=== PATIENT | female | born 1955 | race African-American/Black ===

== ENCOUNTER 2016-12-21 13:17 | Emergency (ER) | payer OTHER ==
[2016-12-21 13:47] VITALS: BMI 36.0
--- NOTE | 2016-12-21 13:50 | PDOC ---
History of Present Illness - General Chief Complaint: Cold Symptoms Stated Complaint: DIFFICULTY BREATHING Time Seen by Provider: 12/21/16 14:30 History Source: Patient Exam Limitations: No Limitations - History of Present Illness Initial Comments: 12/21/16 15:17 61 year old female with PMH of appendiceal mucinous tumor, HTN, HIV (CD4 677, VL undetectable 11/05/16), IVDU (on methadone), and COPD presenting with 3 day history of upper respiratory symptoms with productive cough, myalgias, headache , and general lethargy. She endorses a 3 day history of these viral upper respiratory symptoms without sick contacts or recent health care setting contacts. 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 No notes of the diagnosis exist but there are mentions of it in the notes. She denies diarrhea, nausea, vomiting, chest pain, or palpitations. 12/21/16 17:07 12/21/16 18:16 Past History - Past Medical History Allergies/Adverse Reactions: Allergies Allergy/AdvReac Type Severity Reaction Status Date / Time banana AdvReac Verified 12/21/16 13:59 Home Medications: Ambulatory Orders Albuterol Sulfate Inhaler - [Ventolin Hfa Inhaler -] 2 inh PO Q4H 12/21/16 Cholecalciferol (Vitamin D3) [Vitamin D3 -] 1,000 unit PO DAILY 12/21/16 Citalopram Hydrobromide [Celexa -] 40 mg PO DAILY 12/21/16 Clotrimazole [Lotrimin AF] 24 gm TP DAILY 12/21/16 Diphenhydramine HCl [Benadryl -] 25 mg PO ONCE 12/21/16 Docusate Sodium [Colace -] 100 mg PO BID 12/21/16 Dolutegravir Sodium [Tivicay] 50 mg PO DAILY 12/21/16 Emtricitabine/Tenofovir (Tdf) [Truvada 200 mg-300 mg Tablet] 1 each PO DAILY 09/04 Folic Acid 1 mg PO DAILY 12/21/16 Levofloxacin [Levaquin -] 500 mg PO DAILY #14 tablet 12/21/16 Meloxicam 7.5 mg PO DAILY 12/21/16 Naproxen Sodium [Aleve] 220 mg PO BID 12/21/16 Prednisone [Prednisone 50 MG TABLETS] 50 mg PO DAILY #4 tablet 12/21/16 Pregabalin [Lyrica -] 50 mg PO BID 12/21/16 Vitamin B Complex [B Complete] 1 tab PO DAILY 12/21/16 Anemia: Yes Asthma: Yes Cancer: Yes (appendiceal ) Cardiac Disorders: Yes (hx endocarditis) CVA: No COPD: Yes (pulmonary htn) CHF: No Dementia: No Diabetes: No GI Disorders: No Disorders: No HTN: Yes Hypercholesterolemia: No HIV: Yes Liver Disease: Yes (possible cirrhosis (hx elevated ammonia)) Psychiatric Problems: Yes (DEPRESSION, SI.) Suicide Attempt (Hx): No Seizures: No Thyroid Disease: No - Surgical History Abdominal Surgery: Yes (MULTIPLE ABORTIONS.) Appendectomy: No Cardiac Surgery: No Cholecystectomy: No Lung Surgery: No Neurologic Surgery: No Orthopedic Surgery: No - Immunization History Immunization Up to Date: Yes - Psycho/Social/Smoking Cessation Hx Anxiety: No Suicidal Ideation: No Smoking Status: Yes Smoking History: Current some day smoker Years of Tobacco Use: 40 Have you smoked in the past 12 months: No Number of Cigarettes Smoked Daily: 2,002 If you are a former smoker, when did you quit?: 4 YRS Cigars Per Day: 1 'Breaking Loose' booklet given: 05/24/13 Hx Alcohol Use: Yes Drug/Substance Use Hx: Yes Substance Use Type: Alcohol, Cocaine, Heroin Hx Substance Use Treatment: Yes (MMTP) Review of Systems - Review of Systems Constitutional: Yes: See HPI HEENTM: Yes: See HPI Respiratory: Yes: See HPI Cardiac (ROS): Yes: See HPI ABD/GI: Yes: See HPI : Yes: See HPI Musculoskeletal: Yes: See HPI Integumentary: Yes: See HPI Neurological: Yes: See HPI Endocrine: Yes: See HPI Hematologic/Lymphatic: Yes: See HPI *Physical Exam - Physical Exam General Appearance: Yes: Obese, Other (In no acute distress but somnolent yet arrousable.) HEENT: positive: EOMI, Normal ENT Inspection, Other (Pupils equal and round but contricted and minimally reactive to light. Drooling ocassionally.). negative: Photophobia Neck: positive: Normal Thyroid, Supple. negative: Rigid Respiratory/Chest: positive: Lungs Clear, Normal Breath Sounds, Decreased Breath Sounds, Other (Poor breathing effort). negative: Chest Tender, Respiratory Distress, Accessory Muscle Use Cardiovascular: positive: Regular Rhythm, Regular Rate. negative: Edema, JVD, Murmur Gastrointestinal/Abdominal: positive: Normal Bowel Sounds, Flat, Soft. negative : Tender, Organomegaly Extremity: positive: Normal Capillary Refill, Normal Inspection. negative: Pedal Edema, Swelling Neurologic: positive: Alert, Normal Mood/Affect, Other (Somnolent but arrousable. Generally lethargic which all changed after naloxone administration. ) ED Treatment Course - LABORATORY CBC & Chemistry Diagram: 12/21/16 15:10 12/21/16 15:10 Medical Decision Making - Critical Care Time Total Critical Care Time (minutes): 30 Critical Care Statement: The care of this patient involved high complexity decision making to prevent further life threatening deterioration of the patient 's condition and/or to evalute & treat vital organ system(s) failure or risk of failure. - Medical Decision Making 12/21/16 18:21 Patient was admitted for fever and general ill appearance while somnolent. Labs were drawn and they were relatively WNL. CXR did not show concern for infection. Patient was still somnolent and drooling so there was concern for airway compromise. It was known that patient recently received her Methadone and it was reduced in the past for similar somnolent episodes. The decision was made to give her narcan 0.1 mg with very robust response and agitation. The patient admitted a strong desire to go home and her clinical picture was attributed COPD exacerbation given she was afebrile without a white blood cell count. She was given one dose of prednisone 40 here with an outpatient prescription written to complete x4 more days as well as levofloxacin x 14 days. 12/21/16 18:33 *DC/Admit/Observation/Transfer Diagnosis at time of Disposition: COPD Acute exacerbation of chronic obstructive airways disease - Discharge Dispostion Disposition: HOME Condition at time of disposition: Improved Admit: No - Prescriptions Prescriptions: Levofloxacin [Levaquin -] 500 mg PO DAILY #14 tablet Prednisone [Prednisone 50 MG TABLETS] 50 mg PO DAILY #4 tablet
[2016-12-21 14:02] VITALS: TEMP 100.6
[2016-12-21] MEDS ORDERED: ALBUTEROL SO4 2.5/IPRATROPIUM 0.5 INH SOL 3 ML VIAL.NEB. NEB ONE (14:55)
[2016-12-21] MEDS: ALBUTEROL SO4 2.5/IPRATROPIUM 0.5 INH SOL 3 ML VIAL.NEB. NEB SCH ×4 (14:59→15:53)
[2016-12-21 15:26] LABS: BASOPHIL 0.4 % (0-2.0); EOSINOPHIL 0.6 % (0-4.5); MCH 34.9 pg (25.7-33.7); MCHC 32.9 g/dl (32.0-36.0); MEAN CELL VOLUME 105.8 fl (80-96); NEUTROPHILS 74.4 % (42.8-82.8); PLATELET COUNT 120 K/MM3 (134-434); RDW 13.5 % (11.6-15.6)
[2016-12-21] MEDS ORDERED: NALOXONE HCL 0.4 MG/ML VIAL IVPUSH ONE (15:38)
[2016-12-21 15:44] LABS: ALBUMIN 3.3 g/dl (3.4-5.0); ANION GAP 5 (8-16); CALCIUM 8.7 mg/dL (8.5-10.1); CO2 38 mmol/L (21-32); CREATININE 0.6 mg/dL (0.55-1.02); GLUCOSE,RANDOM 94 mg/dL (74-106); SGPT/ALT 13 U/L (12-78)
[2016-12-21 15:46] LABS: ALK PHOS 100 U/L (45-117); BILIRUBIN,TOTAL 1.6 mg/dL (0.2-1.0); TOT PROT 6.4 g/dl (6.4-8.2)
[2016-12-21 15:48] LABS: SGOT/AST 20 U/L (15-37)
[2016-12-21] MEDS ORDERED: NALOXONE HCL 0.4 MG/ML VIAL ONE (16:06)
[2016-12-21] MEDS ORDERED: predniSONE 20 MG TABLET (UD) PO ONE (16:51)
[2016-12-21] MEDS ORDERED: AZITHROMYCIN 250 MG TABLET (FP) PO ONE (16:51)
[2016-12-21] MEDS ORDERED: predniSONE 20 MG TABLET (UD) ONE (17:22)
[2016-12-21] MEDS ORDERED: AZITHROMYCIN 250 MG TABLET (FP) ONE (17:23)
[2016-12-21 17:26] VITALS: BP 109/71; PULSE 83
[2016-12-21 18:07] LABS: PLATELET ESTIMATE SLT DECREASED (NORMAL); POIKILOCYTOSIS 1+; POLYCHROMASIA 1+; TEAR DROP CELLS 1+
--- NOTE | 2016-12-30 14:29 | EKG ---
Test Reason : Blood Pressure : / mmHG Vent. Rate : 093 BPM Atrial Rate : 093 BPM P-R Int : 168 ms QRS Dur : 098 ms QT Int : 396 ms P-R-T Axes : 067 061 061 degrees QTc Int : 492 ms NORMAL SINUS RHYTHM PROLONGED QT ABNORMAL ECG WHEN COMPARED WITH ECG OF 12-AUG-2016 09:29, NO SIGNIFICANT CHANGE WAS FOUND Confirmed by JOSELITO MORALES MD ([id number]) on 12/30/2016 2:29:13 PM Referred By: Confirmed By:JOSELITO MORALES MD
== END 2016-12-21 17:49 | disposition home or self-care (01) ==
LOC: JER 13:17
PROC: 3E0F7GC Introduction of Other Therapeutic Substance into Respiratory Tract, Via Natural or Artificial Opening (ICD-10-PCS; principal; 2016-12-21)
PROC: 3E033GC Introduction of Other Therapeutic Substance into Peripheral Vein, Percutaneous Approach (ICD-10-PCS; 2016-12-21)
DX: J44.1 Chronic obstructive pulmonary disease with (acute) exacerbation (principal); I10 Essential (primary) hypertension; F11.20 Opioid dependence, uncomplicated; Z21 Asymptomatic human immunodeficiency virus [HIV] infection status; F32.9 Major depressive disorder, single episode, unspecified; D64.9 Anemia, unspecified; F17.210 Nicotine dependence, cigarettes, uncomplicated
CPT/HCPCS: 36415; 71010-TC; 80053; 83605; 85025; 87040; 93005; 93010; 94640; 96374; 99284-25; G0463-25

== ENCOUNTER 2017-01-23 08:29 | Emergency (ER) | payer OTHER ==
[2017-01-23 08:52] VITALS: TEMP 98.7; BMI 30.1
[2017-01-23] MEDS ORDERED: IBUPROFEN 400 MG TABLET (FP) PO ONE ×2 (09:19→09:26)
[2017-01-23] MEDS ORDERED: CYCLOBENZAPRINE HCL 10 MG TABLET (FP) PO ONE (09:20)
[2017-01-23] MEDS ORDERED: CYCLOBENZAPRINE HCL 10 MG TABLET (FP) ONE (09:26)
--- NOTE | 2017-01-23 09:29 | PDOC ---
History of Present Illness - General Chief Complaint: Injury Stated Complaint: FALL Time Seen by Provider: 01/23/17 09:15 History Source: Patient - History of Present Illness Occurred: reports: yesterday Severity: reports: moderate Pain Location: reports: lower extremity Past History - Past Medical History Allergies/Adverse Reactions: Allergies Allergy/AdvReac Type Severity Reaction Status Date / Time banana AdvReac Verified 01/23/17 08:45 Home Medications: Ambulatory Orders Cholecalciferol (Vitamin D3) [Vitamin D3 -] 1,000 unit PO DAILY 12/21/16 Clotrimazole [Lotrimin AF] 24 gm TP DAILY 12/21/16 Diphenhydramine HCl [Benadryl -] 25 mg PO ONCE 12/21/16 Levofloxacin [Levaquin -] 500 mg PO DAILY #14 tablet 12/21/16 Meloxicam 7.5 mg PO DAILY 12/21/16 Naproxen Sodium [Aleve] 220 mg PO BID 12/21/16 Prednisone [Prednisone 50 MG TABLETS] 50 mg PO DAILY #4 tablet 12/21/16 Vitamin B Complex [B Complete] 1 tab PO DAILY 12/21/16 Docusate Sodium [Colace -] 100 mg PO BID #60 cap 12/24/16 Dolutegravir Sodium [Tivicay] 50 mg PO DAILY #30 tab 12/24/16 Emtricitabine/Tenofovir (Tdf) [Truvada 200 mg-300 mg Tablet] 1 each PO DAILY # 30 tab 12/24/16 Pregabalin [Lyrica -] 50 mg PO BID #60 cap MDD 2 01/01/17 Albuterol Sulfate Inhaler - [Ventolin Hfa Inhaler -] 2 inh PO Q4H PRN #1 inhaler 01/07/17 Folic Acid 1 mg PO DAILY #30 tab 01/07/17 Nicotine Patch [Nicoderm Patch -] 1 patch TD DAILY #30 patch 01/07/17 Citalopram Hydrobromide [Celexa -] 40 mg PO DAILY #30 tablet 01/13/17 Lorazepam 0.5 mg PO HS PRN #30 tablet MDD 1 01/13/17 Pregabalin [Lyrica -] 75 mg PO BID #60 capsule MDD 2 01/20/17 Acetaminophen [Tylenol] 650 mg PO Q6H #30 tablet 01/23/17 Anemia: Yes Asthma: Yes Cancer: Yes (appendiceal ) Cardiac Disorders: Yes (hx endocarditis) CVA: No COPD: Yes (pulmonary htn) CHF: No Dementia: No Diabetes: No GI Disorders: No Disorders: No HTN: Yes Hypercholesterolemia: No HIV: Yes Liver Disease: Yes (possible cirrhosis (hx elevated ammonia)) Psychiatric Problems: Yes (DEPRESSION, SI.) Suicide Attempt (Hx): No Seizures: No Thyroid Disease: No Other medical history: PAD - Surgical History Abdominal Surgery: Yes (MULTIPLE ABORTIONS.) Appendectomy: No Cardiac Surgery: No Cholecystectomy: No Lung Surgery: No Neurologic Surgery: No Orthopedic Surgery: No - Immunization History Immunization Up to Date: Yes - Psycho/Social/Smoking Cessation Hx Anxiety: No Suicidal Ideation: No Smoking Status: Yes Smoking History: Current every day smoker Years of Tobacco Use: 40 Have you smoked in the past 12 months: No Number of Cigarettes Smoked Daily: 3 If you are a former smoker, when did you quit?: 4 YRS Cigars Per Day: 1 Information on smoking cessation initiated: No 'Breaking Loose' booklet given: 05/24/13 Hx Alcohol Use: No Drug/Substance Use Hx: No Substance Use Type: Alcohol, Cocaine, Heroin Hx Substance Use Treatment: Yes ([facility]MTP) Review of Systems - Review of Systems Constitutional: No: Chills, Fever Respiratory: No: Cough, Shortness of Breath Cardiac (ROS): No: Chest Pain Musculoskeletal: No: Joint Pain, Joint Swelling *Physical Exam - Vital Signs Last Vital Signs Temp Pulse Resp BP Pulse Ox 98.7 F 78 17 130/91 90 L 01/23/17 08:46 01/23/17 08:46 01/23/17 08:46 01/23/17 08:46 01/23/17 08:46 - Physical Exam General Appearance: Yes: Appropriately Dressed. No: Apparent Distress HEENT: positive: Normal Voice Neck: positive: Supple Respiratory/Chest: positive: Lungs Clear, Normal Breath Sounds. negative: Respiratory Distress, Wheezing Cardiovascular: positive: Regular Rate, S1, S2 Extremity: positive: Normal Inspection, Normal Range of Motion. negative: Tender, Swelling, Erythema Integumentary: positive: Dry, Warm Neurologic: positive: Fully Oriented, Alert, Normal Mood/Affect ED Treatment Course - RADIOLOGY Radiology Studies Ordered: Category Date Time Status FEMUR-RIGHT [RAD] Stat Radiology 01/23/17 09:19 Ordered HIP & PELVIS-RIGHT [RAD] Stat Radiology 01/23/17 09:19 Ordered Medical Decision Making - Medical Decision Making 01/23/17 09:21 61 yo F, h/o appendiceal mucinous tumor, HTN, IVDU (on methadone), COPD (not on oxygen, currently smokes), HIV (on meds, CD4 600s, UD VL), p/w R leg pain s/p fall. Pt states while getting off commode last night, she lost her balance and "twisted" R leg. States she was sleepy at the time and thinks this contributed to injury. States she did not fall and was able to get off commode on her own and has been able to bear weight since but continues to have pain to R thigh. Denies hip or back pain. Has been using topical Nsaid to R thigh w/ no relief so here for pain control. See exam R thigh strain 2/2 twisting injury No fall Able to bear weight No swelling/deformity on exam -pain control -XR Hypoxia Sating 90% on RA, usually sats low per pt Chest/lungs clear H/o COPD, not on home oxygen, continues to smoke -appears comfortable on NC -if discharged, will have pt discuss ? oxygen therapy at home w/ PMD 01/23/17 09:36 01/23/17 10:37 XR neg for fx. Pt reports feeling better w/ meds. Stable for discharge at this time. 01/23/17 11:16 01/23/17 11:21 *DC/Admit/Observation/Transfer Diagnosis at time of Disposition: Leg strain - Discharge Dispostion Disposition: HOME Condition at time of disposition: Improved - Prescriptions Prescriptions: Acetaminophen [Tylenol] 650 mg PO Q6H #30 tablet - Patient Instructions Printed Discharge Instructions: Muscle Strain Additional Instructions: Take tylenol as directed Please discuss home oxygen with your PMD as your oxygen in ED was low 90s Strongly consider stopping smoking
[2017-01-23 11:57] VITALS: BP 128/65; PULSE 72
== END 2017-01-23 11:54 | disposition home or self-care (01) ==
LOC: JER 08:29
DX: S76.911A Strain of unspecified muscles, fascia and tendons at thigh level, right thigh, initial encounter (principal); X50.0XXA Overexertion from strenuous movement or load, initial encounter; Y93.89 Activity, other specified; Y92.002 Bathroom of unspecified non-institutional (private) residence as the place of occurrence of the external cause; D64.9 Anemia, unspecified; J45.909 Unspecified asthma, uncomplicated; Z85.89 Personal history of malignant neoplasm of other organs and systems; Z86.79 Personal history of other diseases of the circulatory system; J44.9 Chronic obstructive pulmonary disease, unspecified; I10 Essential (primary) hypertension; I27.2 Other secondary pulmonary hypertension; Z21 Asymptomatic human immunodeficiency virus [HIV] infection status; F17.210 Nicotine dependence, cigarettes, uncomplicated
CPT/HCPCS: 73523-TC; 73552-TC-RT; 99283-25

== ENCOUNTER 2017-04-08 12:41 | Inpatient (IN) | payer OTHER ==
--- NOTE | 2017-04-08 13:25 | PDOC ---
History of Present Illness - General Chief Complaint: Shortness of Breath Stated Complaint: DIFFICULTY BREATHING Time Seen by Provider: 04/08/17 13:06 History Source: Patient Exam Limitations: No Limitations - History of Present Illness Initial Comments: 04/08/17 13:25 The patient is a 61 year old female, with a significant past medical history of HTN, HIV (on meds, CD4 in 900's, RNA undetectable), appendiceal tumor (stable), and COPD who presents to the emergency department with shortness of breath x 3 days. Patient states she was around her friend who had bronchitis prior to these symptoms. Patient endorses chest tightness, cough with yellow/green sputum , right sided lower chest pain, which is worse upon inspiration, and wheezing. Patient also states she has had myalgias. Patient denies fever, chills, n/v/d/c , abd pain, dysuria, frequency, urgency and hematuria. Allergies: NKDA Past surgical history: Denies Social history: Denies. Occasional smoking PMD - Dr. Morris Past History - Past Medical History Allergies/Adverse Reactions: Allergies Allergy/AdvReac Type Severity Reaction Status Date / Time banana AdvReac Verified 04/08/17 12:55 Home Medications: Ambulatory Orders Clotrimazole [Lotrimin AF] 24 gm TP DAILY 12/21/16 Diphenhydramine HCl [Benadryl -] 25 mg PO ONCE 12/21/16 Levofloxacin [Levaquin -] 500 mg PO DAILY #14 tablet 12/21/16 Meloxicam 7.5 mg PO DAILY 12/21/16 Naproxen Sodium [Aleve] 220 mg PO BID 12/21/16 Prednisone [Prednisone 50 MG TABLETS] 50 mg PO DAILY #4 tablet 12/21/16 Vitamin B Complex [B Complete] 1 tab PO DAILY 12/21/16 Pregabalin [Lyrica -] 50 mg PO BID #60 cap MDD 2 01/01/17 Folic Acid 1 mg PO DAILY #30 tab 01/07/17 Nicotine Patch [Nicoderm Patch -] 1 patch TD DAILY #30 patch 01/07/17 Acetaminophen [Tylenol] 650 mg PO Q6H #30 tablet 01/23/17 Ranitidine [Zantac -] 150 mg PO DAILY PRN #30 tablet 02/08/17 Pregabalin [Lyrica -] 50 mg PO BID #60 capsule MDD 2 03/05/17 Pregabalin [Lyrica -] 75 mg PO BID #60 capsule MDD 2 04/02/17 Citalopram Hydrobromide [Celexa -] 40 mg PO DAILY #30 tablet 04/07/17 Albuterol Sulfate Inhaler - [Ventolin HFA Inhaler -] 2 inh PO Q4H PRN #1 inhaler 04/08/17 Cholecalciferol (Vitamin D3) [Vitamin D3 -] 1,000 unit PO DAILY #30 cap Docusate Sodium [Colace -] 100 mg PO BID #60 cap 04/08/17 Dolutegravir Sodium [Tivicay] 50 mg PO DAILY #30 tab 04/08/17 Emtricitabine/Tenofovir (Tdf) [Truvada 200 mg-300 mg Tablet] 1 each PO DAILY # 30 tab 04/08/17 Polyethylene Glycol 3350 [Miralax 255 gm Btl -] 17 gm PO DAILY #1 bottle Anemia: Yes Asthma: Yes Cancer: Yes (appendiceal ) Cardiac Disorders: Yes (hx endocarditis) CVA: No COPD: Yes (pulmonary htn) CHF: No Dementia: No Diabetes: No GI Disorders: No Disorders: No HTN: Yes Hypercholesterolemia: No Liver Disease: Yes (possible cirrhosis (hx elevated ammonia)) Psychiatric Problems: Yes (DEPRESSION, SI.) Seizures: No Thyroid Disease: No - Surgical History Abdominal Surgery: Yes (MULTIPLE ABORTIONS.) Appendectomy: No Cardiac Surgery: No Cholecystectomy: No Lung Surgery: No Neurologic Surgery: No Orthopedic Surgery: No - Immunization History Immunization Up to Date: Yes - Suicide/Smoking/Psychosocial Hx Smoking Status: Yes Smoking History: Current some day smoker Years of Tobacco Use: 40 Have you smoked in the past 12 months: No Number of Cigarettes Smoked Daily: 1 If you are a former smoker, when did you quit?: 4 YRS Cigars Per Day: 1 Information on smoking cessation initiated: No 'Breaking Loose' booklet given: 05/24/13 Hx Alcohol Use: No Drug/Substance Use Hx: No Substance Use Type: Alcohol, Cocaine, Heroin Hx Substance Use Treatment: Yes (MMTP) Review of Systems - Review of Systems Able to Perform ROS?: Yes Comments:: 04/08/17 13:25 GENERAL/CONSTITUTIONAL: No fever or chills. No weakness. HEAD, EYES, EARS, NOSE AND THROAT: No change in vision. No ear pain or discharge. No sore throat. CARDIOVASCULAR: + chest pain, + shortness of breath RESPIRATORY: +cough, +wheezing, no hemoptysis. GASTROINTESTINAL: No nausea, vomiting, diarrhea or constipation. GENITOURINARY: No dysuria, frequency, or change in urination. MUSCULOSKELETAL: No joint or muscle swelling or pain. No neck or back pain. SKIN: No rash NEUROLOGIC: No headache, vertigo, loss of consciousness, or change in strength/ sensation. ENDOCRINE: No increased thirst. No abnormal weight change HEMATOLOGIC/LYMPHATIC: No anemia, easy bleeding, or history of blood clots. ALLERGIC/IMMUNOLOGIC: No hives or skin allergy. Is the patient limited Ivorian proficient: Yes *Physical Exam - Vital Signs Last Vital Signs Temp Pulse Resp BP Pulse Ox 97.8 F 80 20 149/89 96 04/08/17 12:56 04/08/17 12:56 04/08/17 12:56 04/08/17 12:56 04/08/17 13:14 - Physical Exam Comments: 04/08/17 13:25 GENERAL: Awake, alert, and fully oriented, in no acute distress HEAD: No signs of trauma, normocephalic, atraumatic EYES: PERRLA, EOMI, sclera anicteric, conjunctiva clear ENT: Auricles normal inspection, hearing grossly normal, nares patent, oropharynx clear without exudates. Moist mucosa NECK: Normal ROM, supple, no lymphadenopathy, JVD, or masses LUNGS: No distress, speaks full sentences, Bilateral inspiratory & expiratory wheezing, decreased breath sounds @ left lung base. No crackles HEART: Regular rate and rhythm, normal S1 and S2, no murmurs, rubs or gallops, peripheral pulses normal and equal bilaterally. ABDOMEN: Soft, nontender, normoactive bowel sounds. No guarding, no rebound. No masses EXTREMITIES: Normal inspection. No clubbing or cyanosis. No tenderness to palpation of hip or lower extremities NEUROLOGICAL: Cranial nerves II through XII grossly intact. Normal speech, no focal sensorimotor deficits. Decreased strength in bilateral lower extremities SKIN: Warm, Dry, normal turgor, no rashes or lesions notes, venous stasis changes in b/l LE 04/08/17 14:33 ED Treatment Course - LABORATORY CBC & Chemistry Diagram: 04/08/17 13:22 04/08/17 13:22 - RADIOLOGY Radiology Studies Ordered: Category Date Time Status CHEST X-RAY PORTABLE* [RAD] Stat Radiology 04/08/17 13:08 Ordered Medical Decision Making - Medical Decision Making 04/08/17 15:50 The patient is a 61 year old female, with a significant past medical history of HTN, HIV, and COPD who presents to the emergency department with Shortness of breath x 3 days. Patient satting in the lower 80s on room air Plan: CBC, CMP, EKG, BNP, ABG, CXR, Duonebs, Mg, Solumederol 04/08/17 15:52 ABG- CO2 retention -- 61.3 CBC- unremarkable CMP- unremarkable. Patient placed on bi-pap. Lungs more clear on re-examination. Patient accepted to med/surg. *DC/Admit/Observation/Transfer Diagnosis at time of Disposition: COPD (chronic obstructive pulmonary disease) Qualifiers: COPD type: COPD with acute exacerbation Qualified Code(s): J44.1 - Chronic obstructive pulmonary disease with (acute) exacerbation - Discharge Dispostion Admit: Yes - Referrals Referrals: Nikki Morris MD [Primary Care Provider] -
[2017-04-08] MEDS ORDERED: ALBUTEROL SO4 2.5/IPRATROPIUM 0.5 INH SOL 3 ML VIAL.NEB. NEB ONE ×4 (13:43→20:51)
[2017-04-08 14:28] LABS: BASOPHIL 0.6 % (0-2.0); EOSINOPHIL 3.5 % (0-4.5); MCH 32.6 pg (25.7-33.7); MCHC 32.7 g/dl (32.0-36.0); MEAN CELL VOLUME 99.8 fl (80-96); MEAN PLT VOLUME 10.1 fl (7.5-11.1); NEUTROPHILS 63.3 % (42.8-82.8); PLATELET COUNT 132 K/MM3 (134-434); RDW 12.5 % (11.6-15.6); WHITE BLOOD COUNT 5.9 K/mm3 (4.0-10.0)
[2017-04-08 14:49] LABS: ALBUMIN 3.4 g/dl (3.4-5.0); ALK PHOS 141 U/L (45-117); ANION GAP 1 (8-16); CALCIUM 8.7 mg/dL (8.5-10.1); CO2 37 mmol/L (21-32); CREATININE 0.6 mg/dL (0.55-1.02); GLUCOSE,RANDOM 111 mg/dL (74-106); SGOT/AST 11 U/L (15-37); SGPT/ALT 11 U/L (12-78); TOT PROT 6.7 g/dl (6.4-8.2)
[2017-04-08] MEDS ORDERED: methylPREDNISolone NA SUCC 125 MG/2 ML VIAL IVPUSH ONE (14:50)
[2017-04-08] MEDS ORDERED: MAGNESIUM SULF 50% (8.12 MEQ/2 ML-1 GM VIAL) IVPB ONE (14:50)
--- NOTE | 2017-04-08 14:55 | EKG ---
Test Reason : Blood Pressure : / mmHG Vent. Rate : 075 BPM Atrial Rate : 075 BPM P-R Int : 168 ms QRS Dur : 094 ms QT Int : 416 ms P-R-T Axes : 064 058 060 degrees QTc Int : 464 ms NORMAL SINUS RHYTHM NORMAL ECG WHEN COMPARED WITH ECG OF 21-DEC-2016 13:54, NO SIGNIFICANT CHANGE WAS FOUND Confirmed by COLLEEN SAHU MD ([id number]) on 04/08/2017 2:54:56 PM Referred By: Confirmed By:COLLEEN SAHU MD
[2017-04-08] MEDS ORDERED: MAGNESIUM SULF 50% (8.12 MEQ/2 ML-1 GM VIAL) ONE (15:09)
[2017-04-08] MEDS ORDERED: methylPREDNISolone NA SUCC 125 MG/2 ML VIAL ONE (15:09)
[2017-04-08 15:15] LABS: ARTERIAL BLD GAS O2 SATURATION 79.6 % (90-98.9); ARTERIAL BLOOD GAS BASE EXCESS 7.7 meq/l (-2-2); ARTERIAL BLOOD GAS HCO3 34.6 meq/L (22-26); ARTERIAL BLOOD GAS PO2 44.3 mmHg (80-100); ARTERIAL BLOOD GAS pH 7.37 (7.35-7.45)
[2017-04-08 15:17] LABS: ALLENS TEST POSITIVE; ART PUNCT SITE RIGHT RADIAL; LPM/O2% RA; METHEMOGLOBIN 0.4 % (0.4-1.5); PT. ON O2? NO; TYPE OF O2 ROOM AIR
[2017-04-08 15:18] LABS: CPK 47 IU/L (26-192); TROPONIN I < 0.02 ng/ml (0.00-0.05)
--- NOTE | 2017-04-08 15:49 | PDOC ---
Attending Attestation - Resident Resident Name: Wade Pierre - ED Attending Attestation I have performed the following: I have examined & evaluated the patient, The case was reviewed & discussed with the resident, I agree w/resident's findings & plan, Exceptions are as noted - HPI HPI: 04/08/17 15:36 61-year-old female with history of hypertension, COPD, HIV (CD4 count above 600 , viral load undetectable) presents to the ER with shortness of breath from [facility]. Shortness of breath has persisted over the past several days. - Physicial Exam PE: 04/08/17 15:50 Patient is lethargic but easily arousable, mildly dyspneic, in mild respiratory distress; patient is noted to be hypoxemic on room air, requiring 2 L via nasal cannula to maintain oxygen saturation of 92%. HEAD: Normocephalic; atraumatic EYES: PERRL; EOM intact ENMT: External appears normal; normal oropharynx NECK: Supple; non-tender; no cervical lymphadenopathy CARD: Normal S1, S2; no murmurs, rubs, or gallops RESP: Patient is tachypneic and dyspneic; there is decreased air entry bilaterally with inspiratory and expiratory wheezing bilaterally; ABD: Soft, non-distended; non-tender; no palpable organomegaly, no palpable hernias EXT: Normal ROM in all four extremities; non-tender to palpation; distal pulses intact SKIN: Warm, dry, no rash NEURO: - Medical Decision Making 04/08/17 15:51 61-year-old female with history of COPD, HIV presents to the ER with signs and symptoms of moderate to severe acute COPD exacerbation. I suspect an infectious etiology. We will administer Combivent therapy with albuterol/Atrovent; we'll administer Solu-Medrol and magnesium sulfate IV. Will place patient on BiPAP. Will obtain an ABG to evaluate for hypercapnia and hypoxemia. Will obtain CBC/ CMP/blood cultures. Likely admission.
[2017-04-08] MEDS ORDERED: LEVOFLOXACIN 500 MG IVPB 100 ML IVPB ONE ×2 (15:51→16:26)
--- NOTE | 2017-04-08 18:45 | PN ---
Teaching Attending Note Name of Resident: Pierre Newman ATTENDING PHYSICIAN STATEMENT I saw and evaluated the patient. I reviewed the resident's note and discussed the case with the resident. I agree with the resident's findings and plan as documented. SUBJECTIVE: CC: SOB x 3 days HPI: 61 y/o lady with h/o HTN, HIV on HAART, COPD , appendiceal tumor , and h/o opioid dependence who presented with SOB x 3 days . She reports cough with productive cough of yellow sputum, has no fever or chills , has no Chest pain but feels tightness in R sided chest. reports sick contact with her friends. reports runny nose in past few days . used her Nebs at home but it did not help. feels sleepy. complains of chronic abd pain ,and coccyx pain which has not changed . s/p fall a month ago OBJECTIVE: NAD, pleasant and cooperative HEENT: BIPAP mask on, no facial droop. No LAP in neck. Can't evaluate oral cavity while on BIPAP CV: RRR, no MRG Lungs: clear , no crackles, prolonged expiratory phase. Abd : obese, soft, NT, ND , NL BS . Ext: trace edema , thick skin with hyperpigmentation. Fungal infection in some toes webs on both sides Neuro : no facial droop, tongue at mjid line, nl facial sensation , round equal pupils , reactive to light . strength 5/5 in upper and lower extremities proximally and distally, sensation to light touch NL. reflexes 2+ knee jerk and bicpes b/l ASSESSMENT AND PLAN: Pleasant 61 y/o lady with h/o HTN, HIV on HAART, COPD , appendiceal tumor , and h/o opioid dependence who presented with SOB x 3 days. She is diagnosed with COPD exacerbation 1- Acute hypoxic hypercapnic resp failure due to acute COPD exacerbation: requires BIPAP - COnt BIPAP , remove for feeding. - steroids - DuoNEbs - start advair BID - Obtain Flu swab - No evidence of PNA , but will give po Abx for antiinflammatory effect. x 3 days . Qtc is > 460 , avoid floroquinolons and macrolides . received levaquin in ER today, will give Doxy x 2 more days starting tomorrow - CT scan of chest from previous admisison was reviewed, prominance of R hilum . will d/w radiology. 2- H/o appendiceal tumor : chronic , followed by CTs as out pt . last CT abd/ pelvis reviewed. 3- H/O HIV: cont HAART 4- neuropathy: Lyrica, 5- opioid dependence : will confirm methadone dose and cont DVT PX
[2017-04-08] MEDS ORDERED: ALBUTEROL SO4 2.5/IPRATROPIUM 0.5 INH SOL 3 ML VIAL.NEB. NEB PRN (20:13)
--- NOTE | 2017-04-08 20:26 | HP ---
CHIEF COMPLAINT: SOB PCP: Arturo HISTORY OF PRESENT ILLNESS: 61F w/ significant hx of COPD, sleep apnea, and HIV (compliant on HAART, last CD4 in 900s and RNA undetectable) presenting with SOB for 3 days. She endorses a sick contact, viral sxs (congested nose), chest tightness and pleuritic pain, productive cough of yellow-green sputum, wheezing, orthopnea, and myalgias. She also endorses falling out of her bed during sleep onto her right side, complaining of pain on right hip. She denies fevers, chills, abdominal pain, n/v /d, and dysuria. ER course was notable for: (1) hypoxia of 85% on RA (2) bicarb of 37 (3) ABG with pCO2 of 61 and bicarb of 35 Recent Travel: PAST MEDICAL HISTORY: HTN HIV Appendiceal tumor (stable) COPD endocarditis PUlmonary HTN depression HCV sleep apnea PAST SURGICAL HISTORY: multiple abortions Social History: Smoking: few cigarettes every few days Alcohol: 3 beers per day for many years, quit 2 months ago Drugs: remote hx of multiple drugs including heroin, quit 30 years ago, now on methadone Family History: Allergies banana Adverse Reaction (Verified 04/08/17 12:55) HOME MEDICATIONS: Home Medications Medication Instructions Recorded Pregabalin [Lyrica -] 75 mg PO BID #60 capsule MDD 2 04/02/17 Citalopram Hydrobromide [Celexa -] 40 mg PO DAILY #30 tablet 04/07/17 Albuterol Sulfate Inhaler - 2 inh PO Q4H PRN #1 inhaler 04/08/17 [Ventolin HFA Inhaler -] Docusate Sodium [Colace -] 100 mg PO BID #60 cap 04/08/17 Dolutegravir Sodium [Tivicay] 50 mg PO DAILY #30 tab 04/08/17 Emtricitabine/Tenofovir (Tdf) 1 each PO DAILY #30 tab 04/08/17 [Truvada 200 mg-300 mg Tablet] Polyethylene Glycol 3350 [Miralax 17 gm PO DAILY #1 bottle 04/08/17 255 gm Btl -] REVIEW OF SYSTEMS CONSTITUTIONAL: Absent: fever, chills, diaphoresis, generalized weakness, malaise, loss of appetite, weight change HEENT: Absent: rhinorrhea, throat pain, throat swelling, difficulty swallowing, mouth swelling, ear pain, eye pain, visual changes Positive: nasal congestion CARDIOVASCULAR: Absent: chest pain, syncope, palpitations, irregular heart rate, lightheadedness , peripheral edema RESPIRATORY: Absent: dyspnea with exertion, hemoptysis Positive: cough, SOB, orthopnea, wheezing GASTROINTESTINAL: Absent: abdominal pain, abdominal distension, nausea, vomiting, diarrhea, melena , hematochezia Positive: constipation GENITOURINARY: Absent: hesitancy, hematuria, flank pain, genital pain Positive: frequency, urgency MUSCULOSKELETAL: Absent: arthralgia, joint swelling, back pain, neck pain Positive: myalgias SKIN: Absent: rash, itching, pallor HEMATOLOGIC/IMMUNOLOGIC: Absent: easy bleeding, easy bruising, lymphadenopathy, frequent infections ENDOCRINE: Absent: unexplained weight gain, unexplained weight loss, heat intolerance, cold intolerance NEUROLOGIC: Absent: headache, dizziness, unsteady gait, seizure, mental status changes, bladder or bowel incontinence Present: peripheral neuropathy in legs PSYCHIATRIC: Absent: anxiety, depression, suicidal or homicidal ideation, hallucinations. PHYSICAL EXAMINATION Vital Signs - 24 hr 04/08/17 04/08/17 04/08/17 12:56 13:14 13:50 Temperature 97.8 F Pulse Rate 80 Pulse Rate [ Apical] Respiratory 20 Rate Blood Pressure 149/89 Blood Pressure [Right Arm] O2 Sat by Pulse 85 L 96 99 Oximetry (%) 04/08/17 04/08/17 15:32 18:30 Temperature Pulse Rate Pulse Rate [ 69 Apical] Respiratory 20 Rate Blood Pressure Blood Pressure 119/72 [Right Arm] O2 Sat by Pulse 95 97 Oximetry (%) GENERAL: Awake, alert, and fully oriented, in no acute distress, breathing comfortably on BIPAP. HEAD: Normal with no signs of trauma. EYES: Pupils equal, round and reactive to light, extraocular movements intact, sclera anicteric, conjunctiva clear. No lid lag. EARS, NOSE, THROAT: Ears normal, Moist mucous membranes. NECK: Normal range of motion, supple without lymphadenopathy, JVD, or masses. LUNGS: rhonchi overlying right lung, cleared after coughing, no rales or stridor. No accessory muscle use. HEART: Regular rate and rhythm, normal S1 and S2 without murmur, rub or gallop. ABDOMEN: Soft, nontender, not distended, normoactive bowel sounds, no guarding, no rebound, no masses. No hepatomegaly or splenomegaly. Extremities: Normal range of motion at all joints. No bony deformities or tenderness. No CVA tenderness. 1+ pitting edema in b/l LE. LE show signs of chronic venous stasis-thickened skin, scaly, hyperpigmented NEUROLOGICAL: Cranial nerves II-XII intact. Normal speech. gait not observed. PSYCHIATRIC: Cooperative. Good eye contact. Appropriate mood and affect. SKIN: Warm, dry, normal turgor, no rashes or lesions noted, normal capillary refill. Laboratory Results - last 24 hr 04/08/17 04/08/17 04/08/17 13:22 13:22 13:22 WBC 5.9 D RBC 4.15 Hgb 13.5 Hct 41.4 MCV 99.8 H MCH 32.6 MCHC 32.7 RDW 12.5 Plt Count 132 L MPV 10.1 D Neutrophils % 63.3 Lymphocytes % 24.2 D Monocytes % 8.4 Eosinophils % 3.5 D Basophils % 0.6 Puncture Site ABG pH ABG pCO2 at Pt Temp ABG pO2 at Pt Temp ABG HCO3 ABG O2 Sat (Measured) ABG O2 Content ABG Base Excess Mika Test Carboxyhemoglobin Methemoglobin O2 Delivery Device Oxygen Flow Rate PEEP Sodium 138 Potassium 4.1 Chloride 100 Carbon Dioxide 37 H Anion Gap 1 L BUN 8 Creatinine 0.6 Creat Clearance w eGFR > 60 Random Glucose 111 H D Calcium 8.7 Total Bilirubin 1.0 AST 11 L D ALT 11 L D Alkaline Phosphatase 141 H D Creatine Kinase Troponin I B-Natriuretic Peptide 184.44 H Total Protein 6.7 Albumin 3.4 04/08/17 04/08/17 13:22 15:10 WBC RBC Hgb Hct MCV MCH MCHC RDW Plt Count MPV Neutrophils % Lymphocytes % Monocytes % Eosinophils % Basophils % Puncture Site Right radial ABG pH 7.37 ABG pCO2 at Pt Temp 61.3 H* ABG pO2 at Pt Temp 44.3 L* D ABG HCO3 34.6 H ABG O2 Sat (Measured) 79.6 L ABG O2 Content 14.3 L ABG Base Excess 7.7 H Mika Test Positive Carboxyhemoglobin 3.1 H Methemoglobin 0.4 O2 Delivery Device Room air Oxygen Flow Rate Ra PEEP 0.0 Sodium Potassium Chloride Carbon Dioxide Anion Gap BUN Creatinine Creat Clearance w eGFR Random Glucose Calcium Total Bilirubin AST ALT Alkaline Phosphatase Creatine Kinase 47 Troponin I < 0.02 B-Natriuretic Peptide Total Protein Albumin CXR: no acute process EKG: NSR, QTc of 464 ASSESSMENT/PLAN: 61F w/ significant hx of COPD, sleep apnea, and HIV (compliant on HAART, last CD4 in 900s and RNA undetectable) who presented with acute SOB, productive cough , and wheezing, found to have hypoxia and hypercapnia, admitted for acute hypercapnic hypoxic respiratory failure 2/2 COPD exacerbation. #Acute hypercapnic hypoxic respiratory failure- 2/2 COPD exacerbation -likely triggered by preceding virus -methylprednisone 40mg BID, bipap, duonebs scheduled and PRN, rapid flu swab (order full respiratory panel if negative) -continuous pulse oximetry -start advair GID -doxycyline for 2 more days #Right Hip pain -f/u XR -PT eval #Elevated ALP -trend candi. If elevated, can order GGT to differentiate hepatic vs. bone etiology #HIV -continue truvada and tivicay #opiate dependence -continue methadone 75mg. Confirm dose #constipation -continue docusate and miralax #peripheral neuropathy -continue lyrica #depression -continue celexa #FEN/PPx -no fluids -electrolytes wnl -low-sodium diet -no GI ppx indicated -lovenox 40 -Full Code -Pierre Newman MD PGY1 Visit type - Emergency Visit Emergency Visit: Yes ED Registration Date: 04/08/17 Care time: The patient presented to the Emergency Department on the above date and was hospitalized for further evaluation of their emergent condition. - New Patient This patient is new to me today: Yes Date on this admission: 04/09/17 - Critical Care Critical Care patient: No
[2017-04-08] MEDS: ALBUTEROL SO4 2.5/IPRATROPIUM 0.5 INH SOL 3 ML VIAL.NEB. NEB SCH ×2 (20:50→23:32)
--- NOTE | 2017-04-08 20:50 | HP ---
CHIEF COMPLAINT: SOB PCP: Dr. Morris, [facility] HISTORY OF PRESENT ILLNESS: 61 yr old woman with HIV complaint with HAART, COPD referred to ED by PCP for 3 days of productive cough and progressive worsening of shortness of breath a/w right sided chest pressure and clear rhinorrhea. also fell 1 month ago flat onto her coccyx and has been ambulating with a walker due to pain, normally does not use a walker. she feel 1 week ago: rolled off the bed onto her right side. ER course was notable for: (1) duonebs, ABG (2) Bipap (3) cxy PAST MEDICAL HISTORY: COPD, HCV, HIV neuropathy, hx of endocarditis, former substance abuser, sleep apnea Social History: daughter is the healthcare proxy. Smoking: former heavy smoker, occasional smokes now Alcohol/drugs: former etoh abuser/cocaine,heroin, crack user Family History: says "everyone has disablities" Allergies banana Adverse Reaction (Verified 04/08/17 12:55) pt has abdominal pain HOME MEDICATIONS: confirmed with [facility] truvalma, tivicay 1 tab daily ventolin pump vit D 1000 units daily docusate 100 bid Celexa 40mg qd lyrica 75mg 1 tab bid miralax prn PHYSICAL EXAMINATION Vital Signs - 24 hr 04/08/17 04/08/17 04/08/17 12:56 13:14 13:50 Temperature 97.8 F Pulse Rate 80 Pulse Rate [ Apical] Respiratory 20 Rate Blood Pressure 149/89 Blood Pressure [Right Arm] O2 Sat by Pulse 85 L 96 99 Oximetry (%) 04/08/17 04/08/17 15:32 18:30 Temperature Pulse Rate Pulse Rate [ 69 Apical] Respiratory 20 Rate Blood Pressure Blood Pressure 119/72 [Right Arm] O2 Sat by Pulse 95 97 Oximetry (%) GENERAL: Awake, alert, and fully oriented, in no acute distress. EYES: Pupils equal, round and reactive to light, extraocular movements intact, sclera anicteric, conjunctiva clear. No lid lag. EARS, NOSE, THROAT: upper palate with dried rust colored sputum, no oral lesions , poor dentition. Moist mucous membranes. bipap in place NECK: Normal range of motion, supple LUNGS: b/l rhonchi throughout L>R with scattered expiratory wheezing HEART: Regular rate and rhythm, normal S1 and S2 without murmur ABDOMEN: Soft, nontender, not distended, normoactive bowel sounds, no guarding LOWER EXTREMITIES: 2+ dp pulses, warm, well-perfused. + b/l LE tenderness. chronic statis changes, +2 peripheral edema. Laboratory Results - last 24 hr 04/08/17 04/08/17 04/08/17 13:22 13:22 13:22 WBC 5.9 D RBC 4.15 Hgb 13.5 Hct 41.4 MCV 99.8 H MCH 32.6 MCHC 32.7 RDW 12.5 Plt Count 132 L MPV 10.1 D Neutrophils % 63.3 Lymphocytes % 24.2 D Monocytes % 8.4 Eosinophils % 3.5 D Basophils % 0.6 Puncture Site ABG pH ABG pCO2 at Pt Temp ABG pO2 at Pt Temp ABG HCO3 ABG O2 Sat (Measured) ABG O2 Content ABG Base Excess Mika Test Carboxyhemoglobin Methemoglobin O2 Delivery Device Oxygen Flow Rate PEEP Sodium 138 Potassium 4.1 Chloride 100 Carbon Dioxide 37 H Anion Gap 1 L BUN 8 Creatinine 0.6 Creat Clearance w eGFR > 60 Random Glucose 111 H D Calcium 8.7 Total Bilirubin 1.0 AST 11 L D ALT 11 L D Alkaline Phosphatase 141 H D Creatine Kinase Troponin I B-Natriuretic Peptide 184.44 H Total Protein 6.7 Albumin 3.4 04/08/17 04/08/17 13:22 15:10 WBC RBC Hgb Hct MCV MCH MCHC RDW Plt Count MPV Neutrophils % Lymphocytes % Monocytes % Eosinophils % Basophils % Puncture Site Right radial ABG pH 7.37 ABG pCO2 at Pt Temp 61.3 H* ABG pO2 at Pt Temp 44.3 L* D ABG HCO3 34.6 H ABG O2 Sat (Measured) 79.6 L ABG O2 Content 14.3 L ABG Base Excess 7.7 H Mika Test Positive Carboxyhemoglobin 3.1 H Methemoglobin 0.4 O2 Delivery Device Room air Oxygen Flow Rate Ra PEEP 0.0 Sodium Potassium Chloride Carbon Dioxide Anion Gap BUN Creatinine Creat Clearance w eGFR Random Glucose Calcium Total Bilirubin AST ALT Alkaline Phosphatase Creatine Kinase 47 Troponin I < 0.02 B-Natriuretic Peptide Total Protein Albumin ASSESSMENT/PLAN: 61 yr old woman with COPD presents with shortness of breath admitted for COPD exacerbation. #Acute COPD exacerbation acute hypoxic hypercapnic respiratory failure, could be exacerbated by infection vs smoking -no infiltrate on cxy, sputum production is chronic, low suspicion for pna, r/o viral with flu swab -methylprednisilone 40mg bid - duonebs q6hr jeannette, with q4hr prn - doxycycline 100mg tab daily for 2 days - peak flow - advair bid - maintain on bipap until morning and repeat ABG off bipap in the AM #Gait instability - hx of frequent falls with fall last week on to her right side from bed - pelvic xray - physical therapy eval #Methadone maintanence - dose to be verified. pt goes to [facility] DVT: lovenox diet: low sodium code status: full code Visit type - Emergency Visit Emergency Visit: Yes Care time: The patient presented to the Emergency Department on the above date and was hospitalized for further evaluation of their emergent condition. - New Patient This patient is new to me today: Yes Date on this admission: 04/08/17 - Critical Care Critical Care patient: No
[2017-04-08] MEDS: ENOXAPARIN NA (PORCINE) 40 MG/0.4 ML DISP.SYRIN SQ SCH (23:34)
[2017-04-08] MEDS: DOCUSATE SODIUM 100 MG CAPSULE (FP) PO SCH (23:35)
[2017-04-08] MEDS: PREGABALIN 75 MG CAPSULE PO SCH (23:35)
[2017-04-08] MEDS: methylPREDNISolone NA SUCC 40 MG/1 ML VIAL IVPUSH SCH (23:35)
[2017-04-08] MEDS: FLUTICASONE/SALMETEROL 100 MCG/50 MCG DISKUS IH SCH ×2 (23:36→23:58)
[2017-04-09] MEDS ORDERED: IBUPROFEN 400 MG TABLET (FP) PO ONE ×2 (01:00→01:15)
[2017-04-09 03:47] VITALS: BMI 33.6
[2017-04-09] MEDS ORDERED: LACTULOSE 20 GM/30 ML UDC (FOR ORAL USE ONLY) PO ONE (06:28)
[2017-04-09] MEDS: ALBUTEROL SO4 2.5/IPRATROPIUM 0.5 INH SOL 3 ML VIAL.NEB. NEB SCH ×4 (06:39→23:15)
[2017-04-09] MEDS ORDERED: PT OWN MED DRAWER 7, Y5N ONE ×5 (07:16→21:45)
[2017-04-09 07:20] LABS: BASOPHIL 0.1 % (0-2.0); MCH 32.8 pg (25.7-33.7); MCHC 33.4 g/dl (32.0-36.0); MEAN CELL VOLUME 98.4 fl (80-96); MEAN PLT VOLUME 10.5 fl (7.5-11.1); NEUTROPHILS 86.8 % (42.8-82.8); PLATELET COUNT 144 K/MM3 (134-434); RDW 12.2 % (11.6-15.6); WHITE BLOOD COUNT 3.5 K/mm3 (4.0-10.0)
[2017-04-09] MEDS ORDERED: METHADONE HCL 10 MG TABLET PO ONE (07:46)
[2017-04-09 07:52] LABS: ALBUMIN 3.3 g/dl (3.4-5.0); ALK PHOS 142 U/L (45-117); ANION GAP 5 (8-16); CALCIUM 8.9 mg/dL (8.5-10.1); CO2 34 mmol/L (21-32); CREATININE 0.6 mg/dL (0.55-1.02); GLUCOSE,RANDOM 128 mg/dL (74-106); MAGNESIUM 2.5 mg/dL (1.8-2.4); PHOSPHOROUS 2.8 mg/dL (2.5-4.9); SGOT/AST 8 U/L (15-37); SGPT/ALT 11 U/L (12-78); TOT PROT 6.7 g/dl (6.4-8.2)
[2017-04-09] MEDS ORDERED: METHADONE HCL 40 MG DISPERSABLE TABLET ONE (07:57)
[2017-04-09] MEDS ORDERED: METHADONE HCL 10 MG TABLET ONE (07:57)
[2017-04-09] MEDS ORDERED: METHADONE HCL 5 MG TABLET ONE (07:58)
[2017-04-09] MEDS ORDERED: METHADONE 40 MG, METHADONE 30 MG, METHADONE 5 MG PO ONE (08:00)
[2017-04-09 08:52] LABS: ARTERIAL BLOOD GAS HCO3 32.4 meq/L (22-26); ARTERIAL BLOOD GAS pH 7.42 (7.35-7.45)
[2017-04-09 08:53] LABS: ALLENS TEST POSITIVE; ART PUNCT SITE RIGHT RADIAL; LPM/O2% 21%; PT. ON O2? NO; TYPE OF O2 ROOM AIR
[2017-04-09 08:54] LABS: ARTERIAL BLD GAS O2 SATURATION 87.3 % (90-98.9); ARTERIAL BLOOD GAS PO2 54.7 mmHg (80-100)
[2017-04-09] MEDS ORDERED: DOLUTEGRAVIR SODIUM 50 MG TABLET PO SCH (10:00)
[2017-04-09] MEDS: methylPREDNISolone NA SUCC 40 MG/1 ML VIAL IVPUSH SCH ×2 (10:24→21:59)
[2017-04-09] MEDS: POLYETHYLENE GLYCOL 3350 119 GM BTL PO SCH (10:24)
[2017-04-09] MEDS: CITALOPRAM HYDROBROMIDE 20 MG TABLET (FP) PO SCH (10:25)
[2017-04-09] MEDS: PREGABALIN 75 MG CAPSULE PO SCH ×2 (10:25→21:59)
[2017-04-09] MEDS: ENOXAPARIN NA (PORCINE) 40 MG/0.4 ML DISP.SYRIN SQ SCH (10:25)
[2017-04-09] MEDS: FLUTICASONE/SALMETEROL 100 MCG/50 MCG DISKUS IH SCH ×2 (10:25→22:00)
--- NOTE | 2017-04-09 12:35 | PN ---
Teaching Attending Note Name of Resident: Pierre Newman ATTENDING PHYSICIAN STATEMENT I saw and evaluated the patient. I reviewed the resident's note and discussed the case with the resident. I agree with the resident's findings and plan as documented. SUBJECTIVE: no fever or chills, has CARDOSO , with no visual changes , has no weakness , tingling , or numbness. breathing has improved . NO hip pain, just pain in coccyx due to a recent fall OBJECTIVE: NAD, pleasant and cooperative HEENT: No LAP in neck. MMM, blackish discolored spots on soft palate with no thickness felt. no thrush CV: RRR, no MRG Lungs: scattered wheezes ( minimal ) , no crackles, prolonged expiratory phase. Good air entry Abd : obese, soft, NT, ND , NL BS. Ext: trace edema , thick skin with hyperpigmentation. Fungal infection in some toes webs on both sides Neuro : no facial droop, tongue at mid line, nl facial sensation , round equal pupils , reactive to light . strength 5/5 in upper and lower extremities proximally and distally, sensation to light touch NL. reflexes 2+ knee jerk and bicpes b/l ASSESSMENT AND PLAN: Pleasant 61 y/o lady with h/o HTN, HIV on HAART, COPD , appendiceal tumor , and h/o opioid dependence who presented with SOB x 3 days. She is diagnosed with COPD exacerbation 1- Acute hypoxic hypercapnic resp failure due to acute COPD exacerbation: respiratory sx have improved, off BIPAP now. Lung exam with good air entry and minimal scattered wheezing - Cont solu-Medrol 40 BID . - cont Advair and Duo-Nebs - rapid flu test neg, full resp PCR panel pending - No evidence of PNA clinically or radiologically. cont doxy day 2/3 for antiinflammatory effect . (avoid macrolides and fluroquinolons due to prolonged QTc) 2- CARDOSO: x 4 days , severe . Nl neuro exam. - CT of head to r/o bleed . if no bleed will give toradol - if CARDOSO continues might get MRI to r/o Mets as she has an appendiceal tumor 3- H/o appendiceal tumor : chronic , followed by CTs as out pt . last CT abd/ pelvis reviewed. 4- H/O HIV: cont HAART 5- Neuropathy: Lyrica, 5- Opioid dependence : Cont Methadone 6- GI upset and nausea : no abd tenderness, possible side effects form steroids . - add PPI 7- Hyperpigmented lesion on soft palate, likely normal discoloration due to her skin tone. There is no thickness to it . f/u as out pt . will d/w PCP DVT PX. GI prophylaxis PT eval
[2017-04-09] MEDS ORDERED: KETOROLAC TROMETHAMINE 10 MG TABLET PO ONE (13:00)
[2017-04-09] MEDS: EMTRICITABINE 200MG/TENOFOVIR 300MG PO SCH (13:29)
[2017-04-09] MEDS: DOCUSATE SODIUM 100 MG CAPSULE (FP) PO SCH ×2 (13:30→21:59)
[2017-04-09] MEDS: PANTOPRAZOLE 40 MG TABLET (FP) PO SCH (13:30)
[2017-04-09] MEDS: DOXYCYCLINE HYCLATE 100 MG CAPSULE PO SCH (13:30)
--- NOTE | 2017-04-09 14:49 | PN ---
Physical Exam: SUBJECTIVE: Patient seen and examined. Overnight, pt complained of headaches, unrelieved with methadone and motrin. This am, pt reports persistent headache, 9/10 in severity, denies diagnosis of migraines in the past. She endorses some mild nausea without emesis, urinary frequency and urgency. She states that her SOB, cough, and wheezing are improving. OBJECTIVE: Vital Signs Period Temp Pulse Resp BP Sys/Amato Pulse Ox Last 24 Hr 97.8 F-98.3 F 76-82 20-20 125-142/72-96 94-99 GENERAL: The patient is awake, alert, and fully oriented, in no acute distress, breathing comfortably on NC HEENT: blue/black macules on soft palate LUNGS: diffuse expiratory wheezing and rhonchi HEART: systolic murmur heard best over right upper sternal border with split S1 , regular rate ABDOMEN: Soft, nontender, nondistended, normoactive bowel sounds, no guarding, no rebound, no hepatosplenomegaly, no masses. EXTREMITIES: 2+ pitting edema in b/l LE with chronic changes of venostasis NEUROLOGICAL: Normal speech, gait not observed, AAOx3. PSYCH: Normal mood, normal affect. Laboratory Results - last 24 hr 04/08/17 04/09/17 04/09/17 21:00 05:40 05:40 WBC 3.5 L D RBC 4.10 Hgb 13.5 Hct 40.3 MCV 98.4 H MCH 32.8 MCHC 33.4 RDW 12.2 Plt Count 144 MPV 10.5 Neutrophils % 86.8 H D Lymphocytes % 11.5 D Monocytes % 1.6 L D Eosinophils % 0.0 D Basophils % 0.1 Puncture Site ABG pH ABG pCO2 at Pt Temp ABG pO2 at Pt Temp ABG HCO3 ABG O2 Sat (Measured) ABG O2 Content ABG Base Excess Mika Test O2 Delivery Device Oxygen Flow Rate Sodium 138 Potassium 4.3 Chloride 99 Carbon Dioxide 34 H Anion Gap 5 L BUN 12 D Creatinine 0.6 Creat Clearance w eGFR > 60 Random Glucose 128 H Calcium 8.9 Phosphorus 2.8 Magnesium 2.5 H Total Bilirubin 1.0 AST 8 L D ALT 11 L Alkaline Phosphatase 142 H Ammonia 40.07 H Total Protein 6.7 Albumin 3.3 L 04/09/17 08:40 WBC RBC Hgb Hct MCV MCH MCHC RDW Plt Count MPV Neutrophils % Lymphocytes % Monocytes % Eosinophils % Basophils % Puncture Site Right radial ABG pH 7.42 ABG pCO2 at Pt Temp 50.4 H ABG pO2 at Pt Temp 54.7 L D ABG HCO3 32.4 H ABG O2 Sat (Measured) 87.3 L ABG O2 Content 16.3 ABG Base Excess 7.0 H Mika Test Positive O2 Delivery Device Room air Oxygen Flow Rate 21% Sodium Potassium Chloride Carbon Dioxide Anion Gap BUN Creatinine Creat Clearance w eGFR Random Glucose Calcium Phosphorus Magnesium Total Bilirubin AST ALT Alkaline Phosphatase Ammonia Total Protein Albumin Active Medications Generic Name Dose Route Start Last Admin Trade Name Freq PRN Reason Stop Dose Admin Albuterol/Ipratropium 1 amp 04/08/17 20:15 04/09/17 10:50 Duoneb - NEB Not Given QIDR MILIND Albuterol/Ipratropium 1 amp 04/08/17 20:13 Duoneb - NEB Q4H PRN SHORT OF BREATH/WHEEZING Citalopram Hydrobromide 40 mg 04/09/17 10:00 04/09/17 10:25 Celexa - PO 40 mg DAILY MILIND Administration Docusate Sodium 100 mg 04/08/17 22:00 04/09/17 13:30 Colace - PO 100 mg BID MILIND Administration Doxycycline Hyclate 100 mg 04/09/17 10:00 04/09/17 13:30 Vibramycin - PO 04/11/17 09:59 100 mg DAILY MILIND Administration Emtricitabine/Tenofovir 1 tab 04/09/17 10:00 04/09/17 13:29 Truvada PO 1 tab DAILY MILIND Administration Enoxaparin Sodium 40 mg 04/08/17 20:15 04/09/17 10:25 Lovenox - SQ 40 mg DAILY MILIND Administration Ketorolac Tromethamine 30 mg 04/09/17 21:00 Toradol PO 04/14/17 20:59 Q8H [facility] Methylprednisolone Sodium Succinate 40 mg 04/08/17 22:00 04/09/17 10:24 Solu-Medrol - IVPUSH 40 mg BID MILIND Administration Pantoprazole Sodium 40 mg 04/09/17 12:30 04/09/17 13:30 Protonix - PO 40 mg DAILY MILIND Administration Polyethylene Glycol 17 gm 04/09/17 10:00 04/09/17 10:24 Miralax (For Daily Use) - PO 17 gm DAILY MILIND Administration Pregabalin 75 mg 04/08/17 22:00 04/09/17 10:25 Lyrica - PO 75 mg BID MILIND Administration Fluticasone/Salmeterol 1 puff 04/08/17 22:00 04/09/17 10:25 Advair 100mcg/50mcg - IH 1 puff BID MILIND Administration CT head: chronic microvascular ischemic changes ASSESSMENT/PLAN: 61F w/ significant hx of COPD, sleep apnea, and HIV (compliant on HAART, last CD4 in 900s and RNA undetectable) who presented with acute SOB, productive cough , and wheezing, found to have hypoxia and hypercapnia, admitted for acute hypercapnic hypoxic respiratory failure 2/2 COPD exacerbation. #Acute hypercapnic hypoxic respiratory failure- 2/2 COPD exacerbation. Improving , satting well on NC -likely triggered by preceding virus -continue methylprednisone 40mg BID, NC, duonebs scheduled and PRN, advair BID -rapid flu swab negative, f/u full respiratory panel -continuous pulse oximetry -continue doxycyline (day 2/3) #Acute Headache -CT head: negative for any acute bleeds -continue toradol q8h PRN #Right Hip pain -XR: negative for any acute fractures -PT eval #urinary urgency/frequency -f/u UA #Elevated ALP -still elevated at 142. f/u GGT to differentiate hepatic vs. bone etiology #HIV -continue truvada -tivicay not on formulary. Dr. Morris microblogged regarding alternative. Per pharmacy, Isenstress is on formulary and is an alternative. #opiate dependence -continue methadone 70mg, confirmed at methadone clinic. #constipation -continue docusate and miralax #peripheral neuropathy -continue lyrica #depression -continue celexa #FEN/PPx -no fluids -electrolytes wnl -low-sodium diet -no GI ppx indicated -lovenox 40 -Full Code -Pierre Newman MD PGY1 Visit type - Emergency Visit Emergency Visit: Yes ED Registration Date: 04/08/17 Care time: The patient presented to the Emergency Department on the above date and was hospitalized for further evaluation of their emergent condition. - New Patient This patient is new to me today: No - Critical Care Critical Care patient: No
--- NOTE | 2017-04-09 16:19 | PN ---
Progress Note (short form) - Note Progress Note: ID consult dictated imp/reccd 61 year old female with HIV/COPD- I saw her in clinic yesterday- she was SOB and hypoxic- reported four days of cough and wheezing no fevers noted a fall on her backside a month ago and persistent pelvic pain also noted intermittent headaches for which she has been referred multiple times for imaging but has not completed! copd exacerbation- continue steroids and nebs, clinically improved she is followed by a Dr Mahoney in [facility]) and is being evaluated for sleep apnea- a mask has been ordered and home oxygen stable hiv CD4 greater then 900 with suppressed viral load appendiceal malignancy (lowgrade epithelioid)- follwed by Dr Maher and Dr Dave at [facility]- nonoperable would continue her art-tivicay is nonformulary -will substitute isentress while in hospital, continue truvada pulmonary to see for home oxygen continue evaluation of headaches with imaging oral lesions are not c/w [place], willl refer to oral surgery as outpt frequent falls- now using walker at home unlikely to have OI - she has high tcells d/w Dr Khalil Problem List - Problems (1) COPD Acute exacerbation of chronic obstructive airways disease Code(s): J44.1 - CHRONIC OBSTRUCTIVE PULMONARY DISEASE W (ACUTE) EXACERBATION (2) HIV disease Code(s): B20 - HUMAN IMMUNODEFICIENCY VIRUS [HIV] DISEASE
[2017-04-09] MEDS ORDERED: KETOROLAC TROMETHAMINE 10 MG TABLET PO SCH ×3 (16:30→21:00)
[2017-04-09] MEDS ORDERED: KETOROLAC TROMETHAMINE 10 MG TABLET PO PRN (17:57)
[2017-04-09] MEDS ORDERED: ALPRAZolam 0.25 MG TABLET PO ONE (19:00)
[2017-04-09] MEDS: RALTEGRAVIR POTASSIUM 400 MG TAB PO SCH (21:59)
[2017-04-10] MEDS ORDERED: METHADONE HCL 10 MG TABLET PO SCH (06:00)
[2017-04-10] MEDS ORDERED: METHADONE HCL 40 MG DISPERSABLE TABLET ONE (06:17)
[2017-04-10] MEDS ORDERED: METHADONE HCL 10 MG TABLET ONE (06:17)
[2017-04-10] MEDS: METHADONE 40 MG, METHADONE 30 MG PO SCH (06:19)
[2017-04-10] MEDS: ALBUTEROL SO4 2.5/IPRATROPIUM 0.5 INH SOL 3 ML VIAL.NEB. NEB SCH ×3 (06:38→17:59)
[2017-04-10 07:39] LABS: MCHC 33.1 g/dl (32.0-36.0); MEAN CELL VOLUME 99.8 fl (80-96); MEAN PLT VOLUME 10.6 fl (7.5-11.1); PLATELET COUNT 135 K/MM3 (134-434); RDW 12.4 % (11.6-15.6); WHITE BLOOD COUNT 5.3 K/mm3 (4.0-10.0)
[2017-04-10 07:49] LABS: ALBUMIN 3.2 g/dl (3.4-5.0); ANION GAP 4 (8-16); BILIRUBIN,TOTAL 0.8 mg/dL (0.2-1.0); CALCIUM 9.1 mg/dL (8.5-10.1); CO2 33 mmol/L (21-32); CREATININE 0.7 mg/dL (0.55-1.02); GLUCOSE,RANDOM 138 mg/dL (74-106); SGOT/AST 5 U/L (15-37); SGPT/ALT 11 U/L (12-78); TOT PROT 6.6 g/dl (6.4-8.2)
[2017-04-10 07:50] LABS: ALK PHOS 128 U/L (45-117)
[2017-04-10] MEDS ORDERED: PT OWN MED DRAWER 7, Y5N ONE ×5 (08:48→21:40)
--- NOTE | 2017-04-10 09:47 | PN ---
Teaching Attending Note Name of Resident: Brad Bar ATTENDING PHYSICIAN STATEMENT I saw and evaluated the patient. I reviewed the resident's note and discussed the case with the resident. I agree with the resident's findings and plan as documented. SUBJECTIVE: feels her SOB is better , has no abd pain . still has CARDOSO but better than yesterday OBJECTIVE: NAD, pleasant and cooperative, slightly lethargic HEENT: No LAP in neck. MMM, blackish discolored spots on soft palate with no thickness felt. no thrush CV: RRR, no MRG Lungs: prolonged expiratory phase , decreased breath sounds b/l mix Abd : obese, soft, NT, ND , NL BS. Ext: trace edema , thick skin with hyperpigmentation. Fungal infection in some toes webs on both sides Neuro : no facial droop, tongue at mid line, nl facial sensation , round equal pupils , reactive to light . strength 5/5 in upper and lower extremities proximally and distally, sensation to light touch NL. reflexes 2+ knee jerk and bicpes b/l ASSESSMENT AND PLAN: Pleasant 61 y/o lady with h/o HTN, HIV on HAART, COPD , appendiceal tumor , and h/o opioid dependence who presented with SOB x 3 days. She is diagnosed with COPD exacerbation 1- Acute hypoxic hypercapnic resp failure due to acute COPD exacerbation: Today the pt is lethargic an has poor air entry - check ABG and place on BIPAP for few hours - COnt Cont solu-Medrol 40 BID . - cont Advair and Duo-Nebs - follow full resp PCR panel - No evidence of PNA clinically or radiologically. doxy day 3/3 for antiinflammatory effect . (avoid macrolides and fluroquinolons due to prolonged QTc) - might need oxygen at home . - has BRIAN and was not yet able to get her BIPAP machine - c/S PULM 2- CARDOSO: chronic intermittent CARDOSO , which is severe x 4 days . Nl neuro exam. - CT of head with no bleed . -MRI pending read 3- H/o appendiceal cancer : chronic . - follow up as out pt 4- H/O HIV: cont HAART 5- Neuropathy: Lyrica, 5- Opioid dependence : Cont Methadone 6- dyspepsia: - PPI 7- Hyperpigmented lesion on soft palate, likely normal discoloration due to her skin tone. There is no thickness to it . f/u as out pt . DVT PX. GI prophylaxis PT eval
[2017-04-10] MEDS: methylPREDNISolone NA SUCC 40 MG/1 ML VIAL IVPUSH SCH ×2 (09:51→21:16)
[2017-04-10] MEDS: CITALOPRAM HYDROBROMIDE 20 MG TABLET (FP) PO SCH (09:51)
[2017-04-10] MEDS: PANTOPRAZOLE 40 MG TABLET (FP) PO SCH (09:52)
[2017-04-10] MEDS: PREGABALIN 75 MG CAPSULE PO SCH ×2 (09:53→21:16)
[2017-04-10] MEDS: ENOXAPARIN NA (PORCINE) 40 MG/0.4 ML DISP.SYRIN SQ SCH (09:54)
[2017-04-10] MEDS: DOCUSATE SODIUM 100 MG CAPSULE (FP) PO SCH ×2 (09:54→21:16)
[2017-04-10] MEDS: POLYETHYLENE GLYCOL 3350 119 GM BTL PO SCH (09:55)
--- NOTE | 2017-04-10 09:55 | PN ---
Physical Exam: SUBJECTIVE: Patient seen and examined. No acute events overnight. Patient complains of headaches which she says arent getting better. Denies SOB, abdominal pain, nausea, vomiting and chills. OBJECTIVE: Vital Signs Period Temp Pulse Resp BP Sys/Amato Pulse Ox Last 24 Hr 97.9 F-98.2 F 65-82 16-20 121-138/58-89 93-94 GENERAL: A/o x 3 on NC. appears comfortable on phone HEENT: black macules on soft palate LUNGS: diffuse expiratory wheezing HEART: no murmurs appreciated, RRR ABDOMEN: Soft, nontender, nondistended, normoactive bowel sounds EXTREMITIES: chronic venostasis changes, 2+ pitting edema B/L LE PSYCH: Normal mood, normal affect. Laboratory Results - last 24 hr 04/10/17 04/10/17 06:30 06:30 WBC 5.3 D RBC 4.09 Hgb 13.5 Hct 40.8 MCV 99.8 H MCH 33.0 MCHC 33.1 RDW 12.4 Plt Count 135 MPV 10.6 Sodium 138 Potassium 4.2 Chloride 101 Carbon Dioxide 33 H Anion Gap 4 L BUN 18 D Creatinine 0.7 Creat Clearance w eGFR > 60 Random Glucose 138 H Calcium 9.1 Total Bilirubin 0.8 GGT 40 AST 5 L D ALT 11 L Alkaline Phosphatase 128 H Total Protein 6.6 Albumin 3.2 L Active Medications Generic Name Dose Route Start Last Admin Trade Name Freq PRN Reason Stop Dose Admin Albuterol/Ipratropium 1 amp 04/08/17 20:15 04/10/17 06:38 Duoneb - NEB 1 amp QIDR MILIND Administration Albuterol/Ipratropium 1 amp 04/08/17 20:13 Duoneb - NEB Q4H PRN SHORT OF BREATH/WHEEZING Citalopram Hydrobromide 40 mg 04/09/17 10:00 04/09/17 10:25 Celexa - PO 40 mg DAILY MILIND Administration Docusate Sodium 100 mg 04/08/17 22:00 04/09/17 21:59 Colace - PO 100 mg BID MILIND Administration Doxycycline Hyclate 100 mg 04/09/17 10:00 04/09/17 13:30 Vibramycin - PO 04/11/17 09:59 100 mg DAILY MILIND Administration Emtricitabine/Tenofovir 1 tab 04/09/17 10:00 04/09/17 13:29 Truvada PO 1 tab DAILY MILIND Administration Enoxaparin Sodium 40 mg 04/08/17 20:15 04/09/17 10:25 Lovenox - SQ 40 mg DAILY MILIND Administration Methadone HCl 40 mg/ Methadone 70 mg 04/10/17 06:00 04/10/17 06:19 HCl 30 mg PO 70 mg DAILY@0600 MILIND Administration Methylprednisolone Sodium Succinate 40 mg 04/08/17 22:00 04/09/17 21:59 Solu-Medrol - IVPUSH 40 mg BID MILIND Administration Pantoprazole Sodium 40 mg 04/09/17 12:30 04/09/17 13:30 Protonix - PO 40 mg DAILY MILIND Administration Polyethylene Glycol 17 gm 04/09/17 10:00 04/09/17 10:24 Miralax (For Daily Use) - PO 17 gm DAILY MILIND Administration Pregabalin 75 mg 04/08/17 22:00 04/09/17 21:59 Lyrica - PO 75 mg BID MILIND Administration Raltegravir 400 mg 04/09/17 22:00 04/09/17 21:59 Isentress - PO 400 mg BID MILIND Administration Fluticasone/Salmeterol 1 puff 04/08/17 22:00 04/09/17 22:00 Advair 100mcg/50mcg - IH 1 puff BID MILIND Administration ASSESSMENT/PLAN: 61F w/ significant hx of COPD, sleep apnea, and HIV (compliant on HAART, last CD4 in 900s and RNA undetectable) who presented with acute SOB, productive cough , and wheezing, found to have hypoxia and hypercapnia, admitted for acute hypercapnic hypoxic respiratory failure 2/2 COPD exacerbation. #Acute hypercapnic hypoxic respiratory failure secondary to COPD exacerbation. -improving. -continue methylprednisone 40mg BID -will talk to patient to continue using BiPap -Pulm consulted to arrange home bipap -Patient with sleep apnea -continue NC, duonebs , advair BID -continuous pulse oximetry -continue doxycyline 100mg PO Day 3 (last day) #Headaches -started 6 months ago -CT head unremarkable for acute bleeds -FU brain MRI -toradol q8h PRN #Right Hip pain -XR unremarkable for fractures -refused PT because of severe headache. Wants to try again. #Elevated ALP -Alk Phos 128 (142 last level). -GGT 40 WNL #HIV -continue truvada -tivicay not on formulary -Isenstress 400mg BID as alternative per ID #Opiate dependence -continue methadone 70mg #constipation -docusate -miralax #Peripheral neuropathy -continue lyrica #Depression -continue celexa #FEN -no fluids -electrolytes wnl -low-sodium diet #PPX -no GI ppx indicated -lovenox 40 Visit type - Emergency Visit Emergency Visit: Yes ED Registration Date: 04/08/17 Care time: The patient presented to the Emergency Department on the above date and was hospitalized for further evaluation of their emergent condition. - New Patient This patient is new to me today: Yes Date on this admission: 04/10/17 - Critical Care Critical Care patient: No
[2017-04-10] MEDS ORDERED: DOLUTEGRAVIR SODIUM 50 MG TABLET PO SCH (10:00)
[2017-04-10 10:01] LABS: ARTERIAL BLOOD GAS BASE EXCESS 5.5 meq/l (-2-2); ARTERIAL BLOOD GAS HCO3 31.3 meq/L (22-26); ARTERIAL BLOOD GAS PO2 56.5 mmHg (80-100); ARTERIAL BLOOD GAS pH 7.39 (7.35-7.45); LPM/O2% 3L; PT. ON O2? yes
[2017-04-10 10:02] LABS: TYPE OF O2 N/C
--- NOTE | 2017-04-10 11:05 | PN ---
Progress Note, Physician History of Present Illness: C/O headache No c/o dyspnea/ chest pain No fever/ chills - Current Medication List Current Medications: Active Medications Albuterol/Ipratropium (Duoneb -) 1 amp NEB QIDR [facility] Last Admin: 04/10/17 06:38 Dose: 1 amp Albuterol/Ipratropium (Duoneb -) 1 amp NEB Q4H PRN PRN Reason: SHORT OF BREATH/WHEEZING Citalopram Hydrobromide (Celexa -) 40 mg PO DAILY [facility] Last Admin: 04/10/17 09:51 Dose: 40 mg Docusate Sodium (Colace -) 100 mg PO BID [facility] Last Admin: 04/10/17 09:54 Dose: 100 mg Doxycycline Hyclate (Vibramycin -) 100 mg PO DAILY [facility] Stop: 04/11/17 09:59 Last Admin: 04/09/17 13:30 Dose: 100 mg Emtricitabine/Tenofovir (Truvada) 1 tab PO DAILY [facility] Last Admin: 04/09/17 13:29 Dose: 1 tab Enoxaparin Sodium (Lovenox -) 40 mg SQ DAILY [facility] Last Admin: 04/10/17 09:54 Dose: 40 mg Methadone HCl 40 mg/ Methadone (HCl 30 mg) 70 mg PO DAILY@0600 [facility] Last Admin: 04/10/17 06:19 Dose: 70 mg Methylprednisolone Sodium Succinate (Solu-Medrol -) 40 mg IVPUSH BID [facility] Last Admin: 04/10/17 09:51 Dose: 40 mg Pantoprazole Sodium (Protonix -) 40 mg PO DAILY [facility] Last Admin: 04/10/17 09:52 Dose: 40 mg Polyethylene Glycol (Miralax (For Daily Use) -) 17 gm PO DAILY [facility] Last Admin: 04/10/17 09:55 Dose: 17 gm Pregabalin (Lyrica -) 75 mg PO BID [facility] Last Admin: 04/10/17 09:53 Dose: 75 mg Raltegravir (Isentress -) 400 mg PO BID [facility] Last Admin: 04/09/17 21:59 Dose: 400 mg Fluticasone/Salmeterol (Advair 100mcg/50mcg -) 1 puff IH BID [facility] Last Admin: 04/09/17 22:00 Dose: 1 puff - Objective Vital Signs: Vital Signs Temperature 97.9 F 04/10/17 06:00 Pulse Rate 65 04/10/17 06:00 Respiratory Rate 20 04/10/17 06:00 Blood Pressure 138/78 04/10/17 06:00 O2 Sat by Pulse Oximetry (%) 93 L 04/09/17 21:00 Constitutional: Yes: No Distress, Other (Somnolent) Cardiovascular: Yes: Regular Rate and Rhythm, S1, S2 Respiratory: Yes: Diminished Gastrointestinal: Yes: Normal Bowel Sounds, Soft. No: Tenderness Edema: Yes Labs: CBC, BMP 04/10/17 06:30 04/10/17 06:30 Assessment/Plan Acute exacerbation COPD Headaches HIV Continue tx for COPD ART Await MRI
--- NOTE | 2017-04-10 13:03 | CON.PULM ---
Consult Consult Specialty:: PULMONARY Referred by:: MARYSE Reason for Consultation:: COPD - History of Present Illness Chief Complaint: SOB/COUGH History of Present Illness: The patient is a 61 year old female, with a significant past medical history of HTN, HIV (on meds, CD4 in 900's, RNA undetectable), appendiceal tumor (stable), and COPD who presents to the emergency department with shortness of breath x 3 days. Patient states she was around her friend who had bronchitis prior to these symptoms. Patient describes chest tightness, cough with yellow/green sputum, right sided lower chest pain, which is worse upon inspiration, and wheezing. Patient also states she has had myalgias. Patient denies fever, chills, n/v/d/c, abd pain, dysuria, frequency, urgency and hematuria. - History Source History Provided By: Patient, Medical Record Limitations to Obtaining History: No Limitations - Past Medical History REPORTER: No: Alzheimer's Cardio/Vascular: Yes: Other (ENDOCARDITIS). No: AFIB Pulmonary: Yes: COPD. No: O2 Dependent Gastrointestinal: Yes: Constipation, GERD. No: Ascites Hepatobiliary: Yes: Hepatitis B (HBV core ab), Hepatitis C (PCR negative), Other (alcoholic liver disease suspected with mild splenomegaly) Renal/: No: Renal Failure Reproductive: Yes: Postmenopausal ...: No Heme/Onc: No: Anemia Infectious Disease: Yes: HIV Psych: Yes: Depression Additional Medical History: substance abuse on methadone - Alcohol/Substance Use Hx Alcohol Use: No History of Substance Use: reports: Cocaine, Heroin (opoid dependence) Date of Last Use: 05/14/16 - Smoking History Smoking history: Current some day smoker Have you smoked in the past 12 months: No Aproximately how many cigarettes per day: 1 If you are a former smoker, when did you quit?: 4 YRS - Social History Usual Living Arrangement: Alone ADL: Independent History of Recent Travel: No Home Medications - Allergies Allergies/Adverse Reactions: Allergies Allergy/AdvReac Type Severity Reaction Status Date / Time banana AdvReac Verified 04/08/17 12:55 - Home Medications Home Medications: Ambulatory Orders Pregabalin [Lyrica -] 75 mg PO BID #60 capsule MDD 2 04/02/17 Citalopram Hydrobromide [Celexa -] 40 mg PO DAILY #30 tablet 04/07/17 Albuterol Sulfate Inhaler - [Ventolin HFA Inhaler -] 2 inh PO Q4H PRN #1 inhaler 04/08/17 Docusate Sodium [Colace -] 100 mg PO BID #60 cap 04/08/17 Dolutegravir Sodium [Tivicay] 50 mg PO DAILY #30 tab 04/08/17 Emtricitabine/Tenofovir (Tdf) [Truvada 200 mg-300 mg Tablet] 1 each PO DAILY # 30 tab 04/08/17 Polyethylene Glycol 3350 [Miralax 255 gm Btl -] 17 gm PO DAILY #1 bottle Family Disease History - Family Disease History Family Disease History: CA: Grandparent, Father (lung cancer) Review of Systems - Review of Systems Cardiovascular: reports: Chest Pain, Shortness of Breath Respiratory: reports: Cough, Exercise Intolerance, SOB, SOB on Exertion, Wheezing. denies: Hemoptysis Physical Exam Vital Sings: Vital Signs Temperature 98.2 F 04/10/17 10:00 Pulse Rate 68 04/10/17 10:00 Respiratory Rate 20 04/10/17 10:00 Blood Pressure 130/58 04/10/17 10:00 O2 Sat by Pulse Oximetry (%) 94 L 04/10/17 10:00 Constitutional: Yes: Calm Eyes: Yes: EOM Intact HENT: Yes: Normocephalic Neck: Yes: Trachea Midline Cardiovascular: Yes: Regular Rate and Rhythm, S1, S2 Respiratory: Yes: Wheezes (b/l exp) Gastrointestinal: Yes: Soft, Abdomen, Obese Musculoskeletal: Yes: WNL Extremities: Yes: WNL Edema: No Neurological: Yes: Alert Psychiatric: Yes: Alert Labs: CBC, BMP 04/10/17 06:30 04/10/17 06:30 ABG Results ABG pH 7.39 (7.35-7.45) 04/10/17 10:00 ABG pCO2 at Pt Temp 52.3 mmHg (35-45) H 04/10/17 10:00 ABG pO2 at Pt Temp 56.5 mmHg (80-100) L 04/10/17 10:00 ABG HCO3 31.3 meq/L (22-26) H 04/10/17 10:00 ABG O2 Sat (Measured) 88.0 % (90-98.9) L 04/10/17 10:00 ABG O2 Content 16.4 % vol (15-22) 04/10/17 10:00 ABG Base Excess 5.5 meq/l (-2-2) H 04/10/17 10:00 rest reviewed Imaging - Results Chest X-ray: Report Reviewed, Image Reviewed Cat Scan: Report Reviewed, Image Reviewed Problem List - Problems (1) COPD Acute exacerbation of chronic obstructive airways disease Code(s): J44.1 - CHRONIC OBSTRUCTIVE PULMONARY DISEASE W (ACUTE) EXACERBATION (2) COPD (chronic obstructive pulmonary disease) Code(s): J44.9 - CHRONIC OBSTRUCTIVE PULMONARY DISEASE, UNSPECIFIED Qualifiers : COPD type: COPD with acute exacerbation Qualified Code(s): J44.1 - Chronic obstructive pulmonary disease with (acute) exacerbation; J44.1 - Chronic obstructive pulmonary disease with (acute) exacerbation; J44.1 - Chronic obstructive pulmonary disease with (acute) exacerbation; J44.1 - Chronic obstructive pulmonary disease with (acute) exacerbation (3) Cough Code(s): R05 - COUGH (4) HIV (human immunodeficiency virus infection) Code(s): B20 - HUMAN IMMUNODEFICIENCY VIRUS [HIV] DISEASE Assessment/Plan agree with bronchodilators/steroids/o2/antibiotics dvt prophylaxsis/haart will follow thank you Ysabel GERARD MD
[2017-04-10] MEDS: FLUTICASONE/SALMETEROL 100 MCG/50 MCG DISKUS IH SCH ×2 (14:34→21:16)
[2017-04-10] MEDS: DOXYCYCLINE HYCLATE 100 MG CAPSULE PO SCH (14:35)
[2017-04-10] MEDS: EMTRICITABINE 200MG/TENOFOVIR 300MG PO SCH (14:35)
[2017-04-10] MEDS: RALTEGRAVIR POTASSIUM 400 MG TAB PO SCH ×2 (14:35→21:16)
[2017-04-10] MEDS ORDERED: KETOROLAC TROMETHAMINE 15 MG/ML VIAL IVPUSH ONE (15:45)
[2017-04-10] MEDS ORDERED: KETOROLAC TROMETHAMINE 10 MG TABLET PO ONE (21:56)
[2017-04-11] MEDS: ALBUTEROL SO4 2.5/IPRATROPIUM 0.5 INH SOL 3 ML VIAL.NEB. NEB SCH ×5 (00:05→23:05)
[2017-04-11] MEDS ORDERED: METHADONE HCL 40 MG DISPERSABLE TABLET ONE (05:58)
[2017-04-11] MEDS ORDERED: METHADONE HCL 10 MG TABLET ONE (05:58)
[2017-04-11] MEDS: METHADONE 40 MG, METHADONE 30 MG PO SCH (06:37)
[2017-04-11] MEDS ORDERED: KETOROLAC TROMETHAMINE 15 MG/ML VIAL IVPUSH ONE (07:54)
[2017-04-11] MEDS ORDERED: KETOROLAC TROMETHAMINE 10 MG TABLET PO ONE (08:15)
[2017-04-11] MEDS ORDERED: PT OWN MED DRAWER 7, Y5N ONE ×4 (08:27→21:49)
[2017-04-11] MEDS: POLYETHYLENE GLYCOL 3350 119 GM BTL PO SCH (09:21)
[2017-04-11] MEDS: DOCUSATE SODIUM 100 MG CAPSULE (FP) PO SCH ×2 (09:24→21:52)
[2017-04-11] MEDS: CITALOPRAM HYDROBROMIDE 20 MG TABLET (FP) PO SCH (09:24)
[2017-04-11] MEDS: ENOXAPARIN NA (PORCINE) 40 MG/0.4 ML DISP.SYRIN SQ SCH (09:24)
[2017-04-11] MEDS: PREGABALIN 75 MG CAPSULE PO SCH ×2 (09:24→21:53)
[2017-04-11] MEDS: FLUTICASONE/SALMETEROL 100 MCG/50 MCG DISKUS IH SCH ×2 (09:25→21:53)
[2017-04-11] MEDS: RALTEGRAVIR POTASSIUM 400 MG TAB PO SCH ×2 (09:25→21:53)
[2017-04-11] MEDS: PANTOPRAZOLE 40 MG TABLET (FP) PO SCH (09:25)
[2017-04-11] MEDS: methylPREDNISolone NA SUCC 40 MG/1 ML VIAL IVPUSH SCH (09:26)
[2017-04-11] MEDS: EMTRICITABINE 200MG/TENOFOVIR 300MG PO SCH (09:27)
--- NOTE | 2017-04-11 13:10 | PN ---
Progress Note (short form) - Note Progress Note: PULMONARY HEADACHE/NO CP/NO SOB AT REST 128/97/AFEBRILE ANICTERIC MINIMAL B/L SCATTERED EXP WHEEZE S1S2 BS+ 1+ EDEMA LABS/MEDS/NOTES/IMAGES REVIEWED (1) COPD Acute exacerbation of chronic obstructive airways disease Code(s): J44.1 - CHRONIC OBSTRUCTIVE PULMONARY DISEASE W (ACUTE) EXACERBATION (2) COPD (chronic obstructive pulmonary disease) Code(s): J44.9 - CHRONIC OBSTRUCTIVE PULMONARY DISEASE, UNSPECIFIED Qualifiers : COPD type: COPD with acute exacerbation Qualified Code(s): J44.1 - Chronic obstructive pulmonary disease with (acute) exacerbation; J44.1 - Chronic obstructive pulmonary disease with (acute) exacerbation; J44.1 - Chronic obstructive pulmonary disease with (acute) exacerbation; J44.1 - Chronic obstructive pulmonary disease with (acute) exacerbation (3) Cough Code(s): R05 - COUGH (4) HIV (human immunodeficiency virus infection) Code(s): B20 - HUMAN IMMUNODEFICIENCY VIRUS [HIV] DISEASE Assessment/Plan agree with bronchodilators/steroids changed to oral/o2/antibiotics dvt prophylaxsis/ R MOUSTAPHA ANDERSON Problem List - Problems (1) COPD Acute exacerbation of chronic obstructive airways disease Code(s): J44.1 - CHRONIC OBSTRUCTIVE PULMONARY DISEASE W (ACUTE) EXACERBATION (2) COPD (chronic obstructive pulmonary disease) Code(s): J44.9 - CHRONIC OBSTRUCTIVE PULMONARY DISEASE, UNSPECIFIED Qualifiers : COPD type: COPD with acute exacerbation Qualified Code(s): J44.1 - Chronic obstructive pulmonary disease with (acute) exacerbation; J44.1 - Chronic obstructive pulmonary disease with (acute) exacerbation; J44.1 - Chronic obstructive pulmonary disease with (acute) exacerbation; J44.1 - Chronic obstructive pulmonary disease with (acute) exacerbation (3) Cough Code(s): R05 - COUGH (4) HIV (human immunodeficiency virus infection) Code(s): B20 - HUMAN IMMUNODEFICIENCY VIRUS [HIV] DISEASE
[2017-04-11] MEDS: predniSONE 20 MG TABLET (UD) PO SCH (13:57)
--- NOTE | 2017-04-11 15:23 | PN ---
Progress Note (short form) - Note Progress Note: Subjective: no fever or chills. feels breathis is better . still has CARDOSO , but no visual changes . still complains of pelvic pain when walking Objective: Vital Signs: Last Vital Signs Temp Pulse Resp BP Pulse Ox 98.6 F 77 18 128/97 94 L 04/11/17 09:17 04/11/17 09:17 04/11/17 09:17 04/11/17 09:17 04/10/17 21:00 Physical Exam: NAD, pleasant and cooperative, slightly lethargic CV: RRR, no MRG Lungs: prolonged expiratory phase , good air entry Abd: obese, soft, NT, ND , NL BS. Ext: trace edema , thick skin with hyperpigmentation. Fungal infection in some toes webs on both sides Neuro : no facial droop, tongue at mid line, nl facial sensation , round equal pupils , reactive to light . strength 5/5 in upper and lower extremities proximally and distally, sensation to light touch NL. reflexes 2+ knee jerk and bicpes b/l ASSESSMENT AND PLAN: Pleasant 61 y/o lady with h/o HTN, HIV on HAART, COPD , appendiceal tumor , and h/o opioid dependence who presented with SOB x 3 days. She is diagnosed with COPD exacerbation 1- Acute hypoxic hypercapnic resp failure due to acute COPD exacerbation: improved - appreciate Pulm input. PO steroids - cont Advair and Duo-Nebs - finished doxy x 3 days - might need oxygen at home .will order pre-post ambulatory pulse ox 2- CARDOSO: chronic intermittent CARDSOO, which is severe x 4 days . Nl neuro exam. - MRI of brain with no masses , but with chronic microvascular disease - start ASA - give a dose of trmadol . PRN toradol 3- H/o appendiceal cancer : chronic . - follow up as out pt 4- H/O HIV: cont HAART 5- Neuropathy: Lyrica, 5- Opioid dependence : Cont Methadone 6- Dyspepsia: - PPI 7- medial pelvic pain when walking after a fall 1 months ago and 1 week ago. - CT scan DVT PX. GI prophylaxis walked 30 feet , need more PT or SNF . will repeat pT tomorrow Visit type - Emergency Visit Emergency Visit: Yes ED Registration Date: 04/08/17 Care time: The patient presented to the Emergency Department on the above date and was hospitalized for further evaluation of their emergent condition. - New Patient This patient is new to me today: No - Critical Care Critical Care patient: No
[2017-04-11] MEDS ORDERED: traMADol HCL 50 MG TABLET PO ONE (15:45)
[2017-04-11] MEDS ORDERED: KETOROLAC TROMETHAMINE 10 MG TABLET PO PRN (21:05)
[2017-04-11 22:34] LABS: URINE APPEARANCE SLCLOUDY; URINE BILIRUBIN NEGATIVE (NEGATIVE); URINE BLOOD NEGATIVE (NEGATIVE); URINE COLOR YELLOW; URINE GLUCOSE (UA) NEGATIVE (NEGATIVE); URINE KETONE NEGATIVE (NEGATIVE); URINE NITRITE NEGATIVE (NEGATIVE); URINE PROTEIN NEGATIVE (NEGATIVE); URINE UROBILINOGEN 4.0 E.U/dl mg/dL (0.2-1.0)
[2017-04-12] MEDS ORDERED: METHADONE HCL 40 MG DISPERSABLE TABLET ONE (05:41)
[2017-04-12] MEDS ORDERED: METHADONE HCL 10 MG TABLET ONE (05:41)
[2017-04-12] MEDS: METHADONE 40 MG, METHADONE 30 MG PO SCH (05:51)
[2017-04-12] MEDS: ALBUTEROL SO4 2.5/IPRATROPIUM 0.5 INH SOL 3 ML VIAL.NEB. NEB SCH ×2 (06:09→11:40)
[2017-04-12 07:35] LABS: BASOPHIL 0.1 % (0-2.0); EOSINOPHIL 0.4 % (0-4.5); MCH 32.8 pg (25.7-33.7); MCHC 33.3 g/dl (32.0-36.0); MEAN CELL VOLUME 98.5 fl (80-96); MEAN PLT VOLUME 9.9 fl (7.5-11.1); NEUTROPHILS 56.9 % (42.8-82.8); PLATELET COUNT 132 K/MM3 (134-434); RDW 12.6 % (11.6-15.6)
[2017-04-12] MEDS ORDERED: ASPIRIN COATED 81 MG TABLET.EC PO SCH (10:00)
[2017-04-12] MEDS ORDERED: PT OWN MED DRAWER 7, Y5N ONE ×2 (10:40→10:56)
[2017-04-12] MEDS: FLUTICASONE/SALMETEROL 100 MCG/50 MCG DISKUS IH SCH (10:41)
[2017-04-12] MEDS: PANTOPRAZOLE 40 MG TABLET (FP) PO SCH (10:41)
[2017-04-12] MEDS: CITALOPRAM HYDROBROMIDE 20 MG TABLET (FP) PO SCH (10:42)
[2017-04-12] MEDS: predniSONE 20 MG TABLET (UD) PO SCH (10:43)
[2017-04-12] MEDS: PREGABALIN 75 MG CAPSULE PO SCH (10:43)
[2017-04-12] MEDS: DOCUSATE SODIUM 100 MG CAPSULE (FP) PO SCH (10:43)
[2017-04-12] MEDS: EMTRICITABINE 200MG/TENOFOVIR 300MG PO SCH (10:44)
[2017-04-12] MEDS: RALTEGRAVIR POTASSIUM 400 MG TAB PO SCH (10:44)
[2017-04-12] MEDS: ENOXAPARIN NA (PORCINE) 40 MG/0.4 ML DISP.SYRIN SQ SCH (10:45)
[2017-04-12] MEDS: POLYETHYLENE GLYCOL 3350 119 GM BTL PO SCH (10:48)
[2017-04-12 11:16] LABS: URINE LEUK ESTERASE Negative (NEGATIVE)
--- NOTE | 2017-04-12 12:07 | PN ---
Teaching Attending Note Name of Resident: Joaquin Keith ATTENDING PHYSICIAN STATEMENT I saw and evaluated the patient. I reviewed the resident's note and discussed the case with the resident. I agree with the resident's findings and plan as documented. SUBJECTIVE: no fever or chills, breathing has improved . CARDOSO has improved . pain in upper legs when walking OBJECTIVE: NAD, pleasant and cooperative, awake and cooperative CV: RRR, 3/6 SM at LUSB Lungs: prolonged expiratory phase, good air entry Abd: obese, soft, NT, ND , NL BS. Ext: trace edema , thick skin with hyperpigmentation. Fungal infection in some toes webs on both sides ASSESSMENT AND PLAN: Pleasant 61 y/o lady with h/o HTN, HIV on HAART, COPD , appendiceal tumor , and h/o opioid dependence who presented with SOB x 3 days. She is diagnosed with COPD exacerbation 1- Acute hypoxic hypercapnic resp failure due to acute COPD exacerbation: improved - Cont prednisone - cont Advair - finished doxy x 3 days - pre-post ambulation pulse ox 93 % after walking. - BIPAP after dc for BRIAN , and further management of ehr Pulmonary HTN as out pt 2- CARDOSO: chronic intermittent CARDOSO, which is severe x 4 days . - MRI of brain with no masses , but with chronic microvascular disease - cont ASA - Cont methadone . can't give any narcotics 3- H/o appendiceal cancer : chronic . - follow up as out pt 4- H/O HIV: cont HAART 5- Neuropathy: Lyrica, 5- Opioid dependence : Cont Methadone 6- Dyspepsia: - PPI 7- medial pelvic pain when walking after a fall 1 months ago and 1 week ago. - CT scan : with L pubic ramus Fx. and ischiopubic junction fx. medical mgt Will dc today. repeat PT eval pending . pt refuses rehab placement case d/w Dr. Morris, her PCP
--- NOTE | 2017-04-12 12:18 | PN ---
Progress Note, Physician History of Present Illness: PULMONARY ALERT,FEELING BETTTER,DYSPNEA IMPROVING,AMBULATING - Current Medication List Current Medications: Active Medications Albuterol/Ipratropium (Duoneb -) 1 amp NEB QIDR [facility] Last Admin: 04/12/17 06:09 Dose: 1 amp Albuterol/Ipratropium (Duoneb -) 1 amp NEB Q4H PRN PRN Reason: SHORT OF BREATH/WHEEZING Aspirin (Ecotrin -) 81 mg PO DAILY [facility] Last Admin: 04/12/17 10:43 Dose: 81 mg Citalopram Hydrobromide (Celexa -) 40 mg PO DAILY [facility] Last Admin: 04/12/17 10:42 Dose: 40 mg Docusate Sodium (Colace -) 100 mg PO BID [facility] Last Admin: 04/12/17 10:43 Dose: 100 mg Emtricitabine/Tenofovir (Truvada) 1 tab PO DAILY [facility] Last Admin: 04/12/17 10:44 Dose: 1 tab Enoxaparin Sodium (Lovenox -) 40 mg SQ DAILY [facility] Last Admin: 04/12/17 10:45 Dose: 40 mg Methadone HCl 40 mg/ Methadone (HCl 30 mg) 70 mg PO DAILY@0600 [facility] Last Admin: 04/12/17 05:51 Dose: 70 mg Pantoprazole Sodium (Protonix -) 40 mg PO DAILY [facility] Last Admin: 04/12/17 10:41 Dose: 40 mg Polyethylene Glycol (Miralax (For Daily Use) -) 17 gm PO DAILY [facility] Last Admin: 04/12/17 10:48 Dose: 17 gm Prednisone (Deltasone -) 40 mg PO DAILY [facility] Last Admin: 04/12/17 10:43 Dose: 40 mg Pregabalin (Lyrica -) 75 mg PO BID [facility] Last Admin: 04/12/17 10:43 Dose: 75 mg Raltegravir (Isentress -) 400 mg PO BID [facility] Last Admin: 04/12/17 10:44 Dose: 400 mg Fluticasone/Salmeterol (Advair 100mcg/50mcg -) 1 puff IH BID [facility] Last Admin: 04/12/17 10:41 Dose: 1 puff - Objective Vital Signs: Vital Signs Temperature 98.7 F 04/12/17 09:05 Pulse Rate 80 04/12/17 09:05 Respiratory Rate 18 04/12/17 09:05 Blood Pressure 117/66 04/12/17 09:05 O2 Sat by Pulse Oximetry (%) 98 04/12/17 04:01 Constitutional: Yes: Well Nourished, Calm Eyes: Yes: WNL HENT: Yes: WNL Neck: Yes: WNL Cardiovascular: Yes: Regular Rate and Rhythm, S1, S2 Respiratory: Yes: Wheezes (SCATTERED MARLENA WHEEEZES) Gastrointestinal: Yes: Normal Bowel Sounds, Soft Extremities: Yes: WNL Edema: No Labs: CBC, BMP 04/12/17 06:45 Assessment/Plan 1) COPD Acute exacerbation of chronic obstructive airways disease Code(s): J44.1 - CHRONIC OBSTRUCTIVE PULMONARY DISEASE W (ACUTE) EXACERBATION (2) COPD (chronic obstructive pulmonary disease) Code(s): J44.9 - CHRONIC OBSTRUCTIVE PULMONARY DISEASE, UNSPECIFIED Qualifiers : COPD type: COPD with acute exacerbation Qualified Code(s): J44.1 - Chronic obstructive pulmonary disease with (acute) exacerbation; J44.1 - Chronic obstructive pulmonary disease with (acute) exacerbation; J44.1 - Chronic obstructive pulmonary disease with (acute) exacerbation; J44.1 - Chronic obstructive pulmonary disease with (acute) exacerbation (3) Cough Code(s): R05 - COUGH (4) HIV (human immunodeficiency virus infection) Code(s): B20 - HUMAN IMMUNODEFICIENCY VIRUS [HIV] DISEASE Assessment/Plan symbicort 160/4.5 spiriva prednisone 50mg po daily x 3 days the reduce dosage by mg every 2 days o2 antibiotics dvt prophylaxsis pfts outpatient DR LONG Problem List - Problems (1) COPD Acute exacerbation of chronic obstructive airways disease Code(s): J44.1 - CHRONIC OBSTRUCTIVE PULMONARY DISEASE W (ACUTE) EXACERBATION (2) COPD (chronic obstructive pulmonary disease) Code(s): J44.9 - CHRONIC OBSTRUCTIVE PULMONARY DISEASE, UNSPECIFIED Qualifiers : COPD type: COPD with acute exacerbation Qualified Code(s): J44.1 - Chronic obstructive pulmonary disease with (acute) exacerbation; J44.1 - Chronic obstructive pulmonary disease with (acute) exacerbation; J44.1 - Chronic obstructive pulmonary disease with (acute) exacerbation; J44.1 - Chronic obstructive pulmonary disease with (acute) exacerbation (3) Cough Code(s): R05 - COUGH (4) HIV (human immunodeficiency virus infection) Code(s): B20 - HUMAN IMMUNODEFICIENCY VIRUS [HIV] DISEASE
[2017-04-12] MEDS ORDERED: predniSONE 20 MG TABLET (UD) PO SCH (12:30)
[2017-04-12] MEDS ORDERED: BUDESONIDE/FORMETEROL FUMARATE 160/4.5 mcg INHALER IH SCH (12:30)
[2017-04-12] MEDS ORDERED: TIOTROPIUM BROMIDE 18 MCG/INH (DEVICE W/ 5 CAPSULES) IH SCH (12:30)
--- NOTE | 2017-04-12 12:31 | PN ---
Progress Note (short form) - Note Progress Note: headaches improved today breathing improved Vital Signs Period Temp Pulse Resp BP Sys/Amato Pulse Ox Last 24 Hr 97.9 F-98.9 F 70-83 14-18 117-159/66-90 98-100 cor-rrr lungs decreased bs at bases abd soft,nt ext no edema CBC, BMP 04/12/17 06:45 04/10/17 06:30 a/p copd exacerbation- continue steroids and nebs, clinically improved she is followed by a Dr Mahoney in [place] ([facility] [employer] [facility]) and is being evaluated for sleep apnea- a mask has been ordered and home oxygen is planned spoke with Dr Moreland- he suggests outpt PT stable hiv CD4 greater then 900 with suppressed viral load-continue truvada/ tivicay after discharge appendiceal malignancy (lowgrade epithelioid)- followed by Dr Maher and Dr Dave at [facility]- nonoperable frequent falls- now using walker at home- agree she would benefit from inpatient rehab but she is refusing this for PT evaluation today headaches improved- imaging noted unlikely to have OI - she has high tcells d/w Dr Khalil Problem List - Problems (1) COPD Acute exacerbation of chronic obstructive airways disease Code(s): J44.1 - CHRONIC OBSTRUCTIVE PULMONARY DISEASE W (ACUTE) EXACERBATION (2) HIV disease Code(s): B20 - HUMAN IMMUNODEFICIENCY VIRUS [HIV] DISEASE
[2017-04-12 13:41] VITALS: PULSE 86
[2017-04-12 15:11] VITALS: BP 124/80; TEMP 98.4
--- NOTE | 2017-04-12 17:39 | DS ---
Physical Exam: SUBJECTIVE: Pt had another episode of headache last night. Currently the headache has resolved and has been fine since last night. Pt also reports intermittently using BiPap, however is comfortable on nasal cannula and feels much better in regards to work of breathing. Pt states she has tried to get home oxygen before, however it would not get covered. Pt agreeable to discharge today and would be agreeable to home oxygen if need be. OBJECTIVE: Vital Signs Period Temp Pulse Resp BP Sys/Amato Pulse Ox Last 24 Hr 97.9 F-98.9 F 70-86 16-18 117-159/66-83 93-100 PHYSICAL EXAM GENERAL: The patient is awake, alert, and fully oriented, in no acute distress. HEENT: EOMI, PERRL, Moist mucous membranes. Trachea midline LUNGS: Transmitted upper respiratory sounds noted; otherwise CTA b/l. No wheezes , rhonchi or rales noted. No accessory muscle use HEART: RRR, 3/6 systolic ejection murmur heard best at lower left sternal border ABDOMEN: Soft, nontender, nondistended, normoactive bowel sounds EXTREMITIES: 2+ pulses, warm, well-perfused, no edema. NEUROLOGICAL: Alert and oriented x3 SKIN: Warm, dry, normal turgor, no rashes or lesions noted. LABS Laboratory Results - last 24 hr 04/11/17 04/12/17 22:05 06:45 WBC 6.0 RBC 4.17 Hgb 13.7 Hct 41.1 MCV 98.5 H MCH 32.8 MCHC 33.3 RDW 12.6 Plt Count 132 L MPV 9.9 Neutrophils % 56.9 D Lymphocytes % 29.8 D Monocytes % 12.8 H D Eosinophils % 0.4 D Basophils % 0.1 Urine Color Yellow Urine Appearance Slcloudy Urine pH 6.0 Ur Specific [place] 1.020 Urine Protein Negative Urine Glucose (UA) Negative Urine Ketones Negative Urine Blood Negative Urine Nitrite Negative Urine Bilirubin Negative Urine Urobilinogen 4.0 e.u/dl H Ur Leukocyte Esterase Negative HOSPITAL COURSE: Date of Admission:04/08/17 Date of Discharge: 04/12/17 The patient is a 61 year old female, with a significant past medical history of HTN, HIV (on meds, CD4 in 900's, RNA undetectable), appendiceal tumor (stable), and COPD who presented to the emergency department with shortness of breath for 3 days alongside of chest tightness, productive cough, and myalgias. ABG was performed showing CO2 retention and pt was placed on BiPap, Duonebs, and Prednisone IV for respiratory support. In addition, Doxycycline 100mg PO was administered for a total of 3 days, maintained on a Methadone taper for her polysubstance abuse, and continued her home HIV medication. Initial CXR revealed an enlarged heart with no acute process seen. Pt was then admitted to the general medical floors with a diagnosis of acute hypoxic hypercapnic respiratory failure. During her hospital course her respiratory status was maintained with BiPap, Duonebs and IV steroids. Patient also began to complain about chronic intermittent headaches without auras and a Brain MRI was performed revealing no intracranial bleeds or masses/metastases. She began to also complain about sacral pain. At this time an initial hip/pelvic XR showed no abnormalities, and eventually a CT of her pelvis was performed revealing an acute non-displaced fracture of her left inferior pubic ramus and a subacute/ healing fracture of her left superior ischiopubic junction. Surgery was not indicated. At this time pt, was improving in respiratory status and was downgraded to nasal cannula and PO prednisone. Pt was then discharged in stable condition with home oxygen, advair, and a prednisone taper with instructions to follow up with her PCP, an oncologist, and a company secretary. Minutes to complete discharge: 30 Discharge Summary Reason For Visit: COPD ACUTE EXACERBATION OF CHRONIC OBSTRUCTIVE Current Active Problems COPD Acute exacerbation of chronic obstructive airways disease (Acute) Headache (Acute) Pubic ramus fracture (Acute) COPD (chronic obstructive pulmonary disease) (Chronic) HIV (human immunodeficiency virus infection) (Chronic) Condition: Improved - Instructions Diet, Activity, Other Instructions: - please follow with your PCP Dr. Morris. - Please follow with your methadone clinic. _ please follow up with your oncologist an d your company secretary. - You need to continue arrangements fro a BIPAP machine - You need out patient pulmonary rehab. - aspirin was added to you medications. - Your cholesterol level needs to be checked after discharge - you have fractures in you pelvis from you previous falls, but no surgery needed. You need to be careful and need physical therapy . - please avoid falling again. - Advair is a new inhaler added to your medications. sent to your pharmacy - please call your PCP fro any fever , chills, worsening breathing or wheezing . - please follow the prednisone taper: take 40 mg daily for 2 days then 30 mg daily for 3 days then 20 mg daily for 3 days then 10 mg daily for 3 days then stop Best of michaela Weiner Referrals: Nikki Morris MD [Primary Care Provider] - Reno Bennett MD, MD [Staff Physician] - Disposition: VNS/HOME HEALTH CARE - Home Medications Comprehensive Discharge Medication List: Ambulatory Orders Pregabalin [Lyrica -] 75 mg PO BID #60 capsule MDD 2 04/02/17 Citalopram Hydrobromide [Celexa -] 40 mg PO DAILY #30 tablet 04/07/17 Albuterol Sulfate Inhaler - [Ventolin HFA Inhaler -] 2 inh PO Q4H PRN #1 inhaler 04/08/17 Docusate Sodium [Colace -] 100 mg PO BID #60 cap 04/08/17 Dolutegravir Sodium [Tivicay] 50 mg PO DAILY #30 tab 04/08/17 Emtricitabine/Tenofovir (Tdf) [Truvada 200 mg-300 mg Tablet] 1 each PO DAILY # 30 tab 04/08/17 Polyethylene Glycol 3350 [Miralax 255 gm Btl -] 17 gm PO DAILY #1 bottle Aspirin [Aspirin EC] 81 mg PO DAILY #30 tablet. 04/12/17 Prednisone 10 mg PO ASDIR #28 tablet 04/12/17 Salmeterol/Fluticasone [Advair 100Mcg/50Mcg -] 1 puff IH BID #1 inhaler This patient is new to me today: Yes Date on this admission: 04/12/17 Emergency Visit: No Critical Care patient: No - Discharge Referral Referred to [facility] No
== END 2017-04-12 18:31 | disposition home health service (06) | DRG 140 ==
LOC: JER 12:41 → JERBED 19:19 → J4S 21:40
PROVIDERS: ADMIT Internal Medicine; ATTEND Internal Medicine
DX: J44.1 Chronic obstructive pulmonary disease with (acute) exacerbation (principal); J96.01 Acute respiratory failure with hypoxia; J96.02 Acute respiratory failure with hypercapnia; M25.551 Pain in right hip; F11.20 Opioid dependence, uncomplicated; K59.00 Constipation, unspecified; F32.9 Major depressive disorder, single episode, unspecified; G62.9 Polyneuropathy, unspecified; R51 Headache; R05 Cough; R10.13 Epigastric pain; Z21 Asymptomatic human immunodeficiency virus [HIV] infection status; R39.15 Urgency of urination; Z72.0 Tobacco use
CPT/HCPCS: 36415; 36600; 70450-TC; 70552-TC; 71010-TC; 72170-TC; 72192-TC; 80053; 81003; 82140; 82375; 82550; 82803; 82977; 83050; 83735; 83880; 84100; 84484; 84702; 85025; 85027; 87040; 87804; 93005; 93010; 94640; 94660; 94761; 97116-GP; 97161-GP; 99284-25

== ENCOUNTER 2017-06-04 13:00 | Inpatient (IN) | payer OTHER ==
[2017-06-04] MEDS ORDERED: EPINEPHrine/PF 1 MG/1 ML (1:1,000) AMPULE ONE (13:07)
[2017-06-04] MEDS ORDERED: methylPREDNISolone NA SUCC 125 MG/2 ML VIAL ONE ×2 (13:07→18:12)
[2017-06-04] MEDS: ALBUTEROL SO4 2.5/IPRATROPIUM 0.5 INH SOL 3 ML VIAL.NEB. NEB SCH ×5 (13:22→18:10)
[2017-06-04] MEDS ORDERED: VANCOMYCIN 1 GRAM (PRE-DOCKED) 1,000 MG/250 ML BAG IVPB ONE ×2 (13:32→14:04)
[2017-06-04] MEDS ORDERED: PIPERACILLIN/TAZOB 4.5 GM 4.5 GM/100 ML BAG IVPB ONE (13:33)
[2017-06-04] MEDS ORDERED: ALBUTEROL SO4 2.5/IPRATROPIUM 0.5 INH SOL 3 ML VIAL.NEB. NEB ONE (13:39)
[2017-06-04 13:44] LABS: ARTERIAL BLD GAS O2 SATURATION 97.8 % (90-98.9); ARTERIAL BLOOD GAS BASE EXCESS 1.2 meq/l (-2-2); ARTERIAL BLOOD GAS PCO2 76.5 mmHg (35-45); ARTERIAL BLOOD GAS pH 7.23 (7.35-7.45); CARBOXYHEMOGLOBIN 3.7 gm% (0.5-2.0)
[2017-06-04 13:56] LABS: ALLENS TEST POSITIVE
[2017-06-04 13:57] LABS: BASO % 0.3 % (0-2.0); EOS % 0.7 % (0-4.5); HEMATOCRIT 45.9 % (32.4-45.2); LYMPH % 36.5 % (8-40); MCHC 32.7 g/dl (32.0-36.0); MEAN CELL VOLUME 104.2 fl (80-96); MEAN PLT VOLUME 10.2 fl (7.5-11.1); MONO % 8.2 % (3.8-10.2); NEUT % 54.3 % (42.8-82.8); PLATELET COUNT 156 K/MM3 (134-434); RDW 13.4 % (11.6-15.6); WHITE BLOOD COUNT 8.1 K/mm3 (4.0-10.0)
[2017-06-04] MEDS ORDERED: ACETAMINOPHEN 1000 MG/100 ML VIAL (NON FORMULARY) IVPB ONE (14:04)
[2017-06-04] MEDS ORDERED: ACETAMINOPHEN INJECTION 100 ML IVPB ONE (14:04)
[2017-06-04] MEDS ORDERED: PIPERACILLIN/TAZOB 3.375 GM 3.375 GM/50 ML BAG IVPB ONE (14:04)
[2017-06-04 14:11] LABS: ALBUMIN 3.7 g/dl (3.4-5.0); ANION GAP 6 (8-16); BILIRUBIN,TOTAL 0.7 mg/dL (0.2-1.0); BLOOD UREA NITROGEN 4 mg/dL (7-18); CALCIUM 8.6 mg/dL (8.5-10.1); CHLORIDE 99 mmol/L (98-107); CO2 36 mmol/L (21-32); CREATININE 0.9 mg/dL (0.55-1.02); GLUCOSE,RANDOM 118 mg/dL (74-106); POTASSIUM 3.4 mmol/L (3.5-5.1); SGOT/AST 7 U/L (15-37); SGPT/ALT 11 U/L (12-78); SODIUM 141 mmol/L (136-145)
[2017-06-04 14:12] LABS: ALK PHOS 133 U/L (45-117)
[2017-06-04 14:14] LABS: INR 1.01 (0.82-1.09); PROTHROMBIN TIME (PATIENT) 11.4 SEC (9.98-11.88)
[2017-06-04 14:17] LABS: ACTIVATED PTT 34.3 SECONDS (26.9-34.4)
[2017-06-04 14:36] LABS: URINE APPEARANCE CLEAR; URINE BILIRUBIN NEGATIVE (NEGATIVE); URINE BLOOD NEGATIVE (NEGATIVE); URINE COLOR YELLOW; URINE GLUCOSE (UA) NEGATIVE (NEGATIVE); URINE KETONE NEGATIVE (NEGATIVE); URINE LEUK ESTERASE NEGATIVE (NEGATIVE); URINE NITRITE NEGATIVE (NEGATIVE); URINE PROTEIN NEGATIVE (NEGATIVE)
[2017-06-04 14:39] LABS: N-TERMINAL BNP 112.29 pg/ml (5-125)
[2017-06-04 14:52] LABS: COCAINE, UR NEGATIVE ng/ml (CUTOFF=300); OPIATES, URI NEGATIVE ng/ml (CUTOFF=300); PHENCYCLIDINE,URINE NEGATIVE ng/ml (CUTOFF=25); URINE AMPHETAMINES NEGATIVE ng/ml (CUTOFF=500); URINE BARBITURATES NEGATIVE ng/ml (CUTOFF=200); URINE BENZODIAZEPINES NEGATIVE ng/ml (CUTOFF=200)
[2017-06-04 14:53] LABS: METHADONE, UR POSITIVE ng/ml (CUTOFF=300)
--- NOTE | 2017-06-04 15:01 | PDOC ---
History of Present Illness - General Chief Complaint: Respiratory Distress Stated Complaint: RESPIRATORY DISTRESS Time Seen by Provider: 06/04/17 13:12 - History of Present Illness Initial Comments: 06/04/17 14:56 "The patient is a 62-year-old female, with a significant past medical history of COPD, sleep apnea, and HIV (compliant on HAART, last CD4 in 900s and RNA undetectable), polysubstance abuse on methadone and medical marijuana, who presents to the ED via EMS in respiratory distress. Per family member, the pt was attempting to smoke her medical marijuana but was unable to get the pump to work. She then decided to drink the solution in the pump. Pt subsequently went outside and became very short of breath. Upon EMS arrival, pt was found to have bilateral wheezes and was given a duoneb and epi. On arrival to ER, pt was somnolent, in significant distress, unable to contribute any history. " Past History - Past Medical History Allergies/Adverse Reactions: Allergies Allergy/AdvReac Type Severity Reaction Status Date / Time banana AdvReac Verified 06/04/17 13:28 Home Medications: Ambulatory Orders Pregabalin [Lyrica -] 75 mg PO BID #60 capsule MDD 2 04/02/17 Citalopram Hydrobromide [Celexa -] 40 mg PO DAILY #30 tablet 04/07/17 Albuterol Sulfate Inhaler - [Ventolin HFA Inhaler -] 2 inh PO Q4H PRN #1 inhaler 04/08/17 Docusate Sodium [Colace -] 100 mg PO BID #60 cap 04/08/17 Dolutegravir Sodium [Tivicay] 50 mg PO DAILY #30 tab 04/08/17 Emtricitabine/Tenofovir (Tdf) [Truvada 200 mg-300 mg Tablet] 1 each PO DAILY # 30 tab 04/08/17 Polyethylene Glycol 3350 [Miralax 255 gm Btl -] 17 gm PO DAILY #1 bottle Aspirin [Aspirin EC] 81 mg PO DAILY #30 tablet. 04/12/17 Prednisone 10 mg PO ASDIR #28 tablet 04/12/17 Salmeterol/Fluticasone [Advair 100Mcg/50Mcg -] 1 puff IH BID #1 inhaler Anemia: Yes Asthma: Yes Cancer: Yes (appendiceal ) Cardiac Disorders: Yes (hx endocarditis) CVA: No COPD: Yes (pulmonary htn) CHF: No Dementia: No Diabetes: No GI Disorders: No Disorders: No HTN: Yes Hypercholesterolemia: No Liver Disease: Yes (possible cirrhosis (hx elevated ammonia)) Psychiatric Problems: Yes (DEPRESSION, SI.) Seizures: No Thyroid Disease: No - Surgical History Abdominal Surgery: Yes (MULTIPLE ABORTIONS.) Appendectomy: No Cardiac Surgery: No Cholecystectomy: No Lung Surgery: No Neurologic Surgery: No Orthopedic Surgery: No - Immunization History Immunization Up to Date: Yes - Suicide/Smoking/Psychosocial Hx Smoking Status: Yes Smoking History: Never smoked Years of Tobacco Use: 40 Have you smoked in the past 12 months: No Number of Cigarettes Smoked Daily: 1 If you are a former smoker, when did you quit?: 4 YRS Cigars Per Day: 1 Information on smoking cessation initiated: No 'Breaking Loose' booklet given: 05/24/13 Hx Alcohol Use: No Drug/Substance Use Hx: No Substance Use Type: Alcohol, Cocaine, Heroin Hx Substance Use Treatment: Yes ([facility]) Review of Systems - Review of Systems Able to Perform ROS?: No *Physical Exam - Vital Signs Last Vital Signs Temp Pulse Resp BP Pulse Ox 101.5 F H 103 H 16 157/121 98 06/04/17 13:30 06/04/17 14:28 06/04/17 14:28 06/04/17 14:28 06/04/17 14:28 - Physical Exam Comments: 06/04/17 15:03 "GENERAL: lethargic, arousable to verbal stimuli, in respiratory distress HEAD: No signs of trauma EYES: PERRLA, EOMI, sclera anicteric, conjunctiva clear ENT: Auricles normal inspection, hearing grossly normal, nares patent, oropharynx clear without exudates. Moist mucosa NECK: Nontender, no stepoffs, Normal ROM, supple, no lymphadenopathy, JVD, or masses LUNGS: bilateral wheezes with poor air movement HEART: Regular rate and rhythm, normal S1 and S2, no murmurs, rubs or gallops ABDOMEN: Soft, nontender, normoactive bowel sounds. No guarding, no rebound. No masses EXTREMITIES: 2+ pitting edema BLE SKIN: Warm, Dry, normal turgor, no rashes or lesions noted. " Heart Score/ECG Review - ECG Impressions Comment:: 06/04/17 15:05 Sinus tachycardia, no MORTEZA/STDs, no TWIs, intervals wnl, axis wnl ED Treatment Course - LABORATORY CBC & Chemistry Diagram: 06/07/17 10:15 06/08/17 06:40 - ADDITIONAL ORDERS Additional order review: Laboratory Results 06/04/17 06/04/17 06/04/17 14:10 14:10 13:12 PT with INR INR PTT (Actin FS) Puncture Site ABG pH ABG pCO2 at Pt Temp ABG pO2 at Pt Temp ABG HCO3 ABG O2 Sat (Measured) ABG O2 Content ABG Base Excess Mika Test Carboxyhemoglobin Methemoglobin O2 Delivery Device Oxygen Flow Rate Vent Mode Vent Rate Mechanical Rate PEEP Pressure Support Vent Sodium Potassium Chloride Carbon Dioxide Anion Gap BUN Creatinine Creat Clearance w eGFR Random Glucose Lactic Acid Calcium Phosphorus 5.0 H D Magnesium Total Bilirubin AST ALT Alkaline Phosphatase Creatine Kinase Troponin I B-Natriuretic Peptide Total Protein Albumin Urine Color Yellow Urine Appearance Clear Urine pH 6.0 Ur Specific [place] 1.008 Urine Protein Negative Urine Glucose (UA) Negative Urine Ketones Negative Urine Blood Negative Urine Nitrite Negative Urine Bilirubin Negative Urine Urobilinogen 2.0 H Opiates Screen Negative Methadone Screen Positive Barbiturate Screen Negative Phencyclidine Screen Negative Ur Amphetamines Screen Negative MDMA (Ecstasy) Screen Negative Benzodiazepines Screen Negative Cocaine Screen Negative U Marijuana (THC) Screen Positive 06/04/17 06/04/17 06/04/17 13:12 13:12 13:12 PT with INR INR PTT (Actin FS) Puncture Site ABG pH ABG pCO2 at Pt Temp ABG pO2 at Pt Temp ABG HCO3 ABG O2 Sat (Measured) ABG O2 Content ABG Base Excess Mika Test Carboxyhemoglobin Methemoglobin O2 Delivery Device Oxygen Flow Rate Vent Mode Vent Rate Mechanical Rate PEEP Pressure Support Vent Sodium 141 Potassium 3.4 L Chloride 99 Carbon Dioxide 36 H Anion Gap 6 L BUN 4 L D Creatinine 0.9 D Creat Clearance w eGFR > 60 Random Glucose 118 H Lactic Acid 2.5 H* Calcium 8.6 Phosphorus Magnesium 2.3 Total Bilirubin 0.7 AST 7 L D ALT 11 L Alkaline Phosphatase 133 H Creatine Kinase Troponin I B-Natriuretic Peptide Total Protein 7.0 Albumin 3.7 Urine Color Urine Appearance Urine pH Ur Specific [place] Urine Protein Urine Glucose (UA) Urine Ketones Urine Blood Urine Nitrite Urine Bilirubin Urine Urobilinogen Opiates Screen Methadone Screen Barbiturate Screen Phencyclidine Screen Ur Amphetamines Screen MDMA (Ecstasy) Screen Benzodiazepines Screen Cocaine Screen U Marijuana (THC) Screen 06/04/17 06/04/17 06/04/17 13:12 13:12 13:05 PT with INR 11.40 INR 1.01 PTT (Actin FS) 34.3 Puncture Site Right radial ABG pH 7.23 L* D ABG pCO2 at Pt Temp 76.5 H* D ABG pO2 at Pt Temp 127.0 H D ABG HCO3 31.2 H ABG O2 Sat (Measured) 97.8 ABG O2 Content 20.1 ABG Base Excess 1.2 Mika Test Positive Carboxyhemoglobin 3.7 H Methemoglobin 0.5 O2 Delivery Device Bipap Oxygen Flow Rate 50 Vent Mode S/t Vent Rate 16 Mechanical Rate Yes PEEP 0.0 Pressure Support Vent 18/6 Sodium Potassium Chloride Carbon Dioxide Anion Gap BUN Creatinine Creat Clearance w eGFR Random Glucose Lactic Acid Calcium Phosphorus Magnesium Total Bilirubin AST ALT Alkaline Phosphatase Creatine Kinase 52 Troponin I < 0.02 B-Natriuretic Peptide 112.29 Total Protein Albumin Urine Color Urine Appearance Urine pH Ur Specific [place] Urine Protein Urine Glucose (UA) Urine Ketones Urine Blood Urine Nitrite Urine Bilirubin Urine Urobilinogen Opiates Screen Methadone Screen Barbiturate Screen Phencyclidine Screen Ur Amphetamines Screen MDMA (Ecstasy) Screen Benzodiazepines Screen Cocaine Screen U Marijuana (THC) Screen 06/04/17 13:12 RBC 4.40 MCV 104.2 H MCHC 32.7 RDW 13.4 MPV 10.2 Neutrophils % 54.3 Lymphocytes % 36.5 D Monocytes % 8.2 Eosinophils % 0.7 Basophils % 0.3 - RADIOLOGY Radiology Studies Ordered: Category Date Time Status CHEST X-RAY PORTABLE* [RAD] Stat Radiology 06/04/17 13:13 Completed - Medications Given in the ED: ED Medications Discontinued Medications Generic Name Dose Route Start Last Admin Trade Name Freq PRN Reason Stop Dose Admin Acetaminophen 1,000 mg 06/04/17 14:04 06/04/17 14:26 Ofirmev Injection - IVPB 06/04/17 14:05 1,000 mg ONCE ONE Administration Albuterol/Ipratropium 1 amp 06/04/17 13:15 06/04/17 14:02 Duoneb - NEB 06/04/17 14:01 1 amp Q15M MILIND Administration Piperacillin/Tazobactam/Dextrose 4.5 gm in 100 mls @ 200 mls/hr 06/04/17 13: 33 06/04/17 13:33 Zosyn 4.5gm Ivpb (Premix) IVPB 06/04/17 14:02 200 mls/hr ONCE ONE Administration Protocol Vancomycin HCl 1,000 mg 06/04/17 13:32 06/04/17 14:03 Vancomycin (Pre-Docked) IVPB 06/04/17 13:33 1,000 mg ONCE ONE Administration Protocol Medical Decision Making - Critical Care Time Total Critical Care Time (minutes): 45 Critical Care Statement: The care of this patient involved high complexity decision making to prevent further life threatening deterioration of the patient 's condition and/or to evaluate & treat vital organ system(s) failure or risk of failure. - Medical Decision Making 06/04/17 15:05 62 F with respiratory distress, likely COPD exacerbation given diffuse wheezes on exam. Pt lethargic in ER, possibly 2/2 CO2 narcosis vs intoxication. Pt also found to be febrile, unclear source. - BiPAP with inline nebs, solumedrol - Empiric abx (vanc/zosyn) for fever - Labs, ABG - BCx, UCx - CXR - UA, Utox - Admit ICU 06/04/17 16:16 CBC,CMP WBC 8.1 K/mm3 (4.0-10.0) D 06/04/17 13:12 RBC 4.40 M/mm3 (3.60-5.2) 06/04/17 13:12 Hgb 15.0 GM/dL (10.7-15.3) 06/04/17 13:12 Hct 45.9 % (32.4-45.2) H 06/04/17 13:12 MCV 104.2 fl (80-96) H 06/04/17 13:12 MCH 34.0 pg (25.7-33.7) H 06/04/17 13:12 MCHC 32.7 g/dl (32.0-36.0) 06/04/17 13:12 RDW 13.4 % (11.6-15.6) 06/04/17 13:12 Plt Count 156 K/MM3 (134-434) 06/04/17 13:12 MPV 10.2 fl (7.5-11.1) 06/04/17 13:12 Neutrophils % 54.3 % (42.8-82.8) 06/04/17 13:12 Lymphocytes % 36.5 % (8-40) D 06/04/17 13:12 Monocytes % 8.2 % (3.8-10.2) 06/04/17 13:12 Eosinophils % 0.7 % (0-4.5) 06/04/17 13:12 Basophils % 0.3 % (0-2.0) 06/04/17 13:12 Sodium 141 mmol/L (136-145) 06/04/17 13:12 Potassium 3.4 mmol/L (3.5-5.1) L 06/04/17 13:12 Chloride 99 mmol/L (98-107) 06/04/17 13:12 Carbon Dioxide 36 mmol/L (21-32) H 06/04/17 13:12 Anion Gap 6 (8-16) L 06/04/17 13:12 BUN 4 mg/dL (7-18) L D 06/04/17 13:12 Creatinine 0.9 mg/dL (0.55-1.02) D 06/04/17 13:12 Creat Clearance w eGFR > 60 (>60) 06/04/17 13:12 Random Glucose 118 mg/dL (74-106) H 06/04/17 13:12 Lactic Acid 2.5 mmol/L (0.4-2.0) H* 06/04/17 13:12 Calcium 8.6 mg/dL (8.5-10.1) 06/04/17 13:12 Phosphorus 5.0 mg/dL (2.5-4.9) H D 06/04/17 13:12 Magnesium 2.3 mg/dL (1.8-2.4) 06/04/17 13:12 Total Bilirubin 0.7 mg/dL (0.2-1.0) 06/04/17 13:12 AST 7 U/L (15-37) L D 06/04/17 13:12 ALT 11 U/L (12-78) L 06/04/17 13:12 Alkaline Phosphatase 133 U/L (45-117) H 06/04/17 13:12 Creatine Kinase 52 IU/L (26-192) 06/04/17 13:12 Troponin I < 0.02 ng/ml (0.00-0.05) 06/04/17 13:12 B-Natriuretic Peptide 112.29 pg/ml (5-125) 06/04/17 13:12 Total Protein 7.0 g/dl (6.4-8.2) 06/04/17 13:12 Albumin 3.7 g/dl (3.4-5.0) 06/04/17 13:12 Pt with hypercapnia on initial ABG. Utox positive for methadone and marijuana. Pt reassessed s/p 1 hour on BiPAP - now with improved mental status and respiratory rate. Pt persistently lethargic (likely 2/2 acute methadone and marijuana intoxication ), but is protecting her airway. Spoke with Dr. Orona, who has accepted pt to ICU. Repeat ABG ordered. Case discussed in detail with admitting physician including history, physical exam and ancillary studies. Admitting physician has assumed care for the patient and will follow all pending diagnostics and complete the evaluation and treatment. *DC/Admit/Observation/Transfer Diagnosis at time of Disposition: COPD (chronic obstructive pulmonary disease) - Discharge Dispostion Admit: Yes - Referrals - Patient Instructions - Post Discharge Activity - Attestations Physician Attestion: 06/04/17 16:30 I, Dr. Luiz Chavez MD, attest that this document has been prepared under my direction and personally reviewed by me in its entirety. I further attest, that it accurately reflects all work, treatment, procedures and medical decision -making performed by me.
[2017-06-04] MEDS ORDERED: SODIUM CHLORIDE 1,000 ML IV STA (16:18)
[2017-06-04 17:06] LABS: ARTERIAL BLD GAS O2 SATURATION 92.1 % (90-98.9); ARTERIAL BLOOD GAS BASE EXCESS 2.9 meq/l (-2-2); ARTERIAL BLOOD GAS PO2 71.9 mmHg (80-100); ARTERIAL BLOOD GAS pH 7.26 (7.35-7.45); CARBOXYHEMOGLOBIN 2.8 gm% (0.5-2.0)
[2017-06-04 17:18] LABS: ARTERIAL BLOOD GAS PCO2 73.2 mmHg (35-45)
[2017-06-04] MEDS ORDERED: methylPREDNISolone NA SUCC 125 MG/2 ML VIAL IVPUSH ONE (17:32)
[2017-06-04] MEDS ORDERED: SODIUM CHLORIDE 1,000 ML IV SCH (17:45)
--- NOTE | 2017-06-04 17:49 | HP ---
PCP: HISTORY OF PRESENT ILLNESS: UNABLE TO OBTAIN DUE TO PATIENTS MEDICAL CONDITION. ALL INFORMATION OBTAINED FROM ED STAFF AND RECORDS. Patient is a 62 year old female with a PMHx of COPD, HIV, Polysubstance Abuse ( opiates and ETOH) on Methadone, BRIAN who was BIBEMS after finding her lethargic and wheezing on the floor. According to ED staff patient was trying to inhale her medical marijuana and was unable to get her pump to work so she opened it up and drank/sniffed the contents. Afterwards, patient went outside in the cold and started feeling short of breath. En route patient was found to be wheezing and a round of nebulizers and Epinephrine was given. Upon arrival to the ED patient was lethargic but responds to verbal stimuli. ER course was notable for: (1) Solumedrol given (2) Vanco and Zosyn given (3) BIPAP placed due to resp failure Recent Travel: Unable to obtain due to patients medical condition PAST MEDICAL HISTORY: Unable to obtain due to patients medical condition PAST SURGICAL HISTORY: Unable to obtain due to patients medical condition Social History:Unable to obtain due to patients medical condition Family History: Unable to obtain due to patients medical condition Allergies: banana Adverse Reaction (Verified 06/04/17 13:28) pt has abdominal pain HOME MEDICATIONS: Home Medications Medication Instructions Recorded Pregabalin [Lyrica -] 75 mg PO BID #60 capsule MDD 2 04/02/17 Citalopram Hydrobromide [Celexa -] 40 mg PO DAILY #30 tablet 04/07/17 Albuterol Sulfate Inhaler - 2 inh PO Q4H PRN #1 inhaler 04/08/17 [Ventolin HFA Inhaler -] Docusate Sodium [Colace -] 100 mg PO BID #60 cap 04/08/17 Dolutegravir Sodium [Tivicay] 50 mg PO DAILY #30 tab 04/08/17 Emtricitabine/Tenofovir (Tdf) 1 each PO DAILY #30 tab 04/08/17 [Truvada 200 mg-300 mg Tablet] Polyethylene Glycol 3350 [Miralax 17 gm PO DAILY #1 bottle 04/08/17 255 gm Btl -] Aspirin [Aspirin EC] 81 mg PO DAILY #30 tablet. 04/12/17 Prednisone 10 mg PO ASDIR #28 tablet 04/12/17 Salmeterol/Fluticasone [Advair 1 puff IH BID #1 inhaler 04/12/17 100Mcg/50Mcg -] REVIEW OF SYSTEMS Unable to obtain due to patients medical condition PHYSICAL EXAMINATION Vital Signs - 24 hr 06/04/17 06/04/17 06/04/17 13:00 13:01 13:30 Temperature 101.5 F H Pulse Rate 127 H 103 H Pulse Rate [ 105 H Left Apical] Respiratory 50 H 16 Rate Blood Pressure 153/110 Blood Pressure 151/106 [Right Arm] O2 Sat by Pulse 100 99 100 Oximetry (%) 06/04/17 06/04/17 14:28 16:54 Temperature 99.5 F Pulse Rate Pulse Rate [ 103 H 94 H Left Apical] Respiratory 16 16 Rate Blood Pressure Blood Pressure 157/121 109/68 [Right Arm] O2 Sat by Pulse 98 96 Oximetry (%) GENERAL: Lethargic, responds to verbal stimuli EYES: Pupils equal, round and reactive to light, extraocular movements intact, sclera anicteric, conjunctiva clear. EARS, NOSE, THROAT: Dentures placed with smear of red along her lips and teeth LUNGS: Mild wheezing anteriorly with no accessory muscle use HEART: RRR no M/R/G ABDOMEN: Soft, Obese, nontender, not distended, normoactive bowel sounds, no guarding, no rebound, no masses. LOWER EXTREMITIES: 1+ pitting edema bilaterally NEUROLOGICAL: unable to perform due to patients medical condition Laboratory Results - last 24 hr 06/04/17 06/04/17 06/04/17 13:05 13:12 13:12 WBC 8.1 D RBC 4.40 Hgb 15.0 Hct 45.9 H MCV 104.2 H MCH 34.0 H MCHC 32.7 RDW 13.4 Plt Count 156 MPV 10.2 Neutrophils % 54.3 Lymphocytes % 36.5 D Monocytes % 8.2 Eosinophils % 0.7 Basophils % 0.3 PT with INR INR PTT (Actin FS) Puncture Site Right radial ABG pH 7.23 L* D ABG pCO2 at Pt Temp 76.5 H* D ABG pO2 at Pt Temp 127.0 H D ABG HCO3 31.2 H ABG O2 Sat (Measured) 97.8 ABG O2 Content 20.1 ABG Base Excess 1.2 Mika Test Positive Carboxyhemoglobin 3.7 H Methemoglobin 0.5 O2 Delivery Device Bipap Oxygen Flow Rate 50 Vent Mode S/t Vent Rate 16 Mechanical Rate Yes PEEP 0.0 Pressure Support Vent 18/6 Sodium Potassium Chloride Carbon Dioxide Anion Gap BUN Creatinine Creat Clearance w eGFR Random Glucose Lactic Acid Calcium Phosphorus Magnesium Total Bilirubin AST ALT Alkaline Phosphatase Creatine Kinase 52 Troponin I < 0.02 B-Natriuretic Peptide 112.29 Total Protein Albumin Urine Color Urine Appearance Urine pH Ur Specific [place] Urine Protein Urine Glucose (UA) Urine Ketones Urine Blood Urine Nitrite Urine Bilirubin Urine Urobilinogen Ur Leukocyte Esterase Opiates Screen Methadone Screen Barbiturate Screen Phencyclidine Screen Ur Amphetamines Screen MDMA (Ecstasy) Screen Benzodiazepines Screen Cocaine Screen U Marijuana (THC) Screen Blood Type Antibody Screen 06/04/17 06/04/17 06/04/17 13:12 13:12 13:12 WBC RBC Hgb Hct MCV MCH MCHC RDW Plt Count MPV Neutrophils % Lymphocytes % Monocytes % Eosinophils % Basophils % PT with INR 11.40 INR 1.01 PTT (Actin FS) 34.3 Puncture Site ABG pH ABG pCO2 at Pt Temp ABG pO2 at Pt Temp ABG HCO3 ABG O2 Sat (Measured) ABG O2 Content ABG Base Excess Mika Test Carboxyhemoglobin Methemoglobin O2 Delivery Device Oxygen Flow Rate Vent Mode Vent Rate Mechanical Rate PEEP Pressure Support Vent Sodium 141 Potassium 3.4 L Chloride 99 Carbon Dioxide 36 H Anion Gap 6 L BUN 4 L D Creatinine 0.9 D Creat Clearance w eGFR > 60 Random Glucose 118 H Lactic Acid 2.5 H* Calcium 8.6 Phosphorus Magnesium Total Bilirubin 0.7 AST 7 L D ALT 11 L Alkaline Phosphatase 133 H Creatine Kinase Troponin I B-Natriuretic Peptide Total Protein 7.0 Albumin 3.7 Urine Color Urine Appearance Urine pH Ur Specific [place] Urine Protein Urine Glucose (UA) Urine Ketones Urine Blood Urine Nitrite Urine Bilirubin Urine Urobilinogen Ur Leukocyte Esterase Opiates Screen Methadone Screen Barbiturate Screen Phencyclidine Screen Ur Amphetamines Screen MDMA (Ecstasy) Screen Benzodiazepines Screen Cocaine Screen U Marijuana (THC) Screen Blood Type Antibody Screen 06/04/17 06/04/17 06/04/17 13:12 13:12 14:10 WBC RBC Hgb Hct MCV MCH MCHC RDW Plt Count MPV Neutrophils % Lymphocytes % Monocytes % Eosinophils % Basophils % PT with INR INR PTT (Actin FS) Puncture Site ABG pH ABG pCO2 at Pt Temp ABG pO2 at Pt Temp ABG HCO3 ABG O2 Sat (Measured) ABG O2 Content ABG Base Excess Mika Test Carboxyhemoglobin Methemoglobin O2 Delivery Device Oxygen Flow Rate Vent Mode Vent Rate Mechanical Rate PEEP Pressure Support Vent Sodium Potassium Chloride Carbon Dioxide Anion Gap BUN Creatinine Creat Clearance w eGFR Random Glucose Lactic Acid Calcium Phosphorus 5.0 H D Magnesium 2.3 Total Bilirubin AST ALT Alkaline Phosphatase Creatine Kinase Troponin I B-Natriuretic Peptide Total Protein Albumin Urine Color Yellow Urine Appearance Clear Urine pH 6.0 Ur Specific [place] 1.008 Urine Protein Negative Urine Glucose (UA) Negative Urine Ketones Negative Urine Blood Negative Urine Nitrite Negative Urine Bilirubin Negative Urine Urobilinogen 2.0 H Ur Leukocyte Esterase Negative Opiates Screen Methadone Screen Barbiturate Screen Phencyclidine Screen Ur Amphetamines Screen MDMA (Ecstasy) Screen Benzodiazepines Screen Cocaine Screen U Marijuana (THC) Screen Blood Type Antibody Screen 06/04/17 06/04/17 06/04/17 14:10 15:39 16:50 WBC RBC Hgb Hct MCV MCH MCHC RDW Plt Count MPV Neutrophils % Lymphocytes % Monocytes % Eosinophils % Basophils % PT with INR INR PTT (Actin FS) Puncture Site Right radial ABG pH 7.26 L ABG pCO2 at Pt Temp 73.2 H* ABG pO2 at Pt Temp 71.9 L D ABG HCO3 31.7 H ABG O2 Sat (Measured) 92.1 ABG O2 Content 15.9 ABG Base Excess 2.9 H Mika Test Y Carboxyhemoglobin 2.8 H Methemoglobin 0.8 O2 Delivery Device Nasal canula Oxygen Flow Rate 5l Vent Mode Vent Rate Mechanical Rate PEEP Pressure Support Vent Sodium Potassium Chloride Carbon Dioxide Anion Gap BUN Creatinine Creat Clearance w eGFR Random Glucose Lactic Acid Calcium Phosphorus Magnesium Total Bilirubin AST ALT Alkaline Phosphatase Creatine Kinase Troponin I B-Natriuretic Peptide Total Protein Albumin Urine Color Urine Appearance Urine pH Ur Specific [place] Urine Protein Urine Glucose (UA) Urine Ketones Urine Blood Urine Nitrite Urine Bilirubin Urine Urobilinogen Ur Leukocyte Esterase Opiates Screen Negative Methadone Screen Positive Barbiturate Screen Negative Phencyclidine Screen Negative Ur Amphetamines Screen Negative MDMA (Ecstasy) Screen Negative Benzodiazepines Screen Negative Cocaine Screen Negative U Marijuana (THC) Screen Positive Blood Type O POSITIVE Antibody Screen Negative ASSESSMENT/PLAN: Patient is a 62 year old female who was found lethargic at home and upon arrival to ED patient was found in acute respiratory failure. Patient admitted for further monitoring and management. Acute hypercapnic hypoxic respiratory failure -Possibly secondary to aspiration PNA -Initially placed on BIPAP but switched to 02 NC @5 L and now saturating 97% -Initial ABG had CO2 of 76 and second one 73. Patient normally lives in the 50' s. Repeat ABG in 2 hours -Chest CT ordered to rule out PNA -Continue SOlu-medrol 60mg Q8H -Will resume Zosyn if patient is found with PNA/Infiltrates on CT -DuoNeb QID and Albuterol PRN -If patient continues to have worsening respiratory drive, will need intubation -Flu swab ordered -Admit to ICU Acute Toxic Metabolic Encephalopathy -Likely secondary to CO2 retention vs. drug ingestion -Urine toxicology positive for Opiates and marijuana, as expected -Will hold sedating medications due to AMS and lethargy Severe Sepsis secondary to Possible Pneumonia -Given Zosyn/Vancomycin in the ED -Lactic >4 initially wit hsecond one 2.5. Will repeat in the morning -Chest CT ordered and will resume ABX if showing infiltrates -Continue IV NS @83mls/hr -ID consult placed -Blood cultures pending Hypokalemia -Level of 3.4 -KCL 40meq in fluids Polysubstance Abuse -Need to confirm methadone dose -Will continue to hold due to mental status HIV -Last admission showed CD4 of 900 with undetectable viral load (03/2017) -Continue HAART medication Tivicay and Truvada Opioid Induced Constipation -continue docusate and miralax Elevated ALP -Had elevated ALP in last admission with GGT negative -Will continue to trend Peripheral Neuropathy -Will hold lyrica Depression -Continue celexa FEN/PPx -IV fluids with NS @83mls/hr -Hypokalemia. Replete and repeat labs -NPO -Heparin 5000 units SQ Q8H for DVT. High Risk -No GI required Disposition -Full code -Admitted to ICU and will remain at least three days. Visit type - Emergency Visit Emergency Visit: Yes ED Registration Date: 06/04/17 Care time: The patient presented to the Emergency Department on the above date and was hospitalized for further evaluation of their emergent condition. - New Patient This patient is new to me today: Yes Date on this admission: 06/04/17 - Critical Care Critical Care patient: Yes Total Critical Care Time (in minutes): 45 Critical Care Statement: The care of this patient involved high complexity decision making to prevent further life threatening deterioration of the patient 's condition and/or to evaluate & treat vital organ system(s) failure or risk of failure.
[2017-06-04] MEDS ORDERED: ALBUTEROL SO4 0.083% IH SOL 2.5 MG/3 ML VIAL.NEB. NEB PRN (17:53)
[2017-06-04] MEDS: HEPARIN NA (PORCINE) 5,000 UNITS/ML 1ML VIAL SQ SCH ×2 (18:10→22:02)
[2017-06-04] MEDS: SODIUM CHLORIDE 1,000 ML with POTASSIUM CHLORIDE 40 MEQ IV SCH (18:10)
[2017-06-04] MEDS: methylPREDNISolone NA SUCC 125 MG/2 ML VIAL IVPB SCH (18:10)
[2017-06-04] MEDS ORDERED: HEPARIN NA (PORCINE) 5,000 UNITS/ML 1ML VIAL ONE (18:12)
--- NOTE | 2017-06-04 19:23 | PN ---
Teaching Attending Note Name of Resident: Alicja Bar ATTENDING PHYSICIAN STATEMENT I saw and evaluated the patient. I reviewed the resident's note and discussed the case with the resident. I agree with the resident's findings and plan as documented. HPI is from ER chart as pt can not provide history SUBJECTIVE:62yo F with PMH COPD, BRIAN, HIV, continuous polysubstance abuse (ETOH and codeine) on methadone and medical THC. As per record, pt was attempting to smoke THS and unable to get pump to work so she opened the pump and drank the contents. Afterwards pt went outside and became very short of breath. EMS was called and noted her to be wheezing with nebs and epi given. In the ER pt was somnolent and respiratory distress. On my arrival pt is lethargic but alert to verbal stimuli but is unable to keep alert and falls asleep. OBJECTIVE: Last Vital Signs Temp Pulse Resp BP Pulse Ox 99.0 F 88 16 112/75 95 06/04/17 17:50 06/04/17 17:50 06/04/17 17:50 06/04/17 17:50 06/04/17 17:50 General lethargic, tachypnic HEENT poor dentition, red smeared along her teeth CV S1 S2 RRR Lungs coarse breath sounds anteriorly Abdomen soft NT/ND obese Extremities 1+ pitting edema B/L LE ASSESSMENT AND PLAN: 62yo F with PMH COPD, BRIAN, HIV, continuous polysubstance abuse (ETOH and codeine ) on methadone and medical THC presented to the ER with respiratory distress and found to be lethargic 1. Acute hypoxic/hypercapnic respiratory failure- MICU admission. Initial ABG with CO2 76. placed on bipap with improvement in oxygenation and now saturating 97% on 2L NC. start Solumedrol 60mg Q8H, nebs RTC, CXR poor study. Obtain CT chest. concern for PNA including aspiration vs pneumonitis from toxic inhalation. repeat ABG in 2H. low threshold for intubation for airway protection. Baseline Co2 50's. 2. Acute toxic metabolic encephalopathy- possible due to CO2 retention vs ingestion vs infection. check Utox. hold sedating medications. frequent neurochecks. consider narcan. 3. Severe sepsis with suspected PNA- received Vanco/zosyn in the ER. complete sepsis workup. Check CT chest, IVF, repeat lactic acid, cont abx and consider ID consult pending results of CT. Bcx pending 4. Hypokalemia- Kcl in IVF 5. Continuous polysubstance abuse- will need to confirm methadone dosing. would hold at this time due to mental status 6. HIV- on HARRT. 7. DVT ppx- hep sq The care of this patient involved high complexity decision making to prevent further life threatening deterioration of the patient's condition and/or to evaluate & treat vital organ system(s) failure or risk of failure. 48 minutes
--- NOTE | 2017-06-04 20:35 | CONSULT ---
Consult Consult Specialty:: Pulm/CCM Reason for Consultation:: AMS; acute hypercarbic respiratory dysfunction - History of Present Illness Chief Complaint: AMS History of Present Illness: 62yo F with PMH COPD, BRIAN, HIV, PSA on methadone and medical THC who was brought in by EMS with SOB after ingestion of liquid THC. As per record, pt was attempting to smoke THC and unable to get pump to work so she opened the pump and drank the contents. Given nebs and epi in the field for wheeze. In the ER VS HR 130, BP 152/110, RR 50, O2 sat 100%. Pt was lethargic but responds to verbal stimuli. ABG 7.26, 73.2, 71.9 and placed on BiPAP with some improvement and was able to be weaned to NC 4L. WBC 8.1, Trop <0.02, lact 2.5. She was transferred to ICU for further management In ICU transported to CT head and chest. T 98F, BP 112/76, HR 85, O2 sat 96% on 4L NC. Arousable to voice, oriented x2, following simple commands. has regular upper body tremors and facial fasciculations - History Source History Provided By: Medical Record Limitations to Obtaining History: Other (Lethargy) - Past Medical History Cardio/Vascular: Yes: Other (ENDOCARDITIS). No: AFIB Pulmonary: Yes: COPD. No: O2 Dependent Gastrointestinal: Yes: Constipation, GERD. No: Ascites Hepatobiliary: Yes: Hepatitis B (HBV core ab), Hepatitis C (PCR negative), Other (alcoholic liver disease suspected with mild splenomegaly) Infectious Disease: Yes: HIV Psych: Yes: Depression Additional Medical History: substance abuse on methadone - Alcohol/Substance Use Hx Alcohol Use: No History of Substance Use: reports: Cocaine, Heroin (opoid dependence) Date of Last Use: 05/14/16 - Smoking History Smoking history: Never smoked Have you smoked in the past 12 months: No Aproximately how many cigarettes per day: 1 If you are a former smoker, when did you quit?: 4 YRS - Social History Usual Living Arrangement: Alone ADL: Independent History of Recent Travel: No Home Medications - Allergies Allergies/Adverse Reactions: Allergies Allergy/AdvReac Type Severity Reaction Status Date / Time banana AdvReac Verified 06/04/17 13:28 - Home Medications Home Medications: Ambulatory Orders Pregabalin [Lyrica -] 75 mg PO BID #60 capsule MDD 2 04/02/17 Citalopram Hydrobromide [Celexa -] 40 mg PO DAILY #30 tablet 04/07/17 Albuterol Sulfate Inhaler - [Ventolin HFA Inhaler -] 2 inh PO Q4H PRN #1 inhaler 04/08/17 Docusate Sodium [Colace -] 100 mg PO BID #60 cap 04/08/17 Dolutegravir Sodium [Tivicay] 50 mg PO DAILY #30 tab 04/08/17 Emtricitabine/Tenofovir (Tdf) [Truvada 200 mg-300 mg Tablet] 1 each PO DAILY # 30 tab 04/08/17 Polyethylene Glycol 3350 [Miralax 255 gm Btl -] 17 gm PO DAILY #1 bottle Aspirin [Aspirin EC] 81 mg PO DAILY #30 tablet. 04/12/17 Prednisone 10 mg PO ASDIR #28 tablet 04/12/17 Salmeterol/Fluticasone [Advair 100Mcg/50Mcg -] 1 puff IH BID #1 inhaler Family Disease History - Family Disease History Family History: Unable to Obtain Family Disease History: CA: Grandparent, Father (lung cancer) Review of Systems Unable to obtain ROS, reason: lethargic Physical Exam Vital Signs: Vital Signs Temperature 98.3 F 06/04/17 19:09 Pulse Rate 93 H 06/04/17 19:09 Respiratory Rate 10 L 06/04/17 19:09 Blood Pressure 117/65 06/04/17 19:09 O2 Sat by Pulse Oximetry (%) 95 06/04/17 17:50 Constitutional: Yes: Well Nourished, No Distress Eyes: Yes: Conjunctiva Clear HENT: Yes: Atraumatic Neck: Yes: Supple Cardiovascular: Yes: Regular Rate and Rhythm, Murmur (systolic 3/6 murmur) Respiratory: Yes: Regular, On Nasal O2 Gastrointestinal: Yes: Normal Bowel Sounds, Soft Renal/: Yes: Taylor Present Extremities: Yes: Other (venous stasis discoloration) Edema: LLE: 1+, RLE: 1+ Peripheral Pulses WNL: Yes Neurological: Yes: Lethargy, Tremors Psychiatric: Yes: Other (Somnolent) Labs: CBC, BMP 06/04/17 13:12 06/04/17 13:12 CBC,CMP WBC 8.1 K/mm3 (4.0-10.0) D 06/04/17 13:12 RBC 4.40 M/mm3 (3.60-5.2) 06/04/17 13:12 Hgb 15.0 GM/dL (10.7-15.3) 06/04/17 13:12 Hct 45.9 % (32.4-45.2) H 06/04/17 13:12 MCV 104.2 fl (80-96) H 06/04/17 13:12 MCH 34.0 pg (25.7-33.7) H 06/04/17 13:12 MCHC 32.7 g/dl (32.0-36.0) 06/04/17 13:12 RDW 13.4 % (11.6-15.6) 06/04/17 13:12 Plt Count 156 K/MM3 (134-434) 06/04/17 13:12 MPV 10.2 fl (7.5-11.1) 06/04/17 13:12 Neutrophils % 54.3 % (42.8-82.8) 06/04/17 13:12 Lymphocytes % 36.5 % (8-40) D 06/04/17 13:12 Monocytes % 8.2 % (3.8-10.2) 06/04/17 13:12 Eosinophils % 0.7 % (0-4.5) 06/04/17 13:12 Basophils % 0.3 % (0-2.0) 06/04/17 13:12 Sodium 141 mmol/L (136-145) 06/04/17 13:12 Potassium 3.4 mmol/L (3.5-5.1) L 06/04/17 13:12 Chloride 99 mmol/L (98-107) 06/04/17 13:12 Carbon Dioxide 36 mmol/L (21-32) H 06/04/17 13:12 Anion Gap 6 (8-16) L 06/04/17 13:12 BUN 4 mg/dL (7-18) L D 06/04/17 13:12 Creatinine 0.9 mg/dL (0.55-1.02) D 06/04/17 13:12 Creat Clearance w eGFR > 60 (>60) 06/04/17 13:12 Random Glucose 118 mg/dL (74-106) H 06/04/17 13:12 Lactic Acid 2.5 mmol/L (0.4-2.0) H* 06/04/17 18:10 Calcium 8.6 mg/dL (8.5-10.1) 06/04/17 13:12 Phosphorus 5.0 mg/dL (2.5-4.9) H D 06/04/17 13:12 Magnesium 2.3 mg/dL (1.8-2.4) 06/04/17 13:12 Total Bilirubin 0.7 mg/dL (0.2-1.0) 06/04/17 13:12 AST 7 U/L (15-37) L D 06/04/17 13:12 ALT 11 U/L (12-78) L 06/04/17 13:12 Alkaline Phosphatase 133 U/L (45-117) H 06/04/17 13:12 Creatine Kinase 52 IU/L (26-192) 06/04/17 13:12 Troponin I < 0.02 ng/ml (0.00-0.05) 06/04/17 13:12 B-Natriuretic Peptide 112.29 pg/ml (5-125) 06/04/17 13:12 Total Protein 7.0 g/dl (6.4-8.2) 06/04/17 13:12 Albumin 3.7 g/dl (3.4-5.0) 06/04/17 13:12 ABG Results ABG pH 7.26 (7.35-7.45) L 06/04/17 16:50 ABG pCO2 at Pt Temp 73.2 mmHg (35-45) H* 06/04/17 16:50 ABG pO2 at Pt Temp 71.9 mmHg (80-100) L D 06/04/17 16:50 ABG HCO3 31.7 meq/L (22-26) H 06/04/17 16:50 ABG O2 Sat (Measured) 92.1 % (90-98.9) 06/04/17 16:50 ABG O2 Content 15.9 % vol (15-22) 06/04/17 16:50 ABG Base Excess 2.9 meq/l (-2-2) H 06/04/17 16:50 Vital Signs Period Temp Pulse Resp BP Sys/Amato Pulse Ox Last 24 Hr 98.3 F-101.5 F 88-130 10-50 109-157/65-121 95-100 Active Medications Albuterol Sulfate (Ventolin 0.083% Nebulizer Soln -) 1 amp NEB Q4H PRN PRN Reason: SHORT OF BREATH/WHEEZING Albuterol/Ipratropium (Duoneb -) 1 amp NEB QIDR [facility] Last Admin: 06/04/17 18:10 Dose: 1 amp Aspirin (Ecotrin -) 81 mg PO DAILY [facility] Chlorhexidine Gluconate (Hibiclens For Decolonization -) 1 applic TP HS [facility] Citalopram Hydrobromide (Celexa -) 40 mg PO DAILY [facility] Docusate Sodium (Colace -) 100 mg PO BID [facility] Emtricitabine/Tenofovir (Truvada) 1 tab PO DAILY [facility] Heparin Sodium (Porcine) (Heparin -) 5,000 unit SQ TID [facility] Last Admin: 06/04/17 18:10 Dose: 5,000 unit Potassium Chloride 40 meq/ (Sodium Chloride) 1,020 mls @ 83 mls/hr IV Q12H [facility] Last Admin: 06/04/17 18:10 Dose: 83 mls/hr Influenza Virus Vaccine Quadrival (Flulaval Quad 3839-2172) 60 mcg IM .ONCE ONE Stop: 06/04/17 21:08 Insulin Aspart (Novolog Vial Sliding Scale -) 1 vial SQ ACHS [facility] PRN Reason: Protocol Methylprednisolone Sodium Succinate (Solu-Medrol -) 60 mg IVPB Q8H-IV [facility] Last Admin: 06/04/17 18:10 Dose: 60 mg Mupirocin (Bactroban Ointment (For Decolonization) -) 1 applic NS BID [facility] Stop: 06/09/17 21:59 Pneumococcal 13-Valent Conj Vacc (Prevnar 13 Syringe -) 0.5 ml IM .ONCE ONE Stop: 06/04/17 21:08 Polyethylene Glycol (Miralax (For Bowel Prep) -) 17 gm PO DAILY [facility] Imaging - Results Chest X-ray: Report Reviewed Cat Scan: Report Reviewed (CT Chest- rt middle lobe atelectasis/infiltrate, pulm HTN; CT head - no interval changes from previous CT in 04/06) Problem List - Problems (1) Altered mental state Code(s): R41.82 - ALTERED MENTAL STATUS, UNSPECIFIED (2) Substance abuse Code(s): F19.10 - OTHER PSYCHOACTIVE SUBSTANCE ABUSE, UNCOMPLICATED (3) COPD (chronic obstructive pulmonary disease) Code(s): J44.9 - CHRONIC OBSTRUCTIVE PULMONARY DISEASE, UNSPECIFIED (4) COPD Acute exacerbation of chronic obstructive airways disease Code(s): J44.1 - CHRONIC OBSTRUCTIVE PULMONARY DISEASE W (ACUTE) EXACERBATION (5) Drowsiness Code(s): R40.0 - SOMNOLENCE (6) Depression Code(s): F32.9 - MAJOR DEPRESSIVE DISORDER, SINGLE EPISODE, UNSPECIFIED (7) HIV (human immunodeficiency virus infection) Code(s): B20 - HUMAN IMMUNODEFICIENCY VIRUS [HIV] DISEASE (8) Pulmonary hypertension Code(s): I27.2 - OTHER SECONDARY PULMONARY HYPERTENSION * DO NOT USE * (9) Sleep apnea, obstructive Code(s): G47.33 - OBSTRUCTIVE SLEEP APNEA (ADULT) (PEDIATRIC) (10) Substance use disorder Code(s): F19.90 - OTHER PSYCHOACTIVE SUBSTANCE USE, UNSPECIFIED, UNCOMPLICATED Assessment/Plan 62yo F with PMH COPD, BRIAN, HIV, PSA on methadone and medical THC who was brought in by EMS with SOB and AMS after ingestion of ? liquid THC. She was transferred to ICU with hypercarbic respiratory failure requiring BiPAP support. Plan: Resp: Hypercarbic resp failure 2/2 COPD exacerbation +/- aspiration pneumonitis after drug overdose -Cont albuterol nebs -Cont Methylpred IV -BiPAP support prn and at night Neuro: AMS in setting of drug overdose; hx of ETOH use -high risk for seizures -Seizure precautions -Hold methadone dose while lethargic -Monitor for DT -Cont antidepressants ID: Poss aspiration pneumonitis;Hx HIV -ID consult -Consider empiric Zosyn -F/u cultures -Cont HIV meds -Trend WBC and temps CV: Pulm HTN. Hx endocarditis + murmur -HD stable -Gentle hydration Proph: DVT prophylaxis GI prophylaxis Bowel regimen Melina Ortega, ACNP CC time 35mins
[2017-06-04 21:05] VITALS: BMI 34.9
[2017-06-04] MEDS ORDERED: PNEUMOC 13-VAL CONJ-DIP CRM/PF 0.5 ML DISP.SYRIN IM ONE (21:15)
[2017-06-04] MEDS ORDERED: FLU VACCINE QUAD 60 MCG/0.5 ML (MDV 17-18) IM ONE (21:15)
--- NOTE | 2017-06-04 22:05 | PN ---
Progress Note (short form) - Note Progress Note: Pt lethargic, however AAOx2. D/t increased C02 retention, pt to be placed on BiPAP now and stat ABG to be done for continued monitoring. Discussed with respiratory. Will f/u Thank you Anamika Pearce MD PGY-1 ICU team
[2017-06-04 22:22] LABS: ARTERIAL BLD GAS O2 SATURATION 91.6 % (90-98.9); ARTERIAL BLOOD GAS BASE EXCESS 1.5 meq/l (-2-2); ARTERIAL BLOOD GAS PO2 66.8 mmHg (80-100)
[2017-06-04 22:26] LABS: ALLENS TEST POSITIVE; ARTERIAL BLOOD GAS PCO2 61.1 mmHg (35-45)
[2017-06-04] MEDS: MUPIROCIN 2% TOPICAL OINTMENT FOR DECOLONIZATION NS SCH (22:53)
[2017-06-04] MEDS: INSULIN SLIDING SCALE (NOVOLOG) 1 VIAL SQ SCH (22:54)
[2017-06-04] MEDS: CHLORHEXIDINE GLUCONATE 4% CLEANSER FOR DECOLONIZATION TP SCH (22:54)
[2017-06-05] MEDS: ALBUTEROL SO4 2.5/IPRATROPIUM 0.5 INH SOL 3 ML VIAL.NEB. NEB SCH ×5 (00:10→23:25)
[2017-06-05] MEDS: methylPREDNISolone NA SUCC 125 MG/2 ML VIAL IVPB SCH (01:40)
[2017-06-05] MEDS ORDERED: PIPERACIL/TAZOB 3.375 GM 3.375 GM/50 ML PREMIX IVPB SCH (02:00)
[2017-06-05] MEDS ORDERED: PIPERACILLIN/TAZOB 3.375 GM 3.375 GM in DEXTROSE 5%-WATER - 50 ML IVPB ONE (02:00)
[2017-06-05] MEDS: SODIUM CHLORIDE 1,000 ML with POTASSIUM CHLORIDE 40 MEQ IV SCH (06:04)
[2017-06-05] MEDS: HEPARIN NA (PORCINE) 5,000 UNITS/ML 1ML VIAL SQ SCH ×3 (06:04→21:39)
[2017-06-05] MEDS: INSULIN SLIDING SCALE (NOVOLOG) 1 VIAL SQ SCH ×4 (06:05→21:45)
[2017-06-05] MEDS ORDERED: ACETAMINOPHEN 1000 MG/100 ML VIAL (NON FORMULARY) IVPB PRN (06:06)
[2017-06-05 06:19] LABS: HEMATOCRIT 42.2 % (32.4-45.2); MCH 34.4 pg (25.7-33.7); MCHC 33.2 g/dl (32.0-36.0); MEAN CELL VOLUME 103.5 fl (80-96); MEAN PLT VOLUME 10.5 fl (7.5-11.1); PLATELET COUNT 125 K/MM3 (134-434); RBC 4.08 M/mm3 (3.60-5.2); RDW 13.8 % (11.6-15.6); WHITE BLOOD COUNT 4.7 K/mm3 (4.0-10.0)
[2017-06-05 06:45] LABS: ALBUMIN 3.1 g/dl (3.4-5.0); ANION GAP 4 (8-16); BLOOD UREA NITROGEN 8 mg/dL (7-18); CALCIUM 8.3 mg/dL (8.5-10.1); CHLORIDE 101 mmol/L (98-107); CO2 34 mmol/L (21-32); GLUCOSE,RANDOM 139 mg/dL (74-106); MAGNESIUM 2.3 mg/dL (1.8-2.4); PHOSPHOROUS 3.9 mg/dL (2.5-4.9); POTASSIUM 3.9 mmol/L (3.5-5.1); SGOT/AST 16 U/L (15-37); SODIUM 139 mmol/L (136-145)
[2017-06-05 06:47] LABS: INR 0.96 (0.82-1.09); PROTHROMBIN TIME (PATIENT) 10.9 SEC (9.98-11.88)
[2017-06-05 06:48] LABS: ALK PHOS 107 U/L (45-117); BILIRUBIN,TOTAL 1.1 mg/dL (0.2-1.0); CREATININE 0.8 mg/dL (0.55-1.02); SGPT/ALT 14 U/L (12-78); TOT PROT 6.3 g/dl (6.4-8.2)
[2017-06-05 06:49] LABS: ACTIVATED PTT 37.1 SECONDS (26.9-34.4)
[2017-06-05 07:44] LABS: ARTERIAL BLD GAS O2 SATURATION 96.6 % (90-98.9); ARTERIAL BLOOD GAS BASE EXCESS 5.9 meq/l (-2-2); ARTERIAL BLOOD GAS PCO2 63.6 mmHg (35-45); ARTERIAL BLOOD GAS PO2 86.7 mmHg (80-100); ARTERIAL BLOOD GAS pH 7.34 (7.35-7.45)
[2017-06-05 07:47] LABS: ALLENS TEST POSITIVE
--- NOTE | 2017-06-05 08:13 | PN ---
Progress Note, Physician Chief Complaint: ID Full note dictated Complains of generalized body aches "neuropathy" Needs her Methadone - Current Medication List Current Medications: Active Medications Acetaminophen (Ofirmev Injection -) 1,000 mg IVPB Q6H PRN PRN Reason: FEVER OR PAIN Albuterol Sulfate (Ventolin 0.083% Nebulizer Soln -) 1 amp NEB Q4H PRN PRN Reason: SHORT OF BREATH/WHEEZING Albuterol/Ipratropium (Duoneb -) 1 amp NEB QIDR [facility] Last Admin: 06/05/17 07:30 Dose: 1 amp Aspirin (Ecotrin -) 81 mg PO DAILY [facility] Chlorhexidine Gluconate (Hibiclens For Decolonization -) 1 applic TP HS [facility] Last Admin: 06/04/17 22:54 Dose: 1 applic Citalopram Hydrobromide (Celexa -) 40 mg PO DAILY [facility] Docusate Sodium (Colace -) 100 mg PO BID [facility] Emtricitabine/Tenofovir (Truvada) 1 tab PO DAILY [facility] Heparin Sodium (Porcine) (Heparin -) 5,000 unit SQ TID [facility] Last Admin: 06/05/17 06:04 Dose: 5,000 unit Potassium Chloride 40 meq/ (Sodium Chloride) 1,020 mls @ 83 mls/hr IV Q12H [facility] Last Admin: 06/05/17 06:04 Dose: 83 mls/hr Insulin Aspart (Novolog Vial Sliding Scale -) 1 vial SQ ACHS [facility] PRN Reason: Protocol Last Admin: 06/05/17 06:05 Dose: 2 units Methadone HCl (Dolophine -) 65 mg PO DAILY [facility] Methylprednisolone Sodium Succinate (Solu-Medrol -) 60 mg IVPB Q8H-IV [facility] Last Admin: 06/05/17 01:40 Dose: 60 mg Mupirocin (Bactroban Ointment (For Decolonization) -) 1 applic NS BID [facility] Stop: 06/09/17 21:59 Last Admin: 06/04/17 22:53 Dose: 1 applic Piperacillin/Tazobactam/Dextrose (Zosyn 3.375gm Ivpb (Premix)) 3.375 gm IVPB Q8H-IV [facility] Polyethylene Glycol (Miralax (For Bowel Prep) -) 17 gm PO DAILY [facility] - Objective Vital Signs: Vital Signs Temperature 98 F 06/05/17 06:00 Pulse Rate 81 12/16/17 06:00 Respiratory Rate 16 06/05/17 06:00 Blood Pressure 133/84 06/05/17 06:00 O2 Sat by Pulse Oximetry (%) 100 06/05/17 00:30 Constitutional: Yes: No Distress Cardiovascular: Yes: S1, S2 Respiratory: Yes: Diminished Gastrointestinal: Yes: Soft. No: Tenderness Edema: No Labs: CBC, BMP 06/05/17 05:55 06/05/17 05:55 INR, PTT INR 0.96 (0.82-1.09) 06/05/17 05:55 Problem List - Problems (1) COPD Acute exacerbation of chronic obstructive airways disease Code(s): J44.1 - CHRONIC OBSTRUCTIVE PULMONARY DISEASE W (ACUTE) EXACERBATION (2) Pneumonia Code(s): J18.9 - PNEUMONIA, UNSPECIFIED ORGANISM Assessment/Plan Microbiology 06/04/17 21:00 Nasopharyngeal Swab Influenza Types A,B Antigen (MAURICE) - Final 06/04/17 21:00 Nasopharyngeal Swab - Final Laboratory Tests 06/04/17 06/05/17 06/05/17 18:10 05:55 05:55 WBC 4.7 D Hgb 14.0 Hct 42.2 Plt Count 125 L ABG pH ABG pO2 at Pt Temp BUN 8 D Creatinine 0.8 Creat Clearance w eGFR > 60 Lactic Acid 2.5 H* Total Bilirubin 1.1 H D AST 16 D ALT 14 D 06/05/17 06/05/17 05:55 06:00 WBC Hgb Hct Plt Count ABG pH 7.34 L ABG pO2 at Pt Temp 86.7 D BUN Creatinine Creat Clearance w eGFR Lactic Acid 2.3 H* Total Bilirubin AST ALT Assessment Exacerbation of COPD Substance abuse RML pneumonia ( recently hospitalized) HIV stable Plan Pending cultures Zosyn 4.5grs q 8 H FOr HIV can give Isentress 400 bid and Truvada 300/200 daily Laboratory Tests 06/04/17 14:10 Methadone Screen Positive U Marijuana (THC) Screen Positive
--- NOTE | 2017-06-05 09:08 | PN ---
Progress Note (short form) - Note Progress Note: c/o difffuse body aches and wanting murrell out. states her medicinal marijuana inhaler was not working so she opened it and "just tasted the liquid" subsequently she became very lightheaded and dizzy so went outside to get some fresh air and couldnt breathe. she called 911. She recalls EMS arriving but does not remember anything else until till this AM. denies CP, SOB, fever, chills, N/V/C/D Current Medications Generic Name Dose Route Start Last Admin Trade Name Freq PRN Reason Stop Dose Admin Acetaminophen 1,000 mg 06/05/17 06:06 Ofirmev Injection - IVPB Q6H PRN FEVER OR PAIN Albuterol Sulfate 1 amp 06/04/17 17:53 Ventolin 0.083% Nebulizer Soln - NEB Q4H PRN SHORT OF BREATH/WHEEZING Albuterol/Ipratropium 1 amp 06/04/17 18:00 06/05/17 07:30 Duoneb - NEB 1 amp QIDR [facility] Administration Aspirin 81 mg 06/05/17 10:00 Ecotrin - PO DAILY [facility] Chlorhexidine Gluconate 1 applic 06/04/17 22:00 06/04/17 22:54 Hibiclens For Decolonization - TP 1 applic HS [facility] Administration Citalopram Hydrobromide 40 mg 06/05/17 10:00 Celexa - PO DAILY [facility] Docusate Sodium 100 mg 06/05/17 10:00 Colace - PO BID [facility] Emtricitabine/Tenofovir 1 tab 06/05/17 10:00 Truvada PO DAILY [facility] Heparin Sodium (Porcine) 5,000 unit 06/04/17 18:00 06/05/17 06:04 Heparin - SQ 5,000 unit TID [facility] Administration Potassium Chloride 40 meq/ 1,020 mls @ 83 mls/hr 06/04/17 18:00 06/05/17 06: 04 Sodium Chloride IV 83 mls/hr Q12H [facility] Administration Piperacillin/Tazobactam/Dextrose 4.5 gm in 100 mls @ 200 mls/hr 06/05/17 10: 00 Zosyn 4.5gm Ivpb (Premix) IVPB Q8H-IV [facility] Protocol Insulin Aspart 1 vial 06/04/17 22:00 06/05/17 06:05 Novolog Vial Sliding Scale - SQ 2 units ACHS [facility] Administration Protocol Methadone HCl 65 mg 06/05/17 10:00 Dolophine - PO DAILY [facility] Methylprednisolone Sodium Succinate 60 mg 06/04/17 18:00 06/05/17 01:40 Solu-Medrol - IVPB 60 mg Q8H-IV [facility] Administration Mupirocin 1 applic 06/04/17 22:00 06/04/17 22:53 Bactroban Ointment (For Decolonization) - NS 06/09/17 21:59 1 applic BID [facility] Administration Polyethylene Glycol 17 gm 06/05/17 10:00 Miralax (For Bowel Prep) - PO DAILY [facility] Last Vital Signs Temp Pulse Resp BP Pulse Ox 98 F 77 16 130/92 97 06/05/17 06:00 06/05/17 08:00 06/05/17 08:00 06/05/17 08:00 06/05/17 08:00 Intake & Output 06/02/17 06/03/17 06/04/17 06/05/17 23:59 23:59 23:59 23:59 Intake Total 874 Output Total 250 800 Balance -250 74 Weight 203 lb 14.841 oz General slightly agitated A&O x3 CV S1 S2 RRR + murmur Lungs decreased breath sounds R lung field no wheezing Abdomen soft NT/ND obese Extremities 1+ pitting edema B/L LE CBCD WBC 4.7 K/mm3 (4.0-10.0) D 06/05/17 05:55 RBC 4.08 M/mm3 (3.60-5.2) 06/05/17 05:55 Hgb 14.0 GM/dL (10.7-15.3) 06/05/17 05:55 Hct 42.2 % (32.4-45.2) 06/05/17 05:55 MCV 103.5 fl (80-96) H 06/05/17 05:55 MCHC 33.2 g/dl (32.0-36.0) 06/05/17 05:55 RDW 13.8 % (11.6-15.6) 06/05/17 05:55 Plt Count 125 K/MM3 (134-434) L 06/05/17 05:55 MPV 10.5 fl (7.5-11.1) 06/05/17 05:55 CMP Sodium 139 mmol/L (136-145) 06/05/17 05:55 Potassium 3.9 mmol/L (3.5-5.1) 06/05/17 05:55 Chloride 101 mmol/L (98-107) 06/05/17 05:55 Carbon Dioxide 34 mmol/L (21-32) H 06/05/17 05:55 Anion Gap 4 (8-16) L 06/05/17 05:55 BUN 8 mg/dL (7-18) D 06/05/17 05:55 Creatinine 0.8 mg/dL (0.55-1.02) 06/05/17 05:55 Creat Clearance w eGFR > 60 (>60) 06/05/17 05:55 Random Glucose 139 mg/dL (74-106) H 06/05/17 05:55 Calcium 8.3 mg/dL (8.5-10.1) L 06/05/17 05:55 Total Bilirubin 1.1 mg/dL (0.2-1.0) H D 06/05/17 05:55 AST 16 U/L (15-37) D 06/05/17 05:55 ALT 14 U/L (12-78) D 06/05/17 05:55 Alkaline Phosphatase 107 U/L (45-117) 06/05/17 05:55 Total Protein 6.3 g/dl (6.4-8.2) L 06/05/17 05:55 Albumin 3.1 g/dl (3.4-5.0) L 06/05/17 05:55 CARDIAC ENZYMES Creatine Kinase 52 IU/L (26-192) 06/04/17 13:12 Troponin I < 0.02 ng/ml (0.00-0.05) 06/04/17 13:12 Microbiology 06/04/17 21:00 Influenza Types A,B Antigen (MAURICE) - Final Nasopharyngeal Swab - Final ASSESSMENT AND PLAN: 62yo F with PMH COPD, BRIAN, HIV, continuous polysubstance abuse (ETOH and codeine ) on methadone and medical THC presented to the ER with respiratory distress and found to be lethargic 1. Acute hypoxic/hypercapnic respiratory failure- due to aspiration PNA vs Acute on Chronic COPD exacerbation. clinically improved CO2 trending down, mantaining saturations on 2L NC. will titrate down steroids to 40mg Q8H. monitor O2 sats. stared on Zosyn for aspiration PNA. Flu negative. f/u Cx. ID on board. 2. Acute toxic metabolic encephalopathy- possible due to CO2 retention vs ingestion vs infection. now at baseline mental status. agitation likely due to holding medications. bedside swallow eval if tolerated will place on regular diet. Utox +methadone and THC. ICU METAL LO[employer]ER confirmed methadone dose. can d/c IVF once tolerating diet. Head CT with no acute pathology 3. Severe sepsis with suspected PNA- CT chest showing RML infiltrate likely aspiration. was hospitalized last month. clinically improved. lactic acid trending down. on Zosyn. f/u Cx. 4. Hypokalemia- resolved 5. Continuous polysubstance abuse- methadone dose confirmed. can re-start as mental status at baseline 6. HIV- on HARRT. 7. DVT ppx- hep sq Visit type - Emergency Visit Emergency Visit: Yes ED Registration Date: 06/04/17 Care time: The patient presented to the Emergency Department on the above date and was hospitalized for further evaluation of their emergent condition. - New Patient This patient is new to me today: No - Critical Care Critical Care patient: Yes Total Critical Care Time (in minutes): 38 Critical Care Statement: The care of this patient involved high complexity decision making to prevent further life threatening deterioration of the patient 's condition and/or to evaluate & treat vital organ system(s) failure or risk of failure. - Discharge Referral Referred to [facility] No
--- NOTE | 2017-06-05 09:11 | PN ---
Progress Note (short form) - Note Progress Note: [place] nd examined in the ICU Patient awake and alert and very restless BP stable febrile 101.5 ID consulted Breathing has improved Active Medications Acetaminophen (Ofirmev Injection -) 1,000 mg IVPB Q6H PRN PRN Reason: FEVER OR PAIN Albuterol Sulfate (Ventolin 0.083% Nebulizer Soln -) 1 amp NEB Q4H PRN PRN Reason: SHORT OF BREATH/WHEEZING Albuterol/Ipratropium (Duoneb -) 1 amp NEB QIDR [facility] Last Admin: 06/05/17 07:30 Dose: 1 amp Aspirin (Ecotrin -) 81 mg PO DAILY [facility] Chlorhexidine Gluconate (Hibiclens For Decolonization -) 1 applic TP HS [facility] Last Admin: 06/04/17 22:54 Dose: 1 applic Citalopram Hydrobromide (Celexa -) 40 mg PO DAILY [facility] Docusate Sodium (Colace -) 100 mg PO BID [facility] Emtricitabine/Tenofovir (Truvada) 1 tab PO DAILY [facility] Heparin Sodium (Porcine) (Heparin -) 5,000 unit SQ TID [facility] Last Admin: 06/05/17 06:04 Dose: 5,000 unit Potassium Chloride 40 meq/ (Sodium Chloride) 1,020 mls @ 83 mls/hr IV Q12H [facility] Last Admin: 06/05/17 06:04 Dose: 83 mls/hr Piperacillin/Tazobactam/Dextrose (Zosyn 4.5gm Ivpb (Premix)) 4.5 gm in 100 mls @ 200 mls/hr IVPB Q8H-IV [facility] PRN Reason: Protocol Insulin Aspart (Novolog Vial Sliding Scale -) 1 vial SQ ACHS [facility] PRN Reason: Protocol Last Admin: 06/05/17 06:05 Dose: 2 units Methadone HCl (Dolophine -) 65 mg PO DAILY [facility] Methylprednisolone Sodium Succinate (Solu-Medrol -) 60 mg IVPB Q8H-IV [facility] Last Admin: 06/05/17 01:40 Dose: 60 mg Mupirocin (Bactroban Ointment (For Decolonization) -) 1 applic NS BID [facility] Stop: 06/09/17 21:59 Last Admin: 06/04/17 22:53 Dose: 1 applic Polyethylene Glycol (Miralax (For Bowel Prep) -) 17 gm PO DAILY [facility] Vital Signs Period Temp Pulse Resp BP Sys/Amato Pulse Ox Last 24 Hr 98 F-101.5 F 76-130 10-50 104-157/60-121 95-100 Intake & Output 06/02/17 06/03/17 06/04/17 06/05/17 23:59 23:59 23:59 23:59 Intake Total 874 Output Total 250 800 Balance -250 74 Weight 92.5 kg Exam: General: awake and very restless HEENT: PERRL Pulm: exp wheeze CV: RRR Abd: SNTND Neuro: CN intact CBCD WBC 4.7 K/mm3 (4.0-10.0) D 06/05/17 05:55 RBC 4.08 M/mm3 (3.60-5.2) 06/05/17 05:55 Hgb 14.0 GM/dL (10.7-15.3) 06/05/17 05:55 Hct 42.2 % (32.4-45.2) 06/05/17 05:55 MCV 103.5 fl (80-96) H 06/05/17 05:55 MCHC 33.2 g/dl (32.0-36.0) 06/05/17 05:55 RDW 13.8 % (11.6-15.6) 06/05/17 05:55 Plt Count 125 K/MM3 (134-434) L 06/05/17 05:55 MPV 10.5 fl (7.5-11.1) 06/05/17 05:55 CMP Sodium 139 mmol/L (136-145) 06/05/17 05:55 Potassium 3.9 mmol/L (3.5-5.1) 06/05/17 05:55 Chloride 101 mmol/L (98-107) 06/05/17 05:55 Carbon Dioxide 34 mmol/L (21-32) H 06/05/17 05:55 Anion Gap 4 (8-16) L 06/05/17 05:55 BUN 8 mg/dL (7-18) D 06/05/17 05:55 Creatinine 0.8 mg/dL (0.55-1.02) 06/05/17 05:55 Creat Clearance w eGFR > 60 (>60) 06/05/17 05:55 Random Glucose 139 mg/dL (74-106) H 06/05/17 05:55 Calcium 8.3 mg/dL (8.5-10.1) L 06/05/17 05:55 Total Bilirubin 1.1 mg/dL (0.2-1.0) H D 06/05/17 05:55 AST 16 U/L (15-37) D 06/05/17 05:55 ALT 14 U/L (12-78) D 06/05/17 05:55 Alkaline Phosphatase 107 U/L (45-117) 06/05/17 05:55 Total Protein 6.3 g/dl (6.4-8.2) L 06/05/17 05:55 Albumin 3.1 g/dl (3.4-5.0) L 06/05/17 05:55 CARDIAC ENZYMES Creatine Kinase 52 IU/L (26-192) 06/04/17 13:12 Troponin I < 0.02 ng/ml (0.00-0.05) 06/04/17 13:12 ABG Results ABG pH 7.34 (7.35-7.45) L 06/05/17 06:00 ABG pCO2 at Pt Temp 63.6 mmHg (35-45) H* 06/05/17 06:00 ABG pO2 at Pt Temp 86.7 mmHg (80-100) D 06/05/17 06:00 ABG HCO3 33.4 meq/L (22-26) H 06/05/17 06:00 ABG O2 Sat (Measured) 96.6 % (90-98.9) 06/05/17 06:00 ABG O2 Content 18.4 % vol (15-22) 06/05/17 06:00 ABG Base Excess 5.9 meq/l (-2-2) H 06/05/17 06:00 Microbiology 06/04/17 21:00 Nasopharyngeal Swab Influenza Types A,B Antigen (MAURICE) - Final 06/04/17 21:00 Nasopharyngeal Swab - Final Problem List - Problems (1) Altered mental state Code(s): R41.82 - ALTERED MENTAL STATUS, UNSPECIFIED (2) Substance abuse Code(s): F19.10 - OTHER PSYCHOACTIVE SUBSTANCE ABUSE, UNCOMPLICATED (3) COPD (chronic obstructive pulmonary disease) Code(s): J44.9 - CHRONIC OBSTRUCTIVE PULMONARY DISEASE, UNSPECIFIED (4) COPD Acute exacerbation of chronic obstructive airways disease Code(s): J44.1 - CHRONIC OBSTRUCTIVE PULMONARY DISEASE W (ACUTE) EXACERBATION (5) Drowsiness Code(s): R40.0 - SOMNOLENCE (6) Depression Code(s): F32.9 - MAJOR DEPRESSIVE DISORDER, SINGLE EPISODE, UNSPECIFIED (7) HIV (human immunodeficiency virus infection) Code(s): B20 - HUMAN IMMUNODEFICIENCY VIRUS [HIV] DISEASE (8) Pulmonary hypertension Code(s): I27.2 - OTHER SECONDARY PULMONARY HYPERTENSION * DO NOT USE * (9) Sleep apnea, obstructive Code(s): G47.33 - OBSTRUCTIVE SLEEP APNEA (ADULT) (PEDIATRIC) (10) Substance use disorder Code(s): F19.90 - OTHER PSYCHOACTIVE SUBSTANCE USE, UNSPECIFIED, UNCOMPLICATED Assessment/Plan 62yo F with PMH COPD, BRIAN, HIV, PSA on methadone and medical THC who was brought in by EMS with SOB and AMS after ingestion of ? liquid THC. She was transferred to ICU with hypercarbic respiratory failure initially requiring BiPAP support. Plan: Resp: Hypercarbic resp failure 2/2 COPD exacerbation +/- aspiration pneumonitis after drug overdose -Cont albuterol nebs -Cont Methylpred IV, cont IV for now then transition to po -BiPAP support prn and at night Neuro: AMS in setting of drug overdose; hx of ETOH use -high risk for seizures -Seizure precautions -Cont methadone dose while lethargic -Monitor for DT -Cont antidepressants ID: Poss aspiration pneumonitis + COPD exacerbation;Hx HIV -ID consult -Empiric Zosyn -F/u cultures -Cont HIV meds -Trend WBC and temps CV: Pulm HTN. Hx endocarditis + murmur -HD stable -Gentle hydration Proph: DVT prophylaxis GI prophylaxis Bowel regimen --d/c murrell cath-- If menatl status remains stable can transfer from ICU
[2017-06-05] MEDS ORDERED: PREGABALIN 75 MG CAPSULE PO SCH (10:00)
[2017-06-05] MEDS ORDERED: METHADONE HCL 10 MG TABLET (FOR DETOX USE ONLY) PO SCH (10:00)
[2017-06-05] MEDS ORDERED: DOLUTEGRAVIR SODIUM 50 MG TABLET PO SCH (10:00)
[2017-06-05] MEDS ORDERED: METHADONE HCL 5 MG TABLET ONE (10:32)
[2017-06-05] MEDS ORDERED: METHADONE HCL 10 MG TABLET ONE (10:32)
[2017-06-05] MEDS ORDERED: PT OWN MED DRAWER 7, Y5N ONE ×3 (10:35→21:38)
[2017-06-05] MEDS: FLUTICASONE/SALMETEROL 100 MCG/50 MCG DISKUS IH SCH ×2 (10:38→21:39)
[2017-06-05] MEDS: CITALOPRAM HYDROBROMIDE 20 MG TABLET (FP) PO SCH (10:39)
[2017-06-05] MEDS: DOCUSATE SODIUM 100 MG CAPSULE (FP) PO SCH ×2 (10:39→21:35)
[2017-06-05] MEDS: ASPIRIN COATED 81 MG TABLET.EC PO SCH (10:39)
[2017-06-05] MEDS: MUPIROCIN 2% TOPICAL OINTMENT FOR DECOLONIZATION NS SCH ×2 (10:39→21:36)
[2017-06-05] MEDS: METHADONE PO SCH (10:40)
[2017-06-05] MEDS: PREGABALIN 75 MG CAPSULE PO SCH ×2 (10:40→21:40)
[2017-06-05] MEDS: methylPREDNISolone NA SUCC 40 MG/1 ML VIAL IVPB SCH ×2 (10:41→17:08)
[2017-06-05] MEDS: PIPERACILLIN/TAZOB 4.5 GM 4.5 GM/100 ML BAG IVPB SCH ×2 (10:42→17:08)
[2017-06-05] MEDS: EMTRICITABINE 200MG/TENOFOVIR 300MG PO SCH (18:38)
[2017-06-05] MEDS: POLYETHYLENE GLYCOL 3350 255 GM BTL PO SCH (18:49)
[2017-06-05] MEDS: CHLORHEXIDINE GLUCONATE 4% CLEANSER FOR DECOLONIZATION TP SCH (21:39)
[2017-06-05] MEDS ORDERED: ACETAMINOPHEN 325 MG TABLET (FP) ONE (22:37)
[2017-06-06] MEDS: methylPREDNISolone NA SUCC 40 MG/1 ML VIAL IVPB SCH (01:58)
[2017-06-06] MEDS: PIPERACILLIN/TAZOB 4.5 GM 4.5 GM/100 ML BAG IVPB SCH ×3 (01:59→19:00)
[2017-06-06] MEDS ORDERED: METHADONE HCL 5 MG TABLET ONE (05:37)
[2017-06-06] MEDS ORDERED: METHADONE HCL 10 MG TABLET ONE (05:37)
[2017-06-06] MEDS: METHADONE PO SCH (05:39)
[2017-06-06] MEDS: ACETAMINOPHEN 325 MG TABLET (FP) PO PRN ×3 (05:40→22:36)
[2017-06-06] MEDS: HEPARIN NA (PORCINE) 5,000 UNITS/ML 1ML VIAL SQ SCH ×3 (05:40→21:52)
[2017-06-06] MEDS: INSULIN SLIDING SCALE (NOVOLOG) 1 VIAL SQ SCH ×4 (06:21→21:53)
[2017-06-06 06:29] LABS: HEMOGLOBIN 14.2 GM/dL (10.7-15.3); LYMPH % 4.4 % (8-40); MCH 34.3 pg (25.7-33.7); MCHC 33.1 g/dl (32.0-36.0); MEAN CELL VOLUME 103.6 fl (80-96); MEAN PLT VOLUME 10.6 fl (7.5-11.1); NEUT % 90.6 % (42.8-82.8); PLATELET COUNT 115 K/MM3 (134-434); RBC 4.15 M/mm3 (3.60-5.2); RDW 13.3 % (11.6-15.6); WHITE BLOOD COUNT 6.6 K/mm3 (4.0-10.0)
[2017-06-06 06:47] LABS: ALBUMIN 3.2 g/dl (3.4-5.0); ANION GAP 6 (8-16); BLOOD UREA NITROGEN 12 mg/dL (7-18); CALCIUM 8.4 mg/dL (8.5-10.1); CHLORIDE 99 mmol/L (98-107); CO2 35 mmol/L (21-32); GLUCOSE,RANDOM 127 mg/dL (74-106); POTASSIUM 3.6 mmol/L (3.5-5.1); SGPT/ALT 14 U/L (12-78); SODIUM 140 mmol/L (136-145)
[2017-06-06 06:49] LABS: ALK PHOS 92 U/L (45-117); BILIRUBIN,TOTAL 1.4 mg/dL (0.2-1.0); CREATININE 0.6 mg/dL (0.55-1.02); SGOT/AST 26 U/L (15-37); TOT PROT 6.3 g/dl (6.4-8.2)
[2017-06-06] MEDS: ALBUTEROL SO4 2.5/IPRATROPIUM 0.5 INH SOL 3 ML VIAL.NEB. NEB SCH ×4 (06:50→23:44)
--- NOTE | 2017-06-06 08:00 | PN ---
Progress Note, Physician History of Present Illness: Awake, alert Ambulatory in ICU Breathing non-labored on room air No cough noted Temps down Afebrile WBC WNL BC GPCCL x1 bottle - Current Medication List Current Medications: Active Medications Acetaminophen (Ofirmev Injection -) 1,000 mg IVPB Q6H PRN PRN Reason: FEVER OR PAIN Acetaminophen (Tylenol -) 650 mg PO Q6H PRN PRN Reason: FEVER OR PAIN Last Admin: 06/06/17 05:40 Dose: 650 mg Albuterol Sulfate (Ventolin 0.083% Nebulizer Soln -) 1 amp NEB Q4H PRN PRN Reason: SHORT OF BREATH/WHEEZING Albuterol/Ipratropium (Duoneb -) 1 amp NEB QIDR [facility] Last Admin: 06/06/17 06:50 Dose: 1 amp Aspirin (Ecotrin -) 81 mg PO DAILY [facility] Last Admin: 06/05/17 10:39 Dose: 81 mg Chlorhexidine Gluconate (Hibiclens For Decolonization -) 1 applic TP HS [facility] Last Admin: 06/05/17 21:39 Dose: 1 applic Citalopram Hydrobromide (Celexa -) 40 mg PO DAILY [facility] Last Admin: 06/05/17 10:39 Dose: 40 mg Docusate Sodium (Colace -) 100 mg PO BID [facility] Last Admin: 06/05/17 21:35 Dose: 100 mg Emtricitabine/Tenofovir (Truvada) 1 tab PO DAILY [facility] Last Admin: 06/05/17 18:38 Dose: 1 tab Heparin Sodium (Porcine) (Heparin -) 5,000 unit SQ TID [facility] Last Admin: 06/06/17 05:40 Dose: 5,000 unit Piperacillin/Tazobactam/Dextrose (Zosyn 4.5gm Ivpb (Premix)) 4.5 gm in 100 mls @ 200 mls/hr IVPB Q8H-IV [facility] PRN Reason: Protocol Last Admin: 06/06/17 01:59 Dose: 200 mls/hr Insulin Aspart (Novolog Vial Sliding Scale -) 1 vial SQ ACHS [facility] PRN Reason: Protocol Last Admin: 06/06/17 06:21 Dose: Not Given Methadone HCl 60 mg/ Methadone (HCl 5 mg) 65 mg PO DAILY@0600 [facility] Last Admin: 06/06/17 05:39 Dose: 65 mg Methylprednisolone Sodium Succinate (Solu-Medrol -) 40 mg IVPB Q8H-IV [facility] Last Admin: 06/06/17 01:58 Dose: 40 mg Mupirocin (Bactroban Ointment (For Decolonization) -) 1 applic NS BID [facility] Stop: 06/09/17 21:59 Last Admin: 06/05/17 21:36 Dose: 1 applic Polyethylene Glycol (Miralax (For Bowel Prep) -) 17 gm PO DAILY [facility] Last Admin: 06/05/17 18:49 Dose: Not Given Pregabalin (Lyrica -) 75 mg PO BID [facility] Last Admin: 06/05/17 21:40 Dose: 75 mg Raltegravir (Isentress -) 400 mg PO BID [facility] Fluticasone/Salmeterol (Advair 100mcg/50mcg -) 1 puff IH BID [facility] Last Admin: 06/05/17 21:39 Dose: 1 puff - Objective Vital Signs: Vital Signs Temperature 98.7 F 06/06/17 02:00 Pulse Rate 70 06/06/17 06:00 Respiratory Rate 16 06/06/17 06:00 Blood Pressure 164/88 06/06/17 06:00 O2 Sat by Pulse Oximetry (%) 94 L 06/06/17 07:12 Constitutional: Yes: No Distress Eyes: Yes: Conjunctiva Clear Cardiovascular: Yes: Regular Rate and Rhythm, Tachycardia, S1, S2 Respiratory: Yes: CTA Bilaterally Gastrointestinal: Yes: Normal Bowel Sounds, Soft. No: Tenderness Edema: Yes Labs: CBC, BMP 06/06/17 06:00 06/06/17 06:00 INR, PTT INR 0.96 (0.82-1.09) 06/05/17 05:55 Assessment/Plan Acute exacrebation COPD RML pneumonia + BC GPCCL HIV+ stable Continue zosyn Repeat BC Vancomycin pending c/s ART
--- NOTE | 2017-06-06 08:50 | PN ---
Physical Exam: SUBJECTIVE: Patient seen and examined. Doing well this AM. Compliant with BiPAP overnight. States SOB and cough have improved. Complaining of "neuropathic pain " for which she takes a "cream" for, but is crrently not receiving. OBJECTIVE: Vital Signs Period Temp Pulse Resp BP Sys/Amato Pulse Ox Last 24 Hr 98.7 F-99.4 F 64-95 14-21 106-164/60-90 94-100 GEN: AAOx3, NAD, Smiling and conversing, intermittent muscle twitching HEENT: PERRLA, EOMi CV: S1, S2, RRR LUNG: CTABL, decreased lung sounds at bases ABD: Obese, NT, ND MSK: No edema, no erythema NEURO: CN 2-12 intact, no MSK or sensation deficits. Active Medications Generic Name Dose Route Start Last Admin Trade Name Freq PRN Reason Stop Dose Admin Acetaminophen 1,000 mg 06/05/17 06:06 Ofirmev Injection - IVPB Q6H PRN FEVER OR PAIN Acetaminophen 650 mg 06/05/17 22:43 06/06/17 05:40 Tylenol - PO 650 mg Q6H PRN Administration FEVER OR PAIN Albuterol Sulfate 1 amp 06/04/17 17:53 Ventolin 0.083% Nebulizer Soln - NEB Q4H PRN SHORT OF BREATH/WHEEZING Albuterol/Ipratropium 1 amp 06/04/17 18:00 06/06/17 06:50 Duoneb - NEB 1 amp QIDR MILIND Administration Aspirin 81 mg 06/05/17 10:00 06/05/17 10:39 Ecotrin - PO 81 mg DAILY MILIND Administration Chlorhexidine Gluconate 1 applic 06/04/17 22:00 06/05/17 21:39 Hibiclens For Decolonization - TP 1 applic HS MILIND Administration Citalopram Hydrobromide 40 mg 06/05/17 10:00 06/05/17 10:39 Celexa - PO 40 mg DAILY MILIND Administration Docusate Sodium 100 mg 06/05/17 10:00 06/05/17 21:35 Colace - PO 100 mg BID MILIND Administration Emtricitabine/Tenofovir 1 tab 06/05/17 10:00 06/05/17 18:38 Truvada PO 1 tab DAILY MILIND Administration Heparin Sodium (Porcine) 5,000 unit 06/04/17 18:00 06/06/17 05:40 Heparin - SQ 5,000 unit TID MILIND Administration Piperacillin/Tazobactam/Dextrose 4.5 gm in 100 mls @ 200 mls/hr 06/05/17 10: 00 06/06/17 01:59 Zosyn 4.5gm Ivpb (Premix) IVPB 200 mls/hr Q8H-IV MILIND Administration Protocol Vancomycin HCl 1,000 mg/ 250 mls @ 166.667 mls/hr 06/06/17 10:00 Dextrose IVPB BID MILIND Insulin Aspart 1 vial 06/04/17 22:00 06/06/17 06:21 Novolog Vial Sliding Scale - SQ Not Given ACHS MILIND Protocol Methadone HCl 60 mg/ Methadone 65 mg 06/05/17 10:00 06/06/17 05:39 HCl 5 mg PO 65 mg DAILY@0600 MILIND Administration Methylprednisolone Sodium Succinate 40 mg 06/05/17 10:00 06/06/17 01:58 Solu-Medrol - IVPB 40 mg Q8H-IV MILIND Administration Mupirocin 1 applic 06/04/17 22:00 06/05/17 21:36 Bactroban Ointment (For Decolonization) - NS 06/09/17 21:59 1 applic BID MILIND Administration Polyethylene Glycol 17 gm 06/05/17 10:00 06/05/17 18:49 Miralax (For Bowel Prep) - PO Not Given DAILY MILIND Pregabalin 75 mg 06/05/17 10:00 06/05/17 21:40 Lyrica - PO 75 mg BID MILIND Administration Raltegravir 400 mg 06/06/17 10:00 Isentress - PO BID MILIND Fluticasone/Salmeterol 1 puff 06/05/17 10:00 06/05/17 21:39 Advair 100mcg/50mcg - IH 1 puff BID MILIND Administration ASSESSMENT/PLAN: 62yo F with PMHx of COPD, HIV, Polysubstance abuse (opiates, EtOH) on Methadone , who was brought by EMS after drinking contents of her medical THC inhaler and feeling SOB, she presented in acute hypercapnic hypoxic respiratory failure # Acute Metabolic Encephalopathy -Resolved. Was likely due to CO2 retention from COPD exacerbation. Improved with steroids and BiPAP. Head CT negative. Utox +THC and +Methadone, but this is known from the patient's history. # Acute Hypercapnic Hypoxic Respiratory Failure -Could be secondary to COPD exacerbation vs aspiration pneumonia. Improving with antibiotics and steroids. CT chest shows atelectasis/consolidation in RML. ABG shows improving respiratory acidosis. Baseline CO2 50s due to chronic lung disease. Was on IV Medrol 40 Q8H, will titrate down to 40mg daily in light of muscle twitches. Continue Advair, Duonebs and Albuterol PRN. Continue Zosyn 4.5 Q8H + Vanc 1g BID # Severe Sepsis - On presentation had Tm 101.5, HR 130s, +LA, but now resolving. Could be secondary to pneumonia vs bacteremia. Now growing G+ cocci in clusters. Bacteremia could be RML pneumonia translocation, but could also be a blood contaminant. Though patient is polysubstance abuse, unlikely from direct innoculation since last heroin injection was 3 years ago, and Utox only positive for methadone. Will continue Vanc/Zosyn # Muscle Twitching - New for patient, no hx of seizure disorder, could be from prednisone, will monitor as we titrate steroids. 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 Can ask patient to bring in medicine from home. Otherwise consider trying another topical such as capsaicin cream. # Constipation- Continue colace and miralax # HIV - Will switch to Isentress 400 BID and Truvada daily as per ID since some of patient's HAART meds are not formulary here # FEN - No IVF since patient is eating, elec wnl, regular diet # PPx - HSQ TID, no GI needed, PT ordered # Dispo - Transfer out of ICU as patient is improving. Cont abx and steroid taper. BiPAP PRN. d/w Dr Tunde Parra MD - [email or web address] Internal Medicine Resident Visit type - Emergency Visit Emergency Visit: No - New Patient This patient is new to me today: No - Critical Care Critical Care patient: No - Discharge Referral Referred to [facility] No
--- NOTE | 2017-06-06 08:56 | PN ---
Teaching Attending Note Name of Resident: Carl Parra ATTENDING PHYSICIAN STATEMENT I saw and evaluated the patient. I reviewed the resident's note and discussed the case with the resident. I agree with the resident's findings and plan as documented. SUBJECTIVE:feels generalized weakness and a little "fidgety". denies CP, SOB, fever, chills, cough, N/V/C/D OBJECTIVE: Last Vital Signs Temp Pulse Resp BP Pulse Ox 98.7 F 70 16 164/88 94 L 06/06/17 02:00 06/06/17 06:00 06/06/17 06:00 06/06/17 06:00 06/06/17 07:12 General NAD CV S1 S2 RRR no murmur/rub/gallop Lungs decreased breath sounds bases R>L no wheezing abdomen soft NT/ND Extremities no pedal edema ASSESSMENT AND PLAN: 62yo F with PMH COPD, BRIAN, HIV, continuous polysubstance abuse (ETOH and codeine ) on methadone and medical THC presented to the ER with respiratory distress and found to be lethargic 1. Acute hypoxic/hypercapnic respiratory failure- due to aspiration PNA vs Acute on Chronic COPD exacerbation. clinically improved. placed on bipap overnight due to desaturations. now saturating well on NC. will titrate down steroids to 40mg Q12H. monitor O2 sats. stared on Zosyn for aspiration PNA. Flu negative. f/u Cx. ID on board. 2. Acute toxic metabolic encephalopathy- possible due to CO2 retention vs ingestion vs infection. now at baseline mental status. solmolent in the afternoon yesterday per RN. as per pt she was just tired. d/c IVF. 3. Severe sepsis with RML PNA- +BCx with GPC in clusters. will start vanco until cx resulted, most likely contaminate. on zosyn day 3. f/u Cx. ID on board. 4. Hypokalemia- resolved 5. Continuous polysubstance abuse- methadone dose confirmed. 6. HIV- on HARRT. 7. DVT ppx- hep sq The care of this patient involved high complexity decision making to prevent further life threatening deterioration of the patient's condition and/or to evaluate & treat vital organ system(s) failure or risk of failure. 38 minutes
[2017-06-06] MEDS ORDERED: PT OWN MED DRAWER 7, Y5N ONE ×2 (09:44→10:20)
[2017-06-06] MEDS: VANCOMYCIN 1,000 MG in DEXTROSE 5%-WATER - 250 ML IVPB SCH ×2 (09:54→22:14)
[2017-06-06] MEDS: PREGABALIN 75 MG CAPSULE PO SCH ×2 (09:58→21:52)
[2017-06-06] MEDS: ASPIRIN COATED 81 MG TABLET.EC PO SCH (09:58)
[2017-06-06] MEDS: CITALOPRAM HYDROBROMIDE 20 MG TABLET (FP) PO SCH (09:58)
[2017-06-06] MEDS: DOCUSATE SODIUM 100 MG CAPSULE (FP) PO SCH ×2 (09:58→21:48)
[2017-06-06] MEDS: RALTEGRAVIR POTASSIUM 400 MG TAB PO SCH ×2 (09:59→21:48)
[2017-06-06] MEDS: EMTRICITABINE 200MG/TENOFOVIR 300MG PO SCH (10:00)
[2017-06-06] MEDS ORDERED: methylPREDNISolone NA SUCC 40 MG/1 ML VIAL IVPB SCH (10:00)
[2017-06-06] MEDS: POLYETHYLENE GLYCOL 3350 255 GM BTL PO SCH (11:18)
--- NOTE | 2017-06-06 11:44 | PN ---
Progress Note (short form) - Note Progress Note: PULM/CCM 24Hr: -mental status and breathing has improved -on NIV at night and while napping, on NC without distress otherwise -GPC in clusters (? contam) in blood from admission, pending organism, on vanco now Active Medications Acetaminophen (Ofirmev Injection -) 1,000 mg IVPB Q6H PRN PRN Reason: FEVER OR PAIN Acetaminophen (Tylenol -) 650 mg PO Q6H PRN PRN Reason: FEVER OR PAIN Last Admin: 06/06/17 05:40 Dose: 650 mg Albuterol Sulfate (Ventolin 0.083% Nebulizer Soln -) 1 amp NEB Q4H PRN PRN Reason: SHORT OF BREATH/WHEEZING Albuterol/Ipratropium (Duoneb -) 1 amp NEB QIDR [facility] Last Admin: 06/06/17 06:50 Dose: 1 amp Aspirin (Ecotrin -) 81 mg PO DAILY [facility] Last Admin: 06/06/17 09:58 Dose: 81 mg Chlorhexidine Gluconate (Hibiclens For Decolonization -) 1 applic TP HS [facility] Last Admin: 06/05/17 21:39 Dose: 1 applic Citalopram Hydrobromide (Celexa -) 40 mg PO DAILY [facility] Last Admin: 06/06/17 09:58 Dose: 40 mg Docusate Sodium (Colace -) 100 mg PO BID [facility] Last Admin: 06/06/17 09:58 Dose: 100 mg Emtricitabine/Tenofovir (Truvada) 1 tab PO DAILY [facility] Last Admin: 06/06/17 10:00 Dose: 1 tab Heparin Sodium (Porcine) (Heparin -) 5,000 unit SQ TID [facility] Last Admin: 06/06/17 05:40 Dose: 5,000 unit Piperacillin/Tazobactam/Dextrose (Zosyn 4.5gm Ivpb (Premix)) 4.5 gm in 100 mls @ 200 mls/hr IVPB Q8H-IV MILIND PRN Reason: Protocol Last Admin: 06/06/17 11:17 Dose: 200 mls/hr Vancomycin HCl 1,000 mg/ (Dextrose) 250 mls @ 166.667 mls/hr IVPB BID [facility] Last Admin: 06/06/17 09:54 Dose: 166.667 mls/hr Insulin Aspart (Novolog Vial Sliding Scale -) 1 vial SQ ACHS [facility] PRN Reason: Protocol Last Admin: 06/06/17 06:21 Dose: Not Given Methadone HCl 60 mg/ Methadone (HCl 5 mg) 65 mg PO DAILY@0600 [facility] Last Admin: 06/06/17 05:39 Dose: 65 mg Methylprednisolone Sodium Succinate (Solu-Medrol -) 40 mg IVPB DAILY [facility] Mupirocin (Bactroban Ointment (For Decolonization) -) 1 applic NS BID [facility] Stop: 06/09/17 21:59 Last Admin: 06/05/17 21:36 Dose: 1 applic Polyethylene Glycol (Miralax (For Bowel Prep) -) 17 gm PO DAILY [facility] Last Admin: 06/06/17 11:18 Dose: 17 grams Pregabalin (Lyrica -) 75 mg PO BID [facility] Last Admin: 06/06/17 09:58 Dose: 75 mg Raltegravir (Isentress -) 400 mg PO BID [facility] Last Admin: 06/06/17 09:59 Dose: 400 mg Fluticasone/Salmeterol (Advair 100mcg/50mcg -) 1 puff IH BID [facility] Last Admin: 06/05/17 21:39 Dose: 1 puff Vital Signs Temp 98.7 F 06/06/17 02:00 Pulse 70 06/06/17 10:31 Resp 16 06/06/17 08:00 BP 141/89 06/06/17 08:00 Pulse Ox 98 06/06/17 10:31 Intake & Output 06/05/17 06/05/17 06/06/17 11:59 23:59 11:59 Intake Total 1214 1100 1096 Output Total 1550 300 5 Balance -463 024 6380 Weight 92.5 kg 93 kg Intake: IV 774 880 996 Normal Saline - 1,000 ml 774 880 @ 83 mls/hr IV ASDIR [facility] Rx#:[id number] right forearm 06/04 #22 996 IVPB 200 100 100 Oral 240 120 Output: Urine 1500 300 5 Murrell 1500 Void 300 5 Emesis 50 Other: Voiding Method Indwelling Catheter Toilet Bowel Movement small formed No No Weight Measurement Method Built in Bedscale Built in Bedscale Exam: General: awake, alert INAD HEENT: PERRL Pulm: minimal exp wheezes bilaterally CV: RRR, TEDDY Abd: SNTND Neuro: CN intact CBCD WBC 6.6 K/mm3 (4.0-10.0) D 06/06/17 06:00 RBC 4.15 M/mm3 (3.60-5.2) 06/06/17 06:00 Hgb 14.2 GM/dL (10.7-15.3) 06/06/17 06:00 Hct 43.0 % (32.4-45.2) 06/06/17 06:00 MCV 103.6 fl (80-96) H 06/06/17 06:00 MCHC 33.1 g/dl (32.0-36.0) 06/06/17 06:00 RDW 13.3 % (11.6-15.6) 06/06/17 06:00 Plt Count 115 K/MM3 (134-434) L 06/06/17 06:00 MPV 10.6 fl (7.5-11.1) 06/06/17 06:00 CMP Sodium 140 mmol/L (136-145) 06/06/17 06:00 Potassium 3.6 mmol/L (3.5-5.1) 06/06/17 06:00 Chloride 99 mmol/L (98-107) 06/06/17 06:00 Carbon Dioxide 35 mmol/L (21-32) H 06/06/17 06:00 Anion Gap 6 (8-16) L 06/06/17 06:00 BUN 12 mg/dL (7-18) D 06/06/17 06:00 Creatinine 0.6 mg/dL (0.55-1.02) D 06/06/17 06:00 Creat Clearance w eGFR > 60 (>60) 06/06/17 06:00 Random Glucose 127 mg/dL (74-106) H 06/06/17 06:00 Calcium 8.4 mg/dL (8.5-10.1) L 06/06/17 06:00 Total Bilirubin 1.4 mg/dL (0.2-1.0) H D 06/06/17 06:00 AST 26 U/L (15-37) D 06/06/17 06:00 ALT 14 U/L (12-78) 06/06/17 06:00 Alkaline Phosphatase 92 U/L (45-117) 06/06/17 06:00 Total Protein 6.3 g/dl (6.4-8.2) L 06/06/17 06:00 Albumin 3.2 g/dl (3.4-5.0) L 06/06/17 06:00 Microbiology 06/04/17 13:30 Blood - Peripheral Venous Blood Culture - Preliminary Pending Organism 06/04/17 13:30 Blood - Peripheral Venous Blood Culture - Preliminary NO GROWTH OBTAINED AFTER 24 HOURS, INCUBATION TO CONTINUE FOR 4 DAYS. 06/04/17 13:39 Urine - Urine Murrell Urine Culture - Final NO GROWTH OBTAINED 06/04/17 21:00 Nasopharyngeal Swab Influenza Types A,B Antigen (MAURICE) - Final 06/04/17 21:00 Nasopharyngeal Swab - Final Problem List - Problems (1) Altered mental state Code(s): R41.82 - ALTERED MENTAL STATUS, UNSPECIFIED (2) Substance abuse Code(s): F19.10 - OTHER PSYCHOACTIVE SUBSTANCE ABUSE, UNCOMPLICATED (3) COPD (chronic obstructive pulmonary disease) Code(s): J44.9 - CHRONIC OBSTRUCTIVE PULMONARY DISEASE, UNSPECIFIED (4) COPD Acute exacerbation of chronic obstructive airways disease Code(s): J44.1 - CHRONIC OBSTRUCTIVE PULMONARY DISEASE W (ACUTE) EXACERBATION (5) Drowsiness Code(s): R40.0 - SOMNOLENCE (6) Depression Code(s): F32.9 - MAJOR DEPRESSIVE DISORDER, SINGLE EPISODE, UNSPECIFIED (7) HIV (human immunodeficiency virus infection) Code(s): B20 - HUMAN IMMUNODEFICIENCY VIRUS [HIV] DISEASE (8) Pulmonary hypertension Code(s): I27.2 - OTHER SECONDARY PULMONARY HYPERTENSION * DO NOT USE * (9) Sleep apnea, obstructive Code(s): G47.33 - OBSTRUCTIVE SLEEP APNEA (ADULT) (PEDIATRIC) (10) Substance use disorder Code(s): F19.90 - OTHER PSYCHOACTIVE SUBSTANCE USE, UNSPECIFIED, UNCOMPLICATED Assessment/Plan 62yo F with PMH COPD, BRIAN, HIV, PSA on methadone and medical THC who was brought in by EMS with SOB and AMS after ingestion of ? liquid THC. She was transferred to ICU with hypercarbic respiratory failure initially requiring BiPAP support. Plan: Resp: Hypercarbic resp failure 2/2 COPD exacerbation +/- aspiration pneumonitis after drug overdose -Cont albuterol nebs -Cont Methylpred IV, cont IV for now then transition to po -BiPAP support prn and at night Neuro: AMS in setting of drug overdose; hx of ETOH use -high risk for seizures -Seizure precautions -Cont methadone dose while lethargic -Monitor for DT -Cont antidepressants, lyrica ID: Poss aspiration pneumonitis + COPD exacerbation;Hx HIV, GPC in cluster in 06/22, hx of endocarditis -Empiric Zosyn, vanco -F/u cultures, repeat Bcxl -Cont HIV meds CV: Pulm HTN. Hx endocarditis + murmur -HD stable -Gentle hydration Proph: DVT prophylaxis GI prophylaxis Bowel regimen --d/c murrell cath-- Ok for floor Slade HURTAODP
[2017-06-06] MEDS: FLUTICASONE/SALMETEROL 100 MCG/50 MCG DISKUS IH SCH ×2 (12:07→21:52)
[2017-06-06] MEDS: MUPIROCIN 2% TOPICAL OINTMENT FOR DECOLONIZATION NS SCH (12:08)
[2017-06-07] MEDS: PIPERACILLIN/TAZOB 4.5 GM 4.5 GM/100 ML BAG IVPB SCH ×3 (02:16→17:58)
[2017-06-07] MEDS ORDERED: METHADONE HCL 10 MG TABLET ONE (05:34)
[2017-06-07] MEDS ORDERED: METHADONE HCL 5 MG TABLET ONE (05:34)
[2017-06-07] MEDS: ALBUTEROL SO4 2.5/IPRATROPIUM 0.5 INH SOL 3 ML VIAL.NEB. NEB SCH ×4 (05:43→23:28)
[2017-06-07] MEDS: METHADONE PO SCH (06:10)
[2017-06-07] MEDS: HEPARIN NA (PORCINE) 5,000 UNITS/ML 1ML VIAL SQ SCH ×3 (06:11→21:52)
[2017-06-07] MEDS: INSULIN SLIDING SCALE (NOVOLOG) 1 VIAL SQ SCH ×4 (06:12→22:02)
[2017-06-07] MEDS: MUPIROCIN 2% TOPICAL OINTMENT FOR DECOLONIZATION NS SCH ×2 (09:49→22:03)
[2017-06-07] MEDS ORDERED: PT OWN MED DRAWER 7, Y5N ONE ×4 (09:57→21:00)
[2017-06-07] MEDS: VANCOMYCIN 1,000 MG in DEXTROSE 5%-WATER - 250 ML IVPB SCH ×2 (09:59→21:56)
[2017-06-07] MEDS: DOCUSATE SODIUM 100 MG CAPSULE (FP) PO SCH ×2 (10:00→21:52)
[2017-06-07] MEDS: ASPIRIN COATED 81 MG TABLET.EC PO SCH (10:00)
[2017-06-07] MEDS: RALTEGRAVIR POTASSIUM 400 MG TAB PO SCH ×2 (10:00→21:52)
[2017-06-07] MEDS: CITALOPRAM HYDROBROMIDE 20 MG TABLET (FP) PO SCH (10:00)
[2017-06-07] MEDS: methylPREDNISolone NA SUCC 40 MG/1 ML VIAL IVPB SCH ×2 (10:00→10:08)
[2017-06-07] MEDS: PREGABALIN 75 MG CAPSULE PO SCH ×2 (10:00→21:52)
[2017-06-07] MEDS: EMTRICITABINE 200MG/TENOFOVIR 300MG PO SCH (10:00)
[2017-06-07] MEDS: FLUTICASONE/SALMETEROL 100 MCG/50 MCG DISKUS IH SCH ×2 (10:03→21:58)
[2017-06-07] MEDS: POLYETHYLENE GLYCOL 3350 255 GM BTL PO SCH (10:04)
[2017-06-07 10:28] LABS: HEMATOCRIT 45.6 % (32.4-45.2); HEMOGLOBIN 14.8 GM/dL (10.7-15.3); MCH 33.4 pg (25.7-33.7); MCHC 32.4 g/dl (32.0-36.0); MEAN CELL VOLUME 103.2 fl (80-96); MEAN PLT VOLUME 9.9 fl (7.5-11.1); PLATELET COUNT 103 K/MM3 (134-434); RBC 4.42 M/mm3 (3.60-5.2); RDW 13.4 % (11.6-15.6)
--- NOTE | 2017-06-07 10:35 | PN ---
Progress Note (short form) - Note Progress Note: Awake on NIPPV. Reports use overnight. Breathing overall feels better. Intake & Output 06/04/17 06/05/17 06/06/17 06/07/17 23:59 23:59 23:59 23:59 Intake Total 2314 1646 Output Total 250 1850 5 Balance -439 565 0676 Weight 203 lb 14.841 oz 203 lb 14.841 oz 205 lb 0.478 oz 199 lb 5 oz Last Vital Signs Temp Pulse Resp BP Pulse Ox 98 F 85 20 132/86 94 L 06/07/17 06:00 06/07/17 06:00 06/07/17 02:18 06/07/17 02:18 06/06/17 23:41 Active Medications Acetaminophen (Ofirmev Injection -) 1,000 mg IVPB Q6H PRN PRN Reason: FEVER OR PAIN Acetaminophen (Tylenol -) 650 mg PO Q6H PRN PRN Reason: FEVER OR PAIN Last Admin: 06/06/17 22:36 Dose: 650 mg Albuterol Sulfate (Ventolin 0.083% Nebulizer Soln -) 1 amp NEB Q4H PRN PRN Reason: SHORT OF BREATH/WHEEZING Albuterol/Ipratropium (Duoneb -) 1 amp NEB QIDR [facility] Last Admin: 06/07/17 05:43 Dose: 1 amp Aspirin (Ecotrin -) 81 mg PO DAILY [facility] Last Admin: 06/07/17 10:00 Dose: 81 mg Chlorhexidine Gluconate (Hibiclens For Decolonization -) 1 applic TP HS [facility] Last Admin: 06/05/17 21:39 Dose: 1 applic Citalopram Hydrobromide (Celexa -) 40 mg PO DAILY [facility] Last Admin: 06/07/17 10:00 Dose: 40 mg Docusate Sodium (Colace -) 100 mg PO BID [facility] Last Admin: 06/07/17 10:00 Dose: 100 mg Emtricitabine/Tenofovir (Truvada) 1 tab PO DAILY [facility] Last Admin: 06/07/17 10:00 Dose: 1 tab Heparin Sodium (Porcine) (Heparin -) 5,000 unit SQ TID [facility] Last Admin: 06/07/17 06:11 Dose: 5,000 unit Piperacillin/Tazobactam/Dextrose (Zosyn 4.5gm Ivpb (Premix)) 4.5 gm in 100 mls @ 200 mls/hr IVPB Q8H-IV MILIND PRN Reason: Protocol Last Admin: 06/07/17 09:59 Dose: 200 mls/hr Vancomycin HCl 1,000 mg/ (Dextrose) 250 mls @ 166.667 mls/hr IVPB BID [facility] Last Admin: 06/07/17 09:59 Dose: 166.667 mls/hr Insulin Aspart (Novolog Vial Sliding Scale -) 1 vial SQ ACHS MILIND PRN Reason: Protocol Last Admin: 06/07/17 06:12 Dose: Not Given Methadone HCl 60 mg/ Methadone (HCl 5 mg) 65 mg PO DAILY@0600 [facility] Last Admin: 06/07/17 06:10 Dose: 65 mg Mupirocin (Bactroban Ointment (For Decolonization) -) 1 applic NS BID [facility] Stop: 06/09/17 21:59 Last Admin: 06/07/17 09:49 Dose: Not Given Polyethylene Glycol (Miralax (For Bowel Prep) -) 17 gm PO DAILY [facility] Last Admin: 06/07/17 10:04 Dose: Not Given Prednisone (Deltasone -) 40 mg PO DAILY [facility] Pregabalin (Lyrica -) 75 mg PO BID [facility] Last Admin: 06/07/17 10:00 Dose: 75 mg Raltegravir (Isentress -) 400 mg PO BID [facility] Last Admin: 06/07/17 10:00 Dose: 400 mg Fluticasone/Salmeterol (Advair 100mcg/50mcg -) 1 puff IH BID [facility] Last Admin: 06/07/17 10:03 Dose: 1 puff Exam: General: awake, alert NAD on NIPPV HEENT: PERRL Pulm: Few scattered exp wheezes bilaterally CV: RRR, TEDDY Abd: SNTND Neuro: CN intact Laboratory Results - last 24 hr 06/06/17 06/06/17 06/07/17 16:42 21:43 06:12 WBC RBC Hgb Hct MCV MCH MCHC RDW Plt Count MPV POC Glucometer 118 143 100 06/07/17 10:15 WBC 6.0 RBC 4.42 Hgb 14.8 Hct 45.6 H MCV 103.2 H MCH 33.4 MCHC 32.4 RDW 13.4 Plt Count 103 L MPV 9.9 POC Glucometer Problem List - Problems (1) Altered mental state Code(s): R41.82 - ALTERED MENTAL STATUS, UNSPECIFIED (2) Substance abuse Code(s): F19.10 - OTHER PSYCHOACTIVE SUBSTANCE ABUSE, UNCOMPLICATED (3) COPD (chronic obstructive pulmonary disease) Code(s): J44.9 - CHRONIC OBSTRUCTIVE PULMONARY DISEASE, UNSPECIFIED (4) COPD Acute exacerbation of chronic obstructive airways disease Code(s): J44.1 - CHRONIC OBSTRUCTIVE PULMONARY DISEASE W (ACUTE) EXACERBATION (5) Drowsiness Code(s): R40.0 - SOMNOLENCE (6) Depression Code(s): F32.9 - MAJOR DEPRESSIVE DISORDER, SINGLE EPISODE, UNSPECIFIED (7) HIV (human immunodeficiency virus infection) Code(s): B20 - HUMAN IMMUNODEFICIENCY VIRUS [HIV] DISEASE (8) Pulmonary hypertension Code(s): I27.2 - OTHER SECONDARY PULMONARY HYPERTENSION * DO NOT USE * (9) Sleep apnea, obstructive Code(s): G47.33 - OBSTRUCTIVE SLEEP APNEA (ADULT) (PEDIATRIC) (10) Substance use disorder Code(s): F19.90 - OTHER PSYCHOACTIVE SUBSTANCE USE, UNSPECIFIED, UNCOMPLICATED Assessment/Plan Trial of VM or NC O2 as tolerated Medrol taper BD TX ABX Aspiration Precautions HIV Meds as ordered VTE prophylaxis Dr [place]
[2017-06-07 10:55] LABS: ANION GAP 5 (8-16); BLOOD UREA NITROGEN 11 mg/dL (7-18); CALCIUM 8.3 mg/dL (8.5-10.1); CHLORIDE 96 mmol/L (98-107); CO2 37 mmol/L (21-32); CREATININE 0.7 mg/dL (0.55-1.02); GLUCOSE,RANDOM 95 mg/dL (74-106); POTASSIUM 3.3 mmol/L (3.5-5.1); SODIUM 138 mmol/L (136-145)
--- NOTE | 2017-06-07 12:11 | PN ---
Physical Exam: SUBJECTIVE: Patient seen and examined. The pt is sitting, using Bi-Pap. She is feeling better today.No overnight events. OBJECTIVE: Vital Signs Period Temp Pulse Resp BP Sys/Amato Pulse Ox Last 24 Hr 97.7 F-99.1 F 68-95 18-20 132-158/76-89 94-96 GENERAL: The patient is awake, alert, and fully oriented, in no acute distress, on Bi-Pap. HEAD: Normal with no signs of trauma. EYES: extraocular movements intact, sclera anicteric, conjunctiva clear ENT:on Bi-Pap, face covered with mask. NECK: Trachea midline, full range of motion, supple. LUNGS: Breath sounds equal, expiratory wheezing bilaterally, rales on right side ,accessory muscle use. HEART: Regular rate and rhythm, S1, S2 without murmur, rub or gallop. ABDOMEN: Soft, nontender, nondistended, normoactive bowel sounds, no guarding, no rebound. EXTREMITIES: warm, well-perfused, no edema. PSYCH: Normal mood, normal affect. SKIN: Warm, dry, normal turgor, no rashes or lesions noted Laboratory Results - last 24 hr 06/06/17 06/06/17 06/07/17 16:42 21:43 06:12 WBC RBC Hgb Hct MCV MCH MCHC RDW Plt Count MPV Sodium Potassium Chloride Carbon Dioxide Anion Gap BUN Creatinine POC Glucometer 118 143 100 Random Glucose Calcium 06/07/17 06/07/17 10:15 10:15 WBC 6.0 RBC 4.42 Hgb 14.8 Hct 45.6 H MCV 103.2 H MCH 33.4 MCHC 32.4 RDW 13.4 Plt Count 103 L MPV 9.9 Sodium 138 Potassium 3.3 L Chloride 96 L Carbon Dioxide 37 H Anion Gap 5 L BUN 11 Creatinine 0.7 POC Glucometer Random Glucose 95 D Calcium 8.3 L Active Medications Generic Name Dose Route Start Last Admin Trade Name Freq PRN Reason Stop Dose Admin Acetaminophen 1,000 mg 06/05/17 06:06 Ofirmev Injection - IVPB Q6H PRN FEVER OR PAIN Acetaminophen 650 mg 06/05/17 22:43 06/06/17 22:36 Tylenol - PO 650 mg Q6H PRN Administration FEVER OR PAIN Albuterol Sulfate 1 amp 06/04/17 17:53 Ventolin 0.083% Nebulizer Soln - NEB Q4H PRN SHORT OF BREATH/WHEEZING Albuterol/Ipratropium 1 amp 06/04/17 18:00 06/07/17 11:00 Duoneb - NEB 1 amp QIDR MILIND Administration Aspirin 81 mg 06/05/17 10:00 06/07/17 10:00 Ecotrin - PO 81 mg DAILY MILIND Administration Chlorhexidine Gluconate 1 applic 06/04/17 22:00 06/05/17 21:39 Hibiclens For Decolonization - TP 1 applic HS MILIND Administration Citalopram Hydrobromide 40 mg 06/05/17 10:00 06/07/17 10:00 Celexa - PO 40 mg DAILY MILIND Administration Docusate Sodium 100 mg 06/05/17 10:00 06/07/17 10:00 Colace - PO 100 mg BID MILIND Administration Emtricitabine/Tenofovir 1 tab 06/05/17 10:00 06/07/17 10:00 Truvada PO 1 tab DAILY MILIND Administration Heparin Sodium (Porcine) 5,000 unit 06/04/17 18:00 06/07/17 06:11 Heparin - SQ 5,000 unit TID MILIND Administration Piperacillin/Tazobactam/Dextrose 4.5 gm in 100 mls @ 200 mls/hr 06/05/17 10: 00 06/07/17 09:59 Zosyn 4.5gm Ivpb (Premix) IVPB 200 mls/hr Q8H-IV MILIND Administration Protocol Vancomycin HCl 1,000 mg/ 250 mls @ 166.667 mls/hr 06/06/17 10:00 06/07/17 09: 59 Dextrose IVPB 166.667 mls/hr BID MILIND Administration Insulin Aspart 1 vial 06/04/17 22:00 06/07/17 11:42 Novolog Vial Sliding Scale - SQ Not Given ACHS MILIND Protocol Methadone HCl 60 mg/ Methadone 65 mg 06/05/17 10:00 06/07/17 06:10 HCl 5 mg PO 65 mg DAILY@0600 MILIND Administration Mupirocin 1 applic 06/04/17 22:00 06/07/17 09:49 Bactroban Ointment (For Decolonization) - NS 06/09/17 21:59 Not Given BID MILIND Polyethylene Glycol 17 gm 06/05/17 10:00 06/07/17 10:04 Miralax (For Bowel Prep) - PO Not Given DAILY MILIND Prednisone 40 mg 06/07/17 10:30 Deltasone - PO DAILY MILIND Pregabalin 75 mg 06/05/17 10:00 06/07/17 10:00 Lyrica - PO 75 mg BID MILIND Administration Raltegravir 400 mg 06/06/17 10:00 06/07/17 10:00 Isentress - PO 400 mg BID MILIND Administration Fluticasone/Salmeterol 1 puff 06/05/17 10:00 06/07/17 10:03 Advair 100mcg/50mcg - IH 1 puff BID MILIND Administration ASSESSMENT/PLAN: 62yo F with PMH COPD, BRIAN, HIV, polysubstance abuse (ETOH and codeine) on methadone and medical THC presented admitted for AMS and respiratory failure. Acute hypoxic/hypercapnic respiratory failure possibly due to aspiration PNA or COPD exacerbation. She improved today with using Bi-Pap, steroids. Today will switch to Prednisone 40 mg PO qd continue Adavair and Duonebs f/u Pulm recommendations Sepsis due to PNA due to aspiration, stared on Zosyn day 4 and Vancomycin +BCx with GPC in clusters f/u ID recommendations Hypokalemia resolved Continuous polysubstance abuse methadone dose confirmed. HIV- on HARRT BRIAN: on Bi-Pap f/u Pulm recommendations DVT ppx- hep sq Dispo: DC tomorrow Problem List - Problems (1) Altered mental state Code(s): R41.82 - ALTERED MENTAL STATUS, UNSPECIFIED (2) Pneumonia Code(s): J18.9 - PNEUMONIA, UNSPECIFIED ORGANISM (3) Substance abuse Code(s): F19.10 - OTHER PSYCHOACTIVE SUBSTANCE ABUSE, UNCOMPLICATED (4) COPD (chronic obstructive pulmonary disease) Code(s): J44.9 - CHRONIC OBSTRUCTIVE PULMONARY DISEASE, UNSPECIFIED (5) DVT prophylaxis Code(s): [id number] - (6) HIV (human immunodeficiency virus infection) Code(s): B20 - HUMAN IMMUNODEFICIENCY VIRUS [HIV] DISEASE (7) Opioid dependence on agonist therapy Code(s): F11.20 - OPIOID DEPENDENCE, UNCOMPLICATED Visit type - Emergency Visit Emergency Visit: Yes ED Registration Date: 06/04/17 Care time: The patient presented to the Emergency Department on the above date and was hospitalized for further evaluation of their emergent condition. - New Patient This patient is new to me today: Yes Date on this admission: 06/07/17 - Critical Care Critical Care patient: No
[2017-06-07] MEDS: predniSONE 20 MG TABLET (UD) PO SCH (13:18)
--- NOTE | 2017-06-07 15:11 | PN ---
Progress Note, Physician Chief Complaint: ID Continues on Zosyn - Current Medication List Current Medications: Active Medications Acetaminophen (Ofirmev Injection -) 1,000 mg IVPB Q6H PRN PRN Reason: FEVER OR PAIN Acetaminophen (Tylenol -) 650 mg PO Q6H PRN PRN Reason: FEVER OR PAIN Last Admin: 06/06/17 22:36 Dose: 650 mg Albuterol Sulfate (Ventolin 0.083% Nebulizer Soln -) 1 amp NEB Q4H PRN PRN Reason: SHORT OF BREATH/WHEEZING Albuterol/Ipratropium (Duoneb -) 1 amp NEB QIDR [facility] Last Admin: 06/07/17 11:00 Dose: 1 amp Aspirin (Ecotrin -) 81 mg PO DAILY [facility] Last Admin: 06/07/17 10:00 Dose: 81 mg Chlorhexidine Gluconate (Hibiclens For Decolonization -) 1 applic TP HS [facility] Last Admin: 06/05/17 21:39 Dose: 1 applic Citalopram Hydrobromide (Celexa -) 40 mg PO DAILY [facility] Last Admin: 06/07/17 10:00 Dose: 40 mg Docusate Sodium (Colace -) 100 mg PO BID [facility] Last Admin: 06/07/17 10:00 Dose: 100 mg Emtricitabine/Tenofovir (Truvada) 1 tab PO DAILY [facility] Last Admin: 06/07/17 10:00 Dose: 1 tab Heparin Sodium (Porcine) (Heparin -) 5,000 unit SQ TID [facility] Last Admin: 06/07/17 13:09 Dose: Not Given Piperacillin/Tazobactam/Dextrose (Zosyn 4.5gm Ivpb (Premix)) 4.5 gm in 100 mls @ 200 mls/hr IVPB Q8H-IV MILIND PRN Reason: Protocol Last Admin: 06/07/17 09:59 Dose: 200 mls/hr Vancomycin HCl 1,000 mg/ (Dextrose) 250 mls @ 166.667 mls/hr IVPB BID [facility] Last Admin: 06/07/17 09:59 Dose: 166.667 mls/hr Insulin Aspart (Novolog Vial Sliding Scale -) 1 vial SQ ACHS MILIND PRN Reason: Protocol Last Admin: 06/07/17 11:42 Dose: Not Given Methadone HCl 60 mg/ Methadone (HCl 5 mg) 65 mg PO DAILY@0600 [facility] Last Admin: 06/07/17 06:10 Dose: 65 mg Mupirocin (Bactroban Ointment (For Decolonization) -) 1 applic NS BID [facility] Stop: 06/09/17 21:59 Last Admin: 06/07/17 09:49 Dose: Not Given Polyethylene Glycol (Miralax (For Bowel Prep) -) 17 gm PO DAILY [facility] Last Admin: 06/07/17 10:04 Dose: Not Given Prednisone (Deltasone -) 40 mg PO DAILY [facility] Last Admin: 06/07/17 13:18 Dose: 40 mg Pregabalin (Lyrica -) 75 mg PO BID [facility] Last Admin: 06/07/17 10:00 Dose: 75 mg Raltegravir (Isentress -) 400 mg PO BID [facility] Last Admin: 06/07/17 10:00 Dose: 400 mg Fluticasone/Salmeterol (Advair 100mcg/50mcg -) 1 puff IH BID [facility] Last Admin: 06/07/17 10:03 Dose: 1 puff - Objective Vital Signs: Vital Signs Temperature 97.9 F 06/07/17 14:00 Pulse Rate 64 06/07/17 14:00 Respiratory Rate 20 06/07/17 14:00 Blood Pressure 90/59 06/07/17 14:00 O2 Sat by Pulse Oximetry (%) 96 06/07/17 11:00 Labs: CBC, BMP 06/07/17 10:15 06/07/17 10:15 INR, PTT INR 0.96 (0.82-1.09) 06/05/17 05:55 Problem List - Problems (1) COPD Acute exacerbation of chronic obstructive airways disease Code(s): J44.1 - CHRONIC OBSTRUCTIVE PULMONARY DISEASE W (ACUTE) EXACERBATION (2) Pneumonia Code(s): J18.9 - PNEUMONIA, UNSPECIFIED ORGANISM Assessment/Plan Microbiology 06/04/17 13:39 Urine - Urine Taylor Urine Culture - Final NO GROWTH OBTAINED 06/06/17 09:00 Blood - Peripheral Venous Blood Culture - Preliminary NO GROWTH OBTAINED AFTER 24 HOURS, INCUBATION TO CONTINUE FOR 4 DAYS. 06/06/17 09:00 Blood - Peripheral Venous Blood Culture - Preliminary NO GROWTH OBTAINED AFTER 24 HOURS, INCUBATION TO CONTINUE FOR 4 DAYS. 06/04/17 13:30 Blood - Peripheral Venous Blood Culture - Preliminary NO GROWTH OBTAINED AFTER 72 HOURS, INCUBATION TO CONTINUE FOR 2 DAYS. 06/04/17 13:30 Blood - Peripheral Venous Blood Culture - Preliminary Gram Positive Cocci Laboratory Tests 06/04/17 06/07/17 06/07/17 14:10 10:15 10:15 WBC 6.0 Hgb 14.8 Hct 45.6 H Plt Count 103 L BUN 11 Creatinine 0.7 Methadone Screen Positive U Marijuana (THC) Screen Positive Assessment Substance abuse PNA HIV infection COPD Positive blood culture gram pos Plan Continue Zosyn as ordered blood culture ?micrococcus probable contaminant. Prednisone Mary ANDERSON
[2017-06-07] MEDS ORDERED: POTASSIUM CHLORIDE ORAL LIQUID 20 MEQ/15 ML PO ONE (16:13)
--- NOTE | 2017-06-07 16:13 | PN ---
Teaching Attending Note Name of Resident: Patricia Ceja ATTENDING PHYSICIAN STATEMENT I saw and evaluated the patient. I reviewed the resident's note and discussed the case with the resident. I agree with the resident's findings and plan as documented. SUBJECTIVE:asymptomatic. states her breathing has imrpvoed. no cough. denies CP , SOB, fever, chills, n/V/C/D OBJECTIVE: Last Vital Signs Temp Pulse Resp BP Pulse Ox 97.9 F 64 20 90/59 96 06/07/17 14:00 06/07/17 14:00 06/07/17 14:00 06/07/17 14:00 06/07/17 11:00 General NAD CV S1 S2 RRR no murmur/rub/gallop Lungs decreased breath sounds bases. no wheezing abdomen soft NT/ND Extremities no pedal edema ASSESSMENT AND PLAN: 62yo F with PMH COPD, BRIAN, HIV, continuous polysubstance abuse (ETOH and codeine ) on methadone and medical THC presented to the ER with respiratory distress and found to be lethargic 1. Acute hypoxic/hypercapnic respiratory failure- due to aspiration PNA vs Acute on Chronic COPD exacerbation. clinically improved. saturating 96% on 2L NC. asses for home O2. will decrease steroids to po with a slow taper. on Zosyn day 3. speak with ID about abx duration. 2. +GPC in blood cultures- likely contaminate. repeat BCx negative. awaiting speciation. on empiric vanco day 2. 3. Acute toxic metabolic encephalopathy- possible due to CO2 retention vs ingestion vs infection. now at baseline mental status. 4. Severe sepsis with RML PNA- improved. on zosyn day 3. 5. Hypokalemia- KCl 40meq 6. Continuous polysubstance abuse- methadone dose confirmed. 7. HIV- on HARRT. 8. DVT ppx- hep sq
[2017-06-07] MEDS: CHLORHEXIDINE GLUCONATE 4% CLEANSER FOR DECOLONIZATION TP SCH (21:53)
--- NOTE | 2017-06-08 01:51 | EKG ---
Test Reason : Blood Pressure : / mmHG Vent. Rate : 110 BPM Atrial Rate : 110 BPM P-R Int : 166 ms QRS Dur : 100 ms QT Int : 368 ms P-R-T Axes : 058 073 075 degrees QTc Int : 498 ms SINUS TACHYCARDIA BASELINE ARTIFACT POSSIBLE LEFT ATRIAL ENLARGEMENT BORDERLINE ECG WHEN COMPARED WITH ECG OF 08-APR-2017 13:20, NO SIGNIFICANT CHANGE WAS FOUND Confirmed by ADILSON BANDA MD ([id number]) on 06/08/2017 1:50:50 AM Referred By: Confirmed By:ADILSON BANDA MD
[2017-06-08] MEDS: PIPERACILLIN/TAZOB 4.5 GM 4.5 GM/100 ML BAG IVPB SCH ×3 (02:39→18:20)
[2017-06-08] MEDS ORDERED: METHADONE HCL 5 MG TABLET ONE (05:30)
[2017-06-08] MEDS ORDERED: METHADONE HCL 10 MG TABLET ONE (05:30)
[2017-06-08] MEDS: METHADONE PO SCH (05:44)
[2017-06-08] MEDS: HEPARIN NA (PORCINE) 5,000 UNITS/ML 1ML VIAL SQ SCH ×3 (05:44→23:12)
[2017-06-08] MEDS: ALBUTEROL SO4 2.5/IPRATROPIUM 0.5 INH SOL 3 ML VIAL.NEB. NEB SCH ×3 (06:30→18:30)
[2017-06-08] MEDS: INSULIN SLIDING SCALE (NOVOLOG) 1 VIAL SQ SCH ×4 (08:14→23:21)
[2017-06-08 08:48] LABS: ANION GAP 6 (8-16); BLOOD UREA NITROGEN 11 mg/dL (7-18); CALCIUM 8.6 mg/dL (8.5-10.1); CHLORIDE 96 mmol/L (98-107); CO2 35 mmol/L (21-32); CREATININE 0.6 mg/dL (0.55-1.02); GLUCOSE,RANDOM 85 mg/dL (74-106); MAGNESIUM 2.3 mg/dL (1.8-2.4); POTASSIUM 3.2 mmol/L (3.5-5.1); SODIUM 137 mmol/L (136-145)
[2017-06-08] MEDS ORDERED: PT OWN MED DRAWER 7, Y5N ONE ×3 (09:32→21:29)
[2017-06-08] MEDS ORDERED: POTASSIUM CHLORIDE TABS 20 MEQ TABLET.ER (FP) PO ONE (09:43)
[2017-06-08] MEDS: MUPIROCIN 2% TOPICAL OINTMENT FOR DECOLONIZATION NS SCH ×2 (09:46→23:06)
[2017-06-08] MEDS: predniSONE 20 MG TABLET (UD) PO SCH (09:46)
[2017-06-08] MEDS: PREGABALIN 75 MG CAPSULE PO SCH ×2 (09:47→23:12)
[2017-06-08] MEDS: FLUTICASONE/SALMETEROL 100 MCG/50 MCG DISKUS IH SCH ×2 (09:47→23:11)
[2017-06-08] MEDS: DOCUSATE SODIUM 100 MG CAPSULE (FP) PO SCH ×2 (09:47→23:12)
[2017-06-08] MEDS: CITALOPRAM HYDROBROMIDE 20 MG TABLET (FP) PO SCH (09:47)
[2017-06-08] MEDS: ASPIRIN COATED 81 MG TABLET.EC PO SCH (09:47)
[2017-06-08] MEDS: VANCOMYCIN 1,000 MG in DEXTROSE 5%-WATER - 250 ML IVPB SCH ×2 (09:48→23:21)
[2017-06-08] MEDS: RALTEGRAVIR POTASSIUM 400 MG TAB PO SCH ×2 (09:48→23:13)
[2017-06-08] MEDS: POLYETHYLENE GLYCOL 3350 255 GM BTL PO SCH (09:48)
[2017-06-08] MEDS: EMTRICITABINE 200MG/TENOFOVIR 300MG PO SCH (09:48)
--- NOTE | 2017-06-08 10:40 | PN ---
Progress Note (short form) - Note Progress Note: Continues to improve. Post ambulation desaturation to 88, 92 on supplemental O2. Intake & Output 06/05/17 06/06/17 06/07/17 06/08/17 23:59 23:59 23:59 23:59 Intake Total 2314 1646 650 200 Output Total 1850 5 Balance 464 1641 650 200 Weight 203 lb 14.841 oz 205 lb 0.478 oz 199 lb 5 oz 190 lb 6.4 oz Last Vital Signs Temp Pulse Resp BP Pulse Ox 98.3 F 85 20 141/77 92 L 06/08/17 06:00 06/08/17 09:47 06/08/17 06:00 06/08/17 06:00 06/08/17 09:47 Active Medications Acetaminophen (Ofirmev Injection -) 1,000 mg IVPB Q6H PRN PRN Reason: FEVER OR PAIN Acetaminophen (Tylenol -) 650 mg PO Q6H PRN PRN Reason: FEVER OR PAIN Last Admin: 06/06/17 22:36 Dose: 650 mg Albuterol Sulfate (Ventolin 0.083% Nebulizer Soln -) 1 amp NEB Q4H PRN PRN Reason: SHORT OF BREATH/WHEEZING Albuterol/Ipratropium (Duoneb -) 1 amp NEB QIDR [facility] Last Admin: 06/08/17 06:30 Dose: 1 amp Aspirin (Ecotrin -) 81 mg PO DAILY [facility] Last Admin: 06/08/17 09:47 Dose: 81 mg Chlorhexidine Gluconate (Hibiclens For Decolonization -) 1 applic TP HS [facility] Last Admin: 06/07/17 21:53 Dose: 1 applic Citalopram Hydrobromide (Celexa -) 40 mg PO DAILY [facility] Last Admin: 06/08/17 09:47 Dose: 40 mg Docusate Sodium (Colace -) 100 mg PO BID [facility] Last Admin: 06/08/17 09:47 Dose: 100 mg Emtricitabine/Tenofovir (Truvada) 1 tab PO DAILY [facility] Last Admin: 06/08/17 09:48 Dose: 1 tab Heparin Sodium (Porcine) (Heparin -) 5,000 unit SQ TID [facility] Last Admin: 06/08/17 05:44 Dose: 5,000 unit Piperacillin/Tazobactam/Dextrose (Zosyn 4.5gm Ivpb (Premix)) 4.5 gm in 100 mls @ 200 mls/hr IVPB Q8H-IV MILIND PRN Reason: Protocol Last Admin: 06/08/17 02:39 Dose: 200 mls/hr Vancomycin HCl 1,000 mg/ (Dextrose) 250 mls @ 166.667 mls/hr IVPB BID [facility] Last Admin: 06/08/17 09:48 Dose: 166.667 mls/hr Insulin Aspart (Novolog Vial Sliding Scale -) 1 vial SQ ACHS [facility] PRN Reason: Protocol Last Admin: 06/08/17 08:14 Dose: Not Given Methadone HCl 60 mg/ Methadone (HCl 5 mg) 65 mg PO DAILY@0600 [facility] Last Admin: 06/08/17 05:44 Dose: 65 mg Mupirocin (Bactroban Ointment (For Decolonization) -) 1 applic NS BID [facility] Stop: 06/09/17 21:59 Last Admin: 06/08/17 09:46 Dose: Not Given Polyethylene Glycol (Miralax (For Bowel Prep) -) 17 gm PO DAILY [facility] Last Admin: 06/08/17 09:48 Dose: Not Given Prednisone (Deltasone -) 40 mg PO DAILY [facility] Last Admin: 06/08/17 09:46 Dose: 40 mg Pregabalin (Lyrica -) 75 mg PO BID [facility] Last Admin: 06/08/17 09:47 Dose: 75 mg Raltegravir (Isentress -) 400 mg PO BID [facility] Last Admin: 06/08/17 09:48 Dose: 400 mg Fluticasone/Salmeterol (Advair 100mcg/50mcg -) 1 puff IH BID [facility] Last Admin: 06/08/17 09:47 Dose: 1 puff Exam: General: awake, alert, NAD HEENT: PERRL Pulm: Few scattered rhonchi and expiratory wheezes bilaterally CV: RRR, TEDDY Abd: SNTND Neuro: CN intact Laboratory Results - last 24 hr 06/07/17 06/08/17 10:15 06:40 Sodium 138 137 Potassium 3.3 L 3.2 L Chloride 96 L 96 L Carbon Dioxide 37 H 35 H Anion Gap 5 L 6 L BUN 11 11 Creatinine 0.7 0.6 Random Glucose 95 D 85 Calcium 8.3 L 8.6 Magnesium 2.3 Problem List - Problems (1) Altered mental state Code(s): R41.82 - ALTERED MENTAL STATUS, UNSPECIFIED (2) Substance abuse Code(s): F19.10 - OTHER PSYCHOACTIVE SUBSTANCE ABUSE, UNCOMPLICATED (3) COPD (chronic obstructive pulmonary disease) Code(s): J44.9 - CHRONIC OBSTRUCTIVE PULMONARY DISEASE, UNSPECIFIED (4) COPD Acute exacerbation of chronic obstructive airways disease Code(s): J44.1 - CHRONIC OBSTRUCTIVE PULMONARY DISEASE W (ACUTE) EXACERBATION (5) Drowsiness Code(s): R40.0 - SOMNOLENCE (6) Depression Code(s): F32.9 - MAJOR DEPRESSIVE DISORDER, SINGLE EPISODE, UNSPECIFIED (7) HIV (human immunodeficiency virus infection) Code(s): B20 - HUMAN IMMUNODEFICIENCY VIRUS [HIV] DISEASE (8) Pulmonary hypertension Code(s): I27.2 - OTHER SECONDARY PULMONARY HYPERTENSION * DO NOT USE * (9) Sleep apnea, obstructive Code(s): G47.33 - OBSTRUCTIVE SLEEP APNEA (ADULT) (PEDIATRIC) (10) Substance use disorder Code(s): F19.90 - OTHER PSYCHOACTIVE SUBSTANCE USE, UNSPECIFIED, UNCOMPLICATED Assessment/Plan NC O2 as tolerated Would arrange for supplemental home O2 Prednisone BD TX ABX Aspiration Precautions HIV Meds as ordered VTE prophylaxis Formal sleep workup after discharge as she likely has component of CSA D/C planning Dr Orona
--- NOTE | 2017-06-08 12:13 | PN ---
Progress Note (short form) - Note Progress Note: doing well alert, c/o neuropathy in her feet Vital Signs Period Temp Pulse Resp BP Sys/Amato Pulse Ox Last 24 Hr 97.6 F-98.3 F 62-85 20-20 90-158/59-95 92-98 cor-rrr lungs decreased bs at bases no wheezing abd- soft,nt ext venous stasis bilaterally CBC, BMP 06/07/17 10:15 06/08/17 06:40 Microbiology 06/06/17 09:00 Blood Culture - Preliminary Blood - Peripheral Venous NO GROWTH OBTAINED AFTER 48 HOURS, INCUBATION TO CONTINUE FOR 3 DAYS. 06/06/17 09:00 Blood Culture - Preliminary Blood - Peripheral Venous NO GROWTH OBTAINED AFTER 48 HOURS, INCUBATION TO CONTINUE FOR 3 DAYS. 06/04/17 13:30 Blood Culture - Preliminary Blood - Peripheral Venous Gram Positive Cocci 06/04/17 13:30 Blood Culture - Preliminary Blood - Peripheral Venous NO GROWTH OBTAINED AFTER 72 HOURS, INCUBATION TO CONTINUE FOR 2 DAYS. a/p pneumonia- improved, day #4 antibiotics, can switch to po augmentin 875 bid for another 5 days copd exacerbation- taper steroids as tolerated, home oxygen OSAS- home cpap hiv- stable appendiceal tumor methadone pain management can f/u at [facility] with me and pain doctor as outpt
[2017-06-08] MEDS: ACETAMINOPHEN 325 MG TABLET (FP) PO PRN (13:14)
--- NOTE | 2017-06-08 15:52 | DS ---
Physical Exam: SUBJECTIVE: No events overnight. Pt continues to use CPAP machine without problems. Pt denies any new symptoms. Pt received pre and post ambulatory pulse oximetry which showed desaturation down to 86-88 while ambulating on RA and 92% while ambulating with 2LNC OBJECTIVE: Vital Signs Period Temp Pulse Resp BP Sys/Amato Pulse Ox Last 24 Hr 97.6 F-98.9 F 62-85 18-20 115-158/68-95 92-98 PHYSICAL EXAM GENERAL: NAD, awake, alert, lying comfortably in bed HEENT: NC/AT, No JVD, moist mucosa with normal structures of mouth LUNGS: CTA bilaterally, no wheezes, rhonchi, or rales. No accessory muscle use. On 3LNC HEART: RRR, S1, S2 without murmur ABDOMEN: Soft, nontender, nondistended, normoactive bowel sounds, no guarding, no rebound, no hepatosplenomegaly EXTREMITIES: 2+ DP pulses, warm, well-perfused, no edema. NEUROLOGICAL: Cranial nerves II through XII grossly intact. Normal speech, gait not observed. PSYCH: Normal mood, normal affect. SKIN: Warm, dry, no rashes or lesions noted. LABS Laboratory Results - last 24 hr 06/08/17 06:40 Sodium 137 Potassium 3.2 L Chloride 96 L Carbon Dioxide 35 H Anion Gap 6 L BUN 11 Creatinine 0.6 Random Glucose 85 Calcium 8.6 Magnesium 2.3 Microbiology 06/04/17 13:30 Blood - Peripheral Venous Blood Culture - Preliminary NO GROWTH OBTAINED AFTER 96 HOURS, INCUBATION TO CONTINUE FOR 1 DAYS. 06/06/17 09:00 Blood - Peripheral Venous Blood Culture - Preliminary NO GROWTH OBTAINED AFTER 48 HOURS, INCUBATION TO CONTINUE FOR 3 DAYS. 06/06/17 09:00 Blood - Peripheral Venous Blood Culture - Preliminary NO GROWTH OBTAINED AFTER 48 HOURS, INCUBATION TO CONTINUE FOR 3 DAYS. 06/04/17 13:30 Blood - Peripheral Venous Blood Culture - Preliminary Gram Positive Cocci 06/04/17 13:39 Urine - Urine Taylor Urine Culture - Final NO GROWTH OBTAINED 06/04/17 21:00 Nasopharyngeal Swab Influenza Types A,B Antigen (MAURICE) - Final 06/04/17 21:00 Nasopharyngeal Swab - Final HOSPITAL COURSE: Date of Admission:06/04/17 Date of Discharge: 06/08/17 62yo F with history of polysubstance abuse (opiates and EtOH), COPD, HIV who initially presented with lethargy and found to be in acute respiratory failure with severe sepsis secondary to a suspected PNA. Chest CT was ordered revealing R middle lobe PNA. ID was consulted, and blood cultures were ordered as above. With initial cultures only 1 aerobic bottle showed gram positive cocci in clusters, however this is suspected to be a contaminate rather than an actual finding. Pt was initially placed on BiPap and then switched to nasal cannula. Pt received a total of 4 days worth of Zosyn and Vancomycin and will be discharged on Augmentin 875mg BID for a total of 10 days. Pt also was found to have a COPD exacerbation triggered by the PNA for which she was initially started on Solu-medrol 60mg q8h. She was switched to PO Prednisone 40mg and will be discharged on a prednisone taper. Pt's AMS resolved with normalizing serial ABG's. Throughout hospitalization pt was maintained on 3LNC and was found to have desaturation down to 86-88 SpO2 with ambulation on room air with suggestion of 2LNC continuous for home use. Pt is being discharged with portable oxygenation for home and is in stable condition with instructions to follow-up up with her appropriate medical practitioners. Minutes to complete discharge: 38 Discharge Summary Reason For Visit: COPD Current Active Problems Altered mental state (Acute) COPD (chronic obstructive pulmonary disease) (Acute) Pneumonia (Acute) Sepsis (Acute) Condition: Good - Instructions Diet, Activity, Other Instructions: You were hospitalized for a pneumonia and COPD exacerbation Please follow-up with your regular doctor --If you do not have a general medical doctor please feel free to call [phone] and schedule an appointment with Dr. Aguilar Please follow-up with Dr. Morris for your pneumonia within 1 week Please follow-up with your social human services assistants and continue to use your CPAP machine at night Please follow-up with [facility] rehab for your Methadone If you have returning or worsening symptoms, please contact your general medical doctor or return to the nearest ER for further evaluation. Medication changes: You will be given Prednisone to slowly taper off of. Take 40mg for one day, then 30 mg for the next 3 days, then 20mg for the 3 days thereafter, then 10mg for the last 3 days then stop --The prescription has been sent to your pharmacy and is ready to be picked up You will be given Augmentin 875 to take TWICE per day for the next 6 days --This prescription has been sent to your pharmacy and is ready to be picked up Disposition: HOME - Home Medications Comprehensive Discharge Medication List: Ambulatory Orders Pregabalin [Lyrica -] 75 mg PO BID #60 capsule MDD 2 04/02/17 Citalopram Hydrobromide [Celexa -] 40 mg PO DAILY #30 tablet 04/07/17 Albuterol Sulfate Inhaler - [Ventolin HFA Inhaler -] 2 inh PO Q4H PRN #1 inhaler 04/08/17 Docusate Sodium [Colace -] 100 mg PO BID #60 cap 04/08/17 Dolutegravir Sodium [Tivicay] 50 mg PO DAILY #30 tab 04/08/17 Emtricitabine/Tenofovir (Tdf) [Truvada 200 mg-300 mg Tablet] 1 each PO DAILY # 30 tab 04/08/17 Polyethylene Glycol 3350 [Miralax 255 gm Btl -] 17 gm PO DAILY #1 bottle Aspirin [Aspirin EC] 81 mg PO DAILY #30 tablet.dr 04/12/17 Salmeterol/Fluticasone [Advair 100Mcg/50Mcg -] 1 puff IH BID #1 inhaler Amoxicillin/Potassium Clav [Augmentin 875-125 Tablet] 1 each PO BID #12 tablet 06/08/17 Methadone [Dolophine -] 65 mg PO DAILY@0600 tablet MDD 65mg 06/08/17 Miscellaneous Medical Supply [Outpatient Order] 1 each ASDIR #1 misc Miscellaneous Medical Supply [Outpatient Order] 1 each ASDIR #1 misc Prednisone [Deltasone -] See Taper PO DAILY #22 tablet 06/08/17 Raltegravir [Isentress] 400 mg PO BID tab 06/08/17 This patient is new to me today: No Emergency Visit: No Critical Care patient: No - Discharge Referral Referred to [facility] No
--- NOTE | 2017-06-08 16:48 | PN ---
Teaching Attending Note Name of Resident: Joaquin Keith ATTENDING PHYSICIAN STATEMENT Time of evaluation: 9:50 AM I saw and evaluated the patient. I reviewed the resident's note and discussed the case with the resident. I agree with the resident's findings and plan as documented. SUBJECTIVE: Patient seen and examined. breathing improved, no complaints. Overall feels well. OBJECTIVE: Vital Signs Period Temp Pulse Resp BP Sys/Amato Pulse Ox Last 24 Hr 97.6 F-98.9 F 62-85 18-20 115-158/68-95 92-98 Intake & Output 06/05/17 06/06/17 06/07/17 06/08/17 23:59 23:59 23:59 23:59 Intake Total 2314 1646 650 900 Output Total 1850 5 Balance 464 1641 650 900 Weight 203 lb 14.841 oz 205 lb 0.478 oz 199 lb 5 oz 190 lb 6.4 oz General: sitting in bed in no acute distress CVS;S1S2 regular Chest good air entry bilaterally, no rales or wheezing abdomen: soft, obese, NT extremities: no edema Active Medications Generic Name Dose Route Start Last Admin Trade Name Freq PRN Reason Stop Dose Admin Acetaminophen 1,000 mg 06/05/17 06:06 Ofirmev Injection - IVPB Q6H PRN FEVER OR PAIN Acetaminophen 650 mg 06/05/17 22:43 06/08/17 13:14 Tylenol - PO 650 mg Q6H PRN Administration FEVER OR PAIN Albuterol Sulfate 1 amp 06/04/17 17:53 Ventolin 0.083% Nebulizer Soln - NEB Q4H PRN SHORT OF BREATH/WHEEZING Albuterol/Ipratropium 1 amp 06/04/17 18:00 06/08/17 12:00 Duoneb - NEB 1 amp QIDR MILIND Administration Aspirin 81 mg 06/05/17 10:00 06/08/17 09:47 Ecotrin - PO 81 mg DAILY MILIND Administration Chlorhexidine Gluconate 1 applic 06/04/17 22:00 06/07/17 21:53 Hibiclens For Decolonization - TP 1 applic HS MILIND Administration Citalopram Hydrobromide 40 mg 06/05/17 10:00 06/08/17 09:47 Celexa - PO 40 mg DAILY MILIND Administration Docusate Sodium 100 mg 06/05/17 10:00 06/08/17 09:47 Colace - PO 100 mg BID MILIND Administration Emtricitabine/Tenofovir 1 tab 06/05/17 10:00 06/08/17 09:48 Truvada PO 1 tab DAILY MILIND Administration Heparin Sodium (Porcine) 5,000 unit 06/04/17 18:00 06/08/17 13:15 Heparin - SQ 5,000 unit TID MILIND Administration Piperacillin/Tazobactam/Dextrose 4.5 gm in 100 mls @ 200 mls/hr 06/05/17 10: 00 06/08/17 11:34 Zosyn 4.5gm Ivpb (Premix) IVPB 200 mls/hr Q8H-IV MILIND Administration Protocol Vancomycin HCl 1,000 mg/ 250 mls @ 166.667 mls/hr 06/06/17 10:00 06/08/17 09: 48 Dextrose IVPB 166.667 mls/hr BID MILIND Administration Insulin Aspart 1 vial 06/04/17 22:00 06/08/17 12:32 Novolog Vial Sliding Scale - SQ Not Given ACHS [facility] Protocol Methadone HCl 60 mg/ Methadone 65 mg 06/05/17 10:00 06/08/17 05:44 HCl 5 mg PO 65 mg DAILY@0600 MILIND Administration Mupirocin 1 applic 06/04/17 22:00 06/08/17 09:46 Bactroban Ointment (For Decolonization) - NS 06/09/17 21:59 Not Given BID MILIND Polyethylene Glycol 17 gm 06/05/17 10:00 06/08/17 09:48 Miralax (For Bowel Prep) - PO Not Given DAILY MILIND Prednisone 40 mg 06/07/17 10:30 06/08/17 09:46 Deltasone - PO 40 mg DAILY MILIND Administration Pregabalin 75 mg 06/05/17 10:00 06/08/17 09:47 Lyrica - PO 75 mg BID MILIND Administration Raltegravir 400 mg 06/06/17 10:00 06/08/17 09:48 Isentress - PO 400 mg BID MILIND Administration Fluticasone/Salmeterol 1 puff 06/05/17 10:00 06/08/17 09:47 Advair 100mcg/50mcg - IH 1 puff BID MILIND Administration Laboratory Results - last 24 hr 06/08/17 06:40 Sodium 137 Potassium 3.2 L Chloride 96 L Carbon Dioxide 35 H Anion Gap 6 L BUN 11 Creatinine 0.6 Random Glucose 85 Calcium 8.6 Magnesium 2.3 Blood cultures 1/2 gm positive cocci in clusters repeat blood cultures neg so far ASSESSMENT AND PLAN: 62yo F with PMH COPD, BRIAN, HIV, continuous polysubstance abuse (ETOH and codeine ) on methadone and medical THC presented to the ER with respiratory distress and found to be lethargic -Acute hypoxic/hypercapneic respiratory failure, aspiration PNA+/- Acute on chronic COPD exacerbation. -GPC bacteremia /2. -Acute toxic metabolic encephalopathy, suspect CO2 retention associated with ingestion+/- infection. -Severe sepsis with RML PNA, improved -Hypokalemia -Polysubstance abuse -HIV on HAART Plan: improved, home oxygen needs assessment. Prednisone with taper outpatient. Zosyn day 4, vanco day 3, discussed with Dr. Morris, follow up final blood culture results from 06/06, suspect contaminant but will monitor for now. Mental status stable. PO KCL supplementation Methadone DVTPPX dispo Anticipate in 24 hours on oral antibiotics pending final blood culture results from 06/05. Plan discussed with patient in detail, all questions answered.
[2017-06-08] MEDS: CHLORHEXIDINE GLUCONATE 4% CLEANSER FOR DECOLONIZATION TP SCH (23:07)
[2017-06-09] MEDS: ALBUTEROL SO4 2.5/IPRATROPIUM 0.5 INH SOL 3 ML VIAL.NEB. NEB SCH ×3 (00:05→11:36)
[2017-06-09] MEDS ORDERED: PT OWN MED DRAWER 7, Y5N ONE ×2 (01:23→10:06)
[2017-06-09] MEDS: PIPERACILLIN/TAZOB 4.5 GM 4.5 GM/100 ML BAG IVPB SCH ×2 (01:38→10:12)
[2017-06-09] MEDS ORDERED: METHADONE HCL 10 MG TABLET ONE (05:56)
[2017-06-09] MEDS ORDERED: METHADONE HCL 5 MG TABLET ONE (05:56)
[2017-06-09] MEDS: HEPARIN NA (PORCINE) 5,000 UNITS/ML 1ML VIAL SQ SCH ×2 (06:26→14:50)
[2017-06-09] MEDS: METHADONE PO SCH ×2 (06:26→06:45)
[2017-06-09] MEDS: INSULIN SLIDING SCALE (NOVOLOG) 1 VIAL SQ SCH ×2 (06:29→12:35)
[2017-06-09] MEDS: MUPIROCIN 2% TOPICAL OINTMENT FOR DECOLONIZATION NS SCH ×2 (07:46→10:11)
[2017-06-09] MEDS: CHLORHEXIDINE GLUCONATE 4% CLEANSER FOR DECOLONIZATION TP SCH (07:46)
[2017-06-09 08:23] LABS: CHLORIDE 98 mmol/L (98-107); POTASSIUM 3.4 mmol/L (3.5-5.1); SODIUM 140 mmol/L (136-145)
[2017-06-09 08:41] LABS: ANION GAP 9 (8-16); BLOOD UREA NITROGEN 13 mg/dL (7-18); CALCIUM 8.7 mg/dL (8.5-10.1); CO2 33 mmol/L (21-32); CREATININE 0.7 mg/dL (0.55-1.02); GLUCOSE,RANDOM 77 mg/dL (74-106)
[2017-06-09] MEDS: DOCUSATE SODIUM 100 MG CAPSULE (FP) PO SCH (10:12)
[2017-06-09] MEDS: CITALOPRAM HYDROBROMIDE 20 MG TABLET (FP) PO SCH (10:12)
[2017-06-09] MEDS: predniSONE 20 MG TABLET (UD) PO SCH (10:12)
[2017-06-09] MEDS: PREGABALIN 75 MG CAPSULE PO SCH (10:12)
[2017-06-09] MEDS: ASPIRIN COATED 81 MG TABLET.EC PO SCH (10:12)
[2017-06-09] MEDS: POLYETHYLENE GLYCOL 3350 255 GM BTL PO SCH (10:13)
[2017-06-09] MEDS: RALTEGRAVIR POTASSIUM 400 MG TAB PO SCH (10:13)
[2017-06-09] MEDS: EMTRICITABINE 200MG/TENOFOVIR 300MG PO SCH (10:13)
[2017-06-09] MEDS: FLUTICASONE/SALMETEROL 100 MCG/50 MCG DISKUS IH SCH (10:13)
[2017-06-09 13:06] VITALS: BP 110/76
[2017-06-09] MEDS: VANCOMYCIN 1,000 MG in DEXTROSE 5%-WATER - 250 ML IVPB SCH (13:50)
[2017-06-09 15:23] VITALS: PULSE 74; TEMP 98.5
[2017-06-09] MEDS ORDERED: POTASSIUM CHLORIDE TABS 20 MEQ TABLET.ER (FP) PO ONE (15:34)
--- NOTE | 2017-06-09 19:35 | PN ---
Teaching Attending Note Name of Resident: Joaquin Keith ATTENDING PHYSICIAN STATEMENT Time of evalution: 12:15 PM I saw and evaluated the patient. I reviewed the resident's note and discussed the case with the resident. I agree with the resident's findings and plan as documented. SUBJECTIVE: patient seen and examined, breathing improved, no complaints. OBJECTIVE: Vital Signs Period Temp Pulse Resp BP Sys/Amato Pulse Ox Last 24 Hr 97.8 F-98.6 F 63-74 18-22 110-154/72-81 92-95 Intake & Output 06/06/17 06/07/17 06/08/17 06/09/17 23:59 23:59 23:59 23:59 Intake Total 9010 104 5037 700 Output Total 5 Balance 7676 509 0584 700 Weight 205 lb 0.478 oz 199 lb 5 oz 190 lb 6.4 oz 189 lb 12.8 oz general:lying in bed in no acute distress Chest: no rales or wheezing, good air entry Laboratory Results - last 24 hr 06/04/17 06/05/17 06/05/17 22:50 05:59 11:41 Sodium Potassium Chloride Carbon Dioxide Anion Gap BUN Creatinine POC Glucometer 172.13535 151.29017 176.67416 Random Glucose Calcium 06/05/17 06/05/17 06/06/17 16:58 21:44 05:26 Sodium Potassium Chloride Carbon Dioxide Anion Gap BUN Creatinine POC Glucometer 145.13090 157.36236 140.10038 Random Glucose Calcium 06/06/17 06/09/17 11:52 06:30 Sodium 140 Potassium 3.4 L Chloride 98 Carbon Dioxide 33 H Anion Gap 9 BUN 13 Creatinine 0.7 POC Glucometer 137.92444 Random Glucose 77 Calcium 8.7 ASSESSMENT AND PLAN: 62yo F with PMH COPD, BRIAN, HIV, continuous polysubstance abuse (ETOH and codeine ) on methadone and medical THC presented to the ER with respiratory distress and found to be lethargic -Acute hypoxic/hypercapneic respiratory failure, aspiration PNA+/- Acute on chronic COPD exacerbation. -GPC bacteremia 1/2. -Acute toxic metabolic encephalopathy, suspect CO2 retention associated with ingestion+/- infection. -Severe sepsis with RML PNA, improved -Hypokalemia -Polysubstance abuse -HIV on HAART Plan: improved, home oxygen needs assessment. Prednisone with taper outpatient. Zosyn day 4, vanco day 3, discussed with Dr. Morris, follow up final blood culture results from 06/06, suspect contaminant but will monitor for now. Mental status stable. PO KCL supplementation Methadone DVTPPX Home oxygen arranged, d/c home today with outpatient follow up.
--- NOTE | 2017-06-10 09:21 | PN ---
Progress Note - HPI Chief Complaint: follow up from hospital. just discharged yesterday History of Present Illness: just discharged from the hospital - pneumonia- ?reaction to medical marijuana- ? ? 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 No: Productive cough Cardiac: Yes: No Symptoms Reported GI: Yes: No Symptoms Reported : Yes: No Symptoms Reported Musculoskeletal: Yes: Other (bilateral foot pain) - Medications Home Medications: Ambulatory Orders Pregabalin [Lyrica -] 75 mg PO BID #60 capsule MDD 2 04/02/17 Citalopram Hydrobromide [Celexa -] 40 mg PO DAILY #30 tablet 04/07/17 Albuterol Sulfate Inhaler - [Ventolin HFA Inhaler -] 2 inh PO Q4H PRN #1 inhaler 04/08/17 Docusate Sodium [Colace -] 100 mg PO BID #60 cap 04/08/17 Dolutegravir Sodium [Tivicay] 50 mg PO DAILY #30 tab 04/08/17 Emtricitabine/Tenofovir (Tdf) [Truvada 200 mg-300 mg Tablet] 1 each PO DAILY # 30 tab 04/08/17 Polyethylene Glycol 3350 [Miralax 255 gm Btl -] 17 gm PO DAILY #1 bottle Aspirin [Aspirin EC] 81 mg PO DAILY #30 tablet. 04/12/17 Salmeterol/Fluticasone [Advair 100Mcg/50Mcg -] 1 puff IH BID #1 inhaler Amoxicillin/Potassium Clav [Augmentin 875-125 Tablet] 1 each PO BID #12 tablet 06/08/17 Methadone [Dolophine -] 65 mg PO DAILY@0600 tablet MDD 65mg 06/08/17 Miscellaneous Medical Supply [Outpatient Order] 1 each ASDIR #1 misc Miscellaneous Medical Supply [Outpatient Order] 1 each ASDIR #1 misc Prednisone [Deltasone -] See Taper PO DAILY #22 tablet 06/08/17 Raltegravir [Isentress] 400 mg PO BID tab 06/08/17 Social - Smoking Smoking history: Never smoked - Past Substance Use/Tx. Hx Hx Alcohol Use: No Hx Substance Use: No Hx Substance Use Treatment: Yes (MMTP) Tobacco Cessation - "Ask" about Tobacco Use Do you currently use tobacco?: No - Prescribe and Document Medications Prescriptions: Amoxicillin/Potassium Clav [Augmentin 875-125 Tablet] 1 each PO BID #12 tablet Miscellaneous Medical Supply [Outpatient Order] 1 each ASDIR #1 misc Miscellaneous Medical Supply [facility] Prednisone [Deltasone -] See Taper PO DAILY #22 tablet - Referrals Physical Exam - Vital Signs Vital Signs: Vital Signs - 24 hr 06/09/17 06/09/17 10:00 15:22 Temperature 97.8 F 98.5 F Pulse Rate 73 74 Respiratory 22 18 Rate Blood Pressure 110/76 - Physical General Appearance: Yes: Within Normal Limits, No Apparent Distress, Appropriately Dressed EENT: No: Thrush Neck: Yes: Supple Cardiology: Yes: Regular Rhythm, Regular Rate, Within Normal Limits Respiratory: Yes: Lungs Clear Abdominal: Yes: Non Tender, Soft Assessment and Plan-Medical - Diagnosis (1) Pneumonia Status: Acute Code(s): J18.9 - PNEUMONIA, UNSPECIFIED ORGANISM Comment: to complete augmentin- cxray in several weeks just discharged yesterday (2) COPD (chronic obstructive pulmonary disease) Status: Acute Code(s): J44.9 - CHRONIC OBSTRUCTIVE PULMONARY DISEASE, UNSPECIFIED Comment: smoking cessation advised, has inhalers which she uses ' sometimes' prednisone taper using her cpap and home oxygen need portable tank (3) Appendiceal tumor Status: Chronic Code(s): D37.3 - NEOPLASM OF UNCERTAIN BEHAVIOR OF APPENDIX Comment: not operative per surgery will request f/u from oncologist dr butler just saw Dr Maher and had imaging- stable- f/u in one year per patient (4) HIV disease Status: Chronic Code(s): B20 - HUMAN IMMUNODEFICIENCY VIRUS [HIV] DISEASE Comment: stable on truvada and tivacay willl switch truvada to descovy (5) Neuropathy Status: Chronic Code(s): G62.9 - POLYNEUROPATHY, UNSPECIFIED Comment: not responding to lyrica, ?adverse effect to marijuana urged f/u with pain management- has appt today (6) Back pain Status: Chronic Code(s): M54.9 - DORSALGIA, UNSPECIFIED Comment: compression fracture (chronic) pubic rami fracture in the past (7) Sleep apnea, obstructive Status: Chronic Code(s): G47.33 - OBSTRUCTIVE SLEEP APNEA (ADULT) (PEDIATRIC) Comment: using cpap (8) Pulmonary hypertension Status: Chronic Code(s): I27.2 - OTHER SECONDARY PULMONARY HYPERTENSION * DO NOT USE * Comment: not smoking (9) Opioid dependence Status: Chronic Code(s): F11.20 - OPIOID DEPENDENCE, UNCOMPLICATED Comment: on methadone (10) Venous stasis of both lower extremities Status: Chronic Code(s): I87.8 - OTHER SPECIFIED DISORDERS OF VEINS Comment : wound care evaluation with dr smith (vascular) - Health Maintenance Last Date of Influenza Vaccine: 05/31/15 - Orders Diagnostic Tests: mammogram Referrals: f/u in. f/u dr ansari-pulmonaray for sleep apnea. psych. f/u pain management with jose Next Appointment: 2 weeks
== END 2017-06-09 15:51 | disposition home or self-care (01) | DRG 720 ==
LOC: JER 13:00 → JERBED 16:30 → JICU 18:26 → J8W 06-06 12:58
PROVIDERS: ADMIT Internal Medicine; ATTEND Hospitalist
PROC: 5A09357 Assistance with Respiratory Ventilation, Less than 24 Consecutive Hours, Continuous Positive Airway Pressure (ICD-10-PCS; principal; 2017-06-04)
DX: A41.9 Sepsis, unspecified organism (principal); T40.7X1A Poisoning by cannabis (derivatives), accidental (unintentional), initial encounter; J69.0 Pneumonitis due to inhalation of food and vomit; J96.01 Acute respiratory failure with hypoxia; J96.02 Acute respiratory failure with hypercapnia; G92 Toxic encephalopathy; G62.9 Polyneuropathy, unspecified; E87.2 Acidosis; I27.20 Pulmonary hypertension, unspecified; J44.1 Chronic obstructive pulmonary disease with (acute) exacerbation; Z21 Asymptomatic human immunodeficiency virus [HIV] infection status; G47.33 Obstructive sleep apnea (adult) (pediatric); F10.10 Alcohol abuse, uncomplicated; F11.10 Opioid abuse, uncomplicated; R65.20 Severe sepsis without septic shock; E87.6 Hypokalemia; K59.03 Drug induced constipation; T50.995A Adverse effect of other drugs, medicaments and biological substances, initial encounter; F32.9 Major depressive disorder, single episode, unspecified; Y92.89 Other specified places as the place of occurrence of the external cause
CPT/HCPCS: 36415; 36600; 70450-TC; 71010-TC; 71250-TC; 80048; 80053; 80307; 81003; 82375; 82550; 82803; 83036; 83050; 83605; 83735; 83880; 84100; 84484; 85025; 85027; 85610; 85730; 86850; 86900; 86901; 87040; 87086; 87804; 90670; 90688; 93005; 93010; 94640; 94660; 94761; 97116-GP; 97161-GP; 99284-25; G0008; G0009; J1644

== ENCOUNTER 2017-11-26 14:16 | Inpatient (IN) | payer OTHER ==
--- NOTE | 2017-11-26 14:24 | PDOC ---
Rapid Medical Evaluation Time Seen by Provider: 11/26/17 14:21 Medical Evaluation: Allergies Allergy/AdvReac Type Severity Reaction Status Date / Time banana AdvReac Verified 06/04/17 13:28 11/26/17 14:21 I have performed a brief in-person evaluation of this patient. The patient presents with a chief complaint of: Hives while playing in grass at school today Pertinent physical exam findings: Stable and well alanna in NAD, no obvious rash on exam I have ordered the following:nothing The patient will proceed to the ED for further evaluation. Discharge Disposition - Diagnosis Rash and nonspecific skin eruption - Referrals - Patient Instructions - Post Discharge Activity
[2017-11-26 14:38] VITALS: BMI 32.9
--- NOTE | 2017-11-26 15:02 | PDOC ---
History of Present Illness - General Chief Complaint: Injury Stated Complaint: FALL Time Seen by Provider: 11/26/17 14:21 History Source: Patient Exam Limitations: No Limitations - History of Present Illness Initial Comments: This is a 62 YOF with h/o HIV (viral load undetectable last week), COPD, chronic bronchitis, lumbar spinal stenosis with chronic back pain and radiation to her left leg who presents with right lower rib pain and SOB after falling to the asphalt ground while trying to get out of her van this morning at about 7: 30 am. She denies preceding symptoms (no lightheadedness, headache, vision changes, or other symptoms). She notes having hit her right forehead but she did not lose consciousness. She notes that people in the parking lot needed to help her up but she was able to walk on the scene and initially did not have as much pain as she does now. She has not taken any medication for the pain. She states that this pain feels similar to her prior rib fracture which was in the distant past. Past History - Past Medical History Allergies/Adverse Reactions: Allergies Allergy/AdvReac Type Severity Reaction Status Date / Time banana AdvReac Verified 11/26/17 14:28 Home Medications: Ambulatory Orders Salmeterol/Fluticasone [Advair 100Mcg/50Mcg -] 1 puff IH BID #1 inhaler Diclofenac Sodium [Voltaren] 2 gm TP TID PRN 30 Days #3 tube 07/01/17 Ergocalciferol [Vitamin D2] 50,000 unit PO Q7D@1000 30 Days #4 capsule MDD 1 05/08 Gabapentin [Neurontin -] 400 mg PO Q8H #90 capsule MDD 3 07/01/17 Meloxicam [Mobic (Nf) -] 7.5 mg PO BID 30 Days #60 tablet 07/01/17 Nicotine Polacrilex [Nicorelief -] 2 mg BC TID 30 Days #90 gum MDD 3 07/01/17 Albuterol Sulfate Inhaler - [Ventolin HFA Inhaler -] 2 inh PO Q4H PRN #1 inhaler 11/11/17 Citalopram Hydrobromide [Celexa -] 40 mg PO DAILY #30 tablet 11/11/17 Docusate Sodium [Colace -] 100 mg PO BID #60 cap 11/11/17 Dolutegravir Sodium [Tivicay] 50 mg PO DAILY #30 tab 11/11/17 Emtricitabine/Tenofov Alafenam [Descovy 200-25 mg Tablet (Nf)] 1 each PO DAILY # 30 tablet 11/11/17 Folic Acid - 1 mg PO DAILY #30 tablet 11/11/17 Pyridoxine HCl (Vitamin B6) [Vitamin B-6] 50 mg PO DAILY #30 capsule 11/11/17 Thiamine HCl [B-1] 100 mg PO DAILY 30 Days #30 tablet 11/11/17 Methadone [Dolophine -] 60 mg PO DAILY@0600 MDD 65mg 11/26/17 Anemia: Yes Asthma: Yes Cancer: Yes (appendiceal -unresectable) Cardiac Disorders: Yes (hx endocarditis) CVA: No COPD: Yes (pulmonary htn) CHF: No Dementia: No Diabetes: No GI Disorders: No Disorders: No HTN: Yes Hypercholesterolemia: No Liver Disease: Yes (possible cirrhosis (hx elevated ammonia)) Psychiatric Problems: Yes (DEPRESSION, SI.) Seizures: No Thyroid Disease: No - Surgical History Abdominal Surgery: Yes (MULTIPLE ABORTIONS.) Appendectomy: No Cardiac Surgery: No Cholecystectomy: No Lung Surgery: No Neurologic Surgery: No Orthopedic Surgery: No - Immunization History Immunization Up to Date: Yes - Suicide/Smoking/Psychosocial Hx Smoking Status: Yes Smoking History: Former smoker Years of Tobacco Use: 40 Have you smoked in the past 12 months: Yes Number of Cigarettes Smoked Daily: 1 If you are a former smoker, when did you quit?: 09/2017 Cigars Per Day: 1 Information on smoking cessation initiated: Yes 'Breaking Loose' booklet given: 05/24/13 Hx Alcohol Use: Yes (one 24oz can beer daily) Drug/Substance Use Hx: No Substance Use Type: Alcohol, Cocaine, Heroin Hx Substance Use Treatment: Yes (MMTP) Review of Systems - Review of Systems Able to Perform ROS?: Yes Constitutional: No: Chills, Fever, Unexplained wgt Loss HEENTM: No: Nose Congestion, Throat Pain Respiratory: Yes: Shortness of Breath. No: Cough Cardiac (ROS): Yes: Chest Pain. No: Palpitations ABD/GI: No: Constipated, Diarrhea, Nausea, Vomiting : No: Burning, Dysuria Musculoskeletal: No: Back Pain, Neck Pain Integumentary: No: Bruising, Rash Neurological: No: Headache, Numbness, Tingling, Weakness, Dizziness Endocrine: No: Unexplained Weight Gain, Unexplained Weight Loss *Physical Exam - Vital Signs Last Vital Signs Temp Pulse Resp BP Pulse Ox 99.2 F 90 18 102/64 99 11/26/17 14:16 11/26/17 14:16 11/26/17 14:16 11/26/17 14:16 11/26/17 14:16 - Physical Exam General Appearance: Yes: Nourished, Mild Distress, Obese, Other (alert, answering questions appropriately, appears uncomfortable) HEENT: positive: EOMI, MILLIE, Normal Voice, Hearing Grossly Normal. negative: Scleral Icterus (R), Scleral Icterus (L), Nasal Congestion Neck: positive: Trachea midline, Supple. negative: Tender, Rigid Respiratory/Chest: positive: Lungs Clear, Normal Breath Sounds. negative: Respiratory Distress, Crackles, Rhonchi, Stridor, Wheezing Cardiovascular: positive: Regular Rhythm, Regular Rate. negative: Murmur Gastrointestinal/Abdominal: positive: Normal Bowel Sounds, Soft. negative: Tender, Organomegaly, Pulsatile Mass, Guarding Musculoskeletal: positive: Normal Inspection. negative: Decreased Range of Motion, Vertebral Tenderness Extremity: positive: Normal Capillary Refill, Normal Inspection, Normal Range of Motion. negative: Tender, Cyanosis Integumentary: positive: Normal Color, Dry, Warm. negative: Erythema, Rash, Bruising Neurologic: positive: search engine marketing manager II-XII NML intact, Fully Oriented, Alert, Normal Mood/ Affect, Normal Response, Motor Strength 5/5 ED Treatment Course - LABORATORY CBC & Chemistry Diagram: 11/26/17 16:13 11/26/17 16:13 Medical Decision Making - Medical Decision Making Adult female Pt p/w physical trauma sustained from GLF. Initial Vital Signs Temp Pulse Resp BP Pulse Ox 99.2 F 90 18 102/64 99 11/26/17 14:16 11/26/17 14:16 11/26/17 14:16 11/26/17 14:16 11/26/17 14:16 Exam: right periorbital ecchymosis and superficial frontal abrasion just superior to right brow, GCS 15, protecting airway, bilateral breath sounds equal , tachypneic, right lateral inferior rib tenderness to palpation, no flail chest , abdomen soft, pelvis stable, no thigh hematoma, PERRLA, moving all extremities , no cephalohematoma, no scalp laceration, no raccoon eyes, no weems sign, no hemotympanum, no CSF rhinorrhea/otorrhea. DDX IBNLT: CHI, ICH, facial bone or basilar skull fracture, rib fracture, pulmonary injury, simple contusions/abrasions, etc. W/U ordered: CBCD CMP Coags TS Cardiac panel UA HCT Facial Bones CT CXR TX ordered: Ofimev EKG: NSR, rate 85, normal axis, KGX=446 ms, otherwise normal intervals, no ischemic changes CXR: NADP Head CT: NADP Facial bones CT: NADP Laboratory Tests 11/26/17 11/26/17 11/26/17 16:13 16:13 16:13 WBC 6.0 RBC 3.73 Hgb 13.6 Hct 41.2 MCV 110.3 H MCH 36.5 H MCHC 33.1 RDW 14.0 Plt Count 136 MPV 10.0 Absolute Neuts (auto) 4.4 Neutrophils % 72.6 Lymphocytes % 17.6 D Monocytes % 7.2 Eosinophils % 2.0 Basophils % 0.6 Nucleated RBC % 0 Macrocytosis 2+ PT with INR 11.90 INR 1.05 PTT (Actin FS) 35.6 H Sodium Potassium Chloride Carbon Dioxide Anion Gap BUN Creatinine Creat Clearance w eGFR Random Glucose Calcium Total Bilirubin AST ALT Alkaline Phosphatase Creatine Kinase 74 Troponin I < 0.02 Total Protein Albumin Urine Color Urine Appearance Urine pH Ur Specific Newton Urine Protein Urine Glucose (UA) Urine Ketones Urine Blood Urine Nitrite Urine Bilirubin Urine Urobilinogen Ur Leukocyte Esterase 11/26/17 11/26/17 16:13 16:20 WBC RBC Hgb Hct MCV MCH MCHC RDW Plt Count MPV Absolute Neuts (auto) Neutrophils % Lymphocytes % Monocytes % Eosinophils % Basophils % Nucleated RBC % Macrocytosis PT with INR INR PTT (Actin FS) Sodium 137 Potassium 3.7 Chloride 97 L Carbon Dioxide 35 H Anion Gap 5 L BUN 3 L Creatinine 0.6 Creat Clearance w eGFR > 60 Random Glucose 87 Calcium 8.7 Total Bilirubin 1.0 D AST 37 ALT 27 Alkaline Phosphatase 94 Creatine Kinase Troponin I Total Protein 6.3 L Albumin 3.1 L Urine Color Straw Urine Appearance Clear Urine pH 7.0 Ur Specific Newton 1.003 Urine Protein Negative Urine Glucose (UA) Negative Urine Ketones Negative Urine Blood Negative Urine Nitrite Negative Urine Bilirubin Negative Urine Urobilinogen Negative Ur Leukocyte Esterase Negative Ordered is CT Chest WO contrast as patient has continued pain and secondary SOB. Repeat VS: Reassessment: Patient's care is endorsed to oncoming resident Dr. Montenegro at the end of my shift. *DC/Admit/Observation/Transfer Diagnosis at time of Disposition: Spinal stenosis of lumbar region, Right-sided chest pain, Fall from ground level, SOB (shortness of breath) - Referrals Referrals: ON STAFF,NOT [Primary Care Provider] - - Patient Instructions - Post Discharge Activity
[2017-11-26] MEDS ORDERED: ACETAMINOPHEN 1000 MG/100 ML VIAL (NON FORMULARY) IVPB ONE (16:12)
[2017-11-26 16:30] LABS: HEMATOCRIT 41.2 % (32.4-45.2); HEMOGLOBIN 13.6 GM/dL (10.7-15.3); MCH 36.5 pg (25.7-33.7); MCHC 33.1 g/dl (32.0-36.0); MEAN CELL VOLUME 110.3 fl (80-96); RBC 3.73 M/mm3 (3.60-5.2)
[2017-11-26 16:31] LABS: BASO % 0.6 % (0-2.0); LYMPH % 17.6 % (8-40); MONO % 7.2 % (3.8-10.2); NEUT % 72.6 % (42.8-82.8); PLATELET COUNT 136 K/MM3 (134-434)
[2017-11-26] MEDS ORDERED: ACETAMINOPHEN INJECTION 100 ML IVPB ONE (16:32)
[2017-11-26 16:41] LABS: URINE APPEARANCE CLEAR; URINE BILIRUBIN NEGATIVE (<2.0 mg/dL); URINE BLOOD NEGATIVE (NEGATIVE); URINE COLOR STRAW; URINE GLUCOSE (UA) NEGATIVE (NEGATIVE); URINE KETONE NEGATIVE (NEGATIVE); URINE LEUK ESTERASE NEGATIVE (NEGATIVE); URINE NITRITE NEGATIVE (NEGATIVE); URINE PROTEIN NEGATIVE (NEGATIVE); URINE UROBILINOGEN NEGATIVE mg/dL (0.2-1.0)
[2017-11-26 16:48] LABS: INR 1.05 (0.82-1.09); PROTHROMBIN TIME (PATIENT) 11.9 SEC (9.7-13.0)
[2017-11-26 16:50] LABS: ACTIVATED PTT 35.6 SECONDS (26.9-34.4)
--- NOTE | 2017-11-26 17:12 | PDOC ---
Attending Attestation - Resident Resident Name: Monse Arguelles - ED Attending Attestation I have performed the following: I have examined & evaluated the patient, The case was reviewed & discussed with the resident, I agree w/resident's findings & plan, Exceptions are as noted - HPI HPI: 11/26/17 17:07 Patient is a 62 F with PMHx of lumbar stenosis, well controlled HIV, previous drug and etoh abuse who presents to the ED s/p fall at 7:30 am. Patient states that she was getting out of her van, when her foot got caught on something and she fell hitting her right lower ribs, right side of her face, and L knee. No LOC. She states that she was helped up by a fellow passerby in the parking lot and was ambulatory on scene. She states that she went home and used rubbing alcohol on her ribs but the pain worsened, prompting her to come to the ED. She has not tried any medication. She denies any current or preceding dizziness, headache, CP, SOB, palpitations. She states she is not on anticoagulants. Allergies: NKDA Social Hx: past EtOH and drug abuse. - Physicial Exam PE: 11/26/17 17:08 agree with resident exam - Medical Decision Making 11/26/17 17:08 62yo F presents to the ED for R rib, R facial, and L knee pain after a mechanical fall. Vitals unremarkable. Exam with R inferior axillary rib pain, and L knee medial ttp. No instability in knee, negative lachmans. Pt was ambulating on knee and thus unlikely bone fracture. Will obtain CTH, facial bones, and chest/rib XR to evaluate for acute injury. Pt given IV tylenol for pain. 11/26/17 18:28 CTH, facial bones, CXR negative Pt still very tender over ribs - due to concern for rib fx, will obtain CT chest 11/26/17 19:00 CT CHest done, read pending. Pt signed out to evening attending for reassessment , mgmt, dispo Heart Score/ECG Review #1 11/26/17 17:12 Twelve-lead EKG was performed and reviewed by me. Normal sinus rhythm, rate 87. Normal axis. No ST elevations. T wave is prison between QRS complexes, and thus unlikely prolonged QT intervals.
[2017-11-26 17:20] LABS: ALBUMIN 3.1 g/dl (3.4-5.0); ALK PHOS 94 U/L (45-117); ANION GAP 5 (8-16); BLOOD UREA NITROGEN 3 mg/dL (7-18); CALCIUM 8.7 mg/dL (8.5-10.1); CHLORIDE 97 mmol/L (98-107); CO2 35 mmol/L (21-32); CREATININE 0.6 mg/dL (0.55-1.02); GLUCOSE,RANDOM 87 mg/dL (74-106); SGPT/ALT 27 U/L (12-78); SODIUM 137 mmol/L (136-145); TOT PROT 6.3 g/dl (6.4-8.2)
[2017-11-26 17:22] LABS: POTASSIUM 3.7 mmol/L (3.5-5.1); SGOT/AST 37 U/L (15-37)
[2017-11-26 17:34] LABS: MACROCYTOSIS 2+
--- NOTE | 2017-11-26 20:27 | PDOC ---
*Physical Exam - Vital Signs Last Vital Signs Temp Pulse Resp BP Pulse Ox 99.2 F 90 18 102/64 99 11/26/17 14:16 11/26/17 14:16 11/26/17 14:16 11/26/17 14:16 11/26/17 14:16 ED Treatment Course - LABORATORY CBC & Chemistry Diagram: 11/26/17 16:13 11/26/17 16:13 - ADDITIONAL ORDERS Additional order review: Laboratory Results 11/26/17 11/26/17 11/26/17 16:20 16:13 16:13 PT with INR INR PTT (Actin FS) Sodium 137 Potassium 3.7 Chloride 97 L Carbon Dioxide 35 H Anion Gap 5 L BUN 3 L Creatinine 0.6 Creat Clearance w eGFR > 60 Random Glucose 87 Calcium 8.7 Total Bilirubin 1.0 D AST 37 ALT 27 Alkaline Phosphatase 94 Creatine Kinase Troponin I Total Protein 6.3 L Albumin 3.1 L Urine Color Straw Urine Appearance Clear Urine pH 7.0 Ur Specific [place] 1.003 Urine Protein Negative Urine Glucose (UA) Negative Urine Ketones Negative Urine Blood Negative Urine Nitrite Negative Urine Bilirubin Negative Urine Urobilinogen Negative Ur Leukocyte Esterase Negative Blood Type O POSITIVE Antibody Screen Negative 11/26/17 11/26/17 16:13 16:13 PT with INR 11.90 INR 1.05 PTT (Actin FS) 35.6 H Sodium Potassium Chloride Carbon Dioxide Anion Gap BUN Creatinine Creat Clearance w eGFR Random Glucose Calcium Total Bilirubin AST ALT Alkaline Phosphatase Creatine Kinase 74 Troponin I < 0.02 Total Protein Albumin Urine Color Urine Appearance Urine pH Ur Specific [place] Urine Protein Urine Glucose (UA) Urine Ketones Urine Blood Urine Nitrite Urine Bilirubin Urine Urobilinogen Ur Leukocyte Esterase Blood Type Antibody Screen 11/26/17 16:13 RBC 3.73 MCV 110.3 H MCHC 33.1 RDW 14.0 MPV 10.0 Neutrophils % 72.6 Lymphocytes % 17.6 D Monocytes % 7.2 Eosinophils % 2.0 Basophils % 0.6 - Medications Given in the ED: ED Medications Discontinued Medications Generic Name Dose Route Start Last Admin Trade Name Freq PRN Reason Stop Dose Admin Acetaminophen 1,000 mg 11/26/17 16:12 11/26/17 16:39 Ofirmev Injection - IVPB 11/26/17 16:13 1,000 mg ONCE ONE Administration Fentanyl 25 mcg 11/26/17 19:36 11/26/17 20:24 Sublimaze Injection - IVPUSH 11/26/17 19:37 25 mcg ONCE ONE Administration *DC/Admit/Observation/Transfer Diagnosis at time of Disposition: Spinal stenosis of lumbar region, Right-sided chest pain, Fall from ground level, SOB (shortness of breath) - Discharge Dispostion Decision to Admit order: Yes - Referrals Referrals: ON STAFF,NOT [Primary Care Provider] - - Patient Instructions - Post Discharge Activity
[2017-11-26] MEDS ORDERED: ALBUTEROL SO4 18 GM HFA INHALER IH PRN (21:11)
[2017-11-26] MEDS ORDERED: PATIENT'S OWN MEDICATION (NON-FORMULARY) (Diclofenac Sodium [Voltaren] 2 GM) TP PRN (21:11)
[2017-11-26] MEDS ORDERED: GABAPENTIN 400 MG CAPSULE (FP) PO SCH (21:15)
--- NOTE | 2017-11-26 21:34 | HP ---
CHIEF COMPLAINT: pain in chest right side an left knee PCP: none HISTORY OF PRESENT ILLNESS: 62 y/o f came to hospital ith a complaint of pain in chest on right side since morning started after a fall while getting out of car. She states she hit her right side of chest, pain is 10/10 intensity, constant, non radiating, didn't get better after otc meds, increases with deep breath and cough. Also reports difficult in breathing due to pain. Also reports left knee pain 10/10 intensity, non radiating. Denies loc, papitations, blood from nose, ear, mouth, denies nausea, vomiting, numbness or weakness in any part of body. ER course was notable for: (1)ct head, ct chest, (2)fentanyl IV (3) Recent Travel: no PAST MEDICAL HISTORY: copd, hiv, lumbarstenosis, alcohol abuse, Iv drug abuse, methdone dependent PAST SURGICAL HISTORY: none Social History: Smokin-4 cig a day since age of 15 Alcohol: daily 2-3 beer Drugs: stopped 30 years ago IV heroin Family History:not relevant Allergies banana Adverse Reaction (Verified 11/26/17 14:28) HOME MEDICATIONS: Home Medications Medication Instructions Recorded Salmeterol/Fluticasone [Advair 1 puff IH BID #1 inhaler 04/12/17 100Mcg/50Mcg -] Diclofenac Sodium [Voltaren] 2 gm TP TID PRN 30 Days #3 tube 07/01/17 Ergocalciferol [Vitamin D2] 50,000 unit PO Q7D@1000 30 Days #4 07/01/17 capsule MDD 1 Gabapentin [Neurontin -] 400 mg PO Q8H #90 capsule MDD 3 07/01/17 Meloxicam [Mobic (Nf) -] 7.5 mg PO BID 30 Days #60 tablet 07/01/17 Nicotine Polacrilex [Nicorelief -] 2 mg BC TID 30 Days #90 gum MDD 3 07/01/17 Albuterol Sulfate Inhaler - 2 inh PO Q4H PRN #1 inhaler 11/11/17 [Ventolin HFA Inhaler -] Citalopram Hydrobromide [Celexa -] 40 mg PO DAILY #30 tablet 11/11/17 Docusate Sodium [Colace -] 100 mg PO BID #60 cap 11/11/17 Dolutegravir Sodium [Tivicay] 50 mg PO DAILY #30 tab 11/11/17 Emtricitabine/Tenofov Alafenam 1 each PO DAILY #30 tablet 11/11/17 [Descovy 200-25 mg Tablet (Nf)] Folic Acid - 1 mg PO DAILY #30 tablet 11/11/17 Pyridoxine HCl (Vitamin B6) 50 mg PO DAILY #30 capsule 11/11/17 [Vitamin B-6] Thiamine HCl [B-1] 100 mg PO DAILY 30 Days #30 tablet 11/11/17 Methadone [Dolophine -] 60 mg PO DAILY@0600 MDD 65mg 11/26/17 REVIEW OF SYSTEMS CONSTITUTIONAL: Absent: fever, chills, diaphoresis, generalized weakness, malaise, loss of appetite, weight change HEENT: Absent: rhinorrhea, nasal congestion, throat pain, throat swelling, difficulty swallowing, mouth swelling, ear pain, eye pain, visual changes CARDIOVASCULAR: Absent:, syncope, palpitations, irregular heart rate, lightheadedness, peripheral edema RESPIRATORY: Absent: cough, dyspnea with exertion, orthopnea, wheezing, stridor, hemoptysis GASTROINTESTINAL: Absent: abdominal pain, abdominal distension, nausea, vomiting, diarrhea, constipation, melena, hematochezia GENITOURINARY: Absent: dysuria, frequency, urgency, hesitancy, hematuria, flank pain, genital pain MUSCULOSKELETAL: as above HEMATOLOGIC/IMMUNOLOGIC: Absent: easy bleeding, easy bruising, ENDOCRINE: Absent: unexplained weight gain, Absent: headache, focal weakness or paresthesias, PSYCHIATRIC: Absent: anxiety, depression,= PHYSICAL EXAMINATION Vital Signs - 24 hr 11/26/17 14:16 Temperature 99.2 F Pulse Rate 90 Respiratory 18 Rate Blood Pressure 102/64 O2 Sat by Pulse 99 Oximetry (%) GENERAL: Awake, alert, and fully oriented, in no acute distress. HEAD: Normal with no signs of trauma. EYES: Pupils equal, round and reactive to light, EARS, NOSE, THROAT: nares patent, oropharynx clear without exudates. Moist mucous membranes. LUNGS: Breath sounds equal, clear to auscultation bilaterally. No wheezes, and no crackles. No accessory muscle use. tenderness in right side, chest compression test negative. No sq emphysema HEART: Regular rate and rhythm, normal S1 and S2 ABDOMEN: Soft, nontender, not distended, normoactive bowel sounds, no guarding, no rebound, no masses. MUSCULOSKELETAL: pain in flexion of left knee UPPER EXTREMITIES: 2+ pulses, warm, well-perfused. LOWER EXTREMITIES: b/l lower limb chronic lymphedema with skin discoloraton NEUROLOGICAL: Cranial nerves II-XII intact. Normal speech. SKIN: Warm, dry, Laboratory Results - last 24 hr 11/26/17 11/26/17 11/26/17 16:13 16:13 16:13 WBC 6.0 RBC 3.73 Hgb 13.6 Hct 41.2 MCV 110.3 H MCH 36.5 H MCHC 33.1 RDW 14.0 Plt Count 136 MPV 10.0 Absolute Neuts (auto) 4.4 Neutrophils % 72.6 Lymphocytes % 17.6 D Monocytes % 7.2 Eosinophils % 2.0 Basophils % 0.6 Nucleated RBC % 0 Macrocytosis 2+ PT with INR 11.90 INR 1.05 PTT (Actin FS) 35.6 H Sodium Potassium Chloride Carbon Dioxide Anion Gap BUN Creatinine Creat Clearance w eGFR Random Glucose Calcium Total Bilirubin AST ALT Alkaline Phosphatase Creatine Kinase 74 Troponin I < 0.02 Total Protein Albumin Urine Color Urine Appearance Urine pH Ur Specific [place] Urine Protein Urine Glucose (UA) Urine Ketones Urine Blood Urine Nitrite Urine Bilirubin Urine Urobilinogen Ur Leukocyte Esterase Blood Type Antibody Screen 11/26/17 11/26/17 11/26/17 16:13 16:13 16:20 WBC RBC Hgb Hct MCV MCH MCHC RDW Plt Count MPV Absolute Neuts (auto) Neutrophils % Lymphocytes % Monocytes % Eosinophils % Basophils % Nucleated RBC % Macrocytosis PT with INR INR PTT (Actin FS) Sodium 137 Potassium 3.7 Chloride 97 L Carbon Dioxide 35 H Anion Gap 5 L BUN 3 L Creatinine 0.6 Creat Clearance w eGFR > 60 Random Glucose 87 Calcium 8.7 Total Bilirubin 1.0 D AST 37 ALT 27 Alkaline Phosphatase 94 Creatine Kinase Troponin I Total Protein 6.3 L Albumin 3.1 L Urine Color Straw Urine Appearance Clear Urine pH 7.0 Ur Specific [place] 1.003 Urine Protein Negative Urine Glucose (UA) Negative Urine Ketones Negative Urine Blood Negative Urine Nitrite Negative Urine Bilirubin Negative Urine Urobilinogen Negative Ur Leukocyte Esterase Negative Blood Type O POSITIVE Antibody Screen Negative ASSESSMENT/PLAN: 62 y/o f came to hospital ith a complaint of pain in chest on right side since morning started after a fall diagnosed with rib fracture on right side. Right 7 and 8 rib fracture. pain control with IV morphine and lidocain patch po ibuprofen. incentive spirometry monitor vitals. monitor saturation. repeat cxr in morning Left knee pain xray knee ordered pain control physical therapy Nicotine dependent still smokes 3-4 cig a day. HIV start home meds. Dr wilkinson consult [id number] watch for withdrawal last drink this morning. thiamine 100m daily and folic acid. Lumbar stenosis with left thigh radiating pain chronic uses gabapentinn and diclofinac sodium topical copd continue home meds stable H/ heroin use IV methadone dependent need to confirm dose, gets [facility]. fluid: orally allowed electrolyte: normal nutrition: low cholesterol diet dispo; obs med surg. Visit type - Emergency Visit Emergency Visit: Yes Care time: The patient presented to the Emergency Department on the above date and was hospitalized for further evaluation of their emergent condition. - New Patient This patient is new to me today: Yes Date on this admission: 11/26/17 - Critical Care Critical Care patient: No
--- NOTE | 2017-11-26 22:06 | PN ---
Teaching Attending Note Name of Resident: Bogdan Lares ATTENDING PHYSICIAN STATEMENT I saw and evaluated the patient. I reviewed the resident's note and discussed the case with the resident. I agree with the resident's findings and plan as documented. SUBJECTIVE: Patient is a 62 year old woman with history of HIV disease(viral load undetectable last week), COPD, chronic bronchitis, lumbar spinal stenosis with chronic back pain and radiation to her left leg who presents with right lower rib pain and SOB after falling to the asphalt ground while trying to get out of her van this morning at about 7:30 am. She denies preceding lightheadedness, headache, or vision changes. She notes having hit her right forehead, right chest wall and left knee but she did not loose consciousness. She drank two beers to help control her pain, but denies drinking before the fall. OBJECTIVE: Alert and in pain. No acute respiratory distress. Vital Signs Period Temp Pulse Resp BP Sys/Amato Pulse Ox Last 24 Hr 99.2 F 90 18 102/64 99 HEENT: No Jaundice, eye redness or discharge, PERRLA, EOMI. Tender right face. External ears are normal and hearing is grossly intact. No nasal discharge. Neck: Supple, nontender. No palpable adenopathy or thyromegaly. No JVD Chest: Poor effort. Tender right chest wall and diminished breath sounds. Heart: Regular. No S3, rub or murmur Abdomen: Not distended, soft, nontender and no HSM. No rebound or guarding. Normoactive bowel sounds. Ext: Peripheral pulses intact. Tender left knee. Bilateral chronic lymphedema and hyperpigmented lower legs. Skin: Warm and dry. No petechiae, rash or ecchymosis. Neuro: Alert. Oriented x3. CN 2-12 grossly intact. Sensation grossly intact in all four extremities; poor and unsteady gait. No tremors or asterexis. DTR are symmetric. Current Medications Generic Name Dose Route Start Last Admin Trade Name Freq PRN Reason Stop Dose Admin Albuterol Sulfate 2 puff 11/26/17 21:11 Ventolin Hfa Inhaler - IH Q4H PRN WHEEZING Folic Acid 1 mg 11/27/17 10:00 Folic Acid - PO DAILY MILIND Gabapentin 400 mg 11/26/17 21:15 Neurontin - PO Q8H MILIND Ibuprofen 400 mg 11/26/17 21:13 Motrin - PO Q6H PRN PAIN LEVEL 1 - 3 Lidocaine 1 patch 11/27/17 10:00 Lidoderm Patch - TP DAILY [facility] Miscellaneous 1 each 11/26/17 22:00 Lidoderm Patch Removal MC DAILY@2200 [facility] Morphine Sulfate 4 mg 11/26/17 21:12 Morphine Sulfate IVPUSH Q6H PRN PAIN LEVEL 4 - 6 Non-Formulary Medication 50 mg 11/27/17 10:00 Dolutegravir Sodium PO DAILY [facility] Non-Formulary Medication 1 each 11/27/17 10:00 Emtricitabine/Tenofov Alafenam [Descovy 200-25 Mg Tablet (Nf)] PO DAILY [facility] Non-Formulary Medication 2 gm 11/26/17 21:11 Diclofenac Sodium [Voltaren] TP TID PRN PAIN Pyridoxine HCl 50 mg 11/27/17 10:00 Vitamin B6 - PO DAILY [facility] Fluticasone/Salmeterol 1 puff 11/26/17 22:00 Advair 100mcg/50mcg - IH BID [facility] Thiamine HCl 100 mg 11/27/17 10:00 Vitamin B1 - PO DAILY [facility] Home Medications Medication Instructions Recorded Salmeterol/Fluticasone [Advair 1 puff IH BID #1 inhaler 04/12/17 100Mcg/50Mcg -] Diclofenac Sodium [Voltaren] 2 gm TP TID PRN 30 Days #3 tube 07/01/17 Ergocalciferol [Vitamin D2] 50,000 unit PO Q7D@1000 30 Days #4 07/01/17 capsule MDD 1 Gabapentin [Neurontin -] 400 mg PO Q8H #90 capsule MDD 3 07/01/17 Meloxicam [Mobic (Nf) -] 7.5 mg PO BID 30 Days #60 tablet 07/01/17 Nicotine Polacrilex [Nicorelief -] 2 mg BC TID 30 Days #90 gum MDD 3 07/01/17 Albuterol Sulfate Inhaler - 2 inh PO Q4H PRN #1 inhaler 11/11/17 [Ventolin HFA Inhaler -] Citalopram Hydrobromide [Celexa -] 40 mg PO DAILY #30 tablet 11/11/17 Docusate Sodium [Colace -] 100 mg PO BID #60 cap 11/11/17 Dolutegravir Sodium [Tivicay] 50 mg PO DAILY #30 tab 11/11/17 Emtricitabine/Tenofov Alafenam 1 each PO DAILY #30 tablet 11/11/17 [Descovy 200-25 mg Tablet (Nf)] Folic Acid - 1 mg PO DAILY #30 tablet 11/11/17 Pyridoxine HCl (Vitamin B6) 50 mg PO DAILY #30 capsule 11/11/17 [Vitamin B-6] Thiamine HCl [B-1] 100 mg PO DAILY 30 Days #30 tablet 11/11/17 Methadone [Dolophine -] 60 mg PO DAILY@0600 MDD 65mg 11/26/17 ASSESSMENT AND PLAN: 1. Fall with rib fractures - Appears to have been a mechanical fall, though there is a possibility that she was intoxicated. Will treat pain associated with rib fractures with lidocaine patch, IV morphine 2 mg IV q 4 and Motrin 400 mg po q 6 hours for 24 hours before switching to PRN - because she is in a lot of pain. Consult thoracic surgery to assess for intercostal nerve block and follow up especially in view of right middle lobe "atelectasis" which may be a consequence of her blunt chest trauma (?lung contusion). Will monitor for pneumothorax and hemothorax. Repeat chest CT tomorrow. 2. Alcohol withdrawal - Implement [facility] alcohol withdrawal protocol, give banana bag and thiamine. Offer referral to alcohol detox upon discharge ans also provide all the necessary assistance to facilitate smoking cessation. 3. HIV disease - Continue current HAART regimen 4. Macrocytosis -Likely due to alcohol use and also possible drug side effect. 5. DVT prophylaxis - Heparin 5000u sq tid 6. Advance directives - Full code
[2017-11-26 23:24] LABS: PHOSPHOROUS 3.7 mg/dL (2.5-4.9)
[2017-11-26 23:25] LABS: MAGNESIUM 2.1 mg/dL (1.8-2.4)
[2017-11-26] MEDS: morphine SULFATE 4 MG/ML VIAL IVPUSH PRN (23:45)
[2017-11-26] MEDS: IBUPROFEN 400 MG TABLET (FP) PO PRN (23:55)
[2017-11-27] MEDS: FLUTICASONE/SALMETEROL 100 MCG/50 MCG DISKUS IH SCH ×3 (01:36→21:01)
[2017-11-27] MEDS: LIDOCAINE PATCH REMOVAL MC SCH ×2 (01:37→21:02)
[2017-11-27] MEDS: GABAPENTIN 400 MG CAPSULE (FP) PO SCH ×3 (06:13→21:21)
[2017-11-27 07:51] LABS: BASO % 0.3 % (0-2.0); EOS % 4.4 % (0-4.5); HEMATOCRIT 37.9 % (32.4-45.2); HEMOGLOBIN 12.8 GM/dL (10.7-15.3); LYMPH % 20.6 % (8-40); MCH 37.1 pg (25.7-33.7); MCHC 33.6 g/dl (32.0-36.0); MEAN CELL VOLUME 110.2 fl (80-96); MEAN PLT VOLUME 9.5 fl (7.5-11.1); NEUT % 64.7 % (42.8-82.8); PLATELET COUNT 105 K/MM3 (134-434); RBC 3.44 M/mm3 (3.60-5.2); RDW 13.7 % (11.6-15.6); WHITE BLOOD COUNT 4.4 K/mm3 (4.0-10.0)
[2017-11-27] MEDS: ALBUTEROL SO4 2.5/IPRATROPIUM 0.5 INH SOL 3 ML VIAL.NEB. NEB SCH ×3 (08:05→20:50)
--- NOTE | 2017-11-27 08:09 | PN ---
Progress Note (short form) - Note Progress Note: ID Well known to us from many admissions COPD and has HIV followed in clinic Takes Descovy and Tivicay Last T cells 500 and undectable less then 20 copies recently. She drinks alcohol and apparently took a fall with subsequestn injuries rib fractures and pain left leg Selected Entries 11/27/17 06:25 Temperature 97.6 F Respiratory 20 Rate Blood Pressure 126/60 Laboratory Tests 11/26/17 11/27/17 16:13 07:20 WBC 4.4 RBC 3.44 L Hct 37.9 Plt Count 105 L D BUN 3 L Creatinine 0.6 Total Bilirubin 1.0 D AST 37 ALT 27 Alkaline Phosphatase 94 Assessment Major issues fall with rig fractures Underlying COPD and chronic alcoholism HIV is stable on meds Plan Can take Truvada and Tivicay while in hospital Watch for signs alcohol withdrawal Mary ANDERSON Problem List - Problems (1) Fall from ground level Code(s): W18.30XA - FALL ON SAME LEVEL, UNSPECIFIED, INITIAL ENCOUNTER (2) COPD (chronic obstructive pulmonary disease) Code(s): J44.9 - CHRONIC OBSTRUCTIVE PULMONARY DISEASE, UNSPECIFIED (3) Methadone maintenance therapy patient Code(s): F11.20 - OPIOID DEPENDENCE, UNCOMPLICATED (4) Alcoholism /alcohol abuse Code(s): F10.20 - ALCOHOL DEPENDENCE, UNCOMPLICATED (5) HIV (human immunodeficiency virus infection) Code(s): B20 - HUMAN IMMUNODEFICIENCY VIRUS [HIV] DISEASE (6) Sleep apnea, obstructive Code(s): G47.33 - OBSTRUCTIVE SLEEP APNEA (ADULT) (PEDIATRIC)
[2017-11-27 08:26] LABS: ANION GAP 5 (8-16); BLOOD UREA NITROGEN 4 mg/dL (7-18); CALCIUM 8.3 mg/dL (8.5-10.1); CHLORIDE 100 mmol/L (98-107); CO2 37 mmol/L (21-32); CREATININE 0.5 mg/dL (0.55-1.02); GLUCOSE,RANDOM 88 mg/dL (74-106); MAGNESIUM 2.3 mg/dL (1.8-2.4); PHOSPHOROUS 4.1 mg/dL (2.5-4.9); POTASSIUM 3.5 mmol/L (3.5-5.1); SODIUM 142 mmol/L (136-145)
--- NOTE | 2017-11-27 08:43 | CONS ---
DATE OF CONSULTATION: DATE OF DICTATION: 11/27/2017 HISTORY OF PRESENT ILLNESS: This is 1 of multiple admissions for this 62-year- old female who is admitted after a fall in which while getting out of a car she apparently lost her balance, fell on asphalt, hitting the right side of her chest. She came to the emergency room with constant pain in her right chest and difficulty taking a deep breath. Note is made of the fact that she has had multiple [facility] admissions for generally exacerbation of COPD with respiratory infections. She is known to us from the [facility] where she is followed for HIV and in this regard doing well. However, she has had difficulty coping with chronic alcoholism and has been actively drinking as well as smoking on a regular basis. She denies being intoxicated when she fell. Multiple x-rays were obtained in the emergency room, including head CT and chest CT imaging. She had no evidence of any intracranial pathology on head CT and currently is fully alert. Her CAT scan of the chest showed multiple right rib fractures and she is admitted for management of pain as well as difficulty breathing related to her COPD. PAST MEDICAL HISTORY: Includes COPD, HIV, alcohol use, history of IV DA, methadone maintenance, lumbar stenosis. MEDICATIONS: Solu-Medrol, fluticasone, vitamin D, gabapentin, albuterol, Tivicay/ Descovy, methadone. ALLERGIES: None known. SOCIAL HISTORY: Smoker. Former IV DA. Active alcoholism. No recent travel. HIV positive. FAMILY HISTORY: Reveiwed and noncontributory . REVIEW OF SYSTEMS: Respiratory: Shortness of breath, mild cough is chronic. Cardiac: No chest pain, palpitations, syncope, murmur. Gastrointestinal: No abdominal pain, nausea, vomiting, diarrhea. Genitourinary: No dysuria, hematuria, urinary frequency. Neuromuscular: Right rib pain anteriorly, left leg pain, thigh and below the knee. PHYSICAL EXAMINATION: General: Revealed an alert woman in mild respiratory distress. Vital Signs: Temperature 97.6, pulse 73, blood pressure 126/60, respirations 20. Neck: Supple. Lungs: With diminished breath sounds bilaterally, tenderness anteriorly on the right side of the chest. Heart: S1, S2. Regular rhythm without audible murmur. Abdomen: Soft, nontender with hepatosplenomegaly. Extremities: Bilateral lymphedema. No localized pain in the left lower extremity. Neurologic: Cranial nerves grossly nonfocal. LABORATORY DATA: The white count is 4.4, hemoglobin 12.8, platelets 105. BUN 3 , creatinine 0.6. T-cells 500. Viral load undetectable. ASSESSMENT: A 62-year-old female with known human immunodeficiency virus, history of severe chronic obstructive pulmonary disease, active alcoholism, presents following a fall in which she has sustained multiple rib fractures on her right chest as well as contusions to the left lower extremity. She is currently admitted for pain management. RECOMMENDATIONS: From an HIV standpoint she has been doing well and can be continued on Truvada and Tivicay while in the hospital. Monitor for signs of alcohol withdrawal. Incentive spirometry. BETH HOWARD M.D. [id number] MTDD
[2017-11-27] MEDS ORDERED: PT OWN MED DRAWER 7, Y5N ONE ×2 (09:43→12:27)
[2017-11-27] MEDS: morphine SULFATE 4 MG/ML VIAL IVPUSH PRN (09:45)
[2017-11-27] MEDS: FOLIC ACID 1 MG TABLET (FP) PO SCH (09:50)
[2017-11-27] MEDS: THIAMINE HCL 100 MG TABLET (FP) PO SCH (09:50)
[2017-11-27] MEDS: LIDOCAINE 5% TOPICAL PATCH TP SCH (09:51)
[2017-11-27] MEDS: PYRIDOXINE HCL (B-6) 50 MG TABLET (FP) PO SCH (09:51)
--- NOTE | 2017-11-27 10:02 | PN ---
Physical Exam: SUBJECTIVE: Patient seen and examined Patient is c/o having chest pain specially when she moves around. Patient states that she leaves by herself and has fallen fallen in the house multiple times but this time she fell outside the house. OBJECTIVE: Vital Signs Temperature 97.9 F 11/27/17 09:33 Pulse Rate 20 L 11/27/17 09:33 Respiratory Rate 71 H 11/27/17 09:33 Blood Pressure 142/71 11/27/17 09:33 O2 Sat by Pulse Oximetry (%) 96 11/27/17 06:00 GENERAL: The patient is awake, alert, and fully oriented, in no acute distress. HEAD: Normal with no signs of trauma. EYES: PERRL, extraocular movements intact, sclera anicteric, conjunctiva clear. ENT: Ears normal, oropharynx clear without exudates, moist mucous membranes. NECK: Trachea midline, full range of motion, supple. LUNGS: Breath sounds equal, clear to auscultation bilaterally, no wheezes, no crackles, no accessory muscle use. HEART: Regular rate and rhythm, S1, S2 without murmur, rub or gallop. ABDOMEN: Soft, nontender, nondistended, normoactive bowel sounds, no guarding, no rebound, no hepatosplenomegaly, no masses. EXTREMITIES: 2+ pulses, warm, well-perfused, no edema. NEUROLOGICAL: Cranial nerves II through XII grossly intact. Normal speech, gait not observed. PSYCH: Normal mood, normal affect. SKIN: Warm, dry, normal turgor, no rashes or lesions noted CBCD WBC 4.4 K/mm3 (4.0-10.0) 11/27/17 07:20 RBC 3.44 M/mm3 (3.60-5.2) L 11/27/17 07:20 Hgb 12.8 GM/dL (10.7-15.3) 11/27/17 07:20 Hct 37.9 % (32.4-45.2) 11/27/17 07:20 MCV 110.2 fl (80-96) H 11/27/17 07:20 MCHC 33.6 g/dl (32.0-36.0) 11/27/17 07:20 RDW 13.7 % (11.6-15.6) 11/27/17 07:20 Plt Count 105 K/MM3 (134-434) L D 11/27/17 07:20 MPV 9.5 fl (7.5-11.1) 11/27/17 07:20 CMP Sodium 142 mmol/L (136-145) 11/27/17 07:20 Potassium 3.5 mmol/L (3.5-5.1) 11/27/17 07:20 Chloride 100 mmol/L (98-107) 11/27/17 07:20 Carbon Dioxide 37 mmol/L (21-32) H 11/27/17 07:20 Anion Gap 5 (8-16) L 11/27/17 07:20 BUN 4 mg/dL (7-18) L 11/27/17 07:20 Creatinine 0.5 mg/dL (0.55-1.02) L 11/27/17 07:20 Creat Clearance w eGFR > 60 (>60) 11/26/17 16:13 Random Glucose 88 mg/dL (74-106) 11/27/17 07:20 Calcium 8.3 mg/dL (8.5-10.1) L 11/27/17 07:20 Total Bilirubin 1.0 mg/dL (0.2-1.0) D 11/26/17 16:13 AST 37 U/L (15-37) 11/26/17 16:13 ALT 27 U/L (12-78) 11/26/17 16:13 Alkaline Phosphatase 94 U/L (45-117) 11/26/17 16:13 Total Protein 6.3 g/dl (6.4-8.2) L 11/26/17 16:13 Albumin 3.1 g/dl (3.4-5.0) L 11/26/17 16:13 CARDIAC ENZYMES Creatine Kinase 74 IU/L (26-192) 11/26/17 16:13 Troponin I < 0.02 ng/ml (0.00-0.05) 11/26/17 16:13 Active Medications Generic Name Dose Route Start Last Admin Trade Name Freq PRN Reason Stop Dose Admin Albuterol Sulfate 2 puff 11/26/17 21:11 Ventolin Hfa Inhaler - IH Q4H PRN WHEEZING Albuterol/Ipratropium 1 amp 11/27/17 08:00 06/09/18 08:05 Duoneb - NEB 1 amp RTID MILIND Administration Folic Acid 1 mg 11/27/17 10:00 11/27/17 09:50 Folic Acid - PO 1 mg DAILY MILIND Administration Gabapentin 400 mg 11/27/17 06:00 11/27/17 06:13 Neurontin - PO 400 mg TID MILIND Administration Ibuprofen 400 mg 11/26/17 21:13 Motrin - PO Q6H PRN PAIN LEVEL 1 - 3 Lidocaine 1 patch 11/27/17 10:00 11/27/17 09:51 Lidoderm Patch - TP 1 patch DAILY MILIND Administration Miscellaneous 1 each 11/26/17 22:00 11/27/17 01:37 Lidoderm Patch Removal MC Not Given DAILY@2200 [facility] Morphine Sulfate 4 mg 11/26/17 21:12 11/26/17 23:45 Morphine Sulfate IVPUSH 4 mg Q6H PRN Administration PAIN LEVEL 4 - 6 Non-Formulary Medication 50 mg 11/27/17 10:00 Dolutegravir Sodium PO DAILY [facility] Non-Formulary Medication 1 each 11/27/17 10:00 Emtricitabine/Tenofov Alafenam [Descovy 200-25 Mg Tablet (Nf)] PO DAILY [facility] Non-Formulary Medication 2 gm 11/26/17 21:11 Diclofenac Sodium [Voltaren] TP TID PRN PAIN Pyridoxine HCl 50 mg 11/27/17 10:00 11/27/17 09:51 Vitamin B6 - PO 50 mg DAILY MILIND Administration Fluticasone/Salmeterol 1 puff 11/26/17 22:00 11/27/17 09:50 Advair 100mcg/50mcg - IH 1 puff BID MILIND Administration Thiamine HCl 100 mg 11/27/17 10:00 11/27/17 09:50 Vitamin B1 - PO 100 mg DAILY MILIND Administration Home Medications Medication Instructions Recorded Salmeterol/Fluticasone [Advair 1 puff IH BID #1 inhaler 04/12/17 100Mcg/50Mcg -] Diclofenac Sodium [Voltaren] 2 gm TP TID PRN 30 Days #3 tube 07/01/17 Ergocalciferol [Vitamin D2] 50,000 unit PO Q7D@1000 30 Days #4 07/01/17 capsule MDD 1 Gabapentin [Neurontin -] 400 mg PO Q8H #90 capsule MDD 3 07/01/17 Meloxicam [Mobic (Nf) -] 7.5 mg PO BID 30 Days #60 tablet 07/01/17 Nicotine Polacrilex [Nicorelief -] 2 mg BC TID 30 Days #90 gum MDD 3 07/01/17 Albuterol Sulfate Inhaler - 2 inh PO Q4H PRN #1 inhaler 11/11/17 [Ventolin HFA Inhaler -] Citalopram Hydrobromide [Celexa -] 40 mg PO DAILY #30 tablet 11/11/17 Docusate Sodium [Colace -] 100 mg PO BID #60 cap 11/11/17 Dolutegravir Sodium [Tivicay] 50 mg PO DAILY #30 tab 11/11/17 Emtricitabine/Tenofov Alafenam 1 each PO DAILY #30 tablet 11/11/17 [Descovy 200-25 mg Tablet (Nf)] Folic Acid - 1 mg PO DAILY #30 tablet 11/11/17 Pyridoxine HCl (Vitamin B6) 50 mg PO DAILY #30 capsule 11/11/17 [Vitamin B-6] Thiamine HCl [B-1] 100 mg PO DAILY 30 Days #30 tablet 11/11/17 Methadone [Dolophine -] 60 mg PO DAILY@0600 MDD 65mg 11/26/17 ASSESSMENT/PLAN: Patient is a 62 y/o f came to hospital with a complaint of pain in chest on right side since morning started after a fall diagnosed with rib fracture on right side. # Acute Right 7 and 8 rib fracture. On Morphine IV for pain control and lidocaine patch ,po Voltaren ,incentive spirometry ,monitor vitals and saturation. #Left knee pain : xray neg. pain control ,physical therapy #Nicotine dependency and methadone dependency :still smokes 3-4 cig a day. #HIV continue home meds. ID Dr wilkinson for consult; CD4 level 428 #ETOH dependency last drink was this morning : started on thiamine 100mg daily and folic acid. watch for withdrawal # Lumbar stenosis with left thigh radiating pain chronic on gabapentinn and diclofinac sodium topical #copd continue home meds # Methadone use due to heroin use continue protocol . dispo; med surg. Visit type - Emergency Visit Emergency Visit: Yes ED Registration Date: 11/26/17 Care time: The patient presented to the Emergency Department on the above date and was hospitalized for further evaluation of their emergent condition. - New Patient This patient is new to me today: Yes Date on this admission: 11/27/17 - Critical Care Critical Care patient: No - Discharge Referral Referred to [facility] Med P.C.: No
[2017-11-27] MEDS ORDERED: METHADONE HCL 10 MG TABLET PO ONE (11:33)
[2017-11-27 12:26] LABS: COCAINE, UR NEGATIVE ng/ml (CUTOFF=300); PHENCYCLIDINE,URINE NEGATIVE ng/ml (CUTOFF=25); URINE AMPHETAMINES NEGATIVE ng/ml (CUTOFF=500); URINE BARBITURATES NEGATIVE ng/ml (CUTOFF=200); URINE BENZODIAZEPINES NEGATIVE ng/ml (CUTOFF=200)
[2017-11-27 12:28] LABS: METHADONE, UR POSITIVE ng/ml (CUTOFF=300); OPIATES, URI POSITIVE ng/ml (CUTOFF=300)
[2017-11-27] MEDS ORDERED: METHADONE HCL 40 MG DISPERSABLE TABLET ONE (12:44)
[2017-11-27] MEDS ORDERED: METHADONE HCL 10 MG TABLET ONE (12:45)
[2017-11-27] MEDS ORDERED: METHADONE 40 MG, METHADONE 20 MG PO ONE (13:30)
[2017-11-27] MEDS: IBUPROFEN 400 MG TABLET (FP) PO PRN ×2 (15:45→21:01)
--- NOTE | 2017-11-27 19:22 | PN ---
[facility] Progress Note (SOAP) Subjective: 62 yo with h/o HIV, cured HCV, and h/o opioid use on methadone, admitted yesterday after missing a step and falling. She was admitted with pain of L knee and R ribs- rib fractures noted on xray. Pt on motrin prn, gabapentin and lidoderm patch for pain- but pt states she still has pain. Pt is on methadone 60mg at [facility]. Objective: 11/27/17 19:19 Vital Signs - 24 hr 11/26/17 11/26/17 11/27/17 21:30 23:29 01:05 Temperature 98.1 F 98.1 F Pulse Rate 76 77 Respiratory 18 20 Rate Blood Pressure 110/66 138/88 O2 Sat by Pulse 98 94 L Oximetry (%) 11/27/17 11/27/17 11/27/17 01:54 05:04 06:00 Temperature Pulse Rate Respiratory Rate Blood Pressure O2 Sat by Pulse 96 96 96 Oximetry (%) 11/27/17 11/27/17 11/27/17 06:25 09:33 10:05 Temperature 97.6 F 97.9 F Pulse Rate 73 71 Respiratory 20 20 Rate Blood Pressure 126/60 142/71 O2 Sat by Pulse 95 Oximetry (%) 11/27/17 11/27/17 14:08 18:00 Temperature 98.3 F 97.3 F L Pulse Rate 81 76 Respiratory 19 18 Rate Blood Pressure 135/74 120/93 O2 Sat by Pulse Oximetry (%) CBC, BMP 11/27/17 07:20 11/27/17 07:20 pt is laying in bed. c/o pain r rib area when asked to sit up lungs clear heart RRR, distal heart sounds lower extr- with lamar thickened skin neuro- alert and oriented. able to move all 4 extr Assessment: 11/27/17 19:22 62 yo old with HIV and in our methadone program at [facility] with recent fall and subsequent rib pain and knee pain. Pt on lidoderm, neurotin and motrin for pain- but pt still with pain. Plan: Would recommend continued methadone for addiction treatment. Pt states neurontin does not help with rib pain or for neuropathy. For pain would recommend- increasing motrin to 600-800mg BID (not prn). Would recommend heating pad to area. High dose omega 3 (about 2 grams/day can also help with pain if available). Vitamin D3 (cholecalciferol) can help with overall well being if Vit D level is low- below 50. (check 25 [place] Vitamin d level if warranted). d/w pt to continue deep breathing exercises. Sublingual B12 (1000mcg) for macrocytosis on CBC. Pt is referred for Physical Therapy- and this may also help with pain. Please re-consult us ([facility]- [facility]) if needed: branden burger MD: [phone]
[2017-11-28] MEDS: IBUPROFEN 400 MG TABLET (FP) PO PRN ×2 (04:37→11:11)
[2017-11-28] MEDS ORDERED: METHADONE HCL 40 MG DISPERSABLE TABLET ONE (05:03)
[2017-11-28] MEDS ORDERED: METHADONE HCL 10 MG TABLET ONE (05:03)
[2017-11-28] MEDS: METHADONE 40 MG, METHADONE 20 MG PO SCH (05:05)
[2017-11-28] MEDS: GABAPENTIN 400 MG CAPSULE (FP) PO SCH ×3 (05:06→21:31)
[2017-11-28] MEDS ORDERED: METHADONE HCL 40 MG DISPERSABLE TABLET PO SCH (06:00)
[2017-11-28] MEDS: ALBUTEROL SO4 2.5/IPRATROPIUM 0.5 INH SOL 3 ML VIAL.NEB. NEB SCH ×3 (08:04→20:30)
[2017-11-28] MEDS ORDERED: PT OWN MED DRAWER 7, Y5N ONE ×2 (11:09→21:20)
[2017-11-28] MEDS: THIAMINE HCL 100 MG TABLET (FP) PO SCH (11:11)
[2017-11-28] MEDS: LIDOCAINE 5% TOPICAL PATCH TP SCH (11:11)
[2017-11-28] MEDS: PYRIDOXINE HCL (B-6) 50 MG TABLET (FP) PO SCH (11:11)
[2017-11-28] MEDS: FOLIC ACID 1 MG TABLET (FP) PO SCH (11:11)
[2017-11-28] MEDS: FLUTICASONE/SALMETEROL 100 MCG/50 MCG DISKUS IH SCH ×2 (11:11→21:30)
[2017-11-28] MEDS: PATIENT'S OWN MEDICATION (NON-FORMULARY) (Dolutegravir Sodium 50 MG) PO SCH (12:38)
[2017-11-28] MEDS: PATIENT'S OWN MEDICATION (NON-FORMULARY) (Emtricitabine/Tenofov Alafenam [Descovy 200-25 M PO SCH (12:38)
[2017-11-28] MEDS: EMTRICITABINE 200MG/TENOFOVIR 300MG PO SCH (13:10)
[2017-11-28] MEDS: DOLUTEGRAVIR SODIUM 50 MG TABLET PO SCH (13:11)
--- NOTE | 2017-11-28 13:31 | PN ---
<Joaquin Keith - Last Filed: 11/28/17 13:37> Physical Exam: SUBJECTIVE: Pt reports continued pain R anterior chest. Pt's breathing without difficulty, however pain is exacerbated with deep inspiration. Pt continues to use her Incentive spirometer. OBJECTIVE: Vital Signs Period Temp Pulse Resp BP Sys/Amato Pulse Ox Last 24 Hr 97.3 F-99.2 F 76-81 18-20 120-152/54-93 95-97 GENERAL: NAD, awake, alert, and fully oriented HEENT: NC/AT, EOMI, PREETI, sclera anicteric, MMM Neck: Soft, No jvd LUNGS: CTA bilaterally however mediocre inspiratory effort, no wheezes, no crackles, no accessory muscle use. HEART: RRR, S1, S2 without murmur CHEST: No ecchymotic areas noted today; pain with gentle palpation ABDOMEN: Soft, nontender, nondistended, normoactive bowel sounds, no guarding, no hepatomegaly, no masses. EXTREMITIES: 2+ pulses, warm, well-perfused, no edema. PSYCH: Normal mood, normal affect. SKIN: Warm, dry, no rashes or lesions noted Active Medications Generic Name Dose Route Start Last Admin Trade Name Freq PRN Reason Stop Dose Admin Albuterol Sulfate 2 puff 11/26/17 21:11 Ventolin Hfa Inhaler - IH Q4H PRN WHEEZING Albuterol/Ipratropium 1 amp 11/27/17 08:00 11/28/17 08:04 Duoneb - NEB 1 amp RTID MILIND Administration Emtricitabine/Tenofovir 1 tab 11/28/17 12:00 11/28/17 13:10 Truvada PO 1 tab DAILY MILIND Administration Folic Acid 1 mg 11/27/17 10:00 11/28/17 11:11 Folic Acid - PO 1 mg DAILY MILIND Administration Gabapentin 400 mg 11/27/17 06:00 11/28/17 13:10 Neurontin - PO 400 mg TID MILIND Administration Ibuprofen 800 mg 11/27/17 21:20 11/28/17 11:11 Motrin - PO 800 mg Q6H PRN Administration PAIN LEVEL 1 - 3 Lidocaine 1 patch 11/27/17 10:00 11/28/17 11:11 Lidoderm Patch - TP 1 patch DAILY MILIND Administration Methadone HCl 40 mg/ Methadone 60 mg 11/28/17 06:00 11/28/17 05:05 HCl 20 mg PO 60 mg DAILY@0600 MILIND Administration Miscellaneous 1 each 11/26/17 22:00 11/27/17 21:02 Lidoderm Patch Removal MC 1 each DAILY@2200 MILIND Administration Non-Formulary Medication 2 gm 11/26/17 21:11 Diclofenac Sodium [Voltaren] TP TID PRN PAIN Pyridoxine HCl 50 mg 11/27/17 10:00 11/28/17 11:11 Vitamin B6 - PO 50 mg DAILY MILIND Administration Fluticasone/Salmeterol 1 puff 11/26/17 22:00 11/28/17 11:11 Advair 100mcg/50mcg - IH 1 puff BID MILIND Administration Thiamine HCl 100 mg 11/27/17 10:00 11/28/17 11:11 Vitamin B1 - PO 100 mg DAILY MILIND Administration ASSESSMENT/PLAN: 1) R 7th and 8th rib fx --Pain control --Lidoderm patch --Motrin 800mg PRN for pain 1-3 --Pt already on methadone 60 (confirmed already) --Incentive spirometry encouragement --SpO2 >90% --Physical therapy 2) ETOH abuse --Last drink yesterday morning --Thiamine, Pyridoxine to continue --Monitor for signs of withdrawal --CIWA roughly 6 --Detox rec's noted 3) L Knee pain --RESOLVED --XRay unremarkable 4) HIV --Previous CD4 453 --Currently on home meds advised by infectious disease 5) COPD --not in exacerbation --continue home medictions FEN: Fluids: Tolerating PO none indicated Electrolyte abnormalities: None today Nutrition: Cholesterol/fat controlled diet Dispo: possible rehab? Case discussed with Dr. Aleksandra Keith, DO - IM PGY-1 Visit type - Emergency Visit Emergency Visit: No - New Patient This patient is new to me today: No - Critical Care Critical Care patient: No <Bárbara Lake - Last Filed: 11/28/17 16:20> Physical Exam: Will discontinue Motrin 800mg for now, Patient is on Voltaren topical tid. Patient is feeling better. Vital Signs Temperature 99.2 F 11/28/17 13:25 Pulse Rate 76 11/28/17 13:25 Respiratory Rate 18 11/28/17 13:25 Blood Pressure 152/54 11/28/17 13:25 O2 Sat by Pulse Oximetry (%) 97 11/28/17 10:00 CBCD WBC 4.4 K/mm3 (4.0-10.0) 11/27/17 07:20 RBC 3.44 M/mm3 (3.60-5.2) L 11/27/17 07:20 Hgb 12.8 GM/dL (10.7-15.3) 11/27/17 07:20 Hct 37.9 % (32.4-45.2) 11/27/17 07:20 MCV 110.2 fl (80-96) H 11/27/17 07:20 MCHC 33.6 g/dl (32.0-36.0) 11/27/17 07:20 RDW 13.7 % (11.6-15.6) 11/27/17 07:20 Plt Count 105 K/MM3 (134-434) L D 11/27/17 07:20 MPV 9.5 fl (7.5-11.1) 11/27/17 07:20 CMP Sodium 142 mmol/L (136-145) 11/27/17 07:20 Potassium 3.5 mmol/L (3.5-5.1) 11/27/17 07:20 Chloride 100 mmol/L (98-107) 11/27/17 07:20 Carbon Dioxide 37 mmol/L (21-32) H 11/27/17 07:20 Anion Gap 5 (8-16) L 11/27/17 07:20 BUN 4 mg/dL (7-18) L 11/27/17 07:20 Creatinine 0.5 mg/dL (0.55-1.02) L 11/27/17 07:20 Creat Clearance w eGFR > 60 (>60) 11/26/17 16:13 Random Glucose 88 mg/dL (74-106) 11/27/17 07:20 Calcium 8.3 mg/dL (8.5-10.1) L 11/27/17 07:20 Total Bilirubin 1.0 mg/dL (0.2-1.0) D 11/26/17 16:13 AST 37 U/L (15-37) 11/26/17 16:13 ALT 27 U/L (12-78) 11/26/17 16:13 Alkaline Phosphatase 94 U/L (45-117) 11/26/17 16:13 Total Protein 6.3 g/dl (6.4-8.2) L 11/26/17 16:13 Albumin 3.1 g/dl (3.4-5.0) L 11/26/17 16:13 CARDIAC ENZYMES Creatine Kinase 74 IU/L (26-192) 11/26/17 16:13 Troponin I < 0.02 ng/ml (0.00-0.05) 11/26/17 16:13 Current Medications Generic Name Dose Route Start Last Admin Trade Name Freq PRN Reason Stop Dose Admin Albuterol Sulfate 2 puff 11/26/17 21:11 Ventolin Hfa Inhaler - IH Q4H PRN WHEEZING Albuterol/Ipratropium 1 amp 11/27/17 08:00 11/28/17 13:49 Duoneb - NEB 1 amp RTID MILIND Administration Emtricitabine/Tenofovir 1 tab 11/28/17 12:00 11/28/17 13:10 Truvada PO 1 tab DAILY MILIND Administration Folic Acid 1 mg 11/27/17 10:00 11/28/17 11:11 Folic Acid - PO 1 mg DAILY MILIND Administration Gabapentin 400 mg 11/27/17 06:00 11/28/17 13:10 Neurontin - PO 400 mg TID MILIND Administration Lidocaine 1 patch 11/27/17 10:00 11/28/17 11:11 Lidoderm Patch - TP 1 patch DAILY MILIND Administration Methadone HCl 40 mg/ Methadone 60 mg 11/28/17 06:00 11/28/17 05:05 HCl 20 mg PO 60 mg DAILY@0600 MILIND Administration Miscellaneous 1 each 11/26/17 22:00 11/27/17 21:02 Lidoderm Patch Removal MC 1 each DAILY@2200 MILIND Administration Non-Formulary Medication 2 gm 11/26/17 21:11 Diclofenac Sodium [Voltaren] TP TID PRN PAIN Pyridoxine HCl 50 mg 11/27/17 10:00 11/28/17 11:11 Vitamin B6 - PO 50 mg DAILY MILIND Administration Fluticasone/Salmeterol 1 puff 11/26/17 22:00 11/28/17 11:11 Advair 100mcg/50mcg - IH 1 puff BID MILIND Administration Thiamine HCl 100 mg 11/27/17 10:00 11/28/17 11:11 Vitamin B1 - PO 100 mg DAILY MILIND Administration Home Medications Medication Instructions Recorded Salmeterol/Fluticasone [Advair 1 puff IH BID #1 inhaler 04/12/17 100Mcg/50Mcg -] Diclofenac Sodium [Voltaren] 2 gm TP TID PRN 30 Days #3 tube 07/01/17 Ergocalciferol [Vitamin D2] 50,000 unit PO Q7D@1000 30 Days #4 07/01/17 capsule MDD 1 Gabapentin [Neurontin -] 400 mg PO Q8H #90 capsule MDD 3 07/01/17 Meloxicam [Mobic (Nf) -] 7.5 mg PO BID 30 Days #60 tablet 07/01/17 Nicotine Polacrilex [Nicorelief -] 2 mg BC TID 30 Days #90 gum MDD 3 07/01/17 Albuterol Sulfate Inhaler - 2 inh PO Q4H PRN #1 inhaler 11/11/17 [Ventolin HFA Inhaler -] Citalopram Hydrobromide [Celexa -] 40 mg PO DAILY #30 tablet 11/11/17 Docusate Sodium [Colace -] 100 mg PO BID #60 cap 11/11/17 Dolutegravir Sodium [Tivicay] 50 mg PO DAILY #30 tab 11/11/17 Emtricitabine/Tenofov Alafenam 1 each PO DAILY #30 tablet 11/11/17 [Descovy 200-25 mg Tablet (Nf)] Folic Acid - 1 mg PO DAILY #30 tablet 11/11/17 Pyridoxine HCl (Vitamin B6) 50 mg PO DAILY #30 capsule 11/11/17 [Vitamin B-6] Thiamine HCl [B-1] 100 mg PO DAILY 30 Days #30 tablet 11/11/17 Methadone [Dolophine -] 60 mg PO DAILY@0600 MDD 65mg 11/26/17 Possible rehab. since patient is a high risk for fall.
[2017-11-28] MEDS ORDERED: IBUPROFEN 400 MG TABLET (FP) PO ONE (21:15)
[2017-11-28] MEDS: LIDOCAINE PATCH REMOVAL MC SCH (21:31)
[2017-11-29] MEDS ORDERED: METHADONE HCL 40 MG DISPERSABLE TABLET ONE (05:52)
[2017-11-29] MEDS ORDERED: METHADONE HCL 10 MG TABLET ONE (05:53)
[2017-11-29] MEDS: METHADONE 40 MG, METHADONE 20 MG PO SCH (06:00)
[2017-11-29] MEDS: GABAPENTIN 400 MG CAPSULE (FP) PO SCH ×3 (06:01→21:38)
[2017-11-29] MEDS: ALBUTEROL SO4 2.5/IPRATROPIUM 0.5 INH SOL 3 ML VIAL.NEB. NEB SCH ×3 (07:25→20:40)
--- NOTE | 2017-11-29 08:18 | PN ---
Progress Note (short form) - Note Progress Note: continues with rib pain she would like to resume her Celexa Vital Signs Period Temp Pulse Resp BP Sys/Amato Pulse Ox Last 24 Hr 98.0 F-99.2 F 73-81 18-20 113-152/54-75 95-97 cor-rrr lungs decreased bs at bases abd firm, nt ext venous stasis unchanged CBC, BMP 11/27/17 07:20 11/27/17 07:20 a/p s/p fall with rib fracture etoh use pulmonary HTN/OSAS hiv- stable appendicieeal tumor methadone maintenance PT eval pain management consider SNF for short term rehab continue ART-truvada/tivicay
--- NOTE | 2017-11-29 08:50 | EKG ---
Test Reason : Blood Pressure : / mmHG Vent. Rate : 087 BPM Atrial Rate : 087 BPM P-R Int : 168 ms QRS Dur : 098 ms QT Int : 416 ms P-R-T Axes : 067 054 057 degrees QTc Int : 500 ms NORMAL SINUS RHYTHM PROLONGED QT ABNORMAL ECG WHEN COMPARED WITH ECG OF 11-NOV-2017 10:10, NO SIGNIFICANT CHANGE WAS FOUND Confirmed by TIA SERNA MD ([id number]) on 11/29/2017 8:49:58 AM Referred By: Confirmed By:TIA SERNA MD
[2017-11-29] MEDS: LIDOCAINE 5% TOPICAL PATCH TP SCH (09:01)
[2017-11-29] MEDS: FOLIC ACID 1 MG TABLET (FP) PO SCH (09:05)
[2017-11-29] MEDS: FLUTICASONE/SALMETEROL 100 MCG/50 MCG DISKUS IH SCH ×2 (09:05→21:38)
[2017-11-29] MEDS: EMTRICITABINE 200MG/TENOFOVIR 300MG PO SCH (09:05)
[2017-11-29] MEDS: THIAMINE HCL 100 MG TABLET (FP) PO SCH (09:05)
[2017-11-29] MEDS: PYRIDOXINE HCL (B-6) 50 MG TABLET (FP) PO SCH (09:06)
[2017-11-29] MEDS: DOLUTEGRAVIR SODIUM 50 MG TABLET PO SCH (09:07)
[2017-11-29] MEDS: ACETAMINOPHEN 325 MG TABLET (FP) PO PRN ×2 (11:31→21:49)
--- NOTE | 2017-11-29 15:54 | CONSULT ---
Consult Consult Specialty:: Thoracic Referred by:: Arnaud Mcfadden Reason for Consultation:: Rib fracture - History of Present Illness Chief Complaint: Chest pain after fall. History of Present Illness: 62 y/o f came to hospital ith a complaint of pain in chest on right side since morning started after a fall while getting out of car. She states she hit her right side of chest, pain is 10/10 intensity, constant, non radiating, didn' t get better after otc meds, increases with deep breath and cough. Also reports difficult in breathing due to pain. Also reports left knee pain 10/10 intensity , non radiating. Denies loc, papitations, blood from nose, ear, mouth, denies nausea, vomiting, numbness or weakness in any part of body. - History Source History Provided By: Patient Limitations to Obtaining History: No Limitations - Past Medical History Cardio/Vascular: Yes: Other (ENDOCARDITIS). No: AFIB Pulmonary: Yes: COPD. No: O2 Dependent Gastrointestinal: Yes: Constipation, GERD. No: Ascites Hepatobiliary: Yes: Hepatitis B (HBV core ab), Hepatitis C (PCR negative), Other (alcoholic liver disease suspected with mild splenomegaly) Infectious Disease: Yes: HIV Psych: Yes: Depression Additional Medical History: substance abuse on methadone Alcohol abuse - Alcohol/Substance Use Hx Alcohol Use: Yes (one 24oz can beer daily) History of Substance Use: reports: Cocaine, Heroin (opoid dependence) Date of Last Use: 05/14/16 - Smoking History Smoking history: Former smoker Have you smoked in the past 12 months: Yes Aproximately how many cigarettes per day: 1 If you are a former smoker, when did you quit?: 09/2017 - Social History Usual Living Arrangement: Alone ADL: Independent History of Recent Travel: No Home Medications - Allergies Allergies/Adverse Reactions: Allergies Allergy/AdvReac Type Severity Reaction Status Date / Time banana AdvReac Verified 11/26/17 14:28 - Home Medications Home Medications: Ambulatory Orders Salmeterol/Fluticasone [Advair 100Mcg/50Mcg -] 1 puff IH BID #1 inhaler Diclofenac Sodium [Voltaren] 2 gm TP TID PRN 30 Days #3 tube 07/01/17 Ergocalciferol [Vitamin D2] 50,000 unit PO Q7D@1000 30 Days #4 capsule MDD 1 05/08 Gabapentin [Neurontin -] 400 mg PO Q8H #90 capsule MDD 3 07/01/17 Meloxicam [Mobic (Nf) -] 7.5 mg PO BID 30 Days #60 tablet 07/01/17 Nicotine Polacrilex [Nicorelief -] 2 mg BC TID 30 Days #90 gum MDD 3 07/01/17 Albuterol Sulfate Inhaler - [Ventolin HFA Inhaler -] 2 inh PO Q4H PRN #1 inhaler 11/11/17 Citalopram Hydrobromide [Celexa -] 40 mg PO DAILY #30 tablet 11/11/17 Docusate Sodium [Colace -] 100 mg PO BID #60 cap 11/11/17 Dolutegravir Sodium [Tivicay] 50 mg PO DAILY #30 tab 11/11/17 Emtricitabine/Tenofov Alafenam [Descovy 200-25 mg Tablet (Nf)] 1 each PO DAILY # 30 tablet 11/11/17 Folic Acid - 1 mg PO DAILY #30 tablet 11/11/17 Pyridoxine HCl (Vitamin B6) [Vitamin B-6] 50 mg PO DAILY #30 capsule 11/11/17 Thiamine HCl [B-1] 100 mg PO DAILY 30 Days #30 tablet 11/11/17 Methadone [Dolophine -] 60 mg PO DAILY@0600 MDD 65mg 11/26/17 Family Disease History - Family Disease History Family Disease History: CA: Grandparent, Father (lung cancer) Review of Systems - Review of Systems Constitutional: reports: No Symptoms Eyes: reports: No Symptoms HENT: reports: No Symptoms Neck: reports: No Symptoms Cardiovascular: reports: No Symptoms Respiratory: reports: No Symptoms Gastrointestinal: reports: No Symptoms Musculoskeletal: reports: Other (Chest pain because of right rib fracture.) Physical Exam Vital Signs: Vital Signs Temperature 98.8 F 11/29/17 08:53 Pulse Rate 86 11/29/17 08:53 Respiratory Rate 18 11/29/17 08:53 Blood Pressure 100/69 11/29/17 08:53 O2 Sat by Pulse Oximetry (%) 94 L 11/29/17 09:00 Labs: CBC, BMP 11/27/17 07:20 11/27/17 07:20 Imaging - Results Cat Scan: Pending, Report Reviewed (Right sided rib fracture, rib 6 and 7.), Image Reviewed, Other Problem List - Problems (1) Fall from ground level Code(s): W18.30XA - FALL ON SAME LEVEL, UNSPECIFIED, INITIAL ENCOUNTER (2) Right-sided chest pain Code(s): R07.9 - CHEST PAIN, UNSPECIFIED Assessment/Plan 62 y/o F with right sided rib fractures, 2 ribs. On pain medication. No Thoracic surgery intervention. Pain management per primary team. Thank you for courtesy of this referral. will follow PRN.
--- NOTE | 2017-11-29 16:25 | EKG ---
Test Reason : Blood Pressure : / mmHG Vent. Rate : 073 BPM Atrial Rate : 073 BPM P-R Int : 170 ms QRS Dur : 098 ms QT Int : 430 ms P-R-T Axes : 076 067 070 degrees QTc Int : 473 ms SINUS RHYTHM WITH OCCASIONAL PREMATURE VENTRICULAR COMPLEXES OTHERWISE NORMAL ECG WHEN COMPARED WITH ECG OF 26-NOV-2017 14:47, PREMATURE VENTRICULAR COMPLEXES ARE NOW PRESENT Confirmed by DAPHNE ANDERSON, TIA ([id number]) on 11/29/2017 4:25:26 PM Referred By: JUSTO OLGUIN Confirmed By:TIA SERNA MD
--- NOTE | 2017-11-29 19:35 | PN ---
<Joaquin Keith - Last Filed: 11/29/17 20:06> Physical Exam: SUBJECTIVE: Pt wondering why her celexa was discontinued and is requesting more Motrin. OBJECTIVE: Vital Signs Period Temp Pulse Resp BP Sys/Amato Pulse Ox Last 24 Hr 97.8 F-98.8 F 73-86 18-18 100-122/65-75 94-96 GENERAL: NAD, awake, alert, and fully oriented HEENT: NC/AT, EOMI, PREETI, sclera anicteric, MMM Neck: Soft, No jvd LUNGS: CTA bilaterally however mediocre inspiratory effort, no wheezes, no crackles, no accessory muscle use. HEART: RRR, S1, S2 without murmur CHEST: No ecchymotic areas noted today; pain with gentle palpation ABDOMEN: Soft, nontender, nondistended, normoactive bowel sounds, no guarding, no hepatomegaly, no masses. EXTREMITIES: 2+ pulses, warm, well-perfused, no edema. PSYCH: Normal mood, normal affect. SKIN: Warm, dry, no rashes or lesions noted Active Medications Generic Name Dose Route Start Last Admin Trade Name Freq PRN Reason Stop Dose Admin Acetaminophen 650 mg 11/29/17 10:44 11/29/17 11:31 Tylenol - PO 650 mg Q6H PRN Administration PAIN Albuterol Sulfate 2 puff 11/26/17 21:11 Ventolin Hfa Inhaler - IH Q4H PRN WHEEZING Albuterol/Ipratropium 1 amp 11/27/17 08:00 11/29/17 14:15 Duoneb - NEB 1 amp RTID MILIND Administration Emtricitabine/Tenofovir 1 tab 11/28/17 12:00 11/29/17 09:05 Truvada PO 1 tab DAILY MILIND Administration Folic Acid 1 mg 11/27/17 10:00 11/29/17 09:05 Folic Acid - PO 1 mg DAILY MILIND Administration Gabapentin 400 mg 11/27/17 06:00 11/29/17 14:32 Neurontin - PO 400 mg TID MILIND Administration Methadone HCl 40 mg/ Methadone 60 mg 11/28/17 06:00 11/29/17 06:00 HCl 20 mg PO 60 mg DAILY@0600 MILIND Administration Pyridoxine HCl 50 mg 11/27/17 10:00 11/29/17 09:06 Vitamin B6 - PO 50 mg DAILY MILIND Administration Fluticasone/Salmeterol 1 puff 11/26/17 22:00 11/29/17 09:05 Advair 100mcg/50mcg - IH 1 puff BID MILIND Administration Thiamine HCl 100 mg 11/27/17 10:00 11/29/17 09:05 Vitamin B1 - PO 100 mg DAILY MILIND Administration ASSESSMENT/PLAN: 1) R 7th and 8th rib fx --Pain control --Pt already on methadone 60 (confirmed already) --Voltaren gel --Can use motrin 400mg BID with Zantac if necessary, hwoever would like to avoid --Incentive spirometry encouragement --SpO2 >90% --Physical therapy 2) ETOH abuse --Thiamine, Pyridoxine to continue --Monitor for signs of withdrawal --CIWA roughly 6 --Detox rec's noted 3) L Knee pain --RESOLVED --XRay unremarkable 4) HIV --Previous CD4 453 --Currently on home meds advised by infectious disease 5) COPD --not in exacerbation --continue home medictions 6) Thrombocytopenia --Mild --Monitor FEN: Fluids: Tolerating PO none indicated Electrolyte abnormalities: None today Nutrition: Cholesterol/fat controlled diet Dispo: possible rehab; awaiting PT Case discussed with Dr. Aleksandra Keith, DO - IM PGY-1 Visit type - Emergency Visit Emergency Visit: No - New Patient This patient is new to me today: No - Critical Care Critical Care patient: No <Bárbara Lake - Last Filed: 11/29/17 21:05> Physical Exam: Agree with the resident's note, waiting for placement.
[2017-11-29 19:48] VITALS: PULSE 78
[2017-11-30] MEDS: ACETAMINOPHEN 325 MG TABLET (FP) PO PRN ×2 (03:27→09:41)
[2017-11-30] MEDS ORDERED: METHADONE HCL 40 MG DISPERSABLE TABLET ONE (05:45)
[2017-11-30] MEDS ORDERED: METHADONE HCL 10 MG TABLET ONE (05:46)
[2017-11-30] MEDS: GABAPENTIN 400 MG CAPSULE (FP) PO SCH ×2 (06:16→13:23)
[2017-11-30] MEDS: METHADONE 40 MG, METHADONE 20 MG PO SCH (06:16)
[2017-11-30] MEDS: ALBUTEROL SO4 2.5/IPRATROPIUM 0.5 INH SOL 3 ML VIAL.NEB. NEB SCH ×2 (08:36→14:50)
[2017-11-30] MEDS ORDERED: PT OWN MED DRAWER 7, Y5N ONE (09:06)
[2017-11-30] MEDS: THIAMINE HCL 100 MG TABLET (FP) PO SCH (09:40)
[2017-11-30] MEDS: FLUTICASONE/SALMETEROL 100 MCG/50 MCG DISKUS IH SCH (09:40)
[2017-11-30] MEDS: EMTRICITABINE 200MG/TENOFOVIR 300MG PO SCH (09:43)
[2017-11-30] MEDS: FOLIC ACID 1 MG TABLET (FP) PO SCH (09:43)
[2017-11-30] MEDS: PYRIDOXINE HCL (B-6) 50 MG TABLET (FP) PO SCH (09:44)
[2017-11-30] MEDS: DOLUTEGRAVIR SODIUM 50 MG TABLET PO SCH (09:45)
[2017-11-30 09:53] VITALS: BP 134/82; TEMP 97.4
--- NOTE | 2017-11-30 11:16 | DS ---
Physical Exam: SUBJECTIVE: No complaints today. Understands that Celexa was held due to resolving QTc elongation previously seen. Explained she can start lower dose upon discharge with follow-up. Pain is controlled, however still present with certain movements. Better able to OBJECTIVE: Vital Signs Period Temp Pulse Resp BP Sys/Amato Pulse Ox Last 24 Hr 97.4 F-98.1 F 78-83 18-20 114-134/66-82 96-98 LABS PHYSICAL EXAM GENERAL: NAD, awake, alert, and fully oriented HEENT: NC/AT, EOMI, PREETI, sclera anicteric, MMM Neck: Soft, No jvd LUNGS: CTA bilaterally however mediocre inspiratory effort, no wheezes, no crackles, no accessory muscle use. HEART: RRR, S1, S2 without murmur CHEST: No ecchymotic areas noted today; pain with gentle palpation ABDOMEN: Soft, nontender, nondistended, normoactive bowel sounds, no guarding, no hepatomegaly, no masses. Lower abdominal fold possible fungal infection. EXTREMITIES: 2+ pulses, warm, well-perfused, no edema. PSYCH: Normal mood, normal affect. SKIN: Warm, dry, no rashes or lesions noted LABS HOSPITAL COURSE: Date of Admission:11/26/17 Date of Discharge: 11/30/17 <Joaquin Keith - Last Filed: 11/30/17 15:12> Physical Exam: Patient is on Methadone 60mg po daily , will continue the dose. Patient is discharged to Rehab. Vital Signs Temperature 97.4 F L 11/30/17 09:00 Pulse Rate 78 11/30/17 09:00 Respiratory Rate 18 11/30/17 09:00 Blood Pressure 134/82 11/30/17 09:00 O2 Sat by Pulse Oximetry (%) 96 11/30/17 14:50 CBCD WBC 4.4 K/mm3 (4.0-10.0) 11/27/17 07:20 RBC 3.44 M/mm3 (3.60-5.2) L 11/27/17 07:20 Hgb 12.8 GM/dL (10.7-15.3) 11/27/17 07:20 Hct 37.9 % (32.4-45.2) 11/27/17 07:20 MCV 110.2 fl (80-96) H 11/27/17 07:20 MCHC 33.6 g/dl (32.0-36.0) 11/27/17 07:20 RDW 13.7 % (11.6-15.6) 11/27/17 07:20 Plt Count 105 K/MM3 (134-434) L D 11/27/17 07:20 MPV 9.5 fl (7.5-11.1) 11/27/17 07:20 CMP Sodium 142 mmol/L (136-145) 11/27/17 07:20 Potassium 3.5 mmol/L (3.5-5.1) 11/27/17 07:20 Chloride 100 mmol/L (98-107) 11/27/17 07:20 Carbon Dioxide 37 mmol/L (21-32) H 11/27/17 07:20 Anion Gap 5 (8-16) L 11/27/17 07:20 BUN 4 mg/dL (7-18) L 11/27/17 07:20 Creatinine 0.5 mg/dL (0.55-1.02) L 11/27/17 07:20 Creat Clearance w eGFR > 60 (>60) 11/26/17 16:13 Random Glucose 88 mg/dL (74-106) 11/27/17 07:20 Calcium 8.3 mg/dL (8.5-10.1) L 11/27/17 07:20 Total Bilirubin 1.0 mg/dL (0.2-1.0) D 11/26/17 16:13 AST 37 U/L (15-37) 11/26/17 16:13 ALT 27 U/L (12-78) 11/26/17 16:13 Alkaline Phosphatase 94 U/L (45-117) 11/26/17 16:13 Total Protein 6.3 g/dl (6.4-8.2) L 11/26/17 16:13 Albumin 3.1 g/dl (3.4-5.0) L 11/26/17 16:13 CARDIAC ENZYMES Creatine Kinase 74 IU/L (26-192) 11/26/17 16:13 Troponin I < 0.02 ng/ml (0.00-0.05) 11/26/17 16:13 Current Medications Generic Name Dose Route Start Last Admin Trade Name Freq PRN Reason Stop Dose Admin Acetaminophen 650 mg 06/11/18 10:44 11/30/17 09:41 Tylenol - PO 650 mg Q6H PRN Administration PAIN Albuterol Sulfate 2 puff 11/26/17 21:11 Ventolin Hfa Inhaler - IH Q4H PRN WHEEZING Albuterol/Ipratropium 1 amp 11/27/17 08:00 11/30/17 14:50 Duoneb - NEB 1 amp RTID MILIND Administration Emtricitabine/Tenofovir 1 tab 11/28/17 12:00 11/30/17 09:43 Truvada PO 1 tab DAILY MILIND Administration Folic Acid 1 mg 11/27/17 10:00 11/30/17 09:43 Folic Acid - PO 1 mg DAILY MILIND Administration Gabapentin 400 mg 11/27/17 06:00 11/30/17 13:23 Neurontin - PO 400 mg TID MILIND Administration Methadone HCl 40 mg/ Methadone 60 mg 11/28/17 06:00 11/30/17 06:16 HCl 20 mg PO 60 mg DAILY@0600 MILIND Administration Nystatin 1 applic 11/30/17 11:45 11/30/17 13:22 Nystop Powder - TP 1 applic DAILY MILIND Administration Pyridoxine HCl 50 mg 11/27/17 10:00 11/30/17 09:44 Vitamin B6 - PO 50 mg DAILY MILIND Administration Fluticasone/Salmeterol 1 puff 11/26/17 22:00 11/30/17 09:40 Advair 100mcg/50mcg - IH 1 puff BID MILIND Administration Thiamine HCl 100 mg 11/27/17 10:00 11/30/17 09:40 Vitamin B1 - PO 100 mg DAILY MILIND Administration Home Medications Medication Instructions Recorded Salmeterol/Fluticasone [Advair 1 puff IH BID #1 inhaler 04/12/17 100Mcg/50Mcg -] Ergocalciferol [Vitamin D2] 50,000 unit PO Q7D@1000 30 Days #4 07/01/17 capsule MDD 1 Gabapentin [Neurontin -] 400 mg PO Q8H #90 capsule MDD 3 07/01/17 Meloxicam [Mobic (Nf) -] 7.5 mg PO BID 30 Days #60 tablet 07/01/17 Nicotine Polacrilex [Nicorelief -] 2 mg BC TID 30 Days #90 gum MDD 3 07/01/17 Albuterol Sulfate Inhaler - 2 inh PO Q4H PRN #1 inhaler 11/11/17 [Ventolin HFA Inhaler -] Docusate Sodium [Colace -] 100 mg PO BID #60 cap 11/11/17 Dolutegravir Sodium [Tivicay] 50 mg PO DAILY #30 tab 11/11/17 Emtricitabine/Tenofov Alafenam 1 each PO DAILY #30 tablet 11/11/17 [Descovy 200-25 mg Tablet (Nf)] Folic Acid - 1 mg PO DAILY #30 tablet 11/11/17 Pyridoxine HCl (Vitamin B6) 50 mg PO DAILY #30 capsule 11/11/17 [Vitamin B-6] Thiamine HCl [B-1] 100 mg PO DAILY 30 Days #30 tablet 11/11/17 Methadone [Dolophine -] 60 mg PO DAILY@0600 MDD 65mg 11/26/17 Acetaminophen [Tylenol .Regular 650 mg PO Q6H PRN tablet 11/30/17 Strength -] Citalopram Hydrobromide [Celexa -] 20 mg PO DAILY #30 tablet 11/30/17 Lidocaine 5% Patch [Lidoderm -] 1 patch TP DAILY patch 11/30/17 Lidocaine Patch Removal [Lidoderm 1 each MC DAILY@2200 each 11/30/17 Patch Removal] Nystatin Powder [Nystop Powder -] 1 applic TP DAILY 7 Days applic 11/30/17 <Bárbara Lake - Last Filed: 11/30/17 20:38> Discharge Summary Reason For Visit: FALL FROM GROUND LEVEL Current Active Problems Fall from ground level (Acute) Right-sided chest pain (Acute) - Home Medications Comprehensive Discharge Medication List: Ambulatory Orders Salmeterol/Fluticasone [Advair 100Mcg/50Mcg -] 1 puff IH BID #1 inhaler Ergocalciferol [Vitamin D2] 50,000 unit PO Q7D@1000 30 Days #4 capsule MDD 1 05/08 Gabapentin [Neurontin -] 400 mg PO Q8H #90 capsule MDD 3 07/01/17 Meloxicam [Mobic (Nf) -] 7.5 mg PO BID 30 Days #60 tablet 07/01/17 Nicotine Polacrilex [Nicorelief -] 2 mg BC TID 30 Days #90 gum MDD 3 07/01/17 Albuterol Sulfate Inhaler - [Ventolin HFA Inhaler -] 2 inh PO Q4H PRN #1 inhaler 11/11/17 Docusate Sodium [Colace -] 100 mg PO BID #60 cap 11/11/17 Dolutegravir Sodium [Tivicay] 50 mg PO DAILY #30 tab 11/11/17 Emtricitabine/Tenofov Alafenam [Descovy 200-25 mg Tablet (Nf)] 1 each PO DAILY # 30 tablet 11/11/17 Folic Acid - 1 mg PO DAILY #30 tablet 11/11/17 Pyridoxine HCl (Vitamin B6) [Vitamin B-6] 50 mg PO DAILY #30 capsule 11/11/17 Thiamine HCl [B-1] 100 mg PO DAILY 30 Days #30 tablet 11/11/17 Methadone [Dolophine -] 60 mg PO DAILY@0600 MDD 65mg 11/26/17 Acetaminophen [Tylenol .Regular Strength -] 650 mg PO Q6H PRN tablet 11/30/17 Citalopram Hydrobromide [Celexa -] 20 mg PO DAILY #30 tablet 11/30/17 Lidocaine 5% Patch [Lidoderm -] 1 patch TP DAILY patch 11/30/17 Lidocaine Patch Removal [Lidoderm Patch Removal] 1 each MC DAILY@2200 each 06/07 <Joaquin Keith - Last Filed: 11/30/17 15:12> Current Active Problems Fall from ground level (Acute) Right-sided chest pain (Acute) - Home Medications Comprehensive Discharge Medication List: Ambulatory Orders Salmeterol/Fluticasone [Advair 100Mcg/50Mcg -] 1 puff IH BID #1 inhaler Ergocalciferol [Vitamin D2] 50,000 unit PO Q7D@1000 30 Days #4 capsule MDD 1 05/08 Gabapentin [Neurontin -] 400 mg PO Q8H #90 capsule MDD 3 07/01/17 Meloxicam [Mobic (Nf) -] 7.5 mg PO BID 30 Days #60 tablet 07/01/17 Nicotine Polacrilex [Nicorelief -] 2 mg BC TID 30 Days #90 gum MDD 3 07/01/17 Albuterol Sulfate Inhaler - [Ventolin HFA Inhaler -] 2 inh PO Q4H PRN #1 inhaler 11/11/17 Docusate Sodium [Colace -] 100 mg PO BID #60 cap 11/11/17 Dolutegravir Sodium [Tivicay] 50 mg PO DAILY #30 tab 11/11/17 Emtricitabine/Tenofov Alafenam [Descovy 200-25 mg Tablet (Nf)] 1 each PO DAILY # 30 tablet 11/11/17 Folic Acid - 1 mg PO DAILY #30 tablet 11/11/17 Pyridoxine HCl (Vitamin B6) [Vitamin B-6] 50 mg PO DAILY #30 capsule 11/11/17 Thiamine HCl [B-1] 100 mg PO DAILY 30 Days #30 tablet 11/11/17 Methadone [Dolophine -] 60 mg PO DAILY@0600 MDD 65mg 11/26/17 Acetaminophen [Tylenol .Regular Strength -] 650 mg PO Q6H PRN tablet 11/30/17 Citalopram Hydrobromide [Celexa -] 20 mg PO DAILY #30 tablet 11/30/17 Lidocaine 5% Patch [Lidoderm -] 1 patch TP DAILY patch 11/30/17 Lidocaine Patch Removal [Lidoderm Patch Removal] 1 each MC DAILY@2200 each 06/07 Nystatin Powder [Nystop Powder -] 1 applic TP DAILY 7 Days applic 11/30/17 <Bárbara Lake - Last Filed: 11/30/17 20:38> Condition: Stable - Instructions Diet, Activity, Other Instructions: You were seen here due to your rib fracture. You were also found to have a long QTc interval on your EKG which is a part of your heart's electric activity. We held your Celexa during your stay here which showed a resolution down to normal QTc levels. You will be going to a Rehab facility to help with your recovery. MEDICATIONS: You can restart your Celexa, however it will only be 20mg ONCE daily ( instead of 40mg like before) You will also be sent with a Lidocaine patch to be applied right at the site of chest wall pain to help You can also have Tylenol to help mitigate your pain as well. You should continue to use your incentive spirometer device to help reduce the change of pneumonia while you have the rib fracture. You will have your home dose of Methadone 60mg daily continued as well. FOLLOW-UPs: Please follow-up with your primary medical doctor In addition you should follow-up with your psychiatrist regarding your Celexa so they can manage your anxiety as they see appropriate You should also continue with your Methadone clinic as your medical doctor sees fit Referrals: ON STAFF,NOT [Primary Care Provider] - Disposition: [facility]AIL FACILITY - Discharge Referral Referred to [facility] Med [facility].C[facility] No <Joaquin Keith - Last Filed: 11/30/17 15:12>
[2017-11-30] MEDS ORDERED: NYSTATIN POWDER 100,000 UNITS/GM - 15 GM TOPICAL POWDER TP SCH (11:45)
== END 2017-11-30 15:18 | DRG 135 ==
LOC: JER 14:16 → JERBED 20:27 → J5S 23:37
PROVIDERS: ADMIT Internal Medicine; ATTEND Internal Medicine
DX: S22.41XA Multiple fractures of ribs, right side, initial encounter for closed fracture (principal); J44.9 Chronic obstructive pulmonary disease, unspecified; F11.20 Opioid dependence, uncomplicated; I27.20 Pulmonary hypertension, unspecified; D69.6 Thrombocytopenia, unspecified; D75.89 Other specified diseases of blood and blood-forming organs; G47.33 Obstructive sleep apnea (adult) (pediatric); M25.562 Pain in left knee; F10.230 Alcohol dependence with withdrawal, uncomplicated; M48.061 Spinal stenosis, lumbar region without neurogenic claudication; F17.210 Nicotine dependence, cigarettes, uncomplicated; E66.9 Obesity, unspecified; Z21 Asymptomatic human immunodeficiency virus [HIV] infection status; W18.30XA Fall on same level, unspecified, initial encounter; Y93.89 Activity, other specified; Y92.89 Other specified places as the place of occurrence of the external cause; Y99.8 Other external cause status; Z68.32 Body mass index [BMI] 32.0-32.9, adult
CPT/HCPCS: 36415; 70450-TC; 70486-TC; 71045-TC-FY; 71046-TC-FY; 71250-TC; 73560-TC-LT-FY; 80048; 80053; 80307; 81003; 82550; 83735; 84100; 84484; 85025; 85610; 85730; 86850; 86900; 86901; 93005; 93010; 94010; 94640; 94660; 97116-GP; 97161-GP; 99284-25; J0131; J7620

== ENCOUNTER 2018-04-14 08:44 | Emergency (ER) | payer OTHER ==
[2018-04-14 08:51] VITALS: BMI 30.7
--- NOTE | 2018-04-14 09:30 | PDOC ---
History of Present Illness - General History Source: Patient Exam Limitations: No Limitations - History of Present Illness Initial Comments: 04/14/18 10:05 CC: Pleuritic back pain. HPI: The patient is a 62 year old female, with a significant past medical history of IV drug use (on methadone), HIV (viral load undetectable, compliant with HAART) , neuropathy, COPD (2L of at home O2), chronic bronchitis, lumbar spinal stenosis, and previous alcohol abuse, who presents to the emergency department with, 2 days of pleuritic back pain. Patient notes the pain to originally onset while smoking a cigarette, localized to her mid-thoracic back now radiating to her right side worsening with deep inspiration and movement. Patient is incontinent at baseline. Her last IV drug usage was 30 years ago. She denies recent fevers, chills, headache or dizziness. She denies recent nausea, vomit, diarrhea or constipation. She denies recent dysuria, frequency, urgency or hematuria. She denies recent chest pain or shortness of breath. Allergies: Bananas. Past surgical history: Elective surgical abortions. Social history: Smoker. Former IV drug usage (on methadone). <Leonard Woods - Last Filed: 04/14/18 10:10> <Kahlil Portillo - Last Filed: 04/14/18 12:12> - General Chief Complaint: Back Pain Stated Complaint: BACK PAIN Time Seen by Provider: 04/14/18 08:53 Past History <Leonard Woods - Last Filed: 04/14/18 10:10> - Past Medical History Anemia: Yes Asthma: Yes (chronic bronchitis) Cancer: Yes (appendiceal -unresectable) Cardiac Disorders: Yes (hx endocarditis) CVA: No COPD: Yes (o2 dependent) CHF: No DVT: No Dementia: No Diabetes: No GI Disorders: No Disorders: No HTN: Yes Hypercholesterolemia: No Liver Disease: Yes (possible cirrhosis (hx elevated ammonia)) Psychiatric Problems: Yes (DEPRESSION, SI.) Seizures: No Thyroid Disease: No - Surgical History Abdominal Surgery: Yes (MULTIPLE ABORTIONS.) Appendectomy: No Cardiac Surgery: No Cholecystectomy: No Lung Surgery: No Neurologic Surgery: No Orthopedic Surgery: No - Immunization History Immunization Up to Date: Yes - Suicide/Smoking/Psychosocial Hx Smoking Status: Yes Smoking History: Current every day smoker Years of Tobacco Use: 40 Have you smoked in the past 12 months: Yes Number of Cigarettes Smoked Daily: 1 If you are a former smoker, when did you quit?: 09/2017 Cigars Per Day: 1 Information on smoking cessation initiated: No 'Breaking Loose' booklet given: 05/24/13 Hx Alcohol Use: Yes (one 24oz can beer daily) Drug/Substance Use Hx: No Substance Use Type: Alcohol, Cocaine, Heroin Hx Substance Use Treatment: Yes ([facility]) <Kahlil Portillo - Last Filed: 04/14/18 12:12> - Past Medical History Allergies/Adverse Reactions: Allergies Allergy/AdvReac Type Severity Reaction Status Date / Time banana AdvReac Verified 04/14/18 08:51 Home Medications: Ambulatory Orders Ergocalciferol [Vitamin D2] 50,000 unit PO Q7D@1000 30 Days #4 capsule MDD 1 05/08 Gabapentin [Neurontin -] 400 mg PO Q8H #90 capsule MDD 3 07/01/17 Meloxicam [Mobic (Nf) -] 7.5 mg PO BID 30 Days #60 tablet 07/01/17 Methadone [Dolophine -] 60 mg PO DAILY@0600 MDD 65mg 11/26/17 Albuterol Sulfate Inhaler - [Ventolin HFA Inhaler -] 2 inh PO Q4H PRN #1 inhaler 01/06/18 Docusate Sodium [Colace -] 100 mg PO BID #60 cap 01/06/18 Dolutegravir Sodium [Tivicay] 50 mg PO DAILY #30 tab 01/06/18 Emtricitabine/Tenofov Alafenam [Descovy 200-25 mg Tablet (Nf)] 1 each PO DAILY # 30 tablet 01/06/18 Folic Acid - 1 mg PO DAILY #30 tablet 01/06/18 Pyridoxine HCl (Vitamin B6) [Vitamin B-6] 50 mg PO DAILY #30 capsule 01/06/18 Salmeterol/Fluticasone [Advair 100Mcg/50Mcg -] 1 puff IH BID #1 inhaler Thiamine HCl [B-1] 100 mg PO DAILY 30 Days #30 tablet 01/06/18 Venlafaxine HCl ER [Effexor Xr -] 37.5 mg PO DAILY #15 cap.er.24h 03/02/18 Citalopram Hydrobromide [Celexa -] 20 mg PO DAILY #30 tablet 04/05/18 Review of Systems - Review of Systems Able to Perform ROS?: Yes Comments:: 04/14/18 10:05 ROS: A complete review of 10 out of 10 review of systems is taken and is negative apart from what is previously mentioned below and in the HPI. <Leonard Woods - Last Filed: 04/14/18 10:10> *Physical Exam - Vital Signs Last Vital Signs Temp Pulse Resp BP Pulse Ox 98.0 F 79 18 115/87 96 04/14/18 08:48 04/14/18 08:48 04/14/18 08:48 04/14/18 08:48 04/14/18 08:48 - Physical Exam Comments: 04/14/18 10:05 Exam: Vitals: Triage Vital signs reviewed General Appearance: no acute distress, well nourished well developed, Head: Atraumatic, normocephalic Nose: No nasal congestion Neck: Supple;No Nuchal rigidity Chest Wall: Reproducible mid-axillary tenderness on palpation. Cardiac: Regular rate and rhythm, no murmurs, no rubs, no gallops, Lungs: Clear to auscultation bilateral, good air movement bilaterally, Abdomen: Soft, nondistended, normal bowel sounds, nontender to palpation Rectal: Exam deferred Extremities: Full range of motion to all extremities, no cyanosis, clubbing, or edema Skin: Warm and dry, no rashes or lesions, no petechiae Neuro: AOX3; Cranial Nerves 2-12 grossly intact, Strength intact to all extremities, Sensation intact to all extremities Psych: normal mood, normal affect <Leonard Woods - Last Filed: 04/14/18 10:10> - Vital Signs Last Vital Signs Temp Pulse Resp BP Pulse Ox 98.0 F 79 18 115/87 96 04/14/18 08:48 04/14/18 08:48 04/14/18 08:48 04/14/18 08:48 04/14/18 08:48 <Kahlil Portillo - Last Filed: 04/14/18 12:12> ED Treatment Course - LABORATORY CBC & Chemistry Diagram: 04/14/18 10:09 04/14/18 10:09 <Kahlil Portillo - Last Filed: 04/14/18 12:12> Medical Decision Making - Medical Decision Making 04/14/18 10:10 62 year old female with history of IV drug use (on methadone), HIV (viral load undetectable, compliant with HAART), neuropathy, COPD (2L of at home O2), chronic bronchitis, lumbar spinal stenosis, and previous alcohol abuse presents to the ED with pleuritic back pain. Plan is to: Chest x-ray Test Troponin Test D-dimer Ultrasound Administer pain medications Reassess <Leonard Woods - Last Filed: 04/14/18 10:10> - Medical Decision Making Upper back discomfort right midaxillary pain no PE or DVT risk factors low risk by well's d-dimer negative nonischemic EKG troponin negative heart score to At this time most likely musculoskeletal discomfort lower suspicion for infection given no fever no white count no evidence of pneumonia on chest x-ray however patient does have a history of HIV is compliant with her heart medication does follow up with infectious disease We'll recommend Tylenol for pain at home drinking plenty of fluids nebulizer treatment returning to the ED for any severe worsening symptoms or any fever cough otherwise following up with her infectious disease doctor next week Findings, the need for follow-up and strict return instructions discussed with patient. <Kahlil Portillo - Last Filed: 04/14/18 12:12> *DC/Admit/Observation/Transfer - Attestations Scribe Attestion: 04/14/18 10:06 Documentation prepared by Leonard Woods, acting as medical aides teacher for Kahlil Portillo MD. <Leonard Woods - Last Filed: 04/14/18 10:10> - Discharge Dispostion Decision to Admit order: No <Kahlil Portillo - Last Filed: 04/14/18 12:12> Diagnosis at time of Disposition: Back pain Qualifiers: Back pain location: thoracic back pain Chronicity: acute Back pain laterality: right Qualified Code(s): M54.6 - Pain in thoracic spine - Discharge Dispostion Disposition: HOME Condition at time of disposition: Good - Referrals Referrals: Ha Miller MD [Primary Care Provider] - - Patient Instructions Printed Discharge Instructions: Back Pain (Alternative Therapy) Additional Instructions: Take [id number] Tylenol as directed on package. Take [id number] Motrin as directed on package for 3 days. Drink plenty of fluids. He is your home nebulizer treatment every 4-6 hours for 3 days. Return to ED immediately for any severe worsening symptoms and shortness of breath or for any concerns. Otherwise follow-up with her infectious disease doctor in 2-3 days.
[2018-04-14] MEDS ORDERED: KETOROLAC TROMETHAMINE 30 MG/1 ML VIAL IVPUSH ONE (09:31)
[2018-04-14] MEDS ORDERED: ACETAMINOPHEN 1000 MG/100 ML VIAL (NON FORMULARY) IVPB ONE (09:31)
[2018-04-14] MEDS ORDERED: SODIUM CHLORIDE 0.9% 1000 ML INFUS.BAG IV ONE (09:31)
[2018-04-14] MEDS ORDERED: KETOROLAC TROMETHAMINE 30 MG/1 ML VIAL ONE (09:52)
[2018-04-14] MEDS ORDERED: ACETAMINOPHEN INJECTION 100 ML IVPB ONE (09:52)
[2018-04-14 10:23] LABS: BASO % 0.4 % (0-2.0); EOS % 0.8 % (0-4.5); HEMATOCRIT 43.5 % (32.4-45.2); HEMOGLOBIN 14.4 GM/dL (10.7-15.3); LYMPH % 16.3 % (8-40); MCH 34.9 pg (25.7-33.7); MCHC 33.1 g/dl (32.0-36.0); MEAN CELL VOLUME 105.5 fl (80-96); MEAN PLT VOLUME 9.8 fl (7.5-11.1); MONO % 8.5 % (3.8-10.2); PLATELET COUNT 118 K/MM3 (134-434); RBC 4.12 M/mm3 (3.60-5.2); RDW 12.2 % (11.6-15.6); WHITE BLOOD COUNT 4.4 K/mm3 (4.0-10.0)
[2018-04-14 10:25] LABS: URINE APPEARANCE CLEAR; URINE BILIRUBIN NEGATIVE (<2.0 mg/dL); URINE COLOR YELLOW; URINE GLUCOSE (UA) NEGATIVE (NEGATIVE); URINE KETONE NEGATIVE (NEGATIVE); URINE LEUK ESTERASE NEGATIVE (NEGATIVE); URINE NITRITE NEGATIVE (NEGATIVE); URINE PROTEIN NEGATIVE (NEGATIVE); URINE UROBILINOGEN 4.0 E.U/dl mg/dL (0.2-1.0)
[2018-04-14 10:55] LABS: ALBUMIN 3.4 g/dl (3.4-5.0); ALK PHOS 71 U/L (45-117); ANION GAP 4 MMOL/L (8-16); BILIRUBIN,TOTAL 2.1 mg/dL (0.2-1); BLOOD UREA NITROGEN 8 mg/dL (7-18); CALCIUM 8.6 mg/dL (8.5-10.1); CHLORIDE 101 mmol/L (98-107); CO2 37 mmol/L (21-32); CREATININE 0.5 mg/dL (0.55-1.3); GLUCOSE,RANDOM 84 mg/dL (74-106); POTASSIUM 3.8 mmol/L (3.5-5.1); SGOT/AST 14 U/L (15-37); SGPT/ALT 14 U/L (13-61); SODIUM 141 mmol/L (136-145); TOT PROT 6.6 g/dl (6.4-8.2)
[2018-04-14 12:02] VITALS: BP 134/86; PULSE 73; TEMP 98.1
--- NOTE | 2018-04-14 12:07 | EKG ---
Test Reason : Blood Pressure : / mmHG Vent. Rate : 076 BPM Atrial Rate : 076 BPM P-R Int : 166 ms QRS Dur : 098 ms QT Int : 416 ms P-R-T Axes : 073 071 069 degrees QTc Int : 468 ms NORMAL SINUS RHYTHM NORMAL ECG WHEN COMPARED WITH ECG OF 09-DEC-2017 09:55, NO SIGNIFICANT CHANGE WAS FOUND Confirmed by COLLEEN SAHU MD ([id number]) on 04/14/2018 12:07:17 PM Referred By: Confirmed By:COLLEEN SAHU MD
[2018-04-14 12:58] LABS: ANISOCYTOSIS 0; MACROCYTOSIS 1+; PLATELET ESTIMATE DECREASED
== END 2018-04-14 12:29 | disposition home or self-care (01) ==
LOC: JER 08:44
DX: M54.6 Pain in thoracic spine (principal); J42 Unspecified chronic bronchitis; F17.210 Nicotine dependence, cigarettes, uncomplicated
CPT/HCPCS: 36415; 71045-TC-FY; 76705-TC; 80053; 81003; 84484; 85025; 85379; 93005; 93010; 99283-25; J0131; J7030

== ENCOUNTER 2018-04-21 11:50 | Emergency (ER) | payer OTHER ==
[2018-04-21 12:15] VITALS: TEMP 98.6; BMI 32.3
--- NOTE | 2018-04-21 12:28 | PDOC ---
Attending Attestation - Resident Resident Name: Mario Baltazar - ED Attending Attestation I have performed the following: I have examined & evaluated the patient, The case was reviewed & discussed with the resident, I agree w/resident's findings & plan, Exceptions are as noted - HPI HPI: 04/21/18 18:57 Lluvia Castelan is a 62 yo F h/o HIV, appendiceal cancer who presents for evaluation of 3 weeks of R chest/thoracic pain. Pain is sharp, no radiation, no diaphoresis, no pain with deep breath No fevers Pain worse with palpation Pt has a h/o chronic cough with phlegm Pt seen by ID clinic and sent to the ER for r/o PE - Medical Decision Making 04/21/18 19:00 Laboratory Tests 04/21/18 04/21/18 04/21/18 12:42 12:42 12:42 WBC 4.9 Hgb 12.9 Hct 39.9 Plt Count 114 L INR BUN 9 Creatinine 0.7 Creatine Kinase 82 Troponin I < 0.02 04/21/18 12:42 WBC Hgb Hct Plt Count INR 1.03 BUN Creatinine Creatine Kinase Troponin I CTA negative for PE HEART score - 3 Given age and risk factors, would love to admit this patient Pt refusing to stay because she has to be at home with her mother Will try treating for GERD (pt thinks it could be GERD, she has HIV, ? esophagitis) Will also treat for muscular pain (pt can not take NSAIDS) Will ask pt to follow up with PMD Return to the ER for any other concerns or complaints Heart Score/ECG Review - History History: Slightly suspicious - Electrocardiogram EKG: Normal - Age Age: 45-65 - Risk Factors Risk Factors Heart Score: Yes Hx Hypertension, Yes Smoking History, Yes Hx Obesity Based on the list above the patient has:: >/=3 risk factors or Hx atherosclerotic disease - Troponin Troponin: </= normal limit - Score Heart Score - Total: 3
--- NOTE | 2018-04-21 12:42 | PDOC ---
History of Present Illness - General Chief Complaint: Chest Pain Stated Complaint: PAIN Time Seen by Provider: 04/21/18 12:27 - History of Present Illness Initial Comments: The patient is a 62F w/ a history of HIV, appendiceal cancer who presents for evaluation of 3 weeks of R chest/thoracic pain. The patient denies associated fevers/chills, vision changes, worsening shortness of breath, acute changes in sensation, weakness, N/V/C/D. The patient endorses a chronic cough, chronic phlegm, chronic shortness of breath 2/2 COPD, and chronic BLE neuropathy that has not recently changed She was seen in clinic today by Dr. Morris who sent the patient to the ED for evaluation of PE given persistent chest pain and PE risk factors 04/21/18 12:58 Past History - Past Medical History Allergies/Adverse Reactions: Allergies Allergy/AdvReac Type Severity Reaction Status Date / Time banana AdvReac Verified 04/14/18 08:51 Home Medications: Ambulatory Orders Ergocalciferol [Vitamin D2] 50,000 unit PO Q7D@1000 30 Days #4 capsule MDD 1 05/08 Gabapentin [Neurontin -] 400 mg PO Q8H #90 capsule MDD 3 07/01/17 Meloxicam [Mobic (Nf) -] 7.5 mg PO BID 30 Days #60 tablet 07/01/17 Methadone [Dolophine -] 60 mg PO DAILY@0600 MDD 65mg 11/26/17 Albuterol Sulfate Inhaler - [Ventolin HFA Inhaler -] 2 inh PO Q4H PRN #1 inhaler 01/06/18 Docusate Sodium [Colace -] 100 mg PO BID #60 cap 01/06/18 Dolutegravir Sodium [Tivicay] 50 mg PO DAILY #30 tab 01/06/18 Emtricitabine/Tenofov Alafenam [Descovy 200-25 mg Tablet (Nf)] 1 each PO DAILY # 30 tablet 01/06/18 Folic Acid - 1 mg PO DAILY #30 tablet 01/06/18 Pyridoxine HCl (Vitamin B6) [Vitamin B-6] 50 mg PO DAILY #30 capsule 01/06/18 Salmeterol/Fluticasone [Advair 100Mcg/50Mcg -] 1 puff IH BID #1 inhaler Thiamine HCl [B-1] 100 mg PO DAILY 30 Days #30 tablet 01/06/18 Citalopram Hydrobromide [Celexa -] 20 mg PO DAILY #30 tablet 04/21/18 Lidocaine 5% Patch [Lidoderm Patch -] 1 patch TP DAILY #7 patch 04/21/18 Pantoprazole Sodium [Protonix -] 40 mg PO DAILY #14 tablet.ec 04/21/18 Venlafaxine HCl ER [Effexor Xr -] 37.5 mg PO DAILY #30 cap.er.24h 04/21/18 Anemia: Yes Asthma: Yes (chronic bronchitis) Cancer: Yes (appendiceal -unresectable) Cardiac Disorders: Yes (hx endocarditis) CVA: No COPD: Yes CHF: No DVT: No Dementia: No Diabetes: No GI Disorders: No Disorders: No HTN: Yes Hypercholesterolemia: No Liver Disease: Yes (possible cirrhosis (hx elevated ammonia)) Psychiatric Problems: Yes (depression) Seizures: No Thyroid Disease: No Other medical history: Neuropathy, h/o Opioid dependence, alcohol abuse, Pulmonary HTN - Surgical History Abdominal Surgery: Yes (MULTIPLE ABORTIONS.) Appendectomy: No Cardiac Surgery: No Cholecystectomy: No Lung Surgery: No Neurologic Surgery: No Orthopedic Surgery: No - Immunization History Immunization Up to Date: Yes - Suicide/Smoking/Psychosocial Hx Smoking Status: Yes Smoking History: Current every day smoker Years of Tobacco Use: 40 Have you smoked in the past 12 months: Yes Number of Cigarettes Smoked Daily: 1 If you are a former smoker, when did you quit?: 09/2017 Cigars Per Day: 1 Information on smoking cessation initiated: No 'Breaking Loose' booklet given: 05/24/13 Hx Alcohol Use: Yes (beer daily) Drug/Substance Use Hx: No Substance Use Type: Alcohol, Cocaine, Heroin Hx Substance Use Treatment: Yes ([facility]MTP) Review of Systems - Review of Systems Able to Perform ROS?: Yes Comments:: GENERAL/CONSTITUTIONAL: No fever or chills. No weakness HEAD, EYES, EARS, NOSE AND THROAT: No change in vision. No ear pain or discharge. No sore throat CARDIOVASCULAR: per HPI RESPIRATORY: +chronic cough GASTROINTESTINAL: No nausea, vomiting, diarrhea or constipation GENITOURINARY: No dysuria, frequency, or change in urination MUSCULOSKELETAL: No joint or muscle swelling or pain. No neck or back pain SKIN: No rash NEUROLOGIC: No headache, vertigo, loss of consciousness, or acute change in strength/sensation. +BLE neuropathy ENDOCRINE: No increased thirst. No abnormal weight change HEMATOLOGIC/LYMPHATIC: No anemia, easy bleeding, or history of blood clots ALLERGIC/IMMUNOLOGIC: No hives or skin allergy 04/21/18 12:37 Is the patient limited Tamazight proficient: No *Physical Exam - Vital Signs Last Vital Signs Temp Pulse Resp BP Pulse Ox 98.6 F 77 18 117/74 95 04/21/18 11:59 04/21/18 11:59 04/21/18 11:59 04/21/18 11:59 04/21/18 12:11 - Physical Exam Comments: GENERAL: Awake, alert, and fully oriented, in no acute distress HEAD: No signs of trauma, normocephalic, atraumatic EYES: PERRLA, EOMI, sclera anicteric, conjunctiva clear ENT: Hearing grossly normal, nares patent, oropharynx clear without exudates NECK: Normal ROM, supple, no lymphadenopathy LUNGS: 2L NC (at home), breath sounds b/l mildly decreased though poor inspiratory effort HEART: Regular rate and rhythm, normal S1 and S2, no murmurs, rubs or gallops, peripheral pulses normal and equal bilaterally CHEST: R thoracic TTP over ant and lateral chest wall ABDOMEN: Soft, mild generalized TTP w/o rebound or guarding, normoactive bowel sounds EXTREMITIES : Normal inspection, Normal range of motion, no edema. No clubbing or cyanosis NEUROLOGICAL: Cranial nerves II through XII grossly intact. Normal speech, normal gait, no focal sensorimotor deficits SKIN: Warm, Dry, normal turgor, no rashes or lesions noted 04/21/18 12:38 ED Treatment Course - LABORATORY CBC & Chemistry Diagram: 04/21/18 12:42 04/21/18 12:42 - RADIOLOGY Radiology Studies Ordered: Category Date Time Status CHEST X-RAY PORTABLE* [RAD] Stat Radiology 04/21/18 12:09 Ordered Medical Decision Making - Medical Decision Making The patient is a 62F w/ a history of COPD (2L NC), appendiceal Ca, and HIV (on therapy) who presents from clinic for evaluation for PE rule out CMP, CBC, cardiac profile, UA CXR ECG CTA chest Patient does not wish to be admitted at this time. Will discuss plan further once results are available Patient's pain is chronic over last three weeks, gradual onset PE risk factors include smoking, obesity, malignancy, sedentary lifestyle, HTN, and age > 60 04/21/18 12:42 Cr 0.7, no PETTY Trop I neg No leukocytosis Lytes wnl 04/21/18 13:27 CTA pending 04/21/18 13:39 CTA w/ evidence of pHTN, no evidence of PE Results discussed w/ patient Discharge instructions and return precautions given Plan for D/C w/ PCP f/u as patient's cardiac w/u is negative, and HEART score of 3 with low risk of cardiac event Patient in agreement and verbalized understanding Dispo: home 04/21/18 16:26 *DC/Admit/Observation/Transfer Diagnosis at time of Disposition: Chest pain Qualifiers: Chest pain type: unspecified Qualified Code(s): R07.9 - Chest pain, unspecified - Discharge Dispostion Disposition: HOME Condition at time of disposition: Stable Decision to Admit order: No - Prescriptions Prescriptions: Lidocaine 5% Patch [Lidoderm Patch -] 1 patch TP DAILY #7 patch Pantoprazole Sodium [Protonix -] 40 mg PO DAILY #14 tablet.ec - Referrals Referrals: Nikki Morris MD [Primary Care Provider] - - Patient Instructions Printed Discharge Instructions: DI for Atypical Chest Pain Additional Instructions: You were seen in the Emergency Room for chest pain. Review the handouts provided at discharge. Please follow up with your primary care provider within the next 1-3 days. Return to the Emergency Room if you develop worsening shortness of breath, worsening or changing chest pain, fevers, or any new/concerning symptoms - Post Discharge Activity
[2018-04-21 12:49] LABS: HEMATOCRIT 39.9 % (32.4-45.2); HEMOGLOBIN 12.9 GM/dL (10.7-15.3); MCH 34.1 pg (25.7-33.7); MCHC 32.5 g/dl (32.0-36.0); MEAN CELL VOLUME 105.1 fl (80-96); MEAN PLT VOLUME 9.8 fl (7.5-11.1); PLATELET COUNT 114 K/MM3 (134-434); RDW 12.4 % (11.6-15.6); WHITE BLOOD COUNT 4.9 K/mm3 (4.0-10.0)
[2018-04-21 13:12] LABS: ALBUMIN 3.2 g/dl (3.4-5.0); ALK PHOS 72 U/L (45-117); ANION GAP 4 MMOL/L (8-16); BILIRUBIN,TOTAL 1.8 mg/dL (0.2-1); BLOOD UREA NITROGEN 9 mg/dL (7-18); CALCIUM 8.6 mg/dL (8.5-10.1); CHLORIDE 99 mmol/L (98-107); CO2 37 mmol/L (21-32); CREATININE 0.7 mg/dL (0.55-1.3); GLUCOSE,RANDOM 97 mg/dL (74-106); POTASSIUM 3.8 mmol/L (3.5-5.1); SGOT/AST 13 U/L (15-37); SGPT/ALT 14 U/L (13-61); SODIUM 140 mmol/L (136-145)
[2018-04-21 13:15] LABS: INR 1.03 (0.83-1.09); PROTHROMBIN TIME (PATIENT) 12.2 SEC (9.7-13.0)
[2018-04-21 13:18] LABS: ACTIVATED PTT 35.1 SECONDS (25.2-36.5)
--- NOTE | 2018-04-21 14:44 | EKG ---
Test Reason : Blood Pressure : / mmHG Vent. Rate : 077 BPM Atrial Rate : 077 BPM P-R Int : 170 ms QRS Dur : 096 ms QT Int : 424 ms P-R-T Axes : 071 086 085 degrees QTc Int : 479 ms POOR DATA QUALITY, INTERPRETATION MAY BE ADVERSELY AFFECTED NORMAL SINUS RHYTHM WITH SINUS ARRHYTHMIA NONSPECIFIC ST ABNORMALITY ABNORMAL ECG WHEN COMPARED WITH ECG OF 14-APR-2018 10:04, NO SIGNIFICANT CHANGE WAS FOUND Confirmed by COLLEEN SAHU MD ([id number]) on 04/21/2018 2:43:40 PM Referred By: Confirmed By:COLLEEN SAHU MD
[2018-04-21 16:42] VITALS: BP 143/102; PULSE 70
== END 2018-04-21 16:42 | disposition home or self-care (01) ==
LOC: JER 11:50
DX: R07.9 Chest pain, unspecified (principal); M54.6 Pain in thoracic spine; C18.1 Malignant neoplasm of appendix; J44.9 Chronic obstructive pulmonary disease, unspecified; J42 Unspecified chronic bronchitis; I10 Essential (primary) hypertension; I27.20 Pulmonary hypertension, unspecified; B20 Human immunodeficiency virus [HIV] disease; F11.20 Opioid dependence, uncomplicated; F10.10 Alcohol abuse, uncomplicated; F32.9 Major depressive disorder, single episode, unspecified; F17.210 Nicotine dependence, cigarettes, uncomplicated
CPT/HCPCS: 36415; 71275-TC; 80053; 82550; 84484; 85027; 85610; 85730; 93005; 93010; 99283-25

== ENCOUNTER 2018-06-14 15:52 | Inpatient (IN) | payer OTHER ==
--- NOTE | 2018-06-14 16:21 | PDOC ---
Attending Attestation - HPI HPI: 06/14/18 16:56 The patient is a 63 year old female with a past medical history of HIV (VL undetectable, CD4 unknown), COPD, chronic bronchitis, lumbar spinal stenosis with chronic back pain, and appendiceal cancer who presents to the emergency department for evaluation of moderate throat pain with associated dysphagia and non productive cough. The patient also reports dull right sided chest pain. Patient was seen on 06/11/18 for diffuse generalized pain and subjective fever. The patient denies any neck pain, shortness of breath, blurry vision, headache, nausea, vomiting, dysuria, and urinary urgency/frequency. Allergies: Bananas PCP: Dr. Morris Documentation prepared by Rene Long, acting as certified medical aide for Eliazar Ruiz MD. <Rene Long - Last Filed: 06/14/18 17:51> - Resident Resident Name: Alicja Bar - ED Attending Attestation I have performed the following: I have examined & evaluated the patient, The case was reviewed & discussed with the resident, I agree w/resident's findings & plan, Exceptions are as noted - Physicial Exam PE: 06/14/18 19:30 Patient is awake and alert, obese, febrile, in mild distress Normocephalic and atraumatic PERRLA, EOMI, no photophobia mucous membranes are dry, oropharynx is erythematous, there is no evidence of thrush Minimal bilateral anterior cervical lymphadenopathy cta rrr Soft, nontender, nondistended; + right paraspinal tenderness at T8/T9-T10; no CVA tenderness bilaterally - Medical Decision Making 06/14/18 19:32 63-year-old female with history of HIV on ART presents with fever dysphagia and right-sided flank and paraspinal pain. Patient's hemodynamically stable without evidence of meningismus on initial evaluation. Chest x-ray reveals prominent pulmonary arteries and increased interstitial markings without a definitive infiltrate. Urinalysis reveals no evidence of pyuria. CBC reveals a white count of 4.1 with 8.9% lymphocytes consistent with an absolute lymphocyte count of 365. CD4 count is likely below 200. Will obtain blood and urine cultures. We'll also obtain throat culture. We will administer ceftriaxone and Zithromax for coverage of community acquired pneumonia. We'll administer IV Diflucan for possible esophageal candidiasis. Will obtain an influenza swab. We'll consult ID. Will admit. <Eliazar Ruiz - Last Filed: 06/14/18 19:35> Heart Score/ECG Review - ECG Impressions Comment:: EKG was reviewed by Dr. Ruiz at 16:30. Impression: Normal sinus rhythm with sinus arrhythmia. Normal ECG. Vent. rate: 93 bpm IL interval: 156 ms QRS duration: 98 ms QT/QTc: 366/455 ms PRT axes: 65 72 65 <Rene Long - Last Filed: 06/14/18 17:51>
[2018-06-14 16:27] VITALS: BMI 40.3
[2018-06-14] MEDS ORDERED: SODIUM CHLORIDE 1,000 ML IV STA ×2 (16:41→19:18)
[2018-06-14] MEDS ORDERED: ACETAMINOPHEN 1000 MG/100 ML VIAL (NON FORMULARY) IVPB ONE (16:41)
--- NOTE | 2018-06-14 16:55 | PDOC ---
History of Present Illness - General Chief Complaint: Shortness of Breath Stated Complaint: DIFFICULTY BREATHING Time Seen by Provider: 06/14/18 16:16 History Source: Patient - History of Present Illness Initial Comments: 06/14/18 16:54 Patient is a 63 year old female with a PMHx of COPD, HIV (On HAART, VL undetectable, CD4 unknown) who presents to the ED complaining of throat pain that started 4 months ago and worsened in the last 24 hours associated with constant, nonradiating, "dull-like" right sided chest pain worsened when she eats with no alleviating factors. However, patient reports the pain is mainly in her throat to the point she is unable to tolerate food, including liquids with symptoms of dysphagia. Patient states she was evaluated by an ENT and reports that her "throat was normal." Patient was seen in the ED three days ago for diffuse generalized pain, subjective fevers and night sweats. Flu swab done and negative, labs were unremarkable and patient was sent home. However, patient returns for persistent fevers and worsening throat pain. Otherwise, patient denies nausea, vomiting, abdominal pain, shortness of breath , headaches, acute vision changes, dysuria, hematuria, hematemesis, melena, hematochezia, hemoptysis. PMHx: HIV COPD Former alcohol abuse Former Drug abuse PSHx: Denies Social Hx: Former IV Drug use (quit 30 years ago) Smokes 1-3 cigarettes a day Alcohol abuse. Used to drink 6 cans a day up until Wednesday (06/12/18) Past History - Past Medical History Allergies/Adverse Reactions: Allergies Allergy/AdvReac Type Severity Reaction Status Date / Time banana AdvReac Verified 06/14/18 16:28 Home Medications: Ambulatory Orders Gabapentin [Neurontin -] 400 mg PO Q8H #90 capsule MDD 3 07/01/17 Methadone [Dolophine -] 60 mg PO DAILY@0600 MDD 65mg 11/26/17 Docusate Sodium [Colace -] 100 mg PO BID #60 cap 01/06/18 Folic Acid - 1 mg PO DAILY #30 tablet 01/06/18 Pyridoxine HCl (Vitamin B6) [Vitamin B-6] 50 mg PO DAILY #30 capsule 01/06/18 Salmeterol/Fluticasone [Advair 100Mcg/50Mcg -] 1 puff IH BID #1 inhaler Thiamine HCl [B-1] 100 mg PO DAILY 30 Days #30 tablet 01/06/18 Citalopram Hydrobromide [Celexa -] 20 mg PO DAILY #30 tablet 04/21/18 Pantoprazole Sodium [Protonix -] 40 mg PO DAILY #14 tablet.ec 04/21/18 Venlafaxine HCl ER [Effexor Xr -] 37.5 mg PO DAILY #30 cap.er.24h 04/21/18 Diaper,Brief,Adult, Disposable [Adult Brief] 1 each MC TID #90 each 04/28/18 Albuterol Sulfate Inhaler - [Ventolin HFA Inhaler -] 2 inh PO Q4H PRN #1 inhaler 05/10/18 Dolutegravir Sodium [Tivicay] 50 mg PO DAILY #30 tab 05/10/18 Emtricitabine/Tenofov Alafenam [Descovy 200-25 mg Tablet (Nf)] 1 each PO DAILY # 30 tablet 05/10/18 Anemia: Yes Asthma: Yes (chronic bronchitis) Cancer: Yes (appendiceal -unresectable) Cardiac Disorders: Yes (hx endocarditis) CVA: No COPD: Yes CHF: No DVT: No Dementia: No Diabetes: No GI Disorders: No Disorders: No HTN: Yes Hypercholesterolemia: No Liver Disease: Yes (possible cirrhosis (hx elevated ammonia)) Psychiatric Problems: Yes (depression) Seizures: No Thyroid Disease: No - Surgical History Abdominal Surgery: Yes (MULTIPLE ABORTIONS.) Appendectomy: No Cardiac Surgery: No Cholecystectomy: No Lung Surgery: No Neurologic Surgery: No Orthopedic Surgery: No - Immunization History Immunization Up to Date: Yes - Suicide/Smoking/Psychosocial Hx Smoking Status: Yes Smoking History: Unknown if ever smoked Years of Tobacco Use: 40 Have you smoked in the past 12 months: No Number of Cigarettes Smoked Daily: 2 If you are a former smoker, when did you quit?: 09/2017 Cigars Per Day: 1 Information on smoking cessation initiated: No 'Breaking Loose' booklet given: 05/24/13 Hx Alcohol Use: No Drug/Substance Use Hx: No Substance Use Type: Alcohol, Cocaine, Heroin Hx Substance Use Treatment: Yes ([facility]MTP) Review of Systems - Review of Systems Able to Perform ROS?: Yes Constitutional: Yes: Chills, Fever, Night Sweats, Weakness HEENTM: Yes: Nose Congestion, Throat Pain Respiratory: Yes: Cough (dry). No: Shortness of Breath, SOB with Exertion, SOB at Rest, Wheezing, Productive cough Cardiac (ROS): Yes: Chest Pain. No: Lightheadedness, Syncope, Chest Tightness ABD/GI: No: Constipated, Diarrhea, Nausea, Vomiting, Abdominal cramping : No: Burning, Dysuria, Flank Pain Neurological: No: Headache, Numbness, Seizure, Tingling *Physical Exam - Vital Signs Last Vital Signs Temp Pulse Resp BP Pulse Ox 103.7 F H 95 H 18 122/84 100 06/14/18 16:22 06/14/18 16:22 06/14/18 16:22 06/14/18 16:22 06/14/18 16:22 - Physical Exam General Appearance: Yes: Other (AWAKE, ALERT, ORIENTEDX3 in mild painful distress ) HEENT: positive: EOMI, MILLIE, Tonsillar Erythema. negative: Tonsillar Exudate, Nasal Congestion Neck: negative: Lymphadenopathy (R), Lymphadenopathy (L) Respiratory/Chest: negative: Respiratory Distress, Accessory Muscle Use, Wheezing Cardiovascular: positive: Regular Rhythm, S1, S2, Tachycardia. 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 NML intact, Fully Oriented, Normal Mood/Affect , Normal Response, Motor Strength 5/5 Moderate Sedation - Procedure Monitoring Vital Signs: Procedure Monitoring Vital Signs Temperature 103.7 F H 06/14/18 16:22 Pulse Rate 95 H 06/14/18 16:22 Respiratory Rate 18 06/14/18 16:22 Blood Pressure 122/84 06/14/18 16:22 O2 Sat by Pulse Oximetry (%) 100 06/14/18 16:22 ED Treatment Course - LABORATORY CBC & Chemistry Diagram: 06/14/18 16:55 06/14/18 16:55 - RADIOLOGY Radiology Studies Ordered: Category Date Time Status CHEST X-RAY PORTABLE* [RAD] Stat Radiology 06/14/18 16:38 Ordered Medical Decision Making - Medical Decision Making 06/14/18 17:57 Patient is a 63 year old female with a PMHx of HIV who presents here for persistent fevers, worsening throat pain and chest pain. Due to patients HIV status will need to rule out any conditions such as Candidiasis, PCP, TB, Retropharyngeal abscess, Strep. -Sepsis workup ordered -Chest X-ray, EKG, Chest CT -Will give Ceftriaxone and Azithro to cover CAP -Call made out to Dr. Morris -IV Tylenol given 06/14/18 19:18 -Labs revealed CBC -absolute lymphocyte count 395 when calculating -IV Diflucan for possible esophageal candidiasis. -Call made out to Dr. Morris who recommended soft tissue neck CT -Another 1L IV Fluid -40mg of protonix PO -1mg of Ativan due to history of alcohol abuse -CT official reads pending -Will likely require admission 06/14/18 21:07 -CT revealed hypodense mass posterior and slightly lateral to the proximal trachea slightly compression the trachea and deviating the proximal esophagus to the left. CT chest has mild bilateral patchy groundglass opacities and interstitial thickening likely representing mild pulmonary edema. 4mm subpleural right upper lobe nodule laterally. Scattered atelectasis and fibrotic changes in the remainder of the lungs. -Tamiflu given -Microblog sent to admitting team 06/14/18 21:24 -Spoke to hospitalist and accepted patient for admission *DC/Admit/Observation/Transfer Diagnosis at time of Disposition: Fever, unknown origin, HIV disease Dysphagia Qualifiers: Dysphagia type: unspecified Qualified Code(s): R13.10 - Dysphagia, unspecified - Discharge Dispostion Decision to Admit order: Yes - Referrals - Patient Instructions - Post Discharge Activity
[2018-06-14] MEDS ORDERED: ACETAMINOPHEN INJECTION 100 ML IVPB ONE (16:57)
[2018-06-14 17:14] LABS: BASO % 0.3 % (0-2.0); EOS % 0.1 % (0-4.5); HEMATOCRIT 38.3 % (32.4-45.2); HEMOGLOBIN 13.3 GM/dL (10.7-15.3); LYMPH % 8.9 % (8-40); MCH 35.8 pg (25.7-33.7); MCHC 34.8 g/dl (32.0-36.0); MEAN CELL VOLUME 103.1 fl (80-96); MEAN PLT VOLUME 9.9 fl (7.5-11.1); MONO % 12.3 % (3.8-10.2); NEUT % 78.4 % (42.8-82.8); PLATELET COUNT 99 K/MM3 (134-434); RBC 3.71 M/mm3 (3.60-5.2); RDW 12.2 % (11.6-15.6); WHITE BLOOD COUNT 4.1 K/mm3 (4.0-10.0)
[2018-06-14 17:27] LABS: INR 1.06 (0.83-1.09); PROTHROMBIN TIME (PATIENT) 12.5 SEC (9.7-13.0)
[2018-06-14 17:28] LABS: VENOUS PH 7.35 (7.32-7.42); VENOUS PO2 27.9 mmHg (28-48)
[2018-06-14 17:30] LABS: URINE APPEARANCE CLOUDY; URINE BILIRUBIN NEGATIVE (<2.0 mg/dL); URINE COLOR AMBER; URINE GLUCOSE (UA) NEGATIVE (NEGATIVE); URINE KETONE NEGATIVE (NEGATIVE); URINE LEUK ESTERASE TRACE (NEGATIVE); URINE NITRITE NEGATIVE (NEGATIVE); URINE PROTEIN 1+ (NEGATIVE); URINE UROBILINOGEN 4.0 E.U/dl mg/dL (0.2-1.0)
[2018-06-14 17:33] LABS: VENOUS PC02 71.6 mmHg (38-52)
[2018-06-14 17:35] LABS: EPI CELLS RARE /HPF (FEW); URINE BACTERIA MANY /hpf (NONE SEEN); URINE MUCUS FEW; YEAST MANY
[2018-06-14 17:39] LABS: ALBUMIN 3.2 g/dl (3.4-5.0); ALK PHOS 79 U/L (45-117); ANION GAP 5 MMOL/L (8-16); BILIRUBIN,TOTAL 0.9 mg/dL (0.2-1); BLOOD UREA NITROGEN 7 mg/dL (7-18); CALCIUM 8.4 mg/dL (8.5-10.1); CHLORIDE 92 mmol/L (98-107); CO2 37 mmol/L (21-32); CREATININE 0.6 mg/dL (0.55-1.3); GLUCOSE,RANDOM 94 mg/dL (74-106); SGOT/AST 31 U/L (15-37); SGPT/ALT 22 U/L (13-61); SODIUM 134 mmol/L (136-145); TOT PROT 6.4 g/dl (6.4-8.2)
[2018-06-14] MEDS ORDERED: FLUCONAZOLE 200 MG/D5W 100 ML IVPB ONE (17:40)
[2018-06-14] MEDS ORDERED: CEFTRIAXONE 1 GM in DEXTROSE 5%-WATER - 100 ML IVPB ONE (17:40)
[2018-06-14] MEDS ORDERED: CEFTRIAXONE 1 GM/50 ML BAG ONE (17:52)
[2018-06-14] MEDS ORDERED: AZITHROMYCIN IVPB 500 MG in DEXTROSE 5%-WATER - 250 ML IVPB ONE (18:14)
[2018-06-14] MEDS ORDERED: AZITHROMYCIN IVPB 500 MG/250 ML BAG IVPB ONE (18:24)
[2018-06-14] MEDS ORDERED: PANTOPRAZOLE 40 MG TABLET (FP) PO ONE (19:16)
[2018-06-14] MEDS ORDERED: LORazepam 1 MG TABLET PO ONE (19:18)
[2018-06-14] MEDS ORDERED: PANTOPRAZOLE 40 MG TABLET (FP) ONE (19:37)
[2018-06-14] MEDS ORDERED: LORazepam 0.5 MG TABLET ONE (19:37)
[2018-06-14] MEDS ORDERED: OSELTAMIVIR PHOSPHATE 75 MG CAPSULE PO SCH (22:00)
[2018-06-14] MEDS ORDERED: OSELTAMIVIR PHOSPHATE 75 MG CAPSULE ONE (22:17)
--- NOTE | 2018-06-14 23:37 | HP ---
CHIEF COMPLAINT:throat pain, right sided chest PCP: HISTORY OF PRESENT ILLNESS: pt lethargic. unable to obtain hx. hx obtained from EMR and ED notes Per ED notes: Patient is a 63 year old female with a PMHx of COPD likely pulm HTN, HIV (On HAART, VL undetectable, CD4 unknown), chronic bronchitis, lumbar spinal stenosis with chronic back pain, and appendiceal cancer follows with Dr. Dave , Dr. Maher, who presents to the ED complaining of throat pain that started 4 months ago and worsened in the last 24 hours associated with constant, nonradiating, "dull-like" right sided chest pain worsened when she eats with no alleviating factors. However, patient reports the pain is mainly in her throat to the point she is unable to tolerate food, including liquids with symptoms of dysphagia. Patient states she was evaluated by an ENT and reports that her "throat was normal." Patient was seen in the ED three days ago for diffuse generalized pain, subjective fevers and night sweats. Flu swab done and negative, labs were unremarkable and patient was sent home. However, patient returns for persistent fevers and worsening throat pain. Otherwise, patient denies nausea, vomiting, abdominal pain, shortness of breath , headaches, acute vision changes, dysuria, hematuria, hematemesis, melena, hematochezia, hemoptysis. PMHx: HIV COPD Former alcohol abuse Former Drug abuse PSHx: Denies Social Hx: Former IV Drug use (quit 30 years ago) Smokes 1-3 cigarettes a day Alcohol abuse. Used to drink 6 cans a day up until Wednesday (06/12/18) ER course was notable for: (1)protonix, ativan ,NS 2L, CTX/azithro/fluconazole, tylenol, tamiflu (2)CT revealed hypodense mass posterior and slightly lateral to the proximal trachea slightly compression the trachea and deviating the proximal esophagus to the left. CT chest has mild bilateral patchy groundglass opacities and interstitial thickening likely representing mild pulmonary edema. 4mm subpleural right upper lobe nodule laterally. Scattered atelectasis and fibrotic changes in the remainder of the lungs. (3) CBC reveals a white count of 4.1 with 8.9% lymphocytes consistent with an absolute lymphocyte count of 365. Medicine service consulted for possible sepsis w/ progressive dysphagia/ odynophagia. However pt found to be not SIRS (+) but was febrile to 103.7. Initially ID suspected CAP and pt was tx as mentioned above. Medicine was called to assess and spoke with ENT who stated that mass unlikely infx and may be neoplastic in nature that the patient would require scope and needle biopsy, etc.... at tertiary center. Will coordinate and help ER arrange transfer. Thank you for this consultative opportunity. Recent Travel: Family History: Allergies banana Adverse Reaction (Verified 06/14/18 16:28) HOME MEDICATIONS: Home Medications Medication Instructions Recorded Gabapentin [Neurontin -] 400 mg PO Q8H #90 capsule MDD 3 07/01/17 Methadone [Dolophine -] 60 mg PO DAILY@0600 MDD 65mg 11/26/17 Docusate Sodium [Colace -] 100 mg PO BID #60 cap 01/06/18 Folic Acid - 1 mg PO DAILY #30 tablet 01/06/18 Pyridoxine HCl (Vitamin B6) 50 mg PO DAILY #30 capsule 01/06/18 [Vitamin B-6] Salmeterol/Fluticasone [Advair 1 puff IH BID #1 inhaler 01/06/18 100Mcg/50Mcg -] Thiamine HCl [B-1] 100 mg PO DAILY 30 Days #30 tablet 01/06/18 Citalopram Hydrobromide [Celexa -] 20 mg PO DAILY #30 tablet 04/21/18 Pantoprazole Sodium [Protonix -] 40 mg PO DAILY #14 tablet.ec 04/21/18 Venlafaxine HCl ER [Effexor Xr -] 37.5 mg PO DAILY #30 cap.er.24h 04/21/18 Diaper,Brief,Adult, Disposable 1 each MC TID #90 each 04/28/18 [Adult Brief] Albuterol Sulfate Inhaler - 2 inh PO Q4H PRN #1 inhaler 05/10/18 [Ventolin HFA Inhaler -] Dolutegravir Sodium [Tivicay] 50 mg PO DAILY #30 tab 05/10/18 Emtricitabine/Tenofov Alafenam 1 each PO DAILY #30 tablet 05/10/18 [Descovy 200-25 mg Tablet (Nf)] REVIEW OF SYSTEMS as per HPI PHYSICAL EXAMINATION Vital Signs - 24 hr 12/25/18 12/25/18 12/25/18 16:22 17:43 20:23 Temperature 103.7 F H 100.2 F H Pulse Rate 95 H 88 Pulse Rate [ 87 90 Left Apical] Respiratory 18 16 16 Rate Blood Pressure 122/84 Blood Pressure 125/71 120/84 [Left Arm] O2 Sat by Pulse 100 97 Oximetry (%) 06/14/18 22:01 Temperature Pulse Rate Pulse Rate [ 89 Left Apical] Respiratory 16 Rate Blood Pressure Blood Pressure 116/82 [Left Arm] O2 Sat by Pulse 97 Oximetry (%) GENERAL: OX3, lethargic, mild distress HEAD: NCAT EYES: sclera anicteric, conjunctiva clear. No lid lag. EARS, NOSE, THROAT: oropharynx clear without exudates. DRY mucous membranes. no evidence of thrush NECK: R tender neck mass LUNGS: ctab HEART: RRR, normal S1 and S2 without murmur, rub or gallop. ABDOMEN: Soft, mild diffuse ttp, not distended, normoactive bowel sounds, no guarding, no rebound, no masses. MUSCULOSKELETAL: Normal range of motion at all joints. No bony deformities or tenderness. UPPER EXTREMITIES: 2+ pulses, warm, well-perfused. No cyanosis. No clubbing. No peripheral edema. LOWER EXTREMITIES: 2+ pulses, warm, well-perfused. Chronic Venous Stasis Changes noted b/l LE NEUROLOGICAL: OX3, lethargic, Cranial nerves II-XII intact. SKIN: Warm, dry, normal turgor, no rashes or lesions noted, normal capillary refill. Laboratory Results - last 24 hr 06/14/18 06/14/18 06/14/18 16:55 16:55 16:55 WBC 4.1 RBC 3.71 Hgb 13.3 Hct 38.3 MCV 103.1 H MCH 35.8 H MCHC 34.8 RDW 12.2 Plt Count 99 L D MPV 9.9 Absolute Neuts (auto) 3.2 Neutrophils % 78.4 Lymphocytes % 8.9 Monocytes % 12.3 H Eosinophils % 0.1 Basophils % 0.3 Nucleated RBC % 0 PT with INR 12.50 INR 1.06 PTT (Actin FS) 32.0 VBG pH POC VBG pCO2 POC VBG pO2 Mixed VBG HCO3 Sodium Potassium Chloride Carbon Dioxide Anion Gap BUN Creatinine Creat Clearance w eGFR Random Glucose Lactic Acid Calcium Total Bilirubin AST ALT Alkaline Phosphatase LD Total Troponin I Total Protein Albumin Urine Color Merle Urine Appearance Cloudy Urine pH 7.0 Ur Specific [place] 1.021 Urine Protein 1+ H Urine Glucose (UA) Negative Urine Ketones Negative Urine Blood 1+ H Urine Nitrite Negative Urine Bilirubin Negative Urine Urobilinogen 4.0 e.u/dl H Ur Leukocyte Esterase Trace Urine WBC (Auto) 4 Urine RBC (Auto) 5 Ur Epithelial Cells Rare Urine Bacteria Many Urine Mucus Few Urine Yeast Many Influenza A (Rapid) Influenza B (Rapid) 06/14/18 06/14/18 06/14/18 16:55 16:55 16:55 WBC RBC Hgb Hct MCV MCH MCHC RDW Plt Count MPV Absolute Neuts (auto) Neutrophils % Lymphocytes % Monocytes % Eosinophils % Basophils % Nucleated RBC % PT with INR INR PTT (Actin FS) VBG pH 7.35 POC VBG pCO2 71.6 H* D POC VBG pO2 27.9 L D Mixed VBG HCO3 38.1 H Sodium 134 L Potassium 4.0 Chloride 92 L Carbon Dioxide 37 H Anion Gap 5 L BUN 7 Creatinine 0.6 Creat Clearance w eGFR > 60 Random Glucose 94 Lactic Acid 1.0 Calcium 8.4 L Total Bilirubin 0.9 AST 31 ALT 22 Alkaline Phosphatase 79 LD Total Troponin I < 0.02 Total Protein 6.4 Albumin 3.2 L Urine Color Urine Appearance Urine pH Ur Specific [place] Urine Protein Urine Glucose (UA) Urine Ketones Urine Blood Urine Nitrite Urine Bilirubin Urine Urobilinogen Ur Leukocyte Esterase Urine WBC (Auto) Urine RBC (Auto) Ur Epithelial Cells Urine Bacteria Urine Mucus Urine Yeast Influenza A (Rapid) Influenza B (Rapid) 06/14/18 06/14/18 17:02 19:55 WBC RBC Hgb Hct MCV MCH MCHC RDW Plt Count MPV Absolute Neuts (auto) Neutrophils % Lymphocytes % Monocytes % Eosinophils % Basophils % Nucleated RBC % PT with INR INR PTT (Actin FS) VBG pH POC VBG pCO2 POC VBG pO2 Mixed VBG HCO3 Sodium Potassium Chloride Carbon Dioxide Anion Gap BUN Creatinine Creat Clearance w eGFR Random Glucose Lactic Acid Calcium Total Bilirubin AST ALT Alkaline Phosphatase LD Total 178 Troponin I Total Protein Albumin Urine Color Urine Appearance Urine pH Ur Specific [place] Urine Protein Urine Glucose (UA) Urine Ketones Urine Blood Urine Nitrite Urine Bilirubin Urine Urobilinogen Ur Leukocyte Esterase Urine WBC (Auto) Urine RBC (Auto) Ur Epithelial Cells Urine Bacteria Urine Mucus Urine Yeast Influenza A (Rapid) Negative Influenza B (Rapid) Negative EKG Impression: NSR with sinus arrhythmia. Normal ECG. Vent. rate: 93 bpm MI interval: 156 ms QRS duration: 98 ms QT/QTc: 366/455 ms PRT axes: 65 72 65 ASSESSMENT/PLAN: 63 year old female with a PMHx of COPD likely pulm HTN, HIV (On HAART, VL undetectable, CD4 unknown), chronic bronchitis, lumbar spinal stenosis with chronic back pain, and appendiceal cancer follows with Dr. Dave, Dr. Maher, who presents w/ suspected sepsis of unclear etiology, although possibly 2/2 CAP, and progressive worsening dysphagia/odynophagia over 4 mo and now unable to tolerate PO. Found on imaging to have a neck mass deviating esophagus to the left. Neck Mass with dysphagia/odynophagia - -CT revealed hypodense mass posterior and slightly lateral to the proximal trachea slightly compression the trachea and deviating the proximal esophagus to the left. -ENT consult -per ENT mass unlikely infx and may be neoplastic in nature that the patient would require scope and needle biopsy, etc.... at tertiary center -Will initiate transfer to tertiary care center -NPO until cleared by ENT. -She is protecting her airway but we will monitor very closely and have a low threshold to transfer to the ICU -Checking TSH, T4/T3, ESR, CRP Suspected Sepsis of unclear etiology, although possibly 2/2 CAP -No leukocytosis, tachycardia, or hypotension. +Fevers. -Given fevers, recent flu like sxs and HIV status will f/u bcx, ucx, throat cx, sputum cx -ID consult -s/p CTX/azithro for Suspected CAP in ED -s/p fluconazole for possible esophagitits in ED -s/p tylenol, tamiflu, 2L NS in ED -flu neg -CT chest has mild bilateral patchy groundglass opacities and interstitial thickening likely representing mild pulmonary edema. 4mm subpleural right upper lobe nodule laterally. Scattered atelectasis and fibrotic changes in the remainder of the lungs. -CBC reveals a white count of 4.1 with 8.9% lymphocytes consistent with an absolute lymphocyte count of 365. -recommend urine Ags, viral pannel, Hepatitis panel HIV -Continue HAART therapy -chk CD4, viral load Pulmonary Edema/Groundglass opacities/Pulmonary HTN - pulm edema vs. other; awaiting final report -Check BNP, echo -gentle hydration COPD -Continue home inhaler -albuterol prn EtOH abuse - 2 days since last drink -CIWA protocol with IV ativan prn -Thiamine/Folate -s/p ativan 1mg PO in ED Appendiceal tumor -Follows with Dr. Dave, Dr. Maher. Last scan several months ago and follows yearly. Tumor is nonoperative. Would be helpful if needed to obtain old records. BRIAN -CPAP History of IVDU -Confirm dose of methadone Elevated MCV -Chronic; monitor. hx of etoh abuse -Consider checking b12/folate Chronic Rib fx -Incentive spirometry Depression -Hold off on PO meds until cleared FENA -NS 50cc/hr -replete prn -NPO ppx lovenox 40 SQ protonix IV 40 Full Code Dispo -per ENT mass unlikely infx and may be neoplastic in nature that the patient would require scope and needle biopsy, etc.... at tertiary center -Will initiate transfer to tertiary care center
[2018-06-15] MEDS ORDERED: ALBUTEROL SO4 0.083% IH SOL 2.5 MG/3 ML VIAL.NEB. NEB PRN (01:22)
[2018-06-15] MEDS ORDERED: LORazepam 2 MG/ML SDV VIAL IVPUSH PRN (01:26)
[2018-06-15] MEDS ORDERED: LORazepam 2 MG/ML SDV VIAL ONE (02:26)
[2018-06-15] MEDS ORDERED: SODIUM CHLORIDE 1,000 ML IV SCH (05:00)
[2018-06-15] MEDS ORDERED: ACETAMINOPHEN INJECTION 100 ML IVPB ONE (06:02)
--- NOTE | 2018-06-15 06:19 | CONSULT ---
Consultation: REQUESTING PROVIDER: Dr. Ruiz CONSULT REQUEST: We have been asked to medically evaluate this patient for worsening dysphasia 2/2 neck mass and suspected sepsis of unclear etiology CHIEF COMPLAINT:throat pain, right sided chest HISTORY OF PRESENT ILLNESS: pt lethargic. unable to obtain hx. hx obtained from EMR and ED notes Per ED notes: Patient is a 63 year old female with a PMHx of COPD likely pulm HTN, HIV (On HAART, VL undetectable, CD4 unknown), chronic bronchitis, lumbar spinal stenosis with chronic back pain, and appendiceal cancer follows with Dr. Dave , Dr. Maher, who presents to the ED complaining of throat pain that started 4 months ago and worsened in the last 24 hours associated with constant, nonradiating, "dull-like" right sided chest pain worsened when she eats with no alleviating factors. However, patient reports the pain is mainly in her throat to the point she is unable to tolerate food, including liquids with symptoms of dysphagia. Patient states she was evaluated by an ENT and reports that her "throat was normal." Patient was seen in the ED three days ago for diffuse generalized pain, subjective fevers and night sweats. Flu swab done and negative, labs were unremarkable and patient was sent home. However, patient returns for persistent fevers and worsening throat pain. Otherwise, patient denies nausea, vomiting, abdominal pain, shortness of breath , headaches, acute vision changes, dysuria, hematuria, hematemesis, melena, hematochezia, hemoptysis. PMHx: HIV COPD Former alcohol abuse Former Drug abuse PSHx: Denies Social Hx: Former IV Drug use (quit 30 years ago) Smokes 1-3 cigarettes a day Alcohol abuse. Used to drink 6 cans a day up until Wednesday (06/12/18) ER course was notable for: (1)protonix, ativan ,NS 2L, CTX/azithro/fluconazole, tylenol, tamiflu (2)CT revealed hypodense mass posterior and slightly lateral to the proximal trachea slightly compression the trachea and deviating the proximal esophagus to the left. CT chest has mild bilateral patchy groundglass opacities and interstitial thickening likely representing mild pulmonary edema. 4mm subpleural right upper lobe nodule laterally. Scattered atelectasis and fibrotic changes in the remainder of the lungs. (3) CBC reveals a white count of 4.1 with 8.9% lymphocytes consistent with an absolute lymphocyte count of 365. Medicine service consulted for possible sepsis w/ progressive dysphagia/ odynophagia. However pt found to be not SIRS (+) but was febrile to 103.7. Initially ID suspected CAP and pt was tx as mentioned above. Medicine was called to assess and spoke with ENT who stated that mass unlikely infx and may be neoplastic in nature that the patient would require scope and needle biopsy, etc.... at tertiary center. Will coordinate and help ER arrange transfer. Thank you for this consultative opportunity. Recent Travel: Family History: Allergies banana Adverse Reaction (Verified 06/14/18 16:28) REVIEW OF SYSTEMS: as per HPI PHYSICAL EXAMINATION Vital Signs - 24 hr 06/14/18 06/14/18 06/14/18 16:22 17:43 20:23 Temperature 103.7 F H 100.2 F H Pulse Rate 95 H 88 Pulse Rate [ 87 90 Left Apical] Respiratory 18 16 16 Rate Blood Pressure 122/84 Blood Pressure 125/71 120/84 [Left Arm] O2 Sat by Pulse 100 97 Oximetry (%) 06/14/18 22:01 Temperature Pulse Rate Pulse Rate [ 89 Left Apical] Respiratory 16 Rate Blood Pressure Blood Pressure 116/82 [Left Arm] O2 Sat by Pulse 97 Oximetry (%) GENERAL: OX3, lethargic, mild distress HEAD: NCAT EYES: sclera anicteric, conjunctiva clear. No lid lag. EARS, NOSE, THROAT: oropharynx clear without exudates. DRY mucous membranes. no evidence of thrush NECK: R tender neck mass LUNGS: ctab HEART: RRR, normal S1 and S2 without murmur, rub or gallop. ABDOMEN: Soft, mild diffuse ttp, not distended, normoactive bowel sounds, no guarding, no rebound, no masses. MUSCULOSKELETAL: Normal range of motion at all joints. No bony deformities or tenderness. UPPER EXTREMITIES: 2+ pulses, warm, well-perfused. No cyanosis. No clubbing. No peripheral edema. LOWER EXTREMITIES: 2+ pulses, warm, well-perfused. Chronic Venous Stasis Changes noted b/l LE NEUROLOGICAL: OX3, lethargic, Cranial nerves II-XII intact. SKIN: Warm, dry, normal turgor, no rashes or lesions noted, normal capillary refill. Laboratory Results - last 24 hr 06/14/18 06/14/18 06/14/18 16:55 16:55 16:55 WBC 4.1 RBC 3.71 Hgb 13.3 Hct 38.3 MCV 103.1 H MCH 35.8 H MCHC 34.8 RDW 12.2 Plt Count 99 L D MPV 9.9 Absolute Neuts (auto) 3.2 Neutrophils % 78.4 Lymphocytes % 8.9 Monocytes % 12.3 H Eosinophils % 0.1 Basophils % 0.3 Nucleated RBC % 0 PT with INR 12.50 INR 1.06 PTT (Actin FS) 32.0 VBG pH POC VBG pCO2 POC VBG pO2 Mixed VBG HCO3 Sodium Potassium Chloride Carbon Dioxide Anion Gap BUN Creatinine Creat Clearance w eGFR Random Glucose Lactic Acid Calcium Total Bilirubin AST ALT Alkaline Phosphatase LD Total Troponin I Total Protein Albumin Urine Color [place] Urine Appearance Cloudy Urine pH 7.0 Ur Specific [place] 1.021 Urine Protein 1+ H Urine Glucose (UA) Negative Urine Ketones Negative Urine Blood 1+ H Urine Nitrite Negative Urine Bilirubin Negative Urine Urobilinogen 4.0 e.u/dl H Ur Leukocyte Esterase Trace Urine WBC (Auto) 4 Urine RBC (Auto) 5 Ur Epithelial Cells Rare Urine Bacteria Many Urine Mucus Few Urine Yeast Many Influenza A (Rapid) Influenza B (Rapid) 06/14/18 06/14/18 06/14/18 16:55 16:55 16:55 WBC RBC Hgb Hct MCV MCH MCHC RDW Plt Count MPV Absolute Neuts (auto) Neutrophils % Lymphocytes % Monocytes % Eosinophils % Basophils % Nucleated RBC % PT with INR INR PTT (Actin FS) VBG pH 7.35 POC VBG pCO2 71.6 H* D POC VBG pO2 27.9 L D Mixed VBG HCO3 38.1 H Sodium 134 L Potassium 4.0 Chloride 92 L Carbon Dioxide 37 H Anion Gap 5 L BUN 7 Creatinine 0.6 Creat Clearance w eGFR > 60 Random Glucose 94 Lactic Acid 1.0 Calcium 8.4 L Total Bilirubin 0.9 AST 31 ALT 22 Alkaline Phosphatase 79 LD Total Troponin I < 0.02 Total Protein 6.4 Albumin 3.2 L Urine Color Urine Appearance Urine pH Ur Specific [place] Urine Protein Urine Glucose (UA) Urine Ketones Urine Blood Urine Nitrite Urine Bilirubin Urine Urobilinogen Ur Leukocyte Esterase Urine WBC (Auto) Urine RBC (Auto) Ur Epithelial Cells Urine Bacteria Urine Mucus Urine Yeast Influenza A (Rapid) Influenza B (Rapid) 06/14/18 06/14/18 06/15/18 17:02 19:55 02:35 WBC RBC Hgb Hct MCV MCH MCHC RDW Plt Count MPV Absolute Neuts (auto) Neutrophils % Lymphocytes % Monocytes % Eosinophils % Basophils % Nucleated RBC % PT with INR INR PTT (Actin FS) VBG pH POC VBG pCO2 POC VBG pO2 Mixed VBG HCO3 Sodium Potassium Chloride Carbon Dioxide Anion Gap BUN Creatinine Creat Clearance w eGFR Random Glucose Lactic Acid Calcium Total Bilirubin AST ALT Alkaline Phosphatase LD Total 178 Troponin I < 0.02 Total Protein Albumin Urine Color Urine Appearance Urine pH Ur Specific [place] Urine Protein Urine Glucose (UA) Urine Ketones Urine Blood Urine Nitrite Urine Bilirubin Urine Urobilinogen Ur Leukocyte Esterase Urine WBC (Auto) Urine RBC (Auto) Ur Epithelial Cells Urine Bacteria Urine Mucus Urine Yeast Influenza A (Rapid) Negative Influenza B (Rapid) Negative Active Medications Generic Name Dose Route Start Last Admin Trade Name Freq PRN Reason Stop Dose Admin Albuterol Sulfate 1 amp 06/15/18 01:22 Ventolin 0.083% Nebulizer Soln - NEB Q4H PRN SHORT OF BREATH/WHEEZING Enoxaparin Sodium 40 mg 06/15/18 10:00 Lovenox - SQ DAILY MILIND Folic Acid 1 mg 06/15/18 10:00 Folic Acid - PO DAILY MILIND Sodium Chloride 1,000 mls @ 50 mls/hr 06/15/18 05:00 06/15/18 05:55 Normal Saline - IV 06/16/18 04:53 50 mls/hr ASDIR MILIND Administration Lorazepam 1 mg 06/15/18 01:26 06/15/18 02:43 Ativan Injection - IVPUSH 1 mg Q6H PRN Administration WITHDRAWAL(CONT SUBST) Non-Formulary Medication 50 mg 06/15/18 10:00 Pyridoxine Hcl (Vitamin B6) [Vitamin B-6] PO DAILY MILIND Oseltamivir Phosphate 75 mg 06/14/18 22:00 06/14/18 22:21 Tamiflu - PO 06/19/18 21:59 75 mg BID MILIND Administration Pantoprazole Sodium 40 mg 06/15/18 10:00 Protonix Iv IVPUSH DAILY MILIND Fluticasone/Salmeterol 1 puff 06/15/18 10:00 Advair 100mcg/50mcg - IH BID MILIND Thiamine HCl 100 mg 06/15/18 10:00 Vitamin B1 - PO DAILY [facility] EKG Impression: NSR with sinus arrhythmia. Normal ECG. Vent. rate: 93 bpm LA interval: 156 ms QRS duration: 98 ms QT/QTc: 366/455 ms PRT axes: 65 72 65 ASSESSMENT/PLAN: 63 year old female with a PMHx of COPD likely pulm HTN, HIV (On HAART, VL undetectable, CD4 unknown), chronic bronchitis, lumbar spinal stenosis with chronic back pain, and appendiceal cancer follows with Dr. Dave, Dr. Maher, who presents w/ suspected sepsis of unclear etiology, although possibly 2/2 CAP, and progressive worsening dysphagia/odynophagia over 4 mo and now unable to tolerate PO. Found on imaging to have a neck mass deviating esophagus to the left. Neck Mass with dysphagia/odynophagia - -CT revealed hypodense mass posterior and slightly lateral to the proximal trachea slightly compression the trachea and deviating the proximal esophagus to the left. -ENT consult -per ENT mass unlikely infx and may be neoplastic in nature that the patient would require scope and needle biopsy, etc.... at tertiary center -Will initiate transfer to tertiary care center -NPO until cleared by ENT. -She is protecting her airway but we will monitor very closely and have a low threshold to transfer to the ICU -Checking TSH, T4/T3, ESR, CRP Suspected Sepsis of unclear etiology, although possibly 2/2 CAP -No leukocytosis, tachycardia, or hypotension. +Fevers. -Given fevers, recent flu like sxs and HIV status will f/u bcx, ucx, throat cx, sputum cx -ID consult -s/p CTX/azithro for Suspected CAP in ED -s/p fluconazole for possible esophagitits in ED -s/p tylenol, tamiflu, 2L NS in ED -flu neg -CT chest has mild bilateral patchy groundglass opacities and interstitial thickening likely representing mild pulmonary edema. 4mm subpleural right upper lobe nodule laterally. Scattered atelectasis and fibrotic changes in the remainder of the lungs. -CBC reveals a white count of 4.1 with 8.9% lymphocytes consistent with an absolute lymphocyte count of 365. -recommend urine Ags, viral pannel, Hepatitis panel HIV -Continue HAART therapy -chk CD4, viral load Pulmonary Edema/Groundglass opacities/Pulmonary HTN - pulm edema vs. other; awaiting final report -Check BNP, echo -gentle hydration COPD -Continue home inhaler -albuterol prn EtOH abuse - 2 days since last drink -CIWA protocol with IV ativan prn -Thiamine/Folate -s/p ativan 1mg PO in ED Appendiceal tumor -Follows with Dr. Dave, Dr. Maher. Last scan several months ago and follows yearly. Tumor is nonoperative. Would be helpful if needed to obtain old records. BRIAN -CPAP History of IVDU -Confirm dose of methadone Elevated MCV -Chronic; monitor. hx of etoh abuse -Consider checking b12/folate Chronic Rib fx -Incentive spirometry Depression -Hold off on PO meds until cleared FENA -NS 50cc/hr -replete prn -NPO ppx lovenox 40 SQ protonix IV 40 Full Code Dispo -per ENT mass unlikely infx and may be neoplastic in nature that the patient would require scope and needle biopsy, etc.... at tertiary center -transfer to tertiary care center initiated -At approximately 5:30am, spoke w/ ED physician and ENT accepting physician at [facility] about pt transfer. pt will transferred to [facility] ED and will be accepted under ENT, Dr. Cameron service. -pt consented for transfer at 5:00am -pt relevant data including copies of CT scans, labs, ED notes and consult notes will be sent w/ patient. -pt is stable and ready for transfer. We will continue to follow the patient until transfer. Thank you for this consultative opportunity. Visit type - Emergency Visit Emergency Visit: Yes ED Registration Date: 06/14/18 Care time: The patient presented to the Emergency Department on the above date and was hospitalized for further evaluation of their emergent condition. - New Patient This patient is new to me today: Yes Date on this admission: 06/15/18 - Critical Care Critical Care patient: No
[2018-06-15 06:29] VITALS: BP 119/73; PULSE 96; TEMP 100
[2018-06-15] MEDS ORDERED: ENOXAPARIN NA (PORCINE) 40 MG/0.4 ML DISP.SYRIN SQ SCH (10:00)
[2018-06-15] MEDS ORDERED: THIAMINE HCL 100 MG TABLET (FP) PO SCH (10:00)
[2018-06-15] MEDS ORDERED: PYRIDOXINE HCL (B-6) 50 MG TABLET (FP) PO SCH (10:00)
[2018-06-15] MEDS ORDERED: PANTOPRAZOLE SODIUM 40 MG VIAL IVPUSH SCH (10:00)
[2018-06-15] MEDS ORDERED: FLUTICASONE/SALMETEROL 100 MCG/50 MCG DISKUS IH SCH (10:00)
[2018-06-15] MEDS ORDERED: FOLIC ACID 1 MG TABLET (FP) PO SCH (10:00)
[2018-06-15 13:13] LABS: N-TERMINAL BNP 304.6 pg/ml (5-125)
--- NOTE | 2018-06-15 16:53 | EKG ---
Test Reason : Blood Pressure : / mmHG Vent. Rate : 093 BPM Atrial Rate : 093 BPM P-R Int : 156 ms QRS Dur : 098 ms QT Int : 366 ms P-R-T Axes : 065 072 065 degrees QTc Int : 455 ms POOR DATA QUALITY, INTERPRETATION MAY BE ADVERSELY AFFECTED NORMAL SINUS RHYTHM NORMAL ECG WHEN COMPARED WITH ECG OF 11-JUN-2018 15:51, NO SIGNIFICANT CHANGE WAS FOUND Confirmed by ALEX CURTIS MD ([id number]) on 06/15/2018 4:52:57 PM Referred By: Confirmed By:ALEX CURTIS MD
== END 2018-06-15 06:26 | disposition short-term general hospital (02) | DRG 243 ==
LOC: JER 15:52 → JERBED 21:27
PROVIDERS: ADMIT Internal Medicine; ATTEND Internal Medicine
DX: K22.8 Other specified diseases of esophagus (principal); R47.02 Dysphasia; Z21 Asymptomatic human immunodeficiency virus [HIV] infection status; J44.9 Chronic obstructive pulmonary disease, unspecified; J98.11 Atelectasis; I27.20 Pulmonary hypertension, unspecified; F10.10 Alcohol abuse, uncomplicated; J42 Unspecified chronic bronchitis; M54.9 Dorsalgia, unspecified; M48.00 Spinal stenosis, site unspecified; R91.1 Solitary pulmonary nodule; F32.9 Major depressive disorder, single episode, unspecified; F11.20 Opioid dependence, uncomplicated; R13.10 Dysphagia, unspecified; J81.1 Chronic pulmonary edema
CPT/HCPCS: 36415; 70490-TC; 71045-TC-FY; 71250-TC; 80053; 81003; 81015; 82803; 83605; 83615; 83880; 84439; 84484; 85025; 85610; 85730; 86140; 87040; 87070; 87086; 87186; 87804; 93005; 93010; 99285-25; J0131; J7030

== ENCOUNTER 2018-06-23 12:25 | Inpatient (IN) | payer OTHER ==
--- NOTE | 2018-06-23 14:29 | PDOC ---
History of Present Illness - General Chief Complaint: Chest Pain Stated Complaint: SICK Time Seen by Provider: 06/23/18 13:37 - History of Present Illness Initial Comments: 06/23/18 15:56 The patient 63 year old female with a PMH of HIV (CD4 unknown, states VL is undectectable, on HAART, follows w/Dr. Morris), COPD (not on home O2), Appendiceal CA and Lumbar spinal stenosis who presents to our ED today for presumptive listeria bacteremia. Patient was evaluated by Dr. Morris earlier today who instructed patient to come to ED for admission. Patient has positive blood cultures from a [facility] admission last week. Denies fever/ chills or other systemic signs of illness including vomiting, other GI disturbances but does endorse feeling tired and overall weak. States she was initially admitted to our institution last week then transferred to [facility]. The patient denies chest pain, shortness of breath, abdominal pain, dysuria/ hematuria, headache, cough, sore throat, numbness/tingling. NKDA Surgical: throat biopsy Social: 4-5 cigarettes daily, social alcohol, former IVDU PMD: Dr. Ram As per EMR patient was evaluated in our ED on 06/14 and admitted for throat and chest pain. CT scan subsequently showed a L tracheal throat mass and patient was transferred to [facility] for biopsy/further evaluation. Past History - Past Medical History Allergies/Adverse Reactions: Allergies Allergy/AdvReac Type Severity Reaction Status Date / Time No Known Drug Allergies Allergy Verified 06/23/18 18:52 banana AdvReac Verified 06/23/18 13:02 Home Medications: Ambulatory Orders Gabapentin [Neurontin -] 400 mg PO Q8H #90 capsule MDD 3 07/01/17 Methadone [Dolophine -] 60 mg PO DAILY@0600 MDD 65mg 11/26/17 Docusate Sodium [Colace -] 100 mg PO BID #60 cap 01/06/18 Folic Acid - 1 mg PO DAILY #30 tablet 01/06/18 Pyridoxine HCl (Vitamin B6) [Vitamin B-6] 50 mg PO DAILY #30 capsule 01/06/18 Salmeterol/Fluticasone [Advair 100Mcg/50Mcg -] 1 puff IH BID #1 inhaler Thiamine HCl [B-1] 100 mg PO DAILY 30 Days #30 tablet 01/06/18 Citalopram Hydrobromide [Celexa -] 20 mg PO DAILY #30 tablet 04/21/18 Pantoprazole Sodium [Protonix -] 40 mg PO DAILY #14 tablet.ec 04/21/18 Venlafaxine HCl ER [Effexor Xr -] 37.5 mg PO DAILY #30 cap.er.24h 04/21/18 Diaper,Brief,Adult, Disposable [Adult Brief] 1 each MC TID #90 each 04/28/18 Albuterol Sulfate Inhaler - [Ventolin HFA Inhaler -] 2 inh PO Q4H PRN #1 inhaler 05/10/18 Dolutegravir Sodium [Tivicay] 50 mg PO DAILY #30 tab 05/10/18 Emtricitabine/Tenofov Alafenam [Descovy 200-25 mg Tablet (Nf)] 1 each PO DAILY # 30 tablet 05/10/18 Anemia: Yes Asthma: Yes (chronic bronchitis) Cancer: Yes (appendiceal -unresectable) Cardiac Disorders: Yes (hx endocarditis) CVA: No COPD: Yes (O2 AT HOME) CHF: No DVT: No Dementia: No Diabetes: No GI Disorders: No Disorders: No HTN: Yes Hypercholesterolemia: No Liver Disease: Yes (possible cirrhosis (hx elevated ammonia)) Psychiatric Problems: Yes (depression) Seizures: No Thyroid Disease: No Other medical history: IV DRUG USE - Surgical History Abdominal Surgery: Yes (MULTIPLE ABORTIONS.) Appendectomy: No Cardiac Surgery: No Cholecystectomy: No Lung Surgery: No Neurologic Surgery: No Orthopedic Surgery: No - Immunization History Immunization Up to Date: Yes - Suicide/Smoking/Psychosocial Hx Smoking Status: Yes Smoking History: Former smoker Years of Tobacco Use: 40 Have you smoked in the past 12 months: No Number of Cigarettes Smoked Daily: 2 If you are a former smoker, when did you quit?: 30YRS Cigars Per Day: 1 Information on smoking cessation initiated: No 'Breaking Loose' booklet given: 05/24/13 Hx Alcohol Use: No Drug/Substance Use Hx: No Substance Use Type: Alcohol, Cocaine, Heroin Hx Substance Use Treatment: Yes ([facility]) Review of Systems - Review of Systems Constitutional: Yes: Weakness. No: Chills, Fever HEENTM: No: Recent change in vision Respiratory: No: Cough, Shortness of Breath, Hemoptysis Cardiac (ROS): No: Chest Pain, Lightheadedness, Palpitations, Syncope ABD/GI: No: Constipated, Diarrhea, Nausea, Vomiting, Abdominal cramping : No: Burning, Dysuria *Physical Exam - Vital Signs Last Vital Signs Temp Pulse Resp BP Pulse Ox 99.2 F 98 H 22 H 115/83 91 L 06/23/18 13:02 06/23/18 13:02 06/23/18 13:02 06/23/18 13:02 06/23/18 13:02 - Physical Exam General Appearance: Yes: Nourished, Appropriately Dressed HEENT: positive: Normal Voice, Hearing Grossly Normal Neck: positive: Trachea midline, Supple, Other (R sided incision - C/D/I) Respiratory/Chest: positive: Lungs Clear, Normal Breath Sounds Cardiovascular: positive: S1, S2. negative: JVD Vascular Pulses: Dorsalis-Pedis (R): 2+, Doralis-Pedis (L): 2+ Gastrointestinal/Abdominal: positive: Normal Bowel Sounds, Soft Moderate Sedation - Procedure Monitoring Vital Signs: Procedure Monitoring Vital Signs Temperature 99.2 F 06/23/18 13:02 Pulse Rate 98 H 06/23/18 13:02 Respiratory Rate 22 H 06/23/18 13:02 Blood Pressure 115/83 06/23/18 13:02 O2 Sat by Pulse Oximetry (%) 91 L 06/23/18 13:02 ED Treatment Course - LABORATORY CBC & Chemistry Diagram: 06/24/18 07:30 06/24/18 07:30 Medical Decision Making - Medical Decision Making 63 year old female presents at the behest of infectious disease for treatment of presumptive listeria bacteremia. H/o recent hospitalization at [facility] last week. No active medical complaints besides weakness. VS significant for mild tachypnea (22), SpO2 low 90's. Patient on 2L NC. Frontal diagnosis is presumptive listeria bacteremia however will obtain CMP to r/o electrolyte abnormality as source of weakness as well as CBC (leukocytosis) and blood cultures (confirm listeria bacteremia). CXR to evaluate for PNA ( patient has h/o HIV, though well controlled) and EKG for baseline admission. As patient is known to ID and sent by ID will give 2 gram Ampicillin for Listeria coverage. Hospitalist paged for admission. Case d/w Dr. Phillips. Patient accepted to inpatient medicine service. *DC/Admit/Observation/Transfer Diagnosis at time of Disposition: Low oxygen saturation - Discharge Dispostion Condition at time of disposition: Fair Decision to Admit order: Yes - Referrals - Patient Instructions - Post Discharge Activity
[2018-06-23] MEDS ORDERED: AMPICILLIN SODIUM 250 MG VIAL IVPUSH ONE (14:37)
[2018-06-23] MEDS ORDERED: AMPICILLIN SODIUM 2 GM VIAL ONE (15:10)
[2018-06-23] MEDS ORDERED: AMPICILLIN SODIUM 250 MG VIAL ONE (15:13)
--- NOTE | 2018-06-23 15:16 | PDOC ---
Attending Attestation - HPI HPI: The patient is a 63 year old female, with a significant PMH of HIV (VL undetectable, CD4 unknown), COPD, endocarditis, chronic bronchitis, lumbar spinal stenosis with chronic back pain, and appendiceal cancer, who presents to the emergency department today as per request of her infectious disease specialist, Dr. Morris, to receive IV antibiotics for listeria bacteremia. Patient was sent by dr. Morris for blood cultures and IV antibiotics, to be admitted. Patient reports feeling diffusely weak, which has remained since her discharge from [facility] last week. The patient denies chest pain, shortness of breath, headache and dizziness. Denies fever, chills, nausea, vomit, diarrhea and constipation. Denies dysuria, frequency, urgency and hematuria. Allergies:Bananas Social history: No reported PCP: Dr. Morris 06/23/18 16:02 - Physicial Exam PE: GENERAL: Awake, alert, and fully oriented, in no acute distress HEAD: No signs of trauma EYES: PERRLA, EOMI, sclera anicteric, conjunctiva clear ENT: Auricles normal inspection, hearing grossly normal, nares patent, oropharynx clear without exudates. Moist mucosa NECK: Normal ROM, supple, no lymphadenopathy, JVD, or masses LUNGS: +Mild crackles at left base. No wheezes. HEART: Regular rate and rhythm, normal S1 and S2, no murmurs, rubs or gallops ABDOMEN: Soft, nontender, normoactive bowel sounds. No guarding, no rebound. No masses EXTREMITIES: Normal range of motion, no edema. No clubbing or cyanosis. No cords, erythema, or tenderness NEUROLOGICAL: Cranial nerves II through XII grossly intact. Normal speech, normal gait SKIN: Warm, Dry, normal turgor, no rashes or lesions noted. 06/23/18 16:02 - Medical Decision Making Documentation prepared by TOLU Sanon, acting as medical csr for Rickie Zhao MD. 06/23/18 16:02 <Maria E Donnelly - Last Filed: 06/23/18 16:02> - Resident Resident Name: Nasreen Conde - ED Attending Attestation I have performed the following: I have examined & evaluated the patient, The case was reviewed & discussed with the resident, I agree w/resident's findings & plan, Exceptions are as noted - Medical Decision Making 06/23/18 15:15 A portion of this note was documented by scribe services under my direction. I have reviewed the details of the note, within reason, and agree with the documentation with the following case summary and management plan written by me. Patient treated in the ED. Nursing notes are reviewed and incorporated into the medical decision-making. Vital signs reviewed. Peripheral IV access obtained by the nurse, laboratory studies are drawn and sent, reviewed and interpreted by myself. Vital Signs Temp Pulse Resp BP Pulse Ox 99.2 F 98 H 22 H 115/83 91 L 06/23/18 13:02 06/23/18 13:02 06/23/18 13:02 06/23/18 13:02 06/23/18 13:02 63-year-old female with past medical history of anemia, endocarditis, COPD, HIV , neck mass sent in by patient's infectious disease specialist, Dr. Morris, for IV antibiotics for listeria bacteremia. Patient sent in for blood cultures and IV antibiotics and for admission. Patient reports feeling generally weak that is unchanged from discharge from the hospital several days ago. <Rickie Zhao - Last Filed: 06/23/18 18:08> Heart Score/ECG Review #1 ECG reviewed & interpreted by me at: 13:20 06/23/18 18:07 NSR 89, no std/darryl, T flat III, normal axis, normal intervals, QTC 481 msec <Rickie Zhao - Last Filed: 06/23/18 18:08>
[2018-06-23 15:32] LABS: VENOUS PC02 58.1 mmHg (38-52); VENOUS PH 7.38 (7.32-7.42); VENOUS PO2 46.6 mmHg (28-48)
[2018-06-23 15:37] LABS: BASO % 0.4 % (0-2.0); EOS % 1.6 % (0-4.5); HEMATOCRIT 38.5 % (32.4-45.2); HEMOGLOBIN 13.4 GM/dL (10.7-15.3); LYMPH % 26.6 % (8-40); MCH 35.4 pg (25.7-33.7); MCHC 34.8 g/dl (32.0-36.0); MEAN CELL VOLUME 101.8 fl (80-96); MEAN PLT VOLUME 10.6 fl (7.5-11.1); NEUT % 60.4 % (42.8-82.8); PLATELET COUNT 170 K/MM3 (134-434); RBC 3.78 M/mm3 (3.60-5.2); RDW 12.1 % (11.6-15.6); WHITE BLOOD COUNT 5.6 K/mm3 (4.0-10.0)
[2018-06-23 15:44] LABS: INR 1.05 (0.83-1.09); PROTHROMBIN TIME (PATIENT) 12.4 SEC (9.7-13.0)
[2018-06-23 15:47] LABS: ACTIVATED PTT 33.3 SECONDS (25.2-36.5)
[2018-06-23 15:50] LABS: ALBUMIN 3.2 g/dl (3.4-5.0); ALK PHOS 77 U/L (45-117); ANION GAP 6 MMOL/L (8-16); BILIRUBIN,TOTAL 0.7 mg/dL (0.2-1); BLOOD UREA NITROGEN 6 mg/dL (7-18); CALCIUM 9.7 mg/dL (8.5-10.1); CHLORIDE 94 mmol/L (98-107); CO2 34 mmol/L (21-32); CREATININE 0.8 mg/dL (0.55-1.3); GLUCOSE,RANDOM 115 mg/dL (74-106); POTASSIUM 3.7 mmol/L (3.5-5.1); SGOT/AST 23 U/L (15-37); SGPT/ALT 32 U/L (13-61); SODIUM 134 mmol/L (136-145); TOT PROT 6.7 g/dl (6.4-8.2)
[2018-06-23] MEDS ORDERED: SODIUM CHLORIDE 0.9% 500 ML INFUS.BAG IV ONE (15:55)
--- NOTE | 2018-06-23 16:13 | EKG ---
Test Reason : Blood Pressure : / mmHG Vent. Rate : 089 BPM Atrial Rate : 089 BPM P-R Int : 160 ms QRS Dur : 096 ms QT Int : 396 ms P-R-T Axes : 078 057 055 degrees QTc Int : 481 ms POOR DATA QUALITY, INTERPRETATION MAY BE ADVERSELY AFFECTED NORMAL SINUS RHYTHM NORMAL ECG WHEN COMPARED WITH ECG OF 14-JUN-2018 16:17, NO SIGNIFICANT CHANGE WAS FOUND Confirmed by LUIS ALBERTO ANDERSON, COLLEEN ([id number]) on 06/23/2018 4:13:28 PM Referred By: Confirmed By:COLLEEN SAHU MD
[2018-06-23 16:15] LABS: URINE APPEARANCE SLCLOUDY; URINE BILIRUBIN NEGATIVE (<2.0 mg/dL); URINE COLOR YELLOW; URINE GLUCOSE (UA) NEGATIVE (NEGATIVE); URINE KETONE NEGATIVE (NEGATIVE); URINE LEUK ESTERASE TRACE (NEGATIVE); URINE NITRITE NEGATIVE (NEGATIVE); URINE PROTEIN NEGATIVE (NEGATIVE); URINE UROBILINOGEN NEGATIVE mg/dL (0.2-1.0)
[2018-06-23 16:22] LABS: CALCIUM OXALATE CRYSTALS MANY /hpf (NONE SEEN); EPI CELLS MODERATE /HPF (FEW); URINE MUCUS MODERATE
[2018-06-23] MEDS ORDERED: ALBUTEROL SO4 8 GM HFA INHALER IH PRN (18:39)
--- NOTE | 2018-06-23 18:53 | HP ---
CHIEF COMPLAINT: Listeria Bacteremia PCP: Dr. Morris HISTORY OF PRESENT ILLNESS: 63 F with PMH HIV, COPD, endocarditis, back pain, BRIAN, hx IVDA, right neck mass with pain swallowing (recent biopsy) sent from [facility] due to Listeria bacteremia for IV Abx. Pt was recently seen in ED for difficulty and pain swallowing with right sided mass. She was transferred to [facility] for further workup. Blood cultures from previous ED admission grew Listeria. Pt was discharged from [facility] after biopsy of mass, and followed up with Dr. Morris at the [facility] today as her PCP follow up. She endorses that she has had some weakness since her discharge from [facility]. She also complains of knee pain b/l which she states started about 3 weeks ago but denies any trauma, redness, swelling. She denies any fevers or chills. ER course was notable for: (1) Ampicillin Ordered (2) 1L NS, Lactic Acid 2.2 (3) Recent Travel: none PAST MEDICAL HISTORY: as above PAST SURGICAL HISTORY: Denies Social History: Smoking: States she is former smoker Alcohol: Every day drinker, states she quit two weeks ago Drugs: Former Heroin (injected), cocaine, crack user Family History: Allergies banana Adverse Reaction (Verified 06/23/18 13:02) HOME MEDICATIONS: Home Medications Medication Instructions Recorded Gabapentin [Neurontin -] 400 mg PO Q8H #90 capsule MDD 3 07/01/17 Methadone [Dolophine -] 60 mg PO DAILY@0600 MDD 65mg 11/26/17 Docusate Sodium [Colace -] 100 mg PO BID #60 cap 01/06/18 Folic Acid - 1 mg PO DAILY #30 tablet 01/06/18 Pyridoxine HCl (Vitamin B6) 50 mg PO DAILY #30 capsule 01/06/18 [Vitamin B-6] Salmeterol/Fluticasone [Advair 1 puff IH BID #1 inhaler 01/06/18 100Mcg/50Mcg -] Thiamine HCl [B-1] 100 mg PO DAILY 30 Days #30 tablet 01/06/18 Citalopram Hydrobromide [Celexa -] 20 mg PO DAILY #30 tablet 04/21/18 Pantoprazole Sodium [Protonix -] 40 mg PO DAILY #14 tablet.ec 04/21/18 Venlafaxine HCl ER [Effexor Xr -] 37.5 mg PO DAILY #30 cap.er.24h 04/21/18 Diaper,Brief,Adult, Disposable 1 each MC TID #90 each 04/28/18 [Adult Brief] Albuterol Sulfate Inhaler - 2 inh PO Q4H PRN #1 inhaler 05/10/18 [Ventolin HFA Inhaler -] Dolutegravir Sodium [Tivicay] 50 mg PO DAILY #30 tab 05/10/18 Emtricitabine/Tenofov Alafenam 1 each PO DAILY #30 tablet 05/10/18 [Descovy 200-25 mg Tablet (Nf)] REVIEW OF SYSTEMS CONSTITUTIONAL: Absent: fever, chills, diaphoresis, generalized weakness, malaise, loss of appetite, weight change HEENT: Absent: rhinorrhea, nasal congestion, throat pain, throat swelling, difficulty swallowing, mouth swelling, ear pain, eye pain, visual changes CARDIOVASCULAR: Absent: chest pain, syncope, palpitations, irregular heart rate, lightheadedness , peripheral edema RESPIRATORY: Absent: cough, shortness of breath, dyspnea with exertion, orthopnea, wheezing, stridor, hemoptysis GASTROINTESTINAL: Absent: abdominal pain, abdominal distension, nausea, vomiting, diarrhea, constipation, melena, hematochezia GENITOURINARY: Absent: dysuria, frequency, urgency, hesitancy, hematuria, flank pain, genital pain MUSCULOSKELETAL: Absent: myalgia, arthralgia, joint swelling, back pain, neck pain SKIN: Absent: rash, itching, pallor HEMATOLOGIC/IMMUNOLOGIC: Absent: easy bleeding, easy bruising, lymphadenopathy, frequent infections ENDOCRINE: Absent: unexplained weight gain, unexplained weight loss, heat intolerance, cold intolerance NEUROLOGIC: Absent: headache, focal weakness or paresthesias, dizziness, unsteady gait, seizure, mental status changes, bladder or bowel incontinence PSYCHIATRIC: Absent: anxiety, depression, suicidal or homicidal ideation, hallucinations. PHYSICAL EXAMINATION Vital Signs - 24 hr 06/23/18 13:02 Temperature 99.2 F Pulse Rate 98 H Respiratory 22 H Rate Blood Pressure 115/83 O2 Sat by Pulse 91 L Oximetry (%) GENERAL: A&O, no acute distress HEAD: Normocephalic, atraumatic. EYES: discoloration of sclera, yellowish brown EARS, NOSE, THROAT: oropharynx clear without exudates. Moist mucous membranes. NECK: supple without lymphadenopathy, enlarged area noted on right, bandage over previous biopsy site LUNGS: CTA b/l, no crackles or wheezes HEART: Regular rate and rhythm, systolic murmur noted at Right Sternal border ABDOMEN: Soft, nontender to palpation, normoactive bowel sounds MUSCULOSKELETAL: b/l knee pain with ROM, however normal ROM, nontender to palpation, without erythema or swelling EXTREMITIES: warm, well-perfused. No peripheral edema. NEUROLOGICAL: Cranial nerves II-XII grossly intact. Normal speech. PSYCHIATRIC: Cooperative. Good eye contact. Appropriate mood and affect. SKIN: Warm, dry, no rashes or lesions noted Laboratory Results - last 24 hr 06/23/18 06/23/18 06/23/18 14:53 14:53 14:53 WBC 5.6 RBC 3.78 Hgb 13.4 Hct 38.5 MCV 101.8 H MCH 35.4 H MCHC 34.8 RDW 12.1 Plt Count 170 D MPV 10.6 Absolute Neuts (auto) 3.4 Neutrophils % 60.4 D Lymphocytes % 26.6 D Monocytes % 11.0 H Eosinophils % 1.6 D Basophils % 0.4 Nucleated RBC % 0 PT with INR INR PTT (Actin FS) VBG pH POC VBG pCO2 POC VBG pO2 Mixed VBG HCO3 Sodium 134 L Potassium 3.7 Chloride 94 L Carbon Dioxide 34 H Anion Gap 6 L BUN 6 L Creatinine 0.8 Creat Clearance w eGFR > 60 Random Glucose 115 H Lactic Acid Calcium 9.7 Total Bilirubin 0.7 AST 23 ALT 32 Alkaline Phosphatase 77 Troponin I < 0.02 Total Protein 6.7 Albumin 3.2 L Urine Color Urine Appearance Urine pH Ur Specific [place] Urine Protein Urine Glucose (UA) Urine Ketones Urine Blood Urine Nitrite Urine Bilirubin Urine Urobilinogen Ur Leukocyte Esterase Urine WBC (Auto) Urine RBC (Auto) Ur Epithelial Cells Calcium Oxalate Crystal Urine Mucus 06/23/18 06/23/18 06/23/18 14:53 14:58 15:25 WBC RBC Hgb Hct MCV MCH MCHC RDW Plt Count MPV Absolute Neuts (auto) Neutrophils % Lymphocytes % Monocytes % Eosinophils % Basophils % Nucleated RBC % PT with INR 12.40 INR 1.05 PTT (Actin FS) 33.3 VBG pH 7.38 POC VBG pCO2 58.1 H POC VBG pO2 46.6 D Mixed VBG HCO3 33.7 H Sodium Potassium Chloride Carbon Dioxide Anion Gap BUN Creatinine Creat Clearance w eGFR Random Glucose Lactic Acid 2.2 H* Calcium Total Bilirubin AST ALT Alkaline Phosphatase Troponin I Total Protein Albumin Urine Color Urine Appearance Urine pH Ur Specific [place] Urine Protein Urine Glucose (UA) Urine Ketones Urine Blood Urine Nitrite Urine Bilirubin Urine Urobilinogen Ur Leukocyte Esterase Urine WBC (Auto) Urine RBC (Auto) Ur Epithelial Cells Calcium Oxalate Crystal Urine Mucus 06/23/18 16:00 WBC RBC Hgb Hct MCV MCH MCHC RDW Plt Count MPV Absolute Neuts (auto) Neutrophils % Lymphocytes % Monocytes % Eosinophils % Basophils % Nucleated RBC % PT with INR INR PTT (Actin FS) VBG pH POC VBG pCO2 POC VBG pO2 Mixed VBG HCO3 Sodium Potassium Chloride Carbon Dioxide Anion Gap BUN Creatinine Creat Clearance w eGFR Random Glucose Lactic Acid Calcium Total Bilirubin AST ALT Alkaline Phosphatase Troponin I Total Protein Albumin Urine Color Yellow Urine Appearance Slcloudy Urine pH 6.0 Ur Specific [place] 1.013 Urine Protein Negative Urine Glucose (UA) Negative Urine Ketones Negative Urine Blood Negative Urine Nitrite Negative Urine Bilirubin Negative Urine Urobilinogen Negative Ur Leukocyte Esterase Trace Urine WBC (Auto) <1 Urine RBC (Auto) 2 Ur Epithelial Cells Moderate Calcium Oxalate Crystal Many Urine Mucus Moderate ASSESSMENT/PLAN: 63 F with PMH HIV, COPD, endocarditis, back pain, BRIAN, hx IVDA, right neck mass with pain swallowing (recent biopsy) sent from [facility] due to Listeria bacteremia for IV Abx Right Neck Mass/Dysphagia -Pt with recent transfer to [facility] for further ENT workup -CT surgery consult for further workup of neck mass -Will attempt to get records from [facility] Admission earlier this week -Full liquid diet -prior CT noted Listeria Bacteremia -ID consult appreciated -Ampicillin 2gm IV Q6 for now, will await further ID recommendations -Pt not currently febrile, normal WBC count COPD -Continue home O2 2L -Advair -Albuterol NEBs PRN BRIAN -CPAP, pt does not know her settings DVT Prophylaxis -Lovenox 40 mg SQ Daily FEN -Fluids: LR @ 100 cc/hr -Electrolytes: No electrolyte abnormalities, BMP in AM -Nutrition: Full liquid diet Disposition Med/Surg Visit type - Emergency Visit Emergency Visit: Yes Care time: The patient presented to the Emergency Department on the above date and was hospitalized for further evaluation of their emergent condition. - New Patient This patient is new to me today: Yes Date on this admission: 06/23/18 - Critical Care Critical Care patient: No
[2018-06-23] MEDS ORDERED: AMPICILLIN SODIUM 250 MG VIAL IVPB ONE (18:54)
[2018-06-23] MEDS: LACTATED RINGERS SOLUTION 1,000 ML IV SCH ×2 (19:10→20:53)
[2018-06-23] MEDS ORDERED: GABAPENTIN 100 MG CAPSULE (FP) ONE (19:19)
[2018-06-23] MEDS: GABAPENTIN 400 MG CAPSULE (FP) PO SCH (19:21)
--- NOTE | 2018-06-23 19:38 | PN ---
Teaching Attending Note Name of Resident: Kulwinder Phillips ATTENDING PHYSICIAN STATEMENT I saw and evaluated the patient. I reviewed the resident's note and discussed the case with the resident. I agree with the resident's findings and plan as documented. SUBJECTIVE: Patient is a 63 year old woman with history of HIV disease on HAART (VL undetectable, CD4 unknown), COPD, endocarditis, back pain, BIRAN, and IVDA sent from [facility] due to Listeria bacteremia for IV Antibiotics. Patient was recently seen in ER on 06/14/18 for difficulty and pain swallowing with right sided mass and had blood cultures done for associated transient fever. She was transferred to [facility] for further workup of neck mass. Patient was discharged from [facility] after biopsy of mass, and followed up with her PCP - Dr. Morris at the [facility] today. She has had some weakness since her discharge from [facility] and has lost weight due to poor intake of food. She also complains of bilateral knee pain which she states started about 3 weeks ago but denies any trauma, redness, swelling. She denies any fevers, chills, headache, photophobia or blurring of vision. OBJECTIVE: Alert Vital Signs Period Temp Pulse Resp BP Sys/Amato Pulse Ox Last 24 Hr 99.2 F 98 22 115/83 91 HEENT: No Jaundice, eye redness or discharge, PERRLA, EOMI. Normocephalic, atraumatic. External ears are normal and hearing is grossly intact. No nasal discharge. Neck: Supple, nontender. No palpable adenopathy or thyromegaly. Right neck mass , tender. No JVD Chest: Good effort. Clear to auscultation and percussion. Heart: Regular. No S3, rub or murmur Abdomen: Not distended, soft, nontender and no HSM. No rebound or guarding. Normoactive bowel sounds. Ext: Peripheral pulses intact. No leg edema. Skin: Warm and dry. No petechiae, rash or ecchymosis. Neuro: Alert. Oriented x3. CN 2-12 grossly intact. Sensation grossly intact in all four extremities and DTR are symmetric. Current Medications Generic Name Dose Route Start Last Admin Trade Name Freq PRN Reason Stop Dose Admin Albuterol Sulfate 1 amp 06/23/18 18:28 Ventolin 0.083% Nebulizer Soln - NEB Q4H PRN SHORT OF BREATH/WHEEZING Albuterol Sulfate 2 puff 06/23/18 18:39 Ventolin Hfa Inhaler - IH Q4H PRN WHEEZING Enoxaparin Sodium 40 mg 06/24/18 10:00 Lovenox - SQ DAILY [facility] Folic Acid 1 mg 06/24/18 10:00 Folic Acid - PO DAILY [facility] Gabapentin 400 mg 06/23/18 19:00 06/23/18 19:21 Neurontin - PO 400 mg TID MILIND Administration Lactated Ringer's 1,000 mls @ 100 mls/hr 06/23/18 18:30 06/23/18 19:10 Lactated Ringers Solution IV 100 mls/hr ASDIR MILIND Administration Non-Formulary Medication 1 each 06/24/18 10:00 Emtricitabine/Tenofov Alafenam [Descovy 200-25 Mg Tablet (Nf)] PO DAILY [facility] Pantoprazole Sodium 40 mg 06/24/18 10:00 Protonix - PO DAILY [facility] Pyridoxine HCl 50 mg 06/24/18 10:00 Vitamin B6 - PO DAILY [facility] Fluticasone/Salmeterol 1 puff 06/23/18 22:00 Advair 100mcg/50mcg - IH BID [facility] Thiamine HCl 100 mg 06/24/18 10:00 Vitamin B1 - PO DAILY [facility] Home Medications Medication Instructions Recorded Gabapentin [Neurontin -] 400 mg PO Q8H #90 capsule MDD 3 07/01/17 Methadone [Dolophine -] 60 mg PO DAILY@0600 MDD 65mg 11/26/17 Docusate Sodium [Colace -] 100 mg PO BID #60 cap 01/06/18 Folic Acid - 1 mg PO DAILY #30 tablet 01/06/18 Pyridoxine HCl (Vitamin B6) 50 mg PO DAILY #30 capsule 01/06/18 [Vitamin B-6] Salmeterol/Fluticasone [Advair 1 puff IH BID #1 inhaler 01/06/18 100Mcg/50Mcg -] Thiamine HCl [B-1] 100 mg PO DAILY 30 Days #30 tablet 01/06/18 Citalopram Hydrobromide [Celexa -] 20 mg PO DAILY #30 tablet 04/21/18 Pantoprazole Sodium [Protonix -] 40 mg PO DAILY #14 tablet.ec 04/21/18 Venlafaxine HCl ER [Effexor Xr -] 37.5 mg PO DAILY #30 cap.er.24h 04/21/18 Diaper,Brief,Adult, Disposable 1 each MC TID #90 each 04/28/18 [Adult Brief] Albuterol Sulfate Inhaler - 2 inh PO Q4H PRN #1 inhaler 05/10/18 [Ventolin HFA Inhaler -] Dolutegravir Sodium [Tivicay] 50 mg PO DAILY #30 tab 05/10/18 Emtricitabine/Tenofov Alafenam 1 each PO DAILY #30 tablet 05/10/18 [Descovy 200-25 mg Tablet (Nf)] Abnormal Lab Results 06/23/18 06/23/18 06/23/18 14:53 14:53 14:58 MCV 101.8 H MCH 35.4 H Monocytes % 11.0 H POC VBG pCO2 Mixed VBG HCO3 Sodium 134 L Chloride 94 L Carbon Dioxide 34 H Anion Gap 6 L BUN 6 L Random Glucose 115 H Lactic Acid 2.2 H* Albumin 3.2 L 06/23/18 15:25 MCV MCH Monocytes % POC VBG pCO2 58.1 H Mixed VBG HCO3 33.7 H Sodium Chloride Carbon Dioxide Anion Gap BUN Random Glucose Lactic Acid Albumin ASSESSMENT AND PLAN: 1. Sepsis due to Listeria bacteremia - Started on Ampicillin 2 gm q 4 hours as per her PCP/ID physician. Getting IV NS and will trend lactic acid level. Lactic acidosis may be a side effect of NRTI class of anti-HIV drugs such as Tenofovir which she is getting. Continue HAART, O2 for COPD and liquid diet. Neck CT scan done on 06/14/18 showed that the neck mass is impinging on the esophagus. Needs cadiothoracic surgery consult and will strive to get medical records and biopsy report from [facility]. 2. Tobacco Use We will provide patient all the necessary assistance to facilitate smoking cessation and prescribe Nicotine patch. 3. Obesity - Will provide patient all the necessary assistance, counseling and positive reinforcement to facilitate weight loss. Consult copy coordinator. 4. DVT prophylaxis - Lovenox 40 mg SQ q 12 hours. 5. Advance directives - Full code
[2018-06-23] MEDS ORDERED: ACETAMINOPHEN 325 MG TABLET (FP) PO ONE (20:53)
[2018-06-23] MEDS: FLUTICASONE/SALMETEROL 100 MCG/50 MCG DISKUS IH SCH (22:30)
[2018-06-24] MEDS: GABAPENTIN 400 MG CAPSULE (FP) PO SCH ×3 (06:41→21:20)
--- NOTE | 2018-06-24 07:55 | PN ---
Physical Exam: SUBJECTIVE: Patient seen and examined this AM. She states she is still having some pain in her neck but overall is feeling okay. Denies any fevers or chills overnight. OBJECTIVE: Vital Signs Period Temp Pulse Resp BP Sys/Amato Pulse Ox Last 24 Hr 98.6 F-99.2 F 85-98 20-22 97-115/61-83 91-95 GENERAL: A&O, no acute distress HEAD: Normocephalic, atraumatic. EYES: discoloration of sclera, yellowish brown EARS, NOSE, THROAT: oropharynx clear without exudates. Moist mucous membranes. NECK: supple without lymphadenopathy, enlarged area noted on right, bandage over previous biopsy site LUNGS: CTA b/l, no crackles or wheezes HEART: Regular rate and rhythm, systolic murmur noted at Right Sternal border ABDOMEN: Soft, nontender to palpation, normoactive bowel sounds MUSCULOSKELETAL: b/l knee pain with ROM, however normal ROM, nontender to palpation, without erythema or swelling EXTREMITIES: warm, well-perfused. No peripheral edema. NEUROLOGICAL: Cranial nerves II-XII grossly intact. Normal speech. PSYCHIATRIC: Cooperative. Good eye contact. Appropriate mood and affect. SKIN: Warm, dry, no rashes or lesions noted Laboratory Results - last 24 hr 06/23/18 06/23/18 06/23/18 14:53 14:53 14:53 WBC 5.6 RBC 3.78 Hgb 13.4 Hct 38.5 MCV 101.8 H MCH 35.4 H MCHC 34.8 RDW 12.1 Plt Count 170 D MPV 10.6 Absolute Neuts (auto) 3.4 Neutrophils % 60.4 D Lymphocytes % 26.6 D Monocytes % 11.0 H Eosinophils % 1.6 D Basophils % 0.4 Nucleated RBC % 0 PT with INR INR PTT (Actin FS) VBG pH POC VBG pCO2 POC VBG pO2 Mixed VBG HCO3 Sodium 134 L Potassium 3.7 Chloride 94 L Carbon Dioxide 34 H Anion Gap 6 L BUN 6 L Creatinine 0.8 Creat Clearance w eGFR > 60 Random Glucose 115 H Lactic Acid Calcium 9.7 Total Bilirubin 0.7 AST 23 ALT 32 Alkaline Phosphatase 77 Troponin I < 0.02 Total Protein 6.7 Albumin 3.2 L Urine Color Urine Appearance Urine pH Ur Specific [place] Urine Protein Urine Glucose (UA) Urine Ketones Urine Blood Urine Nitrite Urine Bilirubin Urine Urobilinogen Ur Leukocyte Esterase Urine WBC (Auto) Urine RBC (Auto) Ur Epithelial Cells Calcium Oxalate Crystal Urine Mucus 06/23/18 06/23/18 06/23/18 14:53 14:58 15:25 WBC RBC Hgb Hct MCV MCH MCHC RDW Plt Count MPV Absolute Neuts (auto) Neutrophils % Lymphocytes % Monocytes % Eosinophils % Basophils % Nucleated RBC % PT with INR 12.40 INR 1.05 PTT (Actin FS) 33.3 VBG pH 7.38 POC VBG pCO2 58.1 H POC VBG pO2 46.6 D Mixed VBG HCO3 33.7 H Sodium Potassium Chloride Carbon Dioxide Anion Gap BUN Creatinine Creat Clearance w eGFR Random Glucose Lactic Acid 2.2 H* Calcium Total Bilirubin AST ALT Alkaline Phosphatase Troponin I Total Protein Albumin Urine Color Urine Appearance Urine pH Ur Specific [place] Urine Protein Urine Glucose (UA) Urine Ketones Urine Blood Urine Nitrite Urine Bilirubin Urine Urobilinogen Ur Leukocyte Esterase Urine WBC (Auto) Urine RBC (Auto) Ur Epithelial Cells Calcium Oxalate Crystal Urine Mucus 06/23/18 06/23/18 16:00 19:35 WBC RBC Hgb Hct MCV MCH MCHC RDW Plt Count MPV Absolute Neuts (auto) Neutrophils % Lymphocytes % Monocytes % Eosinophils % Basophils % Nucleated RBC % PT with INR INR PTT (Actin FS) VBG pH POC VBG pCO2 POC VBG pO2 Mixed VBG HCO3 Sodium Potassium Chloride Carbon Dioxide Anion Gap BUN Creatinine Creat Clearance w eGFR Random Glucose Lactic Acid 1.2 Calcium Total Bilirubin AST ALT Alkaline Phosphatase Troponin I Total Protein Albumin Urine Color Yellow Urine Appearance Slcloudy Urine pH 6.0 Ur Specific [place] 1.013 Urine Protein Negative Urine Glucose (UA) Negative Urine Ketones Negative Urine Blood Negative Urine Nitrite Negative Urine Bilirubin Negative Urine Urobilinogen Negative Ur Leukocyte Esterase Trace Urine WBC (Auto) <1 Urine RBC (Auto) 2 Ur Epithelial Cells Moderate Calcium Oxalate Crystal Many Urine Mucus Moderate Active Medications Generic Name Dose Route Start Last Admin Trade Name Freq PRN Reason Stop Dose Admin Acetaminophen 650 mg 06/24/18 06:46 Tylenol Oral Solution - PO Q6H PRN PAIN OR FEVER Albuterol Sulfate 1 amp 06/23/18 18:28 Ventolin 0.083% Nebulizer Soln - NEB Q4H PRN SHORT OF BREATH/WHEEZING Albuterol Sulfate 2 puff 06/23/18 18:39 Ventolin Hfa Inhaler - IH Q4H PRN WHEEZING Enoxaparin Sodium 40 mg 06/24/18 10:00 Lovenox - SQ DAILY [facility] Folic Acid 1 mg 06/24/18 10:00 Folic Acid - PO DAILY [facility] Gabapentin 400 mg 06/23/18 19:00 06/24/18 06:41 Neurontin - PO 400 mg TID MILIND Administration Lactated Ringer's 1,000 mls @ 100 mls/hr 06/23/18 18:30 06/23/18 20:53 Lactated Ringers Solution IV 100 mls/hr ASDIR MILIND Administration Non-Formulary Medication 1 each 06/24/18 10:00 Emtricitabine/Tenofov Alafenam [Descovy 200-25 Mg Tablet (Nf)] PO DAILY [facility] Pantoprazole Sodium 40 mg 06/24/18 10:00 Protonix - PO DAILY [facility] Pyridoxine HCl 50 mg 06/24/18 10:00 Vitamin B6 - PO DAILY [facility] Fluticasone/Salmeterol 1 puff 06/23/18 22:00 06/23/18 22:30 Advair 100mcg/50mcg - IH 1 puff BID MILIND Administration Thiamine HCl 100 mg 06/24/18 10:00 Vitamin B1 - PO DAILY [facility] ASSESSMENT/PLAN: 63 F with PMH HIV, COPD, endocarditis, back pain, BRIAN, hx IVDA, right neck mass with pain swallowing (recent biopsy) sent from [facility] due to Listeria bacteremia for IV Abx Right Neck Mass/Dysphagia -Pt with recent transfer to [facility] for further ENT workup -CT surgery consult for further workup of neck mass, recommended repeat imaging and likely scope from above -Will attempt to get records from [facility] Admission earlier this week for biopsy results -Tolerating regular diet and says she will avoid foods she has trouble with -Speech and swallow eval -prior CT noted -GI consult placed for evaluation / consideration of possible endoscopy/stenting Listeria Bacteremia -ID consult appreciated -Ampicillin 2gm IV Q6 for now, will await further ID recommendations -Pt not currently febrile, normal WBC count COPD -Continue home O2 2L -Advair -Albuterol NEBs PRN BRIAN -CPAP, pt does not know her settings DVT Prophylaxis -Lovenox 40 mg SQ Daily FEN -Fluids: LR @ 100 cc/hr -Electrolytes: No electrolyte abnormalities, BMP in AM -Nutrition: Regular Diet Disposition Med/Surg Visit type - Emergency Visit Emergency Visit: Yes ED Registration Date: 06/23/18 Care time: The patient presented to the Emergency Department on the above date and was hospitalized for further evaluation of their emergent condition. - New Patient This patient is new to me today: No - Critical Care Critical Care patient: No
[2018-06-24 08:15] LABS: BASO % 0.4 % (0-2.0); EOS % 1.6 % (0-4.5); HEMATOCRIT 36.3 % (32.4-45.2); HEMOGLOBIN 11.7 GM/dL (10.7-15.3); MCH 33.2 pg (25.7-33.7); MCHC 32.1 g/dl (32.0-36.0); MEAN CELL VOLUME 103.2 fl (80-96); MEAN PLT VOLUME 10.2 fl (7.5-11.1); MONO % 12.7 % (3.8-10.2); NEUT % 56.3 % (42.8-82.8); PLATELET COUNT 132 K/MM3 (134-434); RBC 3.51 M/mm3 (3.60-5.2); WHITE BLOOD COUNT 4.7 K/mm3 (4.0-10.0)
[2018-06-24 08:36] LABS: INR 1.02 (0.83-1.09)
[2018-06-24 09:01] LABS: ALBUMIN 2.8 g/dl (3.4-5.0); ALK PHOS 64 U/L (45-117); ANION GAP 5 MMOL/L (8-16); BILIRUBIN,TOTAL 0.6 mg/dL (0.2-1); BLOOD UREA NITROGEN 4 mg/dL (7-18); CALCIUM 8.9 mg/dL (8.5-10.1); CHLORIDE 98 mmol/L (98-107); CO2 35 mmol/L (21-32); CREATININE 0.7 mg/dL (0.55-1.3); GLUCOSE,RANDOM 106 mg/dL (74-106); MAGNESIUM 2.2 mg/dL (1.8-2.4); PHOSPHOROUS 4.6 mg/dL (2.5-4.9); POTASSIUM 3.7 mmol/L (3.5-5.1); SGOT/AST 17 U/L (15-37); SGPT/ALT 26 U/L (13-61); SODIUM 138 mmol/L (136-145)
[2018-06-24] MEDS ORDERED: METHADONE HCL 10 MG TABLET PO SCH (09:27)
--- NOTE | 2018-06-24 09:41 | PN ---
Progress Note (short form) - Note Progress Note: ID consult dictated seen in clinic yesterday and sent to ED 63 yo female with stable HIV, appendiceal tumor, ETOH use, COPD/BRIAN, seen in ED on 06/14 with fever and throat pain ct scan revealed a neck mass and she was transferred to [facility] for ENT eval blood cultures here grew Listeria 4/4 bottles and [facility] was contacted and informed she was seen by ID there, 14 days iv ampicillin was advised 2 q4h, she was discharged- unclear how many days IV amp she got she came to clinic yesterday c/o weakness, temp 99.2 I sent her to ED for admission as she had not received a full course of iv ampicillin she also had a neck biopsy and we need to f/u the results listeria bacteremia in an immunocompromised host (HIV) LP deferred- as her mental status is normal repeat blood cultures ampicillin 2 grams q 4h for 14 days if blood cultures are negative, can place picc line for SNF treatment (she is agreeable) s/p biopsy of tracheal mass- f/u results hiv- takes tivicay/libraovsirisha, can use tivicay/truvada in hospital I spoke with discharge planning Problem List - Problems (1) Listeria septicemia Code(s): A32.7 - LISTERIAL SEPSIS (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
[2018-06-24] MEDS ORDERED: PATIENT'S OWN MEDICATION (NON-FORMULARY) (Emtricitabine/Tenofov Alafenam [Descovy 200-25 M PO SCH (10:00)
[2018-06-24] MEDS ORDERED: PT OWN MED DRAWER 7, Y5N ONE ×6 (10:08→21:28)
[2018-06-24] MEDS: THIAMINE HCL 100 MG TABLET (FP) PO SCH (10:10)
[2018-06-24] MEDS: FOLIC ACID 1 MG TABLET (FP) PO SCH (10:10)
[2018-06-24] MEDS: PANTOPRAZOLE 40 MG TABLET (FP) PO SCH (10:10)
[2018-06-24] MEDS: FLUTICASONE/SALMETEROL 100 MCG/50 MCG DISKUS IH SCH ×2 (10:10→21:28)
[2018-06-24] MEDS: ENOXAPARIN NA (PORCINE) 40 MG/0.4 ML DISP.SYRIN SQ SCH (10:11)
[2018-06-24] MEDS: PYRIDOXINE HCL (B-6) 50 MG TABLET (FP) PO SCH (10:12)
[2018-06-24] MEDS ORDERED: METHADONE PO SCH (10:15)
[2018-06-24] MEDS ORDERED: METHADONE HCL 10 MG TABLET ONE (10:54)
[2018-06-24] MEDS ORDERED: METHADONE HCL 40 MG DISPERSABLE TABLET ONE (10:55)
[2018-06-24] MEDS: METHADONE 20 MG, METHADONE 40 MG PO SCH (11:22)
[2018-06-24] MEDS: AMPICILLIN - 2 GM in SODIUM CHLORIDE 100 ML IVPB SCH ×4 (11:23→21:20)
[2018-06-24] MEDS: EMTRICITABINE 200MG/TENOFOVIR 300MG PO SCH (11:23)
[2018-06-24] MEDS: LACTATED RINGERS SOLUTION 1,000 ML IV SCH ×2 (11:24→19:35)
[2018-06-24] MEDS: DOLUTEGRAVIR SODIUM 50 MG TABLET (NON-FORMULARY) PO SCH (12:40)
--- NOTE | 2018-06-24 13:49 | PN ---
Progress Note (short form) - Note Progress Note: Thoracic Surgery: Please have ENT evaluate. This is likely inflammatory unless biopsy results suggest otherwise. Also, reimage with CT of neck and chest with IV contrast. I will follow.
--- NOTE | 2018-06-24 14:11 | CONSULT ---
Admitting History and Physical - Primary Care Physician PCP: Galileo Reed - Admission History of Present Illness: Per EMR: Patient is a 63 year old woman with history of HIV disease on HAART (VL undetectable, CD4 unknown), COPD, endocarditis, back pain, BRIAN, and IVDA sent from [facility] due to Listeria bacteremia for IV Antibiotics. Patient was recently seen in ER on 06/14/18 for difficulty and pain swallowing with right sided mass and had blood cultures done for associated transient fever. She was transferred to [facility] for further workup of neck mass. Patient was discharged from [facility] after biopsy of mass, and followed up with her PCP - Dr. Morris at the [facility] today. She has had some weakness since her discharge from [facility] and has lost weight due to poor intake of food. She also complains of bilateral knee pain which she states started about 3 weeks ago but denies any trauma, redness, swelling. She denies any fevers, chills, headache, photophobia or blurring of vision. ENT consult rec by Thoracic surgeon/likely inflammatory unless biopsy results suggest otherwise. Also, reimage with CT of neck and chest with IV contrast. History Source: Patient Limitations to Obtaining History: No Limitations - Past Medical History Cardiovascular: Yes: Other (ENDOCARDITIS). No: AFIB Pulmonary: Yes: COPD. No: O2 Dependent Gastrointestinal: Yes: Constipation, GERD. No: Ascites Hepatobiliary: Yes: Hepatitis B (HBV core ab), Hepatitis C (PCR negative), Other (alcoholic liver disease suspected with mild splenomegaly) ...: No Infectious Disease: Yes: HIV Psych: Yes: Depression - Smoking History Smoking history: Former smoker Have you smoked in the past 12 months: No Aproximately how many cigarettes per day: 2 If you are a former smoker, when did you quit?: 2 weeks ago - Alcohol/Substance Use Hx Alcohol Use: Yes (stopped 2 wees ago) History of Substance Use: reports: Cocaine, Heroin (opoid dependence) Date of Last Use: 05/14/16 - Social History ADL: Independent History of Recent Travel: No History - Admission Reason For Visit: BACTEREMIA; LACTIC ACIDOSIS - Diagnostics X-ray: Report Reviewed - General Mental Status: Alert and Oriented, Awake and Alert, Able to Follow Commands Attention: Intact Ability to Follow Directions: Good Head/Neck Control: WFL - Hearing Hearing: Normal Hearing Aide: No With Patient: No Speech Evaluation - Communication Primary Language: GUAMANIAN Communication: Yes: Within Normal Limits - Speech Production Able to Make Needs Known: Yes: WNL Intelligibility: Yes: WNL - Speech Characteristics Voice Loudness: Normal Voice Pitch: Yes: Normal Voice Phonatory-based Quality: Yes: Hoarse Speech Pattern: Normal Speech Clarity: < 100% Nasal Resonance: Normal Articulation: Yes: Precise Rate of Speech: Intact - Language/Auditory Comprehension Follows: Yes: 1 Stage Simple Commands - Language/Verbal Expression Able to Respond to Simple Queries: Yes: WNL Able to Communicate Wants and Needs: Yes: WNL Functional Communication Status: Yes: WNL - Swallow Evaluation/Bedside Assessment Current Nutritional Intake: Regular, Thin Liquids Oral Secretions: Yes: WFL Dentition: Yes: Edentulous (lower), Dental Appliance Upper Facial Symmetry at Rest: Symmetrical Facial Symmetry on Retraction: Symmetrical Sensation: Normal Against Resistance Opening: Normal Against Resistance Closing: Normal Pucker Lips: Normal Smile: Normal Lingual Movement: Normal, Symmetric Lingual Speed of Movement: Normal Lingual Movement Strgth Against Opposition: Normal Lingual Movement Characteristics: Normal Velopharyngeal Movement: Normal Laryngeal Elevation: WFL Laryngeal Movement: Able to Palpate Bolus Size: WFL Labial Seal: WFL Chewing: WFL Oral Prep Time: WFL A-P Transit: WFL Pocketing: None Timing of Swallow: WFL Coughing/Throat Clear: No Change in Voice: No Recommendations - Speech Evaluation, Impression/Plan Impression: Pt reports swallowing has improved, completing regular diet today. For me, she gabs her chest and reports Odynophagia while drinking water. No responsive cough. No Oral thrush noted. r/o esoph aida? - Dysphagia Impressions/Plan Dysphagia Impressions: Ongoing Evaluation *Silent aspiration: cannot be R/O at bedside Recommendations: MBS w Esophagus (if symptoms of dysphagia persist) - Recommendations Diet Consistency: Other (as tolerated)
--- NOTE | 2018-06-24 15:58 | CON.GI ---
Consult Consult Specialty:: GI Referred by:: Hospitalist service Reason for Consultation:: neck mass compressing esophagus - History of Present Illness Chief Complaint: difficulty swallowing and burning when swallowing History of Present Illness: 63F admitted through [facility] ER for evaluation of difficulty swallowing and pain when swallowing. ? recent biopsy of nech mass at [facility]. States that she was able to eat today without the burning. She believes that she had an EGD at [facility] 2-3 years ago that was "OK". She cannot recall when she had colonoscopy last. She has a lower neck / upper mediastinal mass compressing her cervical esophagus. - History Source History Provided By: Patient - Past Medical History Cardio/Vascular: Yes: Other (ENDOCARDITIS). No: AFIB Pulmonary: Yes: COPD. 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 No: Ascites Hepatobiliary: Yes: Hepatitis B (HBV core ab +, surface antibody +, antigen negative), Hepatitis C (PCR negative), Other (alcoholic liver disease suspected with mild splenomegaly) ...: No Infectious Disease: Yes: HIV Psych: Yes: Depression Additional Medical History: substance abuse on methadone Alcohol abuse - Past Surgical History Additional Surgical History: Abortions - Alcohol/Substance Use Hx Alcohol Use: Yes (stopped 2 wees ago) History of Substance Use: reports: Cocaine (IV, crack), Heroin (opoid dependence ) Date of Last Use: 05/14/16 - Smoking History Smoking history: Former smoker Have you smoked in the past 12 months: No Aproximately how many cigarettes per day: 2 If you are a former smoker, when did you quit?: 2 weeks ago - Social History Usual Living Arrangement: Alone ADL: Independent History of Recent Travel: No Home Medications - Allergies Allergies/Adverse Reactions: Allergies Allergy/AdvReac Type Severity Reaction Status Date / Time No Known Drug Allergies Allergy Verified 06/23/18 18:52 banana AdvReac Verified 06/23/18 13:02 - Home Medications Home Medications: Ambulatory Orders Gabapentin [Neurontin -] 400 mg PO Q8H #90 capsule MDD 3 07/01/17 Methadone [Dolophine -] 60 mg PO DAILY@0600 MDD 65mg 11/26/17 Docusate Sodium [Colace -] 100 mg PO BID #60 cap 01/06/18 Folic Acid - 1 mg PO DAILY #30 tablet 01/06/18 Pyridoxine HCl (Vitamin B6) [Vitamin B-6] 50 mg PO DAILY #30 capsule 01/06/18 Salmeterol/Fluticasone [Advair 100Mcg/50Mcg -] 1 puff IH BID #1 inhaler Thiamine HCl [B-1] 100 mg PO DAILY 30 Days #30 tablet 01/06/18 Citalopram Hydrobromide [Celexa -] 20 mg PO DAILY #30 tablet 04/21/18 Pantoprazole Sodium [Protonix -] 40 mg PO DAILY #14 tablet.ec 04/21/18 Venlafaxine HCl ER [Effexor Xr -] 37.5 mg PO DAILY #30 cap.er.24h 04/21/18 Diaper,Brief,Adult, Disposable [Adult Brief] 1 each MC TID #90 each 04/28/18 Albuterol Sulfate Inhaler - [Ventolin HFA Inhaler -] 2 inh PO Q4H PRN #1 inhaler 05/10/18 Dolutegravir Sodium [Tivicay] 50 mg PO DAILY #30 tab 05/10/18 Emtricitabine/Tenofov Alafenam [Descovy 200-25 mg Tablet (Nf)] 1 each PO DAILY # 30 tablet 05/10/18 Family Disease History - Family Disease History Family Disease History: CA: Grandparent, Father (lung cancer), Other: Mother ( Alive: healthy), Brother (4, : 1 from HIV complications), Sister (1, from HIV complications) Review of Systems - Review of Systems Constitutional: denies: Chills, Fever HENT: reports: Difficult Swallowing Cardiovascular: reports: Chest Pain (burning when swallowing) Respiratory: denies: Cough Gastrointestinal: denies: Abdominal Pain, Bloating, Constipation, Diarrhea, Melena, Rectal Bleeding Physical Exam-GI Vital Signs: Vital Signs Temperature 99.5 F 06/24/18 08:20 Pulse Rate 83 06/24/18 08:20 Respiratory Rate 20 06/24/18 08:20 Blood Pressure 103/63 06/24/18 08:20 O2 Sat by Pulse Oximetry (%) 94 L 06/24/18 09:50 Constitutional: Yes: Calm Eyes: No: Sclera Icterus Cardiovascular: Yes: Regular Rate and Rhythm, Murmur Respiratory: Yes: CTA Bilaterally Gastrointestinal Inspection: No: Distention ...Auscultate: No: Normoactive Bowel Sounds ...Palpate: No: Hepatomegaly, Splenomegaly Edema: Yes Edema: LLE: 1+, RLE: 1+ Neurological: Yes: Alert Labs: CBC, BMP 06/24/18 07:30 06/24/18 07:30 INR, PTT INR 1.02 (0.83-1.09) 06/24/18 07:30 Hepatic Panel Total Bilirubin 0.6 mg/dL (0.2-1) 06/24/18 07:30 AST 17 U/L (15-37) 06/24/18 07:30 ALT 26 U/L (13-61) 06/24/18 07:30 Alkaline Phosphatase 64 U/L (45-117) 06/24/18 07:30 Albumin 2.8 g/dl (3.4-5.0) L 06/24/18 07:30 Problem List - Problems (1) Dysphagia Assessment/Plan: Suspect secondary to extrinisc compression from neck mass: Primary team trying to obtain pathology from biopsy: Continued evaluation at tertiary care center No GI interventions planned here given potentially high risk nature of sedation / endoscopy in setting of compressive neck mass / preexisting BRIAN. Could potentiallymake intubation complicated as well Code(s): R13.10 - DYSPHAGIA, UNSPECIFIED Qualifiers: Dysphagia type: unspecified Qualified Code(s): R13.10 - Dysphagia, unspecified (2) Odynophagia Assessment/Plan: Improved. Barium esophagram. If burning after swallowing persists, consider empiric trial of diflucan 100mg once daily Code(s): R13.10 - DYSPHAGIA, UNSPECIFIED
[2018-06-24] MEDS: ACETAMINOPHEN 650 MG/20.3 ML ORAL SOLUTION (CUPS) PO PRN (19:04)
--- NOTE | 2018-06-24 20:02 | PN ---
Teaching Attending Note Name of Resident: Kulwinder Phillips ATTENDING PHYSICIAN STATEMENT I saw and evaluated the patient. I reviewed the resident's note and discussed the case with the resident. I agree with the resident's findings and plan as documented. SUBJECTIVE: Feels some discomfort from R side neck mass and occassional difficulty swallowing. No regurgitation/nausea/vomiting. OBJECTIVE: Afebrile/Hemodynamically Stable. Last Vital Signs Temp Pulse Resp BP Pulse Ox 98 F 92 H 18 103/70 93 L 06/24/18 18:00 06/24/18 18:00 06/24/18 18:00 06/24/18 18:00 06/24/18 16:44 HEENT - R neck mass, biopsy site dressed, no sign of infection. No pharyngeal erythema/exudate Heart - S1, S2, SM Lungs - clear to auscultation. No crackles/wheeze. Abdomen - soft, non-tender. Bowel Sounds normal. Extremities - LE edema ++. No calf tenderness. Laboratory Results - last 24 hr 06/23/18 06/24/18 06/24/18 19:35 07:30 07:30 WBC 4.7 RBC 3.51 L Hgb 11.7 Hct 36.3 MCV 103.2 H MCH 33.2 MCHC 32.1 RDW 12.0 Plt Count 132 L D MPV 10.2 Absolute Neuts (auto) 2.6 Neutrophils % 56.3 Lymphocytes % 29.0 Monocytes % 12.7 H Eosinophils % 1.6 Basophils % 0.4 Nucleated RBC % 0 PT with INR 12.00 INR 1.02 Sodium Potassium Chloride Carbon Dioxide Anion Gap BUN Creatinine Creat Clearance w eGFR Random Glucose Lactic Acid 1.2 Calcium Phosphorus Magnesium Total Bilirubin AST ALT Alkaline Phosphatase Total Protein Albumin 06/24/18 07:30 WBC RBC Hgb Hct MCV MCH MCHC RDW Plt Count MPV Absolute Neuts (auto) Neutrophils % Lymphocytes % Monocytes % Eosinophils % Basophils % Nucleated RBC % PT with INR INR Sodium 138 Potassium 3.7 Chloride 98 Carbon Dioxide 35 H Anion Gap 5 L BUN 4 L Creatinine 0.7 Creat Clearance w eGFR > 60 Random Glucose 106 Lactic Acid Calcium 8.9 Phosphorus 4.6 Magnesium 2.2 Total Bilirubin 0.6 AST 17 ALT 26 Alkaline Phosphatase 64 Total Protein 6.0 L Albumin 2.8 L Current Medications Generic Name Dose Route Start Last Admin Trade Name Freq PRN Reason Stop Dose Admin Acetaminophen 650 mg 06/24/18 06:46 06/24/18 19:04 Tylenol Oral Solution - PO 650 mg Q6H PRN Administration PAIN OR FEVER Albuterol Sulfate 1 amp 06/23/18 18:28 Ventolin 0.083% Nebulizer Soln - NEB Q4H PRN SHORT OF BREATH/WHEEZING Albuterol Sulfate 2 puff 06/23/18 18:39 Ventolin Hfa Inhaler - IH Q4H PRN WHEEZING Emtricitabine/Tenofovir 1 tab 06/24/18 10:00 06/24/18 11:23 Truvada PO 1 tab DAILY MILIND Administration Enoxaparin Sodium 40 mg 06/24/18 10:00 06/24/18 10:11 Lovenox - SQ 40 mg DAILY MILIND Administration Folic Acid 1 mg 06/24/18 10:00 06/24/18 10:10 Folic Acid - PO 1 mg DAILY MILIND Administration Gabapentin 400 mg 06/23/18 19:00 06/24/18 13:38 Neurontin - PO 400 mg TID MILIND Administration Lactated Ringer's 1,000 mls @ 100 mls/hr 06/23/18 18:30 06/24/18 19:35 Lactated Ringers Solution IV Not Given ASDIR MILIND Ampicillin Sodium 2 gm/ Sodium 100 mls @ 200 mls/hr 06/24/18 10:00 06/24/18 17:16 Chloride IVPB 200 mls/hr Q4H-IV MILIND Administration Protocol Methadone HCl 20 mg/ Methadone 60 mg 06/24/18 11:00 06/24/18 11:22 HCl 40 mg PO 60 mg DAILY@0600 MILIND Administration Pantoprazole Sodium 40 mg 06/24/18 10:00 06/24/18 10:10 Protonix - PO 40 mg DAILY MIL[facility] Administration Pyridoxine HCl 50 mg 06/24/18 10:00 06/24/18 10:12 Vitamin B6 - PO 50 mg DAILY [facility] Administration Fluticasone/Salmeterol 1 puff 06/23/18 22:00 06/24/18 10:10 Advair 100mcg/50mcg - IH 1 puff BID MILIND Administration Thiamine HCl 100 mg 06/24/18 10:00 06/24/18 10:10 Vitamin B1 - PO 100 mg DAILY MILIND Administration ASSESSMENT/PLAN: 63 year old female with HIV, COPD, prior history of endocarditis, CBP, BRIAN on CPAP at night, Depression, Hx of IVDU, R neck mass s/p recent biopsy at [facility] (awaiting pathology report), sent to [facility] by ID for positive blood Cx for Listeria drawn on prior admission. 1. R Neck Mass s/p recent Bx, awaiting official pathology Resulting Dysphagia/Odynophagia Evaluated by GI - [facility]. Tolerating regular consistency diet currentrly. For speech/swallow eval 2. Listeria Bacteremia, source unclear Ampicillin IV as per ID. Further recommendations as per ID. Blood Cx repeated. Afebrile, Hemodynamically Stable. 3. Chronic Repiratory Failure secondary to COPD - Stable. Continue Home O2, Advair, Albuterol prn. 4. BRIAN -CPAP at night. 5. Hx of Polysubstance Abuse including Alcohol and Heroin IVDU Continue Methadone and Thiamine/Folate 6. HIV - Continue HAART 7. Depression - continue Venlafaxine and Citalopram. 8. Macrocytosis. MCV 103.2 - will send B12 and Folate levels. DVT Px - Lovenox SQ. GI Px - Protonix.
[2018-06-25] MEDS: AMPICILLIN - 2 GM in SODIUM CHLORIDE 100 ML IVPB SCH ×6 (01:06→21:28)
[2018-06-25] MEDS: LACTATED RINGERS SOLUTION 1,000 ML IV SCH ×2 (02:56→14:26)
[2018-06-25] MEDS ORDERED: METHADONE HCL 10 MG TABLET ONE (05:20)
[2018-06-25] MEDS ORDERED: METHADONE HCL 40 MG DISPERSABLE TABLET ONE (05:21)
[2018-06-25] MEDS: ACETAMINOPHEN 650 MG/20.3 ML ORAL SOLUTION (CUPS) PO PRN ×2 (05:26→23:41)
[2018-06-25] MEDS: GABAPENTIN 400 MG CAPSULE (FP) PO SCH ×3 (05:27→21:28)
[2018-06-25] MEDS: METHADONE 20 MG, METHADONE 40 MG PO SCH (05:45)
[2018-06-25] MEDS: FLUTICASONE/SALMETEROL 100 MCG/50 MCG DISKUS IH SCH ×2 (10:14→21:28)
[2018-06-25] MEDS: EMTRICITABINE 200MG/TENOFOVIR 300MG PO SCH (10:14)
[2018-06-25] MEDS: DOLUTEGRAVIR SODIUM 50 MG TABLET (NON-FORMULARY) PO SCH (10:14)
[2018-06-25] MEDS: THIAMINE HCL 100 MG TABLET (FP) PO SCH (10:46)
[2018-06-25] MEDS: PANTOPRAZOLE 40 MG TABLET (FP) PO SCH (10:46)
[2018-06-25] MEDS: FOLIC ACID 1 MG TABLET (FP) PO SCH (10:46)
[2018-06-25] MEDS: ENOXAPARIN NA (PORCINE) 40 MG/0.4 ML DISP.SYRIN SQ SCH (10:46)
[2018-06-25] MEDS: PYRIDOXINE HCL (B-6) 50 MG TABLET (FP) PO SCH (10:46)
--- NOTE | 2018-06-25 12:24 | PN ---
Progress Note, Physician History of Present Illness: Await but lethargic No complaints offerred Tolerating antibiotics Afebrile - Current Medication List Current Medications: Active Medications Acetaminophen (Tylenol Oral Solution -) 650 mg PO Q6H PRN PRN Reason: PAIN OR FEVER Last Admin: 06/25/18 05:26 Dose: 650 mg Albuterol Sulfate (Ventolin 0.083% Nebulizer Soln -) 1 amp NEB Q4H PRN PRN Reason: SHORT OF BREATH/WHEEZING Albuterol Sulfate (Ventolin Hfa Inhaler -) 2 puff IH Q4H PRN PRN Reason: WHEEZING Emtricitabine/Tenofovir (Truvada) 1 tab PO DAILY [facility] Last Admin: 06/25/18 10:14 Dose: 1 tab Enoxaparin Sodium (Lovenox -) 40 mg SQ DAILY [facility] Last Admin: 06/25/18 10:46 Dose: 40 mg Folic Acid (Folic Acid -) 1 mg PO DAILY [facility] Last Admin: 06/25/18 10:46 Dose: 1 mg Gabapentin (Neurontin -) 400 mg PO TID [facility] Last Admin: 06/25/18 05:27 Dose: 400 mg Lactated Ringer's (Lactated Ringers Solution) 1,000 mls @ 100 mls/hr IV ASDIR [facility] Last Admin: 06/25/18 02:56 Dose: 100 mls/hr Ampicillin Sodium 2 gm/ Sodium (Chloride) 100 mls @ 200 mls/hr IVPB Q4H-IV [facility] ; Protocol Last Admin: 06/25/18 10:10 Dose: 200 mls/hr Methadone HCl 20 mg/ Methadone (HCl 40 mg) 60 mg PO DAILY@0600 [facility] Last Admin: 06/25/18 05:45 Dose: 60 mg Pantoprazole Sodium (Protonix -) 40 mg PO DAILY [facility] Last Admin: 06/25/18 10:46 Dose: 40 mg Pyridoxine HCl (Vitamin B6 -) 50 mg PO DAILY [facility] Last Admin: 06/25/18 10:46 Dose: 50 mg Fluticasone/Salmeterol (Advair 100mcg/50mcg -) 1 puff IH BID [facility] Last Admin: 06/25/18 10:14 Dose: 1 puff Thiamine HCl (Vitamin B1 -) 100 mg PO DAILY [facility] Last Admin: 06/25/18 10:46 Dose: 100 mg - Objective Vital Signs: Vital Signs Temperature 98.0 F 06/25/18 10:00 Pulse Rate 80 06/25/18 10:00 Respiratory Rate 18 06/25/18 10:00 Blood Pressure 115/74 06/25/18 10:00 O2 Sat by Pulse Oximetry (%) 97 06/24/18 21:00 Constitutional: Yes: No Distress Eyes: Yes: Conjunctiva Clear Cardiovascular: Yes: Regular Rate and Rhythm, S1, S2 Respiratory: Yes: Diminished Gastrointestinal: Yes: Normal Bowel Sounds, Soft, Abdomen, Obese. No: Tenderness Labs: CBC, BMP 06/24/18 07:30 06/24/18 07:30 INR, PTT INR 1.02 (0.83-1.09) 06/24/18 07:30 Assessment/Plan Listeria sepsis HIV + S/P neck mass biopsy Continue ampicillin 2gm IVPB q4h Needs PICC for outpatient IV antibiotics at SNF Follow up diagnosis/ treatment neck mass at [facility]
--- NOTE | 2018-06-25 16:11 | PN ---
Physical Exam: SUBJECTIVE: Patient seen and examined. C/o of pain in R gums. Able to tolerate food. Dysphagia improved. Biopsy results from [facility] did not yield any diagnosis. Per pt was asked to return on Wednesday for rebiopsy. Per specialists , pt will be better off at a tertiary center OBJECTIVE: Vital Signs Period Temp Pulse Resp BP Sys/Amato Pulse Ox Last 24 Hr 97.6 F-98.4 F 77-92 18-18 103-120/66-75 93-97 Vital Signs Temp 97.9 F 06/25/18 14:00 Pulse 77 06/25/18 14:00 Resp 18 06/25/18 14:00 BP 120/74 06/25/18 14:00 Pulse Ox 96 06/25/18 09:00 Intake & Output 06/24/18 06/25/18 06/25/18 23:59 11:59 23:59 Intake Total 742 1300 Balance 742 1300 Weight 84.051 kg Intake: IV 442 1000 Lactated Ringers Solution 442 1000 1,000 ml @ 100 mls/hr IV ASDIR MILIND Rx#: [id number] IVPB 300 300 Other: Voiding Method Toilet Toilet # Unmeasured Voids Void 1 1 2 Bowel Movement No Height 1.68 m Body Mass Index (BMI) 29.9 GENERAL: The patient is drowsy but arousable, in no acute distress. HEAD: Normal with no signs of trauma. ENT: No obvious mass or bleed in mouth NECK: supple. Right neck bandaid, no bleed/lesion seen under LUNGS: Breath sounds reduced b/l, HEART: Regular rate and rhythm, S1, S2 ABDOMEN: Soft, questionable RCA, nondistended, normoactive bowel sounds EXTREMITIES: 2+ pulses, warm, well-perfused, no edema. NEUROLOGICAL: Cranial nerves II through XII grossly intact. Normal speech, gait not observed. Laboratory Results - last 24 hr 06/25/18 06:30 Vitamin B12 771 Serum Folate 19 H Active Medications Generic Name Dose Route Start Last Admin Trade Name Freq PRN Reason Stop Dose Admin Acetaminophen 650 mg 06/24/18 06:46 06/25/18 05:26 Tylenol Oral Solution - PO 650 mg Q6H PRN Administration PAIN OR FEVER Albuterol Sulfate 1 amp 06/23/18 18:28 Ventolin 0.083% Nebulizer Soln - NEB Q4H PRN SHORT OF BREATH/WHEEZING Albuterol Sulfate 2 puff 06/23/18 18:39 Ventolin Hfa Inhaler - IH Q4H PRN WHEEZING Emtricitabine/Tenofovir 1 tab 06/24/18 10:00 06/25/18 10:14 Truvada PO 1 tab DAILY MIL[facility] Administration Enoxaparin Sodium 40 mg 06/24/18 10:00 06/25/18 10:46 Lovenox - SQ 40 mg DAILY MILIND Administration Folic Acid 1 mg 06/24/18 10:00 06/25/18 10:46 Folic Acid - PO 1 mg DAILY MIL[facility] Administration Gabapentin 400 mg 06/23/18 19:00 06/25/18 14:26 Neurontin - PO 400 mg TID MILIND Administration Lactated Ringer's 1,000 mls @ 100 mls/hr 06/23/18 18:30 06/25/18 14:26 Lactated Ringers Solution IV 100 mls/hr ASDIR MILIND Administration Ampicillin Sodium 2 gm/ Sodium 100 mls @ 200 mls/hr 06/24/18 10:00 06/25/18 14:26 Chloride IVPB 200 mls/hr Q4H-IV MILIND Administration Protocol Methadone HCl 20 mg/ Methadone 60 mg 06/24/18 11:00 06/25/18 05:45 HCl 40 mg PO 60 mg DAILY@0600 MILIND Administration Pantoprazole Sodium 40 mg 06/24/18 10:00 06/25/18 10:46 Protonix - PO 40 mg DAILY MILIND Administration Pyridoxine HCl 50 mg 06/24/18 10:00 06/25/18 10:46 Vitamin B6 - PO 50 mg DAILY MILIND Administration Fluticasone/Salmeterol 1 puff 06/23/18 22:00 06/25/18 10:14 Advair 100mcg/50mcg - IH 1 puff BID MILIND Administration Thiamine HCl 100 mg 06/24/18 10:00 06/25/18 10:46 Vitamin B1 - PO 100 mg DAILY MILIND Administration Microbiology 06/23/18 14:34 Blood - Peripheral Venous Blood Culture - Preliminary NO GROWTH OBTAINED AFTER 48 HOURS, INCUBATION TO CONTINUE FOR 3 DAYS. 06/23/18 16:00 Urine - Urine Clean Catch Urine Culture - Final NO GROWTH OBTAINED 06/23/18 15:10 Blood - Peripheral Venous Blood Culture - Preliminary NO GROWTH OBTAINED AFTER 24 HOURS, INCUBATION TO CONTINUE FOR 4 DAYS. ASSESSMENT/PLAN: 63 F with PMH HIV, COPD, endocarditis, back pain, BRIAN, hx IVDA, right neck mass with pain swallowing (recent biopsy) sent from [facility] due to Listeria bacteremia for IV Abx Right Neck Mass/Dysphagia -Pt with recent transfer to [facility] for further ENT workup, biopsy results not conclusive, for rebiopsy - Initiate transfer back to [facility] (pending call back- Transfer center number is [phone]), contacting ENT because of neck mass, if not accepted will benefit from [facility] floor admission which will likely not be today -CT surgery consult for further workup of neck mass, recommended repeat imaging and likely scope from above -Tolerating regular diet and says she will avoid foods she has trouble with -Speech and swallow eval apprec -prior CT noted -GI consult placed for evaluation- pt not a candidate her for procedure, better at tertiary center. Listeria Bacteremia -ID consult appreciated -Ampicillin 2gm IV Q6 for now, for 14 days total -Pt not currently febrile, normal WBC count COPD -Continue home O2 2L -Advair -Albuterol NEBs PRN BRIAN -CPAP, pt does not know her settings DVT Prophylaxis -Lovenox 40 mg SQ Daily FEN -Fluids: LR @ 100 cc/hr -Electrolytes: No electrolyte abnormalities, BMP in AM -Nutrition: Regular Diet Disposition Pending transfer if bed available Visit type - Emergency Visit Emergency Visit: Yes ED Registration Date: 06/23/18 Care time: The patient presented to the Emergency Department on the above date and was hospitalized for further evaluation of their emergent condition. - New Patient This patient is new to me today: Yes Date on this admission: 06/25/18 - Critical Care Critical Care patient: No
--- NOTE | 2018-06-25 17:48 | PN ---
Teaching Attending Note Name of Resident: Reema Miller ATTENDING PHYSICIAN STATEMENT I saw and evaluated the patient. I reviewed the resident's note and discussed the case with the resident. I agree with the resident's findings and plan as documented. SUBJECTIVE: Feels okay although she says she is in "hell". Neck pain appears improved. Swallowing ok and tolerating meals. No fever/chills. OBJECTIVE: Afebrile/Hemodynamically Stable. Last Vital Signs Temp Pulse Resp BP Pulse Ox 97.9 F 77 18 120/74 96 06/25/18 14:00 06/25/18 14:00 06/25/18 14:00 06/25/18 14:00 06/25/18 09:00 HEENT - R neck mass, biopsy site dressed, no sign of infection. No pharyngeal erythema/exudate Heart - S1, S2, SM Lungs - clear to auscultation. No crackles/wheeze. Abdomen - soft, non-tender. Bowel Sounds normal. Extremities - LE edema ++. No calf tenderness. Laboratory Results - last 24 hr 06/25/18 06:30 Vitamin B12 771 Serum Folate 19 H Current Medications Generic Name Dose Route Start Last Admin Trade Name Freq PRN Reason Stop Dose Admin Acetaminophen 650 mg 06/24/18 06:46 06/25/18 05:26 Tylenol Oral Solution - PO 650 mg Q6H PRN Administration PAIN OR FEVER Albuterol Sulfate 1 amp 06/23/18 18:28 Ventolin 0.083% Nebulizer Soln - NEB Q4H PRN SHORT OF BREATH/WHEEZING Albuterol Sulfate 2 puff 06/23/18 18:39 Ventolin Hfa Inhaler - IH Q4H PRN WHEEZING Emtricitabine/Tenofovir 1 tab 06/24/18 10:00 06/25/18 10:14 Truvada PO 1 tab DAILY [facility] Administration Enoxaparin Sodium 40 mg 06/24/18 10:00 06/25/18 10:46 Lovenox - SQ 40 mg DAILY MILIND Administration Folic Acid 1 mg 06/24/18 10:00 06/25/18 10:46 Folic Acid - PO 1 mg DAILY MILIND Administration Gabapentin 400 mg 06/23/18 19:00 06/25/18 14:26 Neurontin - PO 400 mg TID MILIND Administration Lactated Ringer's 1,000 mls @ 100 mls/hr 06/23/18 18:30 06/25/18 14:26 Lactated Ringers Solution IV 100 mls/hr ASDIR MILIND Administration Ampicillin Sodium 2 gm/ Sodium 100 mls @ 200 mls/hr 06/24/18 10:00 06/25/18 14:26 Chloride IVPB 200 mls/hr Q4H-IV MILIND Administration Protocol Methadone HCl 20 mg/ Methadone 60 mg 06/24/18 11:00 06/25/18 05:45 HCl 40 mg PO 60 mg DAILY@0600 MILIND Administration Pantoprazole Sodium 40 mg 06/24/18 10:00 06/25/18 10:46 Protonix - PO 40 mg DAILY MILIND Administration Pyridoxine HCl 50 mg 06/24/18 10:00 06/25/18 10:46 Vitamin B6 - PO 50 mg DAILY MILIND Administration Fluticasone/Salmeterol 1 puff 06/23/18 22:00 06/25/18 10:14 Advair 100mcg/50mcg - IH 1 puff BID MILIND Administration Thiamine HCl 100 mg 06/24/18 10:00 06/25/18 10:46 Vitamin B1 - PO 100 mg DAILY MILIND Administration ASSESSMENT/PLAN: 63 year old female with HIV, COPD, prior history of endocarditis, CBP, BRIAN on CPAP at night, Depression, Hx of IVDU, R neck mass s/p recent biopsy at [facility] (awaiting pathology report), sent to [facility] by ID for positive blood Cx for Listeria drawn on prior admission. 1. R Neck Mass s/p recent Bx, prelim reports suggest not enough/correct tissue obtained - will need ENT biopsy under sedation. She reports some Dysphagia/Odynophagia Evaluated by GI - recommend [facility] for [facility] advance end[facility]. Tolerating regular consistency diet currently. Evaluated by speech/swallow - for MBS if symptoms of dysphagia ongoing. 2. Listeria Bacteremia, source unclear Ampicillin IV as per ID - needs PICC if going to SNF Further recommendations as per ID. Repeat Blood Cx negative Afebrile, Hemodynamically Stable. 3. Chronic Repiratory Failure secondary to COPD - Stable. Continue Home O2, Advair, Albuterol prn. 4. BRIAN -CPAP at night. 5. Hx of Polysubstance Abuse including Alcohol and Heroin IVDU Continue Methadone and Thiamine/Folate 6. HIV - Continue HAART 7. Depression - continue Venlafaxine and Citalopram. 8. Macrocytosis. MCV 103.2 - likely sec to history of Alcohol excess - B12/ Folate levels wnl (771/19). DVT Px - Lovenox SQ. GI Px - Protonix.
[2018-06-26] MEDS: AMPICILLIN - 2 GM in SODIUM CHLORIDE 100 ML IVPB SCH ×6 (01:26→22:02)
[2018-06-26] MEDS: ALBUTEROL SO4 0.083% IH SOL 2.5 MG/3 ML VIAL.NEB. NEB PRN (04:35)
[2018-06-26] MEDS ORDERED: METHADONE HCL 10 MG TABLET ONE (05:23)
[2018-06-26] MEDS ORDERED: METHADONE HCL 40 MG DISPERSABLE TABLET ONE (05:23)
[2018-06-26] MEDS: LACTATED RINGERS SOLUTION 1,000 ML IV SCH ×2 (05:42→18:50)
[2018-06-26] MEDS: METHADONE 20 MG, METHADONE 40 MG PO SCH (06:44)
[2018-06-26] MEDS: GABAPENTIN 400 MG CAPSULE (FP) PO SCH ×3 (06:46→22:02)
[2018-06-26] MEDS ORDERED: PT OWN MED DRAWER 7, Y5N ONE (09:59)
[2018-06-26] MEDS: FLUTICASONE/SALMETEROL 100 MCG/50 MCG DISKUS IH SCH ×2 (10:12→22:00)
[2018-06-26] MEDS: ENOXAPARIN NA (PORCINE) 40 MG/0.4 ML DISP.SYRIN SQ SCH (10:12)
[2018-06-26] MEDS: THIAMINE HCL 100 MG TABLET (FP) PO SCH (10:13)
[2018-06-26] MEDS: FOLIC ACID 1 MG TABLET (FP) PO SCH (10:13)
[2018-06-26] MEDS: PANTOPRAZOLE 40 MG TABLET (FP) PO SCH (10:13)
[2018-06-26] MEDS: PYRIDOXINE HCL (B-6) 50 MG TABLET (FP) PO SCH (10:14)
[2018-06-26] MEDS: EMTRICITABINE 200MG/TENOFOVIR 300MG PO SCH (10:16)
[2018-06-26] MEDS: DOLUTEGRAVIR SODIUM 50 MG TABLET (NON-FORMULARY) PO SCH (10:16)
--- NOTE | 2018-06-26 18:08 | PN ---
Progress Note (short form) - Note Progress Note: SUBJECTIVE: Feels better today. Continues to complains of R lower jaw/gum pain. Neck pain appears improved. Swallowing ok and tolerating meals. No fever/chills. OBJECTIVE: Afebrile/Hemodynamically Stable. Last Vital Signs Temp Pulse Resp BP Pulse Ox 98.6 F 83 16 121/71 95 06/26/18 10:00 06/26/18 10:00 06/26/18 10:00 06/26/18 10:00 06/25/18 23:56 HEENT - R neck mass, biopsy site dressed, no sign of infection. No pharyngeal erythema/exudate. No intra-oral lesions/ulcers. Heart - S1, S2, SM Lungs - clear to auscultation. No crackles/wheeze. Abdomen - soft, non-tender. Bowel Sounds normal. Extremities - LE edema ++. No calf tenderness. Current Medications Generic Name Dose Route Start Last Admin Trade Name Freq PRN Reason Stop Dose Admin Acetaminophen 650 mg 06/24/18 06:46 06/25/18 23:41 Tylenol Oral Solution - PO 650 mg Q6H PRN Administration PAIN OR FEVER Albuterol Sulfate 1 amp 06/23/18 18:28 06/26/18 04:35 Ventolin 0.083% Nebulizer Soln - NEB 1 amp Q4H PRN Administration SHORT OF BREATH/WHEEZING Albuterol Sulfate 2 puff 06/23/18 18:39 Ventolin Hfa Inhaler - IH Q4H PRN WHEEZING Emtricitabine/Tenofovir 1 tab 06/24/18 10:00 06/26/18 10:16 Truvada PO 1 tab DAILY MIL[facility] Administration Enoxaparin Sodium 40 mg 06/24/18 10:00 06/26/18 10:12 Lovenox - SQ 40 mg DAILY MILIND Administration Folic Acid 1 mg 06/24/18 10:00 06/26/18 10:13 Folic Acid - PO 1 mg DAILY MILIND Administration Gabapentin 400 mg 06/23/18 19:00 06/26/18 14:57 Neurontin - PO 400 mg TID MILIND Administration Lactated Ringer's 1,000 mls @ 100 mls/hr 06/23/18 18:30 06/26/18 05:42 Lactated Ringers Solution IV 100 mls/hr ASDIR MILIND Administration Ampicillin Sodium 2 gm/ Sodium 100 mls @ 200 mls/hr 06/24/18 10:00 06/26/18 13:57 Chloride IVPB 200 mls/hr Q4H-IV MILIND Administration Protocol Methadone HCl 20 mg/ Methadone 60 mg 06/24/18 11:00 06/26/18 06:44 HCl 40 mg PO 60 mg DAILY@0600 MILIND Administration Pantoprazole Sodium 40 mg 06/24/18 10:00 06/26/18 10:13 Protonix - PO 40 mg DAILY MIL[facility] Administration Pyridoxine HCl 50 mg 06/24/18 10:00 06/26/18 10:14 Vitamin B6 - PO 50 mg DAILY MIL[facility] Administration Fluticasone/Salmeterol 1 puff 06/23/18 22:00 06/26/18 10:12 Advair 100mcg/50mcg - IH 1 puff BID MILIND Administration Thiamine HCl 100 mg 06/24/18 10:00 06/26/18 10:13 Vitamin B1 - PO 100 mg DAILY MIL[facility] Administration ASSESSMENT/PLAN: 63 year old female with HIV, COPD, prior history of endocarditis, CBP, BRIAN on CPAP at night, Depression, Hx of IVDU, R neck mass s/p recent biopsy at [facility] (awaiting pathology report), sent to [facility] by ID for positive blood Cx for Listeria drawn on prior admission. 1. R Neck Mass s/p recent Bx, prelim reports suggest not inadequate tissue obtained - will need ENT or IR re-biopsy. She reports improvement in her Dysphagia/Odynophagia and is tolerating oral intake. Evaluated by GI - recommend eval at a [facility] for more advance endoscopy - [facility] so far has not accepted her for transfer. She is tolerating regular consistency diet currently. Evaluated by speech/swallow - for MBS if symptoms of dysphagia ongoing. 2. Listeria Bacteremia, source unclear Ampicillin IV as per ID - needs PICC if going to SNF. PICC requested. Further recommendations as per ID. Repeat Blood Cx negative Afebrile, Hemodynamically Stable. 3. Chronic Repiratory Failure secondary to COPD - Stable on 2L O2 via [place]. Continue Home O2, Advair, Albuterol prn. 4. RBIAN -CPAP at night. 5. Hx of Polysubstance Abuse including Alcohol and Heroin IVDU Continue Methadone and Thiamine/Folate 6. HIV - Continue HAART 7. Depression - continue Venlafaxine and Citalopram. 8. Macrocytosis. MCV 103.2 - likely sec to history of Alcohol excess - B12/ Folate levels wnl (771/19). 9. R jaw discomfort - CT Facial Bones requested. DVT Px - Lovenox SQ. GI Px - Protonix. Visit type - Emergency Visit Emergency Visit: Yes ED Registration Date: 06/23/18 Care time: The patient presented to the Emergency Department on the above date and was hospitalized for further evaluation of their emergent condition. - New Patient This patient is new to me today: No - Critical Care Critical Care patient: No - Discharge Referral Referred to [facility] No
[2018-06-26] MEDS: ACETAMINOPHEN 650 MG/20.3 ML ORAL SOLUTION (CUPS) PO PRN (22:56)
[2018-06-27] MEDS ORDERED: PT OWN MED DRAWER 7, Y5N ONE ×7 (01:01→21:16)
[2018-06-27] MEDS: AMPICILLIN - 2 GM in SODIUM CHLORIDE 100 ML IVPB SCH ×6 (01:08→21:19)
[2018-06-27] MEDS ORDERED: METHADONE HCL 40 MG DISPERSABLE TABLET ONE (04:58)
[2018-06-27] MEDS ORDERED: METHADONE HCL 10 MG TABLET ONE (04:58)
[2018-06-27] MEDS: METHADONE 20 MG, METHADONE 40 MG PO SCH (05:11)
[2018-06-27] MEDS: GABAPENTIN 400 MG CAPSULE (FP) PO SCH ×3 (05:12→21:19)
[2018-06-27] MEDS: LACTATED RINGERS SOLUTION 1,000 ML IV SCH (07:30)
[2018-06-27] MEDS: FLUTICASONE/SALMETEROL 100 MCG/50 MCG DISKUS IH SCH ×2 (09:39→21:19)
[2018-06-27] MEDS: FOLIC ACID 1 MG TABLET (FP) PO SCH (09:40)
[2018-06-27] MEDS: ENOXAPARIN NA (PORCINE) 40 MG/0.4 ML DISP.SYRIN SQ SCH (09:40)
[2018-06-27] MEDS: THIAMINE HCL 100 MG TABLET (FP) PO SCH (09:40)
[2018-06-27] MEDS: PANTOPRAZOLE 40 MG TABLET (FP) PO SCH (09:40)
[2018-06-27] MEDS: DOLUTEGRAVIR SODIUM 50 MG TABLET (NON-FORMULARY) PO SCH (09:41)
[2018-06-27] MEDS: PYRIDOXINE HCL (B-6) 50 MG TABLET (FP) PO SCH (09:42)
[2018-06-27] MEDS: EMTRICITABINE 200MG/TENOFOVIR 300MG PO SCH (09:42)
--- NOTE | 2018-06-27 14:09 | PN ---
Teaching Attending Note Name of Resident: Kulwinder Phillips ATTENDING PHYSICIAN STATEMENT I saw and evaluated the patient. I reviewed the resident's note and discussed the case with the resident. I agree with the resident's findings and plan as documented. SUBJECTIVE: Feels better today. Neck pain appears improved. Swallowing well. Tolerating oral intake. No fever/chills. OBJECTIVE: Afebrile/Hemodynamically Stable. Last Vital Signs Temp Pulse Resp BP Pulse Ox 98.4 F 72 20 100/62 96 06/27/18 07:04 06/27/18 07:04 06/27/18 07:04 06/27/18 07:04 06/27/18 06:23 HEENT - R neck mass, biopsy site dressed, no sign of infection. No pharyngeal erythema/exudate Heart - S1, S2, SM Lungs - clear to auscultation. No crackles/wheeze. Abdomen - soft, non-tender. Bowel Sounds normal. Extremities - LE edema ++. No calf tenderness. Current Medications Generic Name Dose Route Start Last Admin Trade Name Khalifq PRN Reason Stop Dose Admin Acetaminophen 650 mg 06/24/18 06:46 06/26/18 22:56 Tylenol Oral Solution - PO 650 mg Q6H PRN Administration PAIN OR FEVER Albuterol Sulfate 1 amp 06/23/18 18:28 06/26/18 04:35 Ventolin 0.083% Nebulizer Soln - NEB 1 amp Q4H PRN Administration SHORT OF BREATH/WHEEZING Albuterol Sulfate 2 puff 06/23/18 18:39 Ventolin Hfa Inhaler - IH Q4H PRN WHEEZING Emtricitabine/Tenofovir 1 tab 06/24/18 10:00 06/27/18 09:42 Truvada PO 1 tab DAILY MILIND Administration Enoxaparin Sodium 40 mg 06/24/18 10:00 06/27/18 09:40 Lovenox - SQ 40 mg DAILY MILIND Administration Folic Acid 1 mg 06/24/18 10:00 06/27/18 09:40 Folic Acid - PO 1 mg DAILY MILIND Administration Gabapentin 400 mg 06/23/18 19:00 06/27/18 05:12 Neurontin - PO 400 mg TID MILIND Administration Lactated Ringer's 1,000 mls @ 100 mls/hr 06/23/18 18:30 06/27/18 07:30 Lactated Ringers Solution IV 100 mls/hr ASDIR MILIND Administration Ampicillin Sodium 2 gm/ Sodium 100 mls @ 200 mls/hr 06/24/18 10:00 06/27/18 09:38 Chloride IVPB 200 mls/hr Q4H-IV MILIND Administration Protocol Methadone HCl 20 mg/ Methadone 60 mg 06/24/18 11:00 06/27/18 05:11 HCl 40 mg PO 60 mg DAILY@0600 MILIND Administration Pantoprazole Sodium 40 mg 06/24/18 10:00 06/27/18 09:40 Protonix - PO 40 mg DAILY MILIND Administration Pyridoxine HCl 50 mg 06/24/18 10:00 06/27/18 09:42 Vitamin B6 - PO 50 mg DAILY MILIND Administration Fluticasone/Salmeterol 1 puff 06/23/18 22:00 06/27/18 09:39 Advair 100mcg/50mcg - IH 1 puff BID MILIND Administration Thiamine HCl 100 mg 06/24/18 10:00 06/27/18 09:40 Vitamin B1 - PO 100 mg DAILY MILIND Administration ASSESSMENT/PLAN: 63 year old female with HIV, COPD, prior history of endocarditis, CBP, BRIAN on CPAP at night, Depression, Hx of IVDU, R neck mass s/p recent biopsy at [facility] (awaiting pathology report), sent to [facility] by ID for positive blood Cx for Listeria drawn on prior admission, inadequately treated at [facility]. 1. R Neck Mass s/p recent Bx, prelim reports suggest not enough/correct tissue obtained - will need ENT re-biopsy as an out-patient. Dysphagia/Odynophagia improved. Evaluated by GI - recommend more advanced endoscopy if symptoms worsen. Has appt 06/28/[address] Leland Romeo at 3:20pm ( ) Tolerating regular consistency diet currently. Evaluated by speech/swallow - for MBS if symptoms of dysphagia ongoing. 2. Listeria Bacteremia, source unclear Ampicillin IV for total 2 weeks as per ID - needs PICC if going to SNF Further recommendations as per ID. Repeat Blood Cx negative Afebrile, Hemodynamically Stable. 3. Chronic Repiratory Failure secondary to COPD - Stable. Continue Home O2, Advair, Albuterol prn. 4. BRIAN -CPAP at night. 5. Hx of Polysubstance Abuse including Alcohol and Heroin IVDU Continue Methadone and Thiamine/Folate 6. HIV - Continue HAART 7. Depression - continue Venlafaxine and Citalopram. 8. Macrocytosis. MCV 103.2 - likely sec to history of Alcohol excess - B12/ Folate levels wnl (771/19). 9. R jaw pain - CT facial bones: kristian-maxillary perimandibular abscess; left paracentral non-calcified ypodense lesion 1.9cm x 1.3cm. Cervical esophagus deviated to left. No intervention currently. DVT Px - Lovenox SQ. GI Px - Protonix. Medically Stable for discharge once bed available at SNF - for ID and ENT follow up as out-patient.
--- NOTE | 2018-06-27 14:39 | CONSULT ---
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 Representation last week s/p bx at [facility]. 10 lb weight loss in one week. Fevers resolved. Still with some odynophagia, and hoarseness. - History Source History Provided By: Patient, Medical Record - Past Medical History Cardio/Vascular: Yes: Other (ENDOCARDITIS). No: AFIB Pulmonary: Yes: COPD. 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 No: Ascites Hepatobiliary: Yes: Hepatitis B (HBV core ab +, surface antibody +, antigen negative), Hepatitis C (PCR negative), Other (alcoholic liver disease suspected with mild splenomegaly) ...: No Infectious Disease: Yes: HIV Psych: Yes: Depression Additional Medical History: substance abuse on methadone Alcohol abuse - Past Surgical History Additional Surgical History: Abortions - Alcohol/Substance Use Hx Alcohol Use: No History of Substance Use: reports: Cocaine (IV, crack), Heroin (opoid dependence ) Date of Last Use: 05/14/16 - Smoking History Smoking history: Former smoker Have you smoked in the past 12 months: No Aproximately how many cigarettes per day: 2 If you are a former smoker, when did you quit?: 30YRS - Social History Usual Living Arrangement: Alone ADL: Independent History of Recent Travel: No Home Medications - Allergies Allergies/Adverse Reactions: Allergies Allergy/AdvReac Type Severity Reaction Status Date / Time No Known Drug Allergies Allergy Verified 06/23/18 18:52 banana AdvReac Verified 06/23/18 13:02 - Home Medications Home Medications: Ambulatory Orders Gabapentin [Neurontin -] 400 mg PO Q8H #90 capsule MDD 3 07/01/17 Methadone [Dolophine -] 60 mg PO DAILY@0600 MDD 65mg 11/26/17 Docusate Sodium [Colace -] 100 mg PO BID #60 cap 01/06/18 Folic Acid - 1 mg PO DAILY #30 tablet 01/06/18 Pyridoxine HCl (Vitamin B6) [Vitamin B-6] 50 mg PO DAILY #30 capsule 01/06/18 Salmeterol/Fluticasone [Advair 100Mcg/50Mcg -] 1 puff IH BID #1 inhaler Thiamine HCl [B-1] 100 mg PO DAILY 30 Days #30 tablet 01/06/18 Citalopram Hydrobromide [Celexa -] 20 mg PO DAILY #30 tablet 04/21/18 Pantoprazole Sodium [Protonix -] 40 mg PO DAILY #14 tablet.ec 04/21/18 Venlafaxine HCl ER [Effexor Xr -] 37.5 mg PO DAILY #30 cap.er.24h 04/21/18 Diaper,Brief,Adult, Disposable [Adult Brief] 1 each MC TID #90 each 04/28/18 Albuterol Sulfate Inhaler - [Ventolin HFA Inhaler -] 2 inh PO Q4H PRN #1 inhaler 05/10/18 Dolutegravir Sodium [Tivicay] 50 mg PO DAILY #30 tab 05/10/18 Emtricitabine/Tenofov Alafenam [Descovy 200-25 mg Tablet (Nf)] 1 each PO DAILY # 30 tablet 05/10/18 Family Disease History - Family Disease History Family Disease History: CA: Grandparent, Father (lung cancer), Other: Mother ( Alive: healthy), Brother (4, : 1 from HIV complications), Sister (1, from HIV complications) Review of Systems - Review of Systems Constitutional: reports: Weakness HENT: reports: Difficult Swallowing, Throat Pain Physical Exam Vital Signs: Vital Signs Temperature 98.4 F 06/27/18 07:04 Pulse Rate 72 06/27/18 07:04 Respiratory Rate 20 06/27/18 07:04 Blood Pressure 100/62 06/27/18 07:04 O2 Sat by Pulse Oximetry (%) 96 06/27/18 06:23 Constitutional: Yes: Well Nourished, No Distress Neck: Yes: WNL, Supple, Other (dressing on right neck. Removed and no injury or JIMMY palpable. No crepitus.) Labs: CBC, BMP 06/24/18 07:30 06/24/18 07:30 Imaging - Results Cat Scan: Image Reviewed Problem List - Problems (1) Odynophagia Code(s): R13.10 - DYSPHAGIA, UNSPECIFIED (2) Dysphagia Code(s): R13.10 - DYSPHAGIA, UNSPECIFIED Qualifiers: Dysphagia type: unspecified Qualified Code(s): R13.10 - Dysphagia, unspecified (3) Listeria septicemia Code(s): A32.7 - LISTERIAL SEPSIS (4) Alcoholism /alcohol abuse Code(s): F10.20 - ALCOHOL DEPENDENCE, UNCOMPLICATED (5) Appendiceal tumor Code(s): D37.3 - NEOPLASM OF UNCERTAIN BEHAVIOR OF APPENDIX (6) COPD (chronic obstructive pulmonary disease) Code(s): J44.9 - CHRONIC OBSTRUCTIVE PULMONARY DISEASE, UNSPECIFIED (7) HIV disease Code(s): B20 - HUMAN IMMUNODEFICIENCY VIRUS [HIV] DISEASE Assessment/Plan Odynophagia with cervical mass. Appears to be getting smaller. Diff includes infectious/inflammatory versus malignancy. Also, she has listeria bacteremia and will get a PICC. -Needs ENT/ or Head/neck repeat biopsy and cultures; -No need for thoracic procedure. -Plan based on repeat bx (if true that first was non-diagnostic but must see that report--for example, if inflammatory cells seen then this is diagnostic); -No need for thoracic procedure.
--- NOTE | 2018-06-27 15:05 | DS ---
Physical Exam: SUBJECTIVE: Patient seen and examined this AM. She states she is feeling well and is agreeable for SNF placement for duration of antibiotics OBJECTIVE: Vital Signs Period Temp Pulse Resp BP Sys/Amato Pulse Ox Last 24 Hr 98.4 F-99.3 F 72-84 20-20 100-115/62-62 96-97 PHYSICAL EXAM GENERAL: A&O, no acute distress HEAD: Normocephalic, atraumatic. EYES: discoloration of sclera, yellowish brown EARS, NOSE, THROAT: oropharynx clear without exudates. Moist mucous membranes. NECK: supple without lymphadenopathy, enlarged area noted on right, bandage over previous biopsy site LUNGS: CTA b/l, no crackles or wheezes HEART: Regular rate and rhythm, systolic murmur noted at Right Sternal border ABDOMEN: Soft, nontender to palpation, normoactive bowel sounds MUSCULOSKELETAL: b/l knee pain with ROM, however normal ROM, nontender to palpation, without erythema or swelling EXTREMITIES: warm, well-perfused. No peripheral edema. NEUROLOGICAL: Cranial nerves II-XII grossly intact. Normal speech. PSYCHIATRIC: Cooperative. Good eye contact. Appropriate mood and affect. SKIN: Warm, dry, no rashes or lesions noted LABS HOSPITAL COURSE: Date of Admission:06/23/18 Date of Discharge: 06/27/18 HPI on Admission: 63 F with PMH HIV, COPD, endocarditis, back pain, BRIAN, hx IVDA, right neck mass with pain swallowing (recent biopsy) sent from [facility] due to Listeria bacteremia for IV Abx. Pt was recently seen in ED for difficulty and pain swallowing with right sided mass. She was transferred to [facility] for further workup. Blood cultures from previous ED admission grew Listeria. Pt was discharged from [facility] after biopsy of mass, and followed up with Dr. Morris at the [facility] today as her PCP follow up. She endorses that she has had some weakness since her discharge from [facility]. She also complains of knee pain b/l which she states started about 3 weeks ago but denies any trauma, redness, swelling. She denies any fevers or chills. Hospital Course: She was seen by ID who recommended Ampicillin 2 gm Q4 for a total duration of 14 days, she received 4 days and will require 10 additional days. She was seen by CT surgery and GI who both recommended ENT follow up, which she currently has scheduled for 06/28/2018. She was discharged to SNF for duration of Abx following placement of PICC line by IR. Minutes to complete discharge: 35 Discharge Summary Reason For Visit: BACTEREMIA; LACTIC ACIDOSIS Current Active Problems Low oxygen saturation (Acute) Odynophagia (Acute) Odynophagia (Acute) Condition: Stable - Instructions Diet, Activity, Other Instructions: You were admitted for bacterial infection in your blood. You were given IV antibiotics and seen by an infectious disease doctor who recommended 14 total days of IV antibiotics. You were also evaluated for your neck mass. It is important that you follow up with all of your scheduled appointments in order to appropriately manage that. You should continue to be given Ampicillin 2 gm every 4 hours for 10 more days You should continue all of your home medications as they are prescribed You should follow up with your primary care physician within 2 weeks. It is important that you attend all of your follow up appointments for the mass in your neck that are already scheduled and were recommended from your prior admission at [facility]. If you have severe difficulty breathing, severe pain, inability to eat, or any other concerning symptoms, you should be seen by your primary care physician or return to the emergency department. Referrals: Nikki Morris MD [Staff Physician] - Disposition: [facility] - Home Medications Comprehensive Discharge Medication List: Ambulatory Orders Gabapentin [Neurontin -] 400 mg PO Q8H #90 capsule MDD 3 07/01/17 Methadone [Dolophine -] 60 mg PO DAILY@0600 MDD 65mg 11/26/17 Docusate Sodium [Colace -] 100 mg PO BID #60 cap 01/06/18 Folic Acid - 1 mg PO DAILY #30 tablet 01/06/18 Pyridoxine HCl (Vitamin B6) [Vitamin B-6] 50 mg PO DAILY #30 capsule 01/06/18 Salmeterol/Fluticasone [Advair 100Mcg/50Mcg -] 1 puff IH BID #1 inhaler Thiamine HCl [B-1] 100 mg PO DAILY 30 Days #30 tablet 01/06/18 Citalopram Hydrobromide [Celexa -] 20 mg PO DAILY #30 tablet 04/21/18 Pantoprazole Sodium [Protonix -] 40 mg PO DAILY #14 tablet.ec 04/21/18 Venlafaxine HCl ER [Effexor Xr -] 37.5 mg PO DAILY #30 cap.er.24h 04/21/18 Albuterol Sulfate Inhaler - [Ventolin HFA Inhaler -] 2 inh PO Q4H PRN #1 inhaler 05/10/18 Dolutegravir Sodium [Tivicay] 50 mg PO DAILY #30 tab 05/10/18 Emtricitabine/Tenofov Alafenam [Descovy 200-25 mg Tablet (Nf)] 1 each PO DAILY # 30 tablet 05/10/18 Ampicillin - [Ampicillin 2 gm Ivpb (Pre-Docked)] 2 gm IVPB Q4H 10 Days bag 01/06 This patient is new to me today: No Emergency Visit: Yes ED Registration Date: 06/23/18 Care time: The patient presented to the Emergency Department on the above date and was hospitalized for further evaluation of their emergent condition. Critical Care patient: No - Discharge Referral Referred to [facility] Med P.C.: No
--- NOTE | 2018-06-27 17:45 | PN ---
Progress Note (short form) - Note Progress Note: feels improved has ENT f/u scheduledd for tomorrow- spoke with her telephonic nurse case manager at the clinic Vital Signs Period Temp Pulse Resp BP Sys/Amato Pulse Ox Last 24 Hr 98.3 F-99.3 F 72-86 20-20 100-123/62-67 96-97 cor-rrr lungs clear abd soft,nt ext no edema CBC, BMP 06/24/18 07:30 06/24/18 07:30 Microbiology 06/23/18 14:34 Blood - Peripheral Venous Blood Culture - Preliminary NO GROWTH OBTAINED AFTER 96 HOURS, INCUBATION TO CONTINUE FOR 1 DAYS. 06/23/18 15:10 Blood - Peripheral Venous Blood Culture - Preliminary NO GROWTH OBTAINED AFTER 72 HOURS, INCUBATION TO CONTINUE FOR 2 DAYS. 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
[2018-06-27] MEDS: ALBUTEROL SO4 0.083% IH SOL 2.5 MG/3 ML VIAL.NEB. NEB PRN (20:15)
[2018-06-27] MEDS: ACETAMINOPHEN 650 MG/20.3 ML ORAL SOLUTION (CUPS) PO PRN (21:18)
[2018-06-28] MEDS ORDERED: PT OWN MED DRAWER 7, Y5N ONE ×4 (01:55→21:04)
[2018-06-28] MEDS: AMPICILLIN - 2 GM in SODIUM CHLORIDE 100 ML IVPB SCH ×6 (02:21→21:52)
[2018-06-28] MEDS: LACTATED RINGERS SOLUTION 1,000 ML IV SCH (02:22)
[2018-06-28] MEDS ORDERED: METHADONE HCL 10 MG TABLET ONE ×2 (05:48→05:50)
[2018-06-28] MEDS ORDERED: METHADONE HCL 40 MG DISPERSABLE TABLET ONE ×2 (05:49→05:50)
[2018-06-28] MEDS: METHADONE 20 MG, METHADONE 40 MG PO SCH (06:13)
[2018-06-28] MEDS: GABAPENTIN 400 MG CAPSULE (FP) PO SCH ×3 (06:14→21:53)
[2018-06-28] MEDS: ALBUTEROL SO4 0.083% IH SOL 2.5 MG/3 ML VIAL.NEB. NEB PRN ×2 (09:38→22:57)
[2018-06-28] MEDS: FLUTICASONE/SALMETEROL 100 MCG/50 MCG DISKUS IH SCH ×2 (10:46→21:52)
[2018-06-28] MEDS: PANTOPRAZOLE 40 MG TABLET (FP) PO SCH (10:54)
[2018-06-28] MEDS: ENOXAPARIN NA (PORCINE) 40 MG/0.4 ML DISP.SYRIN SQ SCH (10:54)
[2018-06-28] MEDS: ACETAMINOPHEN 650 MG/20.3 ML ORAL SOLUTION (CUPS) PO PRN (10:54)
[2018-06-28] MEDS: THIAMINE HCL 100 MG TABLET (FP) PO SCH (10:54)
[2018-06-28] MEDS: FOLIC ACID 1 MG TABLET (FP) PO SCH (10:54)
[2018-06-28] MEDS: PYRIDOXINE HCL (B-6) 50 MG TABLET (FP) PO SCH (10:55)
[2018-06-28] MEDS: EMTRICITABINE 200MG/TENOFOVIR 300MG PO SCH (10:56)
[2018-06-28] MEDS: DOLUTEGRAVIR SODIUM 50 MG TABLET (NON-FORMULARY) PO SCH (10:57)
--- NOTE | 2018-06-28 14:09 | PN ---
Progress Note (short form) - Note Progress Note: notes pain in mandible, poor appetite Vital Signs Period Temp Pulse Resp BP Sys/Amato Pulse Ox Last 24 Hr 97.8 F-98.5 F 72-82 18-20 110-143/63-75 cor-rrr lungs clear abd soft,nt ext no edema CBC, BMP 06/24/18 07:30 06/24/18 07:30 Microbiology 06/23/18 15:10 Blood - Peripheral Venous Blood Culture - Preliminary NO GROWTH OBTAINED AFTER 96 HOURS, INCUBATION TO CONTINUE FOR 1 DAYS. 06/23/18 14:34 Blood - Peripheral Venous Blood Culture - Preliminary NO GROWTH OBTAINED AFTER 96 HOURS, INCUBATION TO CONTINUE FOR 1 DAYS. 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
--- NOTE | 2018-06-28 16:20 | PN ---
Teaching Attending Note Name of Resident: Kulwinder Phillips ATTENDING PHYSICIAN STATEMENT I saw and evaluated the patient. I reviewed the resident's note and discussed the case with the resident. I agree with the resident's findings and plan as documented. SUBJECTIVE: OBJECTIVE: Vital Signs Period Temp Pulse Resp BP Sys/Amato Pulse Ox Last 24 Hr 97.8 F-98.5 F 72-82 18-20 110-143/63-75 Current Medications Generic Name Dose Route Start Last Admin Trade Name Freq PRN Reason Stop Dose Admin Acetaminophen 650 mg 06/24/18 06:46 06/28/18 10:54 Tylenol Oral Solution - PO 650 mg Q6H PRN Administration PAIN OR FEVER Albuterol Sulfate 1 amp 06/23/18 18:28 06/28/18 09:38 Ventolin 0.083% Nebulizer Soln - NEB 1 amp Q4H PRN Administration SHORT OF BREATH/WHEEZING Albuterol Sulfate 2 puff 06/23/18 18:39 Ventolin Hfa Inhaler - IH Q4H PRN WHEEZING Emtricitabine/Tenofovir 1 tab 06/24/18 10:00 06/28/18 10:56 Truvada PO 1 tab DAILY MILIND Administration Enoxaparin Sodium 40 mg 06/24/18 10:00 06/28/18 10:54 Lovenox - SQ 40 mg DAILY MILIND Administration Folic Acid 1 mg 06/24/18 10:00 06/28/18 10:54 Folic Acid - PO 1 mg DAILY MILIND Administration Gabapentin 400 mg 06/23/18 19:00 06/28/18 15:00 Neurontin - PO 400 mg TID MILIND Administration Lactated Ringer's 1,000 mls @ 100 mls/hr 06/23/18 18:30 06/28/18 02:22 Lactated Ringers Solution IV 100 mls/hr ASDIR MILIND Administration Ampicillin Sodium 2 gm/ Sodium 100 mls @ 200 mls/hr 06/24/18 10:00 06/28/18 15:13 Chloride IVPB 200 mls/hr Q4H-IV MILIND Administration Protocol Methadone HCl 20 mg/ Methadone 60 mg 06/24/18 11:00 06/28/18 06:13 HCl 40 mg PO 60 mg DAILY@0600 MILIND Administration Pantoprazole Sodium 40 mg 06/24/18 10:00 06/28/18 10:54 Protonix - PO 40 mg DAILY MILIND Administration Pyridoxine HCl 50 mg 06/24/18 10:00 06/28/18 10:55 Vitamin B6 - PO 50 mg DAILY MILIND Administration Fluticasone/Salmeterol 1 puff 06/23/18 22:00 06/28/18 10:46 Advair 100mcg/50mcg - IH 1 puff BID MILIND Administration Thiamine HCl 100 mg 06/24/18 10:00 06/28/18 10:54 Vitamin B1 - PO 100 mg DAILY MILIND Administration ASSESSMENT AND PLAN: This is a 63 year old woman with a history of HIV, chronic hypoxic respiratory failure, COPD, endocarditis, chronic back pain, BRIAN, depression, IVDU, right neck mass, who presented to the ED by ID for positive blood Cx for Listeria drawn on prior admission, inadequately treated at [facility]. 1. Listeria bacteremia source unclear Ampicillin IV for total 2 weeks as per ID - needs PICC if going to SNF Further recommendations as per ID. Repeat Blood Cx negative Afebrile, Hemodynamically Stable. 2. Right neck mass s/p recent Bx, prelim reports suggest not enough/correct tissue obtained - will need ENT re-biopsy as an out-patient. Dysphagia/Odynophagia improved. Evaluated by GI - recommend more advanced endoscopy if symptoms worsen. Has appt 06/28/[address] Leland Romeo at 3:20pm ( ) Tolerating regular consistency diet currently. Evaluated by speech/swallow - for MBS if symptoms of dysphagia ongoing. 3. Chronic hypoxic respiratory failure secondary to COPD - Stable. Continue Home O2, Advair, Albuterol prn. 4. BRIAN -CPAP at night. 5. Polysubstance abuse Continue Methadone and Thiamine/Folate 6. HIV - Continue HAART 7. Depression - continue Venlafaxine and Citalopram. 8. Macrocytosis MCV 103.2 - likely sec to history of Alcohol excess - B12/Folate levels wnl (771 /). 9. Right jaw pain - CT facial bones: kristian-maxillary perimandibular abscess; left paracentral non- calcified ypodense lesion 1.9cm x 1.3cm. Cervical esophagus deviated to left. No intervention currently.
--- NOTE | 2018-06-28 16:26 | PN ---
Physical Exam: SUBJECTIVE: Patient seen and examined this AM. Still complaining about pain in her right mandible. Discussed with patient that CT scan was normal. She expressed that she needs to see a dentist. Discussed that she should follow up with dentist as an outpatient. OBJECTIVE: Vital Signs Period Temp Pulse Resp BP Sys/Amato Pulse Ox Last 24 Hr 97.8 F-98.5 F 72-82 18-20 110-143/63-75 GENERAL: A&O, no acute distress HEAD: Normocephalic, atraumatic. EYES: discoloration of sclera, yellowish brown EARS, NOSE, THROAT: oropharynx clear without exudates. Moist mucous membranes. NECK: supple without lymphadenopathy, enlarged area noted on right, bandage over previous biopsy site LUNGS: CTA b/l, no crackles or wheezes HEART: Regular rate and rhythm, systolic murmur noted at Right Sternal border ABDOMEN: Soft, nontender to palpation, normoactive bowel sounds MUSCULOSKELETAL: b/l knee pain with ROM, however normal ROM, nontender to palpation, without erythema or swelling EXTREMITIES: warm, well-perfused. No peripheral edema. NEUROLOGICAL: Cranial nerves II-XII grossly intact. Normal speech. PSYCHIATRIC: Cooperative. Good eye contact. Appropriate mood and affect. SKIN: Warm, dry, no rashes or lesions noted Active Medications Generic Name Dose Route Start Last Admin Trade Name Freq PRN Reason Stop Dose Admin Acetaminophen 650 mg 06/24/18 06:46 06/28/18 10:54 Tylenol Oral Solution - PO 650 mg Q6H PRN Administration PAIN OR FEVER Albuterol Sulfate 1 amp 06/23/18 18:28 06/28/18 09:38 Ventolin 0.083% Nebulizer Soln - NEB 1 amp Q4H PRN Administration SHORT OF BREATH/WHEEZING Albuterol Sulfate 2 puff 06/23/18 18:39 Ventolin Hfa Inhaler - IH Q4H PRN WHEEZING Emtricitabine/Tenofovir 1 tab 06/24/18 10:00 06/28/18 10:56 Truvada PO 1 tab DAILY MILIND Administration Enoxaparin Sodium 40 mg 06/24/18 10:00 06/28/18 10:54 Lovenox - SQ 40 mg DAILY MILIND Administration Folic Acid 1 mg 06/24/18 10:00 06/28/18 10:54 Folic Acid - PO 1 mg DAILY MILIND Administration Gabapentin 400 mg 06/23/18 19:00 06/28/18 15:00 Neurontin - PO 400 mg TID MILIND Administration Lactated Ringer's 1,000 mls @ 100 mls/hr 06/23/18 18:30 06/28/18 02:22 Lactated Ringers Solution IV 100 mls/hr ASDIR MILIND Administration Ampicillin Sodium 2 gm/ Sodium 100 mls @ 200 mls/hr 06/24/18 10:00 06/28/18 15:13 Chloride IVPB 200 mls/hr Q4H-IV MILIND Administration Protocol Methadone HCl 20 mg/ Methadone 60 mg 06/24/18 11:00 06/28/18 06:13 HCl 40 mg PO 60 mg DAILY@0600 MILIND Administration Pantoprazole Sodium 40 mg 06/24/18 10:00 06/28/18 10:54 Protonix - PO 40 mg DAILY MILIND Administration Pyridoxine HCl 50 mg 06/24/18 10:00 06/28/18 10:55 Vitamin B6 - PO 50 mg DAILY MILIND Administration Fluticasone/Salmeterol 1 puff 06/23/18 22:00 06/28/18 10:46 Advair 100mcg/50mcg - IH 1 puff BID MILIND Administration Thiamine HCl 100 mg 06/24/18 10:00 06/28/18 10:54 Vitamin B1 - PO 100 mg DAILY MILIND Administration ASSESSMENT/PLAN: 63 F with PMH HIV, COPD, endocarditis, back pain, BRIAN, hx IVDA, right neck mass with pain swallowing (recent biopsy) sent from [facility] due to Listeria bacteremia for IV Abx Right Neck Mass/Dysphagia -Pt with recent transfer to [facility] for further ENT workup -CT surgery consult for further workup of neck mass, recommend ENT management -Biopsy results from [facility] with poor sample. 6/6 attempts with only blood and requesting more sample -Tolerating regular diet -GI consult appreciated, recommend further ENT workup or transfer to tertiary care -Follow up with ENT as an outpatient Listeria Bacteremia -ID consult appreciated -Ampicillin 2gm IV Q4, Day 5 of 14 -PICC line and D/C to SNF once placement available -Pt not currently febrile, normal WBC count COPD -Continue home O2 2L -Advair -Albuterol NEBs PRN BRIAN -CPAP, pt does not know her settings DVT Prophylaxis -Lovenox 40 mg SQ Daily FEN -Fluids: LR @ 100 cc/hr -Electrolytes: No electrolyte abnormalities, BMP in AM -Nutrition: Regular Diet Disposition Med/Surg, D/C to SNF once placement for remainder of IV Abx Visit type - Emergency Visit Emergency Visit: Yes ED Registration Date: 06/23/18 Care time: The patient presented to the Emergency Department on the above date and was hospitalized for further evaluation of their emergent condition. - New Patient This patient is new to me today: No - Critical Care Critical Care patient: No
[2018-06-28 16:46] VITALS: BMI 29.8
[2018-06-28] MEDS ORDERED: AMMONIUM LACTATE 12% LOTION 225 GM BOTTLE TP PRN (17:45)
[2018-06-29] MEDS ORDERED: PT OWN MED DRAWER 7, Y5N ONE ×6 (02:21→14:59)
[2018-06-29] MEDS: AMPICILLIN - 2 GM in SODIUM CHLORIDE 100 ML IVPB SCH ×4 (02:26→13:28)
[2018-06-29] MEDS ORDERED: METHADONE HCL 10 MG TABLET ONE (05:02)
[2018-06-29] MEDS ORDERED: METHADONE HCL 40 MG DISPERSABLE TABLET ONE (05:02)
[2018-06-29] MEDS: METHADONE 20 MG, METHADONE 40 MG PO SCH (06:05)
[2018-06-29] MEDS: GABAPENTIN 400 MG CAPSULE (FP) PO SCH ×2 (06:06→13:28)
[2018-06-29] MEDS: PANTOPRAZOLE 40 MG TABLET (FP) PO SCH (09:15)
[2018-06-29] MEDS: ENOXAPARIN NA (PORCINE) 40 MG/0.4 ML DISP.SYRIN SQ SCH (09:16)
[2018-06-29] MEDS: THIAMINE HCL 100 MG TABLET (FP) PO SCH (09:16)
[2018-06-29] MEDS: EMTRICITABINE 200MG/TENOFOVIR 300MG PO SCH (09:16)
[2018-06-29] MEDS: FOLIC ACID 1 MG TABLET (FP) PO SCH (09:16)
[2018-06-29] MEDS: DOLUTEGRAVIR SODIUM 50 MG TABLET (NON-FORMULARY) PO SCH (09:17)
[2018-06-29] MEDS: FLUTICASONE/SALMETEROL 100 MCG/50 MCG DISKUS IH SCH (09:18)
[2018-06-29] MEDS: PYRIDOXINE HCL (B-6) 50 MG TABLET (FP) PO SCH (09:19)
--- NOTE | 2018-06-29 09:57 | PN ---
Progress Note (short form) - Note Progress Note: continued right jaw pain poor appetite Vital Signs Period Temp Pulse Resp BP Sys/Amato Pulse Ox Last 24 Hr 98 F-98.4 F 72-82 18-20 104-118/60-90 96 no facial swelling noted cor-rrr lungs clear abd firm nt ext venous stasis changed CBC, BMP 06/24/18 07:30 06/24/18 07:30 Microbiology 06/23/18 15:10 Blood - Peripheral Venous Blood Culture - Final NO GROWTH AFTER 5 DAYS INCUBATION 06/23/18 14:34 Blood - Peripheral Venous Blood Culture - Final NO GROWTH AFTER 5 DAYS INCUBATION 06/23/18 16:00 Urine - Urine Clean Catch Urine Culture - Final NO GROWTH OBTAINED a/p listeria bacteremia in an immunocompromised host (HIV) ampicillin 2 grams q 4h for 14 days-now day #7 of 12- started last for SNF placement s/p biopsy of tracheal mass- results inconclusive-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
[2018-06-29 12:38] VITALS: BP 110/77; PULSE 97; TEMP 98.2
== END 2018-06-29 16:19 | DRG 720 ==
LOC: JER 12:25 → JERBED 15:56 → J8W 20:16
PROVIDERS: ATTEND Internal Medicine
PROC: 05HB33Z Insertion of Infusion Device into Right Basilic Vein, Percutaneous Approach (ICD-10-PCS; principal; 2018-06-27)
PROC: B51MZZA Fluoroscopy of Right Upper Extremity Veins, Guidance (ICD-10-PCS; 2018-06-27)
DX: A32.7 Listerial sepsis (principal); J96.11 Chronic respiratory failure with hypoxia; E87.2 Acidosis; Z99.81 Dependence on supplemental oxygen; J44.9 Chronic obstructive pulmonary disease, unspecified; F11.20 Opioid dependence, uncomplicated; R13.10 Dysphagia, unspecified; C18.1 Malignant neoplasm of appendix; I10 Essential (primary) hypertension; Z21 Asymptomatic human immunodeficiency virus [HIV] infection status; G47.33 Obstructive sleep apnea (adult) (pediatric); F17.210 Nicotine dependence, cigarettes, uncomplicated; J39.8 Other specified diseases of upper respiratory tract; F32.9 Major depressive disorder, single episode, unspecified; R68.84 Jaw pain; R22.1 Localized swelling, mass and lump, neck; D75.89 Other specified diseases of blood and blood-forming organs
CPT/HCPCS: 36415; 36569; 70488-TC; 71045-TC-FY; 77001-TC-FY; 80053; 81003; 81015; 82607; 82746; 82803; 83605; 83735; 84100; 84484; 85025; 85610; 85730; 87040; 87086; 93005; 93010; 94640; 94660; 97116-GP; 97161-GP; 99281-25; C1751

== ENCOUNTER 2018-07-04 17:58 | Inpatient (IN) | payer OTHER ==
[2018-07-04 18:34] VITALS: BMI 46.1
--- NOTE | 2018-07-04 18:36 | PDOC ---
Rapid Medical Evaluation Chief Complaint: PICC Line Insertion Medical Evaluation: Allergies Allergy/AdvReac Type Severity Reaction Status Date / Time No Known Drug Allergies Allergy Verified 06/23/18 18:52 banana AdvReac Verified 06/23/18 13:02 07/04/18 18:31 I have performed a brief in-person evaluation of this patient. The patient presents with a chief complaint of: Returned for [facility] IVAbx- Dr Barboza referred here / HIV, Neck mass, COPD Pertinent physical exam findings: PICC Line placed to right upper arm 4 days ago here. pale/ moist coi I have ordered the following: CBC, CMP The patient will proceed to the ED for further evaluation. 07/04/18 18:34 Discharge Disposition - Diagnosis Septicemia - Referrals - Patient Instructions - Post Discharge Activity
--- NOTE | 2018-07-04 19:39 | PDOC ---
History of Present Illness <Vanesa Silver - Last Filed: 07/04/18 19:41> - General History Source: Patient Exam Limitations: No Limitations - History of Present Illness Initial Comments: Pt is a 63 yo F, with PMH of HIV, prior IVDU, throat mass, appendiceal CA, COPD , chronic back pain, and Listeria bacteremia, who was sent to ER by Dr. Morris, as the pt was discharged to a custodial with "unacceptable living conditions" per PCP and pt, and so she can continue her IV antibiotics inpatient. Pt states she has had "to kill cockroaches" while staying at the home , and called Dr. Morris. The pt was recently seen at [facility] for biopsy of the throat mass (which was insufficient and will have to be repeated), and has since been treated outpatient with ampicillin. Pt uses 2 L NC O2 at home and has SOB at baseline (baseline O2 ~90%), but has been trying to stop using it "so she's not dependent on it". Pt states she has had difficulty tolerating PO, and continues to regurgitate her food and water since her neck mass started. Pt denies any recent fevers/chills, headache, vision changes, syncope, chest pain, palpitations, nausea/vomiting, abdominal pain, urinary symptoms, diarrhea/constipation, or leg swelling. Social: Pt smoking 3-4 cigarettes per day, denies any current alcohol or drug use. Prior history of IVDU and alcohol use every day. Pt denies any recent travel or sick contacts. Surgical: no relevant history. Family: no relevant history. 07/04/18 23:08 <Annia Simeon - Last Filed: 07/05/18 20:29> - General Chief Complaint: Weakness Stated Complaint: Shortness of Breath Time Seen by Provider: 07/04/18 19:11 Past History <Vanesa Silver - Last Filed: 07/04/18 19:41> - Travel Traveled outside of the country in the last 30 days: No Close contact w/someone who was outside of country & ill: No - Past Medical History Anemia: Yes Asthma: Yes (chronic bronchitis) Cancer: Yes (appendiceal -unresectable) Cardiac Disorders: Yes (hx endocarditis) COPD: Yes (O2 AT HOME) DVT: No HTN: Yes Liver Disease: Yes (possible cirrhosis (hx elevated ammonia)) Psychiatric Problems: Yes (depression) - Surgical History Abdominal Surgery: Yes (MULTIPLE ABORTIONS.) - Immunization History Immunization Up to Date: Yes - Suicide/Smoking/Psychosocial Hx Smoking Status: Yes Smoking History: Never smoked Years of Tobacco Use: 40 Have you smoked in the past 12 months: No Number of Cigarettes Smoked Daily: 2 If you are a former smoker, when did you quit?: 30YRS Cigars Per Day: 1 Information on smoking cessation initiated: No 'Breaking Loose' booklet given: 05/24/13 Hx Alcohol Use: No Drug/Substance Use Hx: No Substance Use Type: Alcohol, Cocaine, Heroin Hx Substance Use Treatment: Yes ([facility]) <Annia Simeon - Last Filed: 07/05/18 20:29> - Past Medical History Allergies/Adverse Reactions: Allergies Allergy/AdvReac Type Severity Reaction Status Date / Time No Known Drug Allergies Allergy Verified 07/04/18 18:34 banana AdvReac Verified 07/04/18 18:34 Home Medications: Ambulatory Orders Gabapentin [Neurontin -] 400 mg PO Q8H #90 capsule MDD 3 07/01/17 Methadone [Dolophine -] 60 mg PO DAILY@0600 MDD 65mg 11/26/17 Docusate Sodium [Colace -] 100 mg PO BID #60 cap 01/06/18 Folic Acid - 1 mg PO DAILY #30 tablet 01/06/18 Pyridoxine HCl (Vitamin B6) [Vitamin B-6] 50 mg PO DAILY #30 capsule 01/06/18 Salmeterol/Fluticasone [Advair 100Mcg/50Mcg -] 1 puff IH BID #1 inhaler Thiamine HCl [B-1] 100 mg PO DAILY 30 Days #30 tablet 01/06/18 Citalopram Hydrobromide [Celexa -] 20 mg PO DAILY #30 tablet 04/21/18 Pantoprazole Sodium [Protonix -] 40 mg PO DAILY #14 tablet.ec 04/21/18 Venlafaxine HCl ER [Effexor Xr -] 37.5 mg PO DAILY #30 cap.er.24h 04/21/18 Albuterol Sulfate Inhaler - [Ventolin HFA Inhaler -] 2 inh PO Q4H PRN #1 inhaler 05/10/18 Dolutegravir Sodium [Tivicay] 50 mg PO DAILY #30 tab 05/10/18 Emtricitabine/Tenofov Alafenam [Descovy 200-25 mg Tablet (Nf)] 1 each PO DAILY # 30 tablet 05/10/18 Ampicillin - [Ampicillin 2 gm Ivpb (Pre-Docked)] 2 gm IVPB Q4H 8 Days bag 06/29 Ampicillin - 2 gm IVPB Q4H-IV vial 07/05/18 Emtricitabine/Tenofovir [Truvada -] 1 tab PO DAILY tablet 07/05/18 Fluconazole [Diflucan -] 100 mg PO DAILY tablet 07/05/18 Review of Systems - Review of Systems Able to Perform ROS?: Yes Is the patient limited Estonian proficient: No Constitutional: No: Chills, Diaphoresis, Fever, Loss of Appetite, Malaise, Weakness HEENTM: Yes: See HPI, Difficulty Swallowing (regurgitating PO intake since neck mass). No: Recent change in vision, Nose Congestion, Throat Pain, Throat Swelling Respiratory: Yes: Cough, Orthopnea, Shortness of Breath, SOB with Exertion, SOB at Rest, Productive cough. No: Wheezing, Hemoptysis Cardiac (ROS): No: Chest Pain, Edema, Irregular Heart Rate, Lightheadedness, Palpitations, Syncope, Chest Tightness ABD/GI: No: Constipated, Diarrhea, Nausea, Poor Appetite, Poor Fluid Intake, Vomiting : No: Burning, Dysuria, Frequency, Pain Musculoskeletal: No: Back Pain, Joint Pain Integumentary: Yes: Other (chronic "thick skin" over legs b/l). No: Rash Neurological: No: Headache, Weakness, Unsteady Gait, Dizziness Psychiatric: No: Change in Appetite Endocrine: No: Increased Urine, Change in Weight Hematologic/Lymphatic: No: Anemia, Blood Clots, Easy Bleeding, Easy Bruising All Other Systems: Reviewed and Negative <Annia Simeon - Last Filed: 07/05/18 20:29> *Physical Exam - Vital Signs Last Vital Signs Temp Pulse Resp BP Pulse Ox 98.5 F 85 22 H 110/67 92 L 07/04/18 18:32 07/04/18 18:32 07/04/18 18:32 07/04/18 18:32 07/04/18 18:32 <Vanesa Silver - Last Filed: 07/04/18 19:41> - Vital Signs Last Vital Signs Temp Pulse Resp BP Pulse Ox 98.5 F 85 22 H 110/67 92 L 07/04/18 18:32 07/04/18 18:32 07/04/18 18:32 07/04/18 18:32 07/04/18 18:32 - Physical Exam General Appearance: Yes: Nourished, Appropriately Dressed, Mild Distress (pt appeared dyspneic on initial exam, improved on NC, lying comfortably), Obese HEENT: positive: EOMI, MILLIE, Pharynx Normal, Muffled/Hoarse voice, Hearing Grossly Normal. negative: Normal ENT Inspection, Normal Voice, Scleral Icterus (R), Scleral Icterus (L), Pharyngeal Erythema, Tonsillar Exudate, Tonsillar Erythema, Nasal Congestion, Rhinorrhea, Lesions, Thrush Neck: positive: Trachea midline, Supple, Other (Neck mass, pt with hoarse voice , regurgitating thick sputum on exam). negative: Tender, Rigid, Rigidity Respiratory/Chest: positive: Labored Respiration, Decreased Breath Sounds, Rhonchi (coarse breath sounds throughout, worst at bases). negative: Chest Tender, Lungs Clear, Normal Breath Sounds, Respiratory Distress, Accessory Muscle Use, Crackles, Wheezing Cardiovascular: positive: Regular Rhythm, Regular Rate, S1, S2, Edema. negative : JVD, Murmur Vascular Pulses: Carotid (R): 4+, Carotid (L): 4+ Gastrointestinal/Abdominal: positive: Normal Bowel Sounds, Soft, Protuberent. negative: Tender, Flat, Organomegaly, Pulsatile Mass Rectal Exam: positive: deferred Lymphatic: negative: Adenopathy, Tenderness Musculoskeletal: positive: Normal Inspection. negative: CVA Tenderness, Decreased Range of Motion Extremity: positive: Normal Capillary Refill, Normal Inspection, Normal Range of Motion, Pelvis Stable, Pedal Edema (b/l pedal edema with stasis dermatitis/ thick skin b/l LE up to mid-shins). negative: Tender, Calf Tenderness Integumentary: positive: Normal Color, Dry, Warm. negative: Jaundice, Diaphoresis, Rash Neurologic: positive: sock lining stitcher II-XII NML intact, Fully Oriented, Alert, Normal Mood/ Affect, Normal Response, Motor Strength 5/5, Other (pt slightly lethargic, pt says "up all night killing cockroaches in the custodial"). negative: EOM Palsy, Facial Droop, Numbness <Annia Simeon - Last Filed: 07/05/18 20:29> Moderate Sedation - Procedure Monitoring Vital Signs: Procedure Monitoring Vital Signs Temperature 98.5 F 07/04/18 18:32 Pulse Rate 85 07/04/18 18:32 Respiratory Rate 22 H 07/04/18 18:32 Blood Pressure 110/67 07/04/18 18:32 O2 Sat by Pulse Oximetry (%) 92 L 07/04/18 18:32 <Vanesa Silver - Last Filed: 07/04/18 19:41> - Procedure Monitoring Vital Signs: Procedure Monitoring Vital Signs Temperature 98.5 F 07/04/18 18:32 Pulse Rate 85 07/04/18 18:32 Respiratory Rate 22 H 07/04/18 18:32 Blood Pressure 110/67 07/04/18 18:32 O2 Sat by Pulse Oximetry (%) 92 L 07/04/18 18:32 <Annia Simeon - Last Filed: 07/05/18 20:29> ED Treatment Course - Consult/PCP Time Called: 19:41 (Paged Dr. Morris's service) <Vanesa Silver - Last Filed: 07/04/18 19:41> - LABORATORY CBC & Chemistry Diagram: 07/05/18 05:15 07/05/18 05:15 <Annia Simeon - Last Filed: 07/05/18 20:29> Medical Decision Making - Medical Decision Making Pt was seen at bedside, also will be seen by attending Dr. Nguyen. Pt was sent to ER by Dr. Morris, as the pt was discharged to a custodial with "unacceptable living conditions" per PCP and pt, and so she can continue her IV antibiotics inpatient. Pt states she has had "to kill cockroaches" while staying at the home, and called Dr. Morris. Pt uses 2 L NC O2 at home and has SOB at baseline (baseline O2 ~90%), but has been trying to stop using it " so she's not dependent on it". Pt states she has had difficulty tolerating PO, and continues to regurgitate her food and water since her neck mass started. Pt denies any recent fevers/chills, headache, vision changes, syncope, chest pain, palpitations, nausea/vomiting, abdominal pain, urinary symptoms, diarrhea/ constipation, or leg swelling. Vital signs stable, pt afebrile, pt saturating 92% on RA on arrival (pt states around baseline), pt was placed on 4L NC. PE showed coarse breath sounds b/l, worst at the bases. Clear heart sounds, no murmur. Will obtain chest x-ray to r/o any new focal changes - viral URI vs new pneumonia vs COPD exacerbation. Ordered work-up including CBC, CMP, UA, ECG, and chest x-ray. Provided 2 mg IVPB ampicillin Q4Hr per Dr. Morris for antibiotic coverage and duoneb breathing treatment. Pt afebrile today. Will continue to reassess pt and monitor for symptomatic improvement. 07/04/18 20:13 CBC and CMP generally WNL. CMP: CO2 33 (pt likely chronic retainer) Pt taken for chest x-ray. 07/04/18 21:49 X-ray showed RML atelectasis/infiltrate (confirmed with Dr. Mcneill). Pt also had atelectasis evident on CT scan in May 2018. Hospitalist team accepted pt for admission and will come to see the pt. Pt saturating ~95%, stable and resting comfortably. 07/04/18 22:57 07/05/18 20:28 <Annia Simeon - Last Filed: 07/05/18 20:29> *DC/Admit/Observation/Transfer <Vanesa Silver - Last Filed: 07/04/18 19:41> - Discharge Dispostion Decision to Admit order: Yes <Annia Simeon - Last Filed: 07/05/18 20:29> Diagnosis at time of Disposition: Listeria infection, Tracheal mass, HIV disease - Discharge Dispostion Condition at time of disposition: Stable
[2018-07-04 21:16] LABS: BASO % 0.7 % (0-2.0); HEMATOCRIT 32.1 % (32.4-45.2); HEMOGLOBIN 11.2 GM/dL (10.7-15.3); LYMPH % 25.3 % (8-40); MCH 34.9 pg (25.7-33.7); MCHC 34.8 g/dl (32.0-36.0); MEAN CELL VOLUME 100.2 fl (80-96); MEAN PLT VOLUME 9.6 fl (7.5-11.1); PLATELET COUNT 149 K/MM3 (134-434); RDW 12.1 % (11.6-15.6); WHITE BLOOD COUNT 4.6 K/mm3 (4.0-10.0)
[2018-07-04] MEDS ORDERED: ALBUTEROL SO4 2.5/IPRATROPIUM 0.5 INH SOL 3 ML VIAL.NEB. NEB ONE ×2 (21:19→21:57)
[2018-07-04 21:45] LABS: ALK PHOS 60 U/L (45-117); ANION GAP 6 MMOL/L (8-16); BILIRUBIN,TOTAL 0.7 mg/dL (0.2-1); BLOOD UREA NITROGEN 5 mg/dL (7-18); CALCIUM 9.1 mg/dL (8.5-10.1); CHLORIDE 101 mmol/L (98-107); CO2 33 mmol/L (21-32); CREATININE 0.6 mg/dL (0.55-1.3); GLUCOSE,RANDOM 97 mg/dL (74-106); POTASSIUM 3.5 mmol/L (3.5-5.1); SGOT/AST 14 U/L (15-37); SGPT/ALT 16 U/L (13-61); SODIUM 139 mmol/L (136-145); TOT PROT 6.3 g/dl (6.4-8.2)
[2018-07-04] MEDS: AMPICILLIN - 2 GM in SODIUM CHLORIDE 100 ML IVPB SCH (21:58)
[2018-07-04] MEDS ORDERED: AMPICILLIN SODIUM 2 GM VIAL ONE (21:58)
--- NOTE | 2018-07-04 22:44 | PDOC ---
Attending Attestation - HPI HPI: This patient is a 63 year old female with PMHx of she was sent by Dr. Morris for social admit. As per PCP, patient was discharged to a skilled nursing with "unacceptable living conditions" she would like patient to continue her IV antibiotics inpatient. Patient states she has had "to kill cockroaches" while staying at the home, and called Dr. Morrsi. Patient uses 2 L NC O2 at home and has SOB at baseline (baseline O2 ~90%), but has been trying to stop using it so she's not dependent on it". Patient states she has had difficulty tolerating PO, and continues to regurgitate her food and water since her neck mass started. Patient denies any recent fevers, chills, headache, vision changes , syncope, chest pain, palpitations, nausea vomiting, abdominal pain, urinary symptoms, diarrhea/constipation, or leg swelling. 07/04/18 22:59 <Vanesa Silver - Last Filed: 07/04/18 22:59> - Resident Resident Name: Annia Simeon - ED Attending Attestation I have performed the following: I have examined & evaluated the patient, The case was reviewed & discussed with the resident, I agree w/resident's findings & plan, Exceptions are as noted - Physicial Exam PE: 07/05/18 20:08 PE written in MDM - Medical Decision Making 07/05/18 01:00 wnwd 63 yo female head no scalp lacerations,no hematomas neck mass lungs crackles cvs [id number],+murmer abd no rebound ext no deformities skin warm and dry neuro alert,ambulatory 07/05/18 20:07 07/05/18 20:08 this pt is awaiting TRANSFER TO [facility] and the transfer center called is awaiting from the hospitalist <Qi Nguyen - Last Filed: 07/05/18 20:11>
[2018-07-05] MEDS ORDERED: ALBUTEROL SO4 2.5/IPRATROPIUM 0.5 INH SOL 3 ML VIAL.NEB. NEB PRN (00:18)
--- NOTE | 2018-07-05 00:18 | HP ---
CHIEF COMPLAINT: PCP sent PCP: Dr. Morris HISTORY OF PRESENT ILLNESS: the patient is a 63 yo f w/ PMH HIV on HAART, Former IVDU/ETOH abuser throat mass s/p bc at [facility], COPD (on 2L home O2), appendiceal cancer (inoperable) , Listeria bacteremia who was sent to the ED from [facility] due to unsafe conditions. The Patient states that she spent 2 days at the [place] and was "killing multiple cockroaches all night" when she called her PCP, who instructed her to return to [facility] to finish her ABX treatment. She was being treated with Ampicilin 2g q4h IV. Per the patient, her regimen is scheduled to finish this . The patient also continues to c/o a chronic cough productive of dark sputum which remains unchanged. Patient denies chest pain, fever, chills, abdominal pain. ER course was notable for: (1) CXR showing possible new RML infiltrate vs atalectasis (2) Dr. Morris contacted, recommends resuming ampicillin regimen (3) Recent Travel: none PAST MEDICAL HISTORY: see HPI PAST SURGICAL HISTORY: multiple abortions Social History: Smoking: former smoker Alcohol: former ETOH abuse Drugs: former IDVU Family History: non-contributory Allergies No Known Drug Allergies Allergy (Verified 07/04/18 18:34) banana Adverse Reaction (Verified 07/04/18 18:34) HOME MEDICATIONS: Home Medications Medication Instructions Recorded Gabapentin [Neurontin -] 400 mg PO Q8H #90 capsule MDD 3 07/01/17 Methadone [Dolophine -] 60 mg PO DAILY@0600 MDD 65mg 11/26/17 Docusate Sodium [Colace -] 100 mg PO BID #60 cap 01/06/18 Folic Acid - 1 mg PO DAILY #30 tablet 01/06/18 Pyridoxine HCl (Vitamin B6) 50 mg PO DAILY #30 capsule 01/06/18 [Vitamin B-6] Salmeterol/Fluticasone [Advair 1 puff IH BID #1 inhaler 01/06/18 100Mcg/50Mcg -] Thiamine HCl [B-1] 100 mg PO DAILY 30 Days #30 tablet 01/06/18 Citalopram Hydrobromide [Celexa -] 20 mg PO DAILY #30 tablet 04/21/18 Pantoprazole Sodium [Protonix -] 40 mg PO DAILY #14 tablet.ec 04/21/18 Venlafaxine HCl ER [Effexor Xr -] 37.5 mg PO DAILY #30 cap.er.24h 04/21/18 Albuterol Sulfate Inhaler - 2 inh PO Q4H PRN #1 inhaler 05/10/18 [Ventolin HFA Inhaler -] Dolutegravir Sodium [Tivicay] 50 mg PO DAILY #30 tab 05/10/18 Emtricitabine/Tenofov Alafenam 1 each PO DAILY #30 tablet 05/10/18 [Descovy 200-25 mg Tablet (Nf)] Ampicillin - [Ampicillin 2 gm Ivpb 2 gm IVPB Q4H 8 Days bag 06/29/18 (Pre-Docked)] REVIEW OF SYSTEMS CONSTITUTIONAL: Absent: fever, chills, diaphoresis, generalized weakness, malaise, loss of appetite, weight change HEENT: Absent: rhinorrhea, nasal congestion, mouth swelling, ear pain, eye pain, visual changes CARDIOVASCULAR: Absent: chest pain, syncope, palpitations, irregular heart rate, lightheadedness , peripheral edema RESPIRATORY: Absent: orthopnea, wheezing, stridor, hemoptysis GASTROINTESTINAL: Absent: abdominal pain, abdominal distension, nausea, vomiting, diarrhea, constipation, melena, hematochezia GENITOURINARY: Absent: dysuria, frequency, urgency, hesitancy, hematuria, flank pain, genital pain MUSCULOSKELETAL: Absent: myalgia, arthralgia, joint swelling, back pain, neck pain SKIN: Absent: rash, itching, pallor HEMATOLOGIC/IMMUNOLOGIC: Absent: easy bleeding, easy bruising, lymphadenopathy, frequent infections ENDOCRINE: Absent: unexplained weight gain, unexplained weight loss, heat intolerance, cold intolerance NEUROLOGIC: Absent: headache, focal weakness or paresthesias, dizziness, unsteady gait, seizure, mental status changes, bladder or bowel incontinence PSYCHIATRIC: Absent: anxiety, depression, suicidal or homicidal ideation, hallucinations. PHYSICAL EXAMINATION Vital Signs - 24 hr 07/04/18 18:32 Temperature 98.5 F Pulse Rate 85 Respiratory 22 H Rate Blood Pressure 110/67 O2 Sat by Pulse 92 L Oximetry (%) GENERAL: Patient lethargic througout the interview, but easily rousable. Can follow commands. Patient states she is tired from killing cockroaches all night. HEAD: Normal with no signs of trauma. EYES: Pupils equal, round and reactive to light, extraocular movements intact, sclera anicteric, conjunctiva clear. No lid lag. LUNGS: Breath sounds equal, clear to auscultation bilaterally. Decreased air entry b/l HEART: Regular rate and rhythm, normal S1 and S2. Diastolic Murmur heard at the left sternal border. ABDOMEN: Soft, nontender, not distended, normoactive bowel sounds, no guarding, no rebound, no masses. No hepatomegaly or splenomegaly. LOWER EXTREMITIES: 2+ pulses, warm, well-perfused. No calf tenderness. No peripheral edema. NEUROLOGICAL: Cranial nerves II-X intact. muffled speech. SKIN: Warm, dry, normal turgor, no rashes or lesions noted, normal capillary refill. Laboratory Results - last 24 hr 07/04/18 07/04/18 20:01 20:01 WBC 4.6 RBC 3.20 L Hgb 11.2 Hct 32.1 L MCV 100.2 H MCH 34.9 H MCHC 34.8 RDW 12.1 Plt Count 149 MPV 9.6 Absolute Neuts (auto) 2.6 Neutrophils % 57.0 Lymphocytes % 25.3 Monocytes % 10.0 Eosinophils % 7.0 H D Basophils % 0.7 Nucleated RBC % 0 Sodium 139 Potassium 3.5 Chloride 101 Carbon Dioxide 33 H Anion Gap 6 L BUN 5 L Creatinine 0.6 Creat Clearance w eGFR > 60 Random Glucose 97 Calcium 9.1 Total Bilirubin 0.7 AST 14 L ALT 16 Alkaline Phosphatase 60 Total Protein 6.3 L Albumin 3.0 L ASSESSMENT/PLAN: The patient is a 63 yo f w/ multiple medical problems and listeria bacteremia who was sent to the ED from [place] due to unsafe conditions. #Listeria bacteremia -will resume ampicillin 2g q4h IV -no blood cultures ordered as per ID -ID consulted #COPD/ possible infiltrate -on 2l NC at home, will resume -Duonebs q4h PRN -resume home nebs -CT chest shows atalectasis; no indication for aspiration PNA coverage -pulm eval in am -ABG now as patient lethargic #Neck Mass -s/p Bx at [facility] -will obtain records from [facility] for bx results and outpatient f/u results -NPO for now until bedside swallow eval -CT chest shows possible zenker divertculum or achalasia -speech/swallow eval in the AM; was seen last admission and barium swallow recommended, but never done; will order barium swallow for AM -will begin empiric PO diflucan 100mg daily as patient continues to have pain on swallowing #HIV -resume home HAART -last CD4 398 on 03/15 #FEN -no fluids indicated -lytes WNL -NPO as above #prophy -lovenox 40mg SQ daily #dispo -admit med surg -home medications NOT verified Visit type - Emergency Visit Emergency Visit: Yes ED Registration Date: 07/04/18 Care time: The patient presented to the Emergency Department on the above date and was hospitalized for further evaluation of their emergent condition. - New Patient This patient is new to me today: Yes Date on this admission: 07/05/18 - Critical Care Critical Care patient: No
--- NOTE | 2018-07-05 00:29 | PN ---
Teaching Attending Note Name of Resident: Sathish Mckenzie ATTENDING PHYSICIAN STATEMENT I saw and evaluated the patient. I reviewed the resident's note and discussed the case with the resident. I agree with the resident's findings and plan as documented. SUBJECTIVE: Seen and examined; please refer to resident note for further historical details. Briefly, this is a 63 y/o AAF with a complex PMH presenting from her half-way facility to the ER at the behest of her ID physician where she was getting IV abx (ampicillin 2g q4h) for Listeria bacteremia. She was recently discharged from here last week by Dr. Mendez when she was seen for Listeria bacteremia, the neck mass with concerns of dysphagia/odynophagia. She was complaining of cockroaches, etc. in the facility. She has no other complaints but is noted to be coughing on and off and do endorse some dysphagia due to the neck mass she has; she has a productive cough and is at her baseline O2 requirements (2L ATC); she was found to have a ? new R-sided process on CXR with CT pending. She doesn't regularly see a medicaid specialist and we have no PFTs for her on file. She has inoperable appendiceal cancer (follows with Dr. De Leon, Dr. Maher) as well as a history of drug and alcohol abuse in remission for the last month. She has history of HIV on HAART and follows at the [facility]; we will continue her HAART inpateint (VL undetectable, CD4 398 on 03/15) . Was seen for the swallowing issue by GI and by Elyssa Martinez last time she was here; GI recommended empiric trial of diflucan should she continue to have burning and they also commented that EGD would be likely complex due to the presence of the mass. She has not followed up since with GI but continues to have the odynophagia that stereotyped her last visit. Furthermore, she was seen by CT surgery at that time and it was said that there was no thoracic procedure indicated and to have the repeat bx done. She was supposed to followup with ENT and GI but has not kept either followup appointment. She is a poor historian and appears somewhat sleepy during our interview. 10 sys ROS done and negative aside from HPI PMH and PSH reviewed FH asked and noncontributory Social history discussed above (history of crack cocaine and heroin abuse, EtOH abuse, tobacco abuse; all stopped within last month or so per documentation from prior admission) Medication list reviewed; pending reconciliation. Per ID will continue the abx she was getting at the SNF OBJECTIVE: VS, labs, imaging reviewed NAD, AAO, resting in bed Neck mass noted; I saw her last time she was in the ER and this is equivical; coughing up dark sputum. Trachea midline to slight leftward orientation. NC AT EOMI PERRLA Lungs with scattered mild wheezes b/l with no localizing features but exam limited by coughing; w/ sym exp NT ND +BS CN2-12 wnl, no fnd. Soft speech. Normal mood, blunted affect. ASSESSMENT AND PLAN: Patient is a 63 y/o AAF presenting due to poor conditions at her [facility]AY; ID recommends continuing her IV abx for listeria bacteremia. We will plan to continue the current therapies for her underlying medical issues. Thank you Dr. Morris for allowing us to participate in the ongoing management of your patient. 1) Listeria Bacteremia -Noted from prior admission. Is on day 12 of ampicillin. ID is following and managing. Will continue the IV abx and monitor for any rxn. Further management deferred to ID. 2) Neck Mass (bs indeterminate; inflam vs. infectious vs. malig) -Known since her ER visit in may; she was taken to [facility] at that time. She had a bx done which was apparently nonconclusive. She is documented as having followup scheduled with Dr. Leland Romeo for followup for repeat bx but unfortunately she missed that appointment. She doesn't have any progressive dysphagia or odynophagia but her symptoms haven't necessarily improved here; see below for disucssion -No CTS procedure indicated per Dr. Perez -No plans for EGD here due to underlying untreated BRIAN and compressive phenomenon seen from neck mass per GI consult. 3) Intermittent dysphagia/odynophagia -Seen by swallow and GI last time; recommended empiric diflucan should the odynophagia continue which we will initiate. Furthermore, we will continue her diet from the SNF and have bedside swallow before she eats to ensure no aspiration. Finally, we will have Yang Martinez see her for further eval and order a MBS for her. The mechanism of her swallowing issues is likely 2/2 the neck mass. -Potential to have caused aspiration; discussed below 4) Likely R-sided infiltrate in the setting of intermittent dysphagia -Per above with evaluation of swallowing -Checking CT; CXR was discussed with radiology who felt atelectesis vs. infiltrate. Given R-sided findings and hx neck mass concern for aspiration. Will get non-contrast CT to elucidate if infiltrate or not then add clinda if needed. 5) Inoperable Appendiceal Cancer -Documented; no updates. Documented as following with Dr. Maher and Dr. Dave. 6) History of Drug and Alcohol Abuse, in remission -Consider checking UTox; continue thiamine and folate when inpatient -Continue methadone 7) HIV on HAART -She is on Trivicay/descovy at home; takes trivicay/truvada here. Consult ID ( Dr. Morris already aware that she is here). Checking CD4. 8) COPD on home O2 (2L) -Cough is not new; she has had for several days now and not worsening or associated with worsening wheezing, etc. I am not inclined to treat her for COPD exacerbation at this point. She hasn't seen pulmonary and could use optimization of her home treatment and OP PFTs, especially given her complex clinical presentation and the severity of her COPD to require home O2. Can consider having pulmonary see her in the AM if needed given the potential aspiration -When I saw her back last month she was sleepy as well, but we will check ABG to make sure she isn't retaining a significant amount of CO2. -Continue advair, PRN nebs, adding spiriva. -Incentive spirometry 9) BRIAN -Noncompliant with CPAP; consider offering it to her this admission. 10) Depression -Continue with venlafaxine/citalopram 11) Pulm HTN -Control underlying disease 12) Macrocytosis -B12/Foalte normal last admission; consider 2/2 EtOH abuse FENA -PO fluids -PRN replete -Per above -As tolerated Consults: Swallow, Infectious disease. Full Code
[2018-07-05] MEDS: AMPICILLIN - 2 GM in SODIUM CHLORIDE 100 ML IVPB SCH ×7 (01:02→22:27)
[2018-07-05] MEDS: AMPICILLIN IVPB SCH ×2 (01:05→09:42)
[2018-07-05] MEDS ORDERED: AMPICILLIN - 2 GM in SODIUM CHLORIDE 100 ML IVPB SCH (02:00)
[2018-07-05 05:18] LABS: ARTERIAL BLD GAS O2 SATURATION 94.7 % (90-98.9); ARTERIAL BLOOD GAS BASE EXCESS 5.7 meq/l (-2-2); ARTERIAL BLOOD GAS PO2 86.5 mmHg (80-100); ARTERIAL BLOOD GAS pH 7.29 (7.35-7.45)
[2018-07-05 05:24] LABS: ALLENS TEST POSITIVE
[2018-07-05 05:26] LABS: ARTERIAL BLOOD GAS PCO2 72.6 mmHg (35-45)
[2018-07-05] MEDS ORDERED: AMPICILLIN SODIUM 2 GM VIAL ONE (05:41)
[2018-07-05] MEDS ORDERED: METHADONE HCL 5 MG TABLET PO SCH (06:00)
[2018-07-05 06:55] LABS: HEMATOCRIT 34.4 % (32.4-45.2); HEMOGLOBIN 11.1 GM/dL (10.7-15.3); MCHC 32.2 g/dl (32.0-36.0); MEAN CELL VOLUME 102.4 fl (80-96); MEAN PLT VOLUME 9.5 fl (7.5-11.1); PLATELET COUNT 132 K/MM3 (134-434); RBC 3.36 M/mm3 (3.60-5.2); RDW 12.1 % (11.6-15.6); WHITE BLOOD COUNT 4.2 K/mm3 (4.0-10.0)
[2018-07-05] MEDS ORDERED: METHADONE HCL 10 MG TABLET ONE (07:02)
[2018-07-05] MEDS ORDERED: METHADONE HCL 40 MG DISPERSABLE TABLET ONE (07:02)
[2018-07-05] MEDS ORDERED: GABAPENTIN 100 MG CAPSULE (FP) ONE ×2 (07:03→22:15)
[2018-07-05] MEDS: GABAPENTIN 400 MG CAPSULE (FP) PO SCH ×3 (07:12→22:27)
[2018-07-05 07:29] LABS: ANION GAP 6 MMOL/L (8-16); BLOOD UREA NITROGEN 3 mg/dL (7-18); CHLORIDE 101 mmol/L (98-107); CO2 32 mmol/L (21-32); CREATININE 0.4 mg/dL (0.55-1.3); GLUCOSE,RANDOM 87 mg/dL (74-106); MAGNESIUM 2.4 mg/dL (1.8-2.4); PHOSPHOROUS 4.1 mg/dL (2.5-4.9); POTASSIUM 3.8 mmol/L (3.5-5.1); SODIUM 139 mmol/L (136-145)
[2018-07-05] MEDS ORDERED: PATIENT'S OWN MEDICATION (NON-FORMULARY) (Emtricitabine/Tenofov Alafenam [Descovy 200-25 M PO SCH (10:00)
[2018-07-05] MEDS: FLUTICASONE/SALMETEROL 100 MCG/50 MCG DISKUS IH SCH ×2 (11:15→22:27)
[2018-07-05] MEDS: DOCUSATE SODIUM 100 MG CAPSULE (FP) PO SCH ×3 (11:27→22:27)
[2018-07-05] MEDS: CITALOPRAM HYDROBROMIDE 20 MG TABLET (FP) PO SCH (11:27)
[2018-07-05] MEDS: ENOXAPARIN NA (PORCINE) 40 MG/0.4 ML DISP.SYRIN SQ SCH (11:28)
[2018-07-05] MEDS: FOLIC ACID 1 MG TABLET (FP) PO SCH (11:28)
[2018-07-05] MEDS: FLUCONAZOLE 100 MG TABLET (UD) PO SCH (11:28)
[2018-07-05] MEDS: VENLAFAXINE HCL 37.5 MG E.R. CAPSULE (FP) PO SCH (11:28)
[2018-07-05] MEDS: PANTOPRAZOLE 40 MG TABLET (FP) PO SCH (11:28)
[2018-07-05] MEDS: PYRIDOXINE HCL (B-6) 50 MG TABLET (FP) PO SCH (11:29)
[2018-07-05] MEDS: DOLUTEGRAVIR SODIUM 50 MG TABLET (NON-FORMULARY) PO SCH (11:29)
[2018-07-05] MEDS: THIAMINE HCL 100 MG TABLET (FP) PO SCH (11:29)
--- NOTE | 2018-07-05 12:34 | CONSULT ---
Admitting History and Physical - Admission History of Present Illness: Per EMR: 63 yo f w/ PMH HIV on HAART, Former IVDU/ETOH abuser throat mass s/p bc at [facility], COPD (on 2L home O2), appendiceal cancer (inoperable), Listeria bacteremia Patient reports difficulty tolerating PO, and continues to regurgitate her food and water since her neck mass started. Seen by me last on 06/24/18- - Speech Evaluation, Impression/Plan Impression: Pt reports swallowing has improved, completing regular diet today. For me, she gabs her chest and reports Odynophagia while drinking water. No responsive cough. No Oral thrush noted. r/o esoph aida? - Dysphagia Impressions/Plan Dysphagia Impressions: Ongoing Evaluation *Silent aspiration: cannot be R/O at bedside Recommendations: MBS w Esophagus (if symptoms of dysphagia persist) - Recommendations Diet Consistency: Other (as tolerated) - Past Medical History Cardiovascular: Yes: Other (ENDOCARDITIS). No: AFIB Pulmonary: Yes: COPD. 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 No: Ascites Hepatobiliary: Yes: Hepatitis B (HBV core ab +, surface antibody +, antigen negative), Hepatitis C (PCR negative), Other (alcoholic liver disease suspected with mild splenomegaly) Infectious Disease: Yes: HIV Psych: Yes: Depression - Smoking History Smoking history: Never smoked Have you smoked in the past 12 months: No Aproximately how many cigarettes per day: 2 If you are a former smoker, when did you quit?: 30YRS - Alcohol/Substance Use Hx Alcohol Use: No History of Substance Use: reports: Cocaine (IV, crack), Heroin (opoid dependence ) Date of Last Use: 05/14/16 - Social History ADL: Independent History of Recent Travel: No History - Admission Reason For Visit: INFECTION DUE TO LISTERIA SPECIES Speech Evaluation - Communication Primary Language: MARTINIQUAIS - Speech Characteristics Articulation: Yes: Precise - Swallow Evaluation/Bedside Assessment Current Nutritional Intake: NPO A-P Transit: WFL Recommendations Recommendations: Modified Barium Swallow (ordered. To be done today.)
--- NOTE | 2018-07-05 12:56 | PN ---
Progress Note (short form) - Note Progress Note: ID CONSULT DICTATED
--- NOTE | 2018-07-05 14:38 | PN ---
Physical Exam: SUBJECTIVE: Patient seen and examined at bedside this morning. She endorses that she was uncomfortable in her SNF facility, and was told by her physician to come to [facility] ED. Patient does not endorse any acute complaints today. She denies fevers, chills, shortness of breath, chest pain, palpitations, abdominal pain, nausea, vomiting. OBJECTIVE: Vital Signs Period Temp Pulse Resp BP Sys/Amato Pulse Ox Last 24 Hr 97.9 F-98.5 F 76-85 18-22 110-149/67-88 92-100 GENERAL: The patient is awake, alert, in no acute distress. HEAD: Normocephalic, atraumatic EYES: PERRL, extraocular movements intact, sclera anicteric. ENT: Oropharynx clear without exudates, moist mucous membranes. NECK: Supple without lyphadenopathy. Right sided neck scar at site of prior biopsy. LUNGS: Clear to auscultation bilaterally, no wheezes, no crackles. No accessory muscle use. HEART: Regular rate and rhythm, S1, S2 auscultated. Holosystolic murmur/ ABDOMEN: Obese. Soft, nontender, nondistended. Normoactive bowel sounds, no guarding, no rebound, no hepatosplenomegaly, no masses. EXTREMITIES: 2+ radial and dorsalis pedis pulses B/L, warm, well-perfused. No edema B/L lower extremities. NEUROLOGICAL: Cranial nerves II through XII grossly intact. Normal speech. PSYCH: Normal mood, normal affect upon my encounter. SKIN: Warm, dry Laboratory Results - last 24 hr 07/04/18 07/04/18 07/05/18 20:01 20:01 05:00 WBC 4.6 RBC 3.20 L Hgb 11.2 Hct 32.1 L MCV 100.2 H MCH 34.9 H MCHC 34.8 RDW 12.1 Plt Count 149 MPV 9.6 Absolute Neuts (auto) 2.6 Neutrophils % 57.0 Lymphocytes % 25.3 Monocytes % 10.0 Eosinophils % 7.0 H D Basophils % 0.7 Nucleated RBC % 0 Puncture Site Left brachial ABG pH 7.29 L ABG pCO2 at Pt Temp 72.6 H* ABG pO2 at Pt Temp 86.5 ABG HCO3 33.7 H ABG O2 Sat (Measured) 94.7 ABG O2 Content 14.1 L ABG Base Excess 5.7 H Mika Test Positive O2 Delivery Device Nasal cannula Oxygen Flow Rate 4l Sodium 139 Potassium 3.5 Chloride 101 Carbon Dioxide 33 H Anion Gap 6 L BUN 5 L Creatinine 0.6 Creat Clearance w eGFR > 60 Random Glucose 97 Calcium 9.1 Phosphorus Magnesium Total Bilirubin 0.7 AST 14 L ALT 16 Alkaline Phosphatase 60 Total Protein 6.3 L Albumin 3.0 L 07/05/18 07/05/18 05:15 05:15 WBC 4.2 RBC 3.36 L Hgb 11.1 Hct 34.4 MCV 102.4 H MCH 33.0 MCHC 32.2 RDW 12.1 Plt Count 132 L MPV 9.5 Absolute Neuts (auto) Neutrophils % Lymphocytes % Monocytes % Eosinophils % Basophils % Nucleated RBC % Puncture Site ABG pH ABG pCO2 at Pt Temp ABG pO2 at Pt Temp ABG HCO3 ABG O2 Sat (Measured) ABG O2 Content ABG Base Excess Mika Test O2 Delivery Device Oxygen Flow Rate Sodium 139 Potassium 3.8 Chloride 101 Carbon Dioxide 32 Anion Gap 6 L BUN 3 L Creatinine 0.4 L Creat Clearance w eGFR > 60 Random Glucose 87 Calcium 9.0 Phosphorus 4.1 Magnesium 2.4 Total Bilirubin AST ALT Alkaline Phosphatase Total Protein Albumin Active Medications Generic Name Dose Route Start Last Admin Trade Name Khalifq PRN Reason Stop Dose Admin Albuterol/Ipratropium 1 amp 07/05/18 00:18 Duoneb - NEB Q4H PRN SHORTNESS OF BREATH Citalopram Hydrobromide 20 mg 07/05/18 10:00 07/05/18 11:27 Celexa - PO 20 mg DAILY MILIND Administration Docusate Sodium 100 mg 07/05/18 10:00 07/05/18 11:32 Colace - PO Not Given BID MILIND Enoxaparin Sodium 40 mg 07/05/18 10:00 07/05/18 11:28 Lovenox - SQ 40 mg DAILY MILIND Administration Fluconazole 100 mg 07/05/18 10:00 07/05/18 11:28 Diflucan - PO 100 mg DAILY MILIND Administration Folic Acid 1 mg 07/05/18 10:00 07/05/18 11:28 Folic Acid - PO 1 mg DAILY MILIND Administration Gabapentin 400 mg 07/05/18 06:00 07/05/18 07:12 Neurontin - PO 400 mg TID MILIND Administration Ampicillin Sodium 2 gm/ Sodium 100 mls @ 200 mls/hr 07/05/18 06:00 07/05/18 11:15 Chloride IVPB 200 mls/hr Q4H-IV MILIND Administration Methadone HCl 60 mg 07/05/18 06:00 07/05/18 07:12 Dolophine - PO 60 mg DAILY@0600 MILIND Administration Non-Formulary Medication 1 each 07/05/18 10:00 Emtricitabine/Tenofov Alafenam [Descovy 200-25 Mg Tablet (Nf)] PO DAILY MILIND Pantoprazole Sodium 40 mg 07/05/18 10:00 07/05/18 11:28 Protonix - PO 40 mg DAILY MILIND Administration Pyridoxine HCl 50 mg 07/05/18 10:00 07/05/18 11:29 Vitamin B6 - PO 50 mg DAILY MILIND Administration Fluticasone/Salmeterol 1 puff 07/05/18 10:00 07/05/18 11:15 Advair 100mcg/50mcg - IH 1 puff BID MILIND Administration Thiamine HCl 100 mg 07/05/18 10:00 07/05/18 11:29 Vitamin B1 - PO 100 mg DAILY MILIDN Administration Venlafaxine HCl 37.5 mg 07/05/18 10:00 07/05/18 11:28 Effexor Xr - PO 37.5 mg DAILY MILIND Administration ASSESSMENT/PLAN: Patient is a 63 year old female with history of HIV (on HAART) Listeria bacteremia -Ampicillin 2grams Q4H IV (day 06/03) -ID consult (Dr. Morris) appreciated Neck Mass Right sided Pulmnary infiltrate Esophageal FEN Prophylaxis Disposition
--- NOTE | 2018-07-05 15:13 | PN ---
Progress Note, MAXILLOFACIAL PATHOLOGY - Note Progress Note: mbs reviewed with LIANNA MANJARREZ
--- NOTE | 2018-07-05 15:27 | DS ---
Physical Exam: SUBJECTIVE: Patient seen and examined at bedside this morning. She endorses that she was uncomfortable in her SNF facility, and was told by her physician to come to [facility] ED. Patient endorses intermittent cough. She denies fevers, chills, shortness of breath, chest pain, palpitations, abdominal pain, nausea, vomiting. OBJECTIVE: Vital Signs Period Temp Pulse Resp BP Sys/Amato Pulse Ox Last 24 Hr 97.9 F-98.5 F 76-85 18-22 110-149/67-88 92-100 PHYSICAL EXAM GENERAL: The patient is awake, alert, in no acute distress. HEAD: Normocephalic, atraumatic EYES: PERRL, extraocular movements intact, sclera anicteric. ENT: Oropharynx clear without exudates, moist mucous membranes. NECK: Supple without lyphadenopathy. Right sided neck mass, with scar at site of prior biopsy. Clean, dry, nondraining, no bleeding. LUNGS: Clear to auscultation bilaterally, no wheezes, no crackles. No accessory muscle use. HEART: Regular rate and rhythm, S1, S2 auscultated. Holosystolic murmur/ ABDOMEN: Obese. Soft, nontender, nondistended X4 quadrants. Normoactive bowel sounds, no guarding, no rebound tenderness. No hepatosplenomegaly palpated. EXTREMITIES: 2+ radial and dorsalis pedis pulses B/L, warm, well-perfused. Right arm PICC line- site clean, dry. Trace edema B/L lower extremities. NEUROLOGICAL: Cranial nerves II through XII grossly intact. Speech is hoarse. PSYCH: Normal mood, normal affect upon my encounter. SKIN: Warm, dry LABS Laboratory Results - last 24 hr 07/04/18 07/04/18 07/05/18 20:01 20:01 05:00 WBC 4.6 RBC 3.20 L Hgb 11.2 Hct 32.1 L MCV 100.2 H MCH 34.9 H MCHC 34.8 RDW 12.1 Plt Count 149 MPV 9.6 Absolute Neuts (auto) 2.6 Neutrophils % 57.0 Lymphocytes % 25.3 Monocytes % 10.0 Eosinophils % 7.0 H D Basophils % 0.7 Nucleated RBC % 0 Puncture Site Left brachial ABG pH 7.29 L ABG pCO2 at Pt Temp 72.6 H* ABG pO2 at Pt Temp 86.5 ABG HCO3 33.7 H ABG O2 Sat (Measured) 94.7 ABG O2 Content 14.1 L ABG Base Excess 5.7 H Mika Test Positive O2 Delivery Device Nasal cannula Oxygen Flow Rate 4l Sodium 139 Potassium 3.5 Chloride 101 Carbon Dioxide 33 H Anion Gap 6 L BUN 5 L Creatinine 0.6 Creat Clearance w eGFR > 60 Random Glucose 97 Calcium 9.1 Phosphorus Magnesium Total Bilirubin 0.7 AST 14 L ALT 16 Alkaline Phosphatase 60 Total Protein 6.3 L Albumin 3.0 L 07/05/18 07/05/18 05:15 05:15 WBC 4.2 RBC 3.36 L Hgb 11.1 Hct 34.4 MCV 102.4 H MCH 33.0 MCHC 32.2 RDW 12.1 Plt Count 132 L MPV 9.5 Absolute Neuts (auto) Neutrophils % Lymphocytes % Monocytes % Eosinophils % Basophils % Nucleated RBC % Puncture Site ABG pH ABG pCO2 at Pt Temp ABG pO2 at Pt Temp ABG HCO3 ABG O2 Sat (Measured) ABG O2 Content ABG Base Excess Mika Test O2 Delivery Device Oxygen Flow Rate Sodium 139 Potassium 3.8 Chloride 101 Carbon Dioxide 32 Anion Gap 6 L BUN 3 L Creatinine 0.4 L Creat Clearance w eGFR > 60 Random Glucose 87 Calcium 9.0 Phosphorus 4.1 Magnesium 2.4 Total Bilirubin AST ALT Alkaline Phosphatase Total Protein Albumin HOSPITAL COURSE: Date of Admission:07/04/18 Date of Discharge: 07/05/18 Patient is a 63 year old female with history of Legionella bacteremia (on Ampicillin day 06/03), neck mass (s/p biopsy at [facility]), HIV on HAART, polysubstance abuse (IVDA and alcohol), COPD on 2L home oxygen, inoperable appendiceal cancer, presents from SNF due to unsafe conditions. She was reinstated on her Ampicillin regimen, and HAART with infectious disease recommendation. 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 Dilation of pulmonary artery trunk with proximal right and left pulmonary arteries suggestive of pulmonary arterial hypertension noted. Barium esophogram showed partially obstructing mid esophageal mass, concerning for extrinsic vs intrinsic esophageal mass. Trace silent aspiration with thin liquids noted with speech pathologist consult. Patient had been evaluated by gastroenterology on prior admission, discussed necessity of endoscopic evaluation at higher level of care due to patient history of neck mass. Of note, patient had missed her prior outpatient GI appointment. Patient for discharge to [facility] for further evaluation of dysphagia, odynophagia, and neck mass. Continued Ampicillin regimen through 07/07/2018 via PICC line. 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 Your barium swallow shows a mass within your esophagus, Further your CT scan shows possible outpocketing from within your esophagus. You will need an Endoscopy, and further medical evaluation, however given your history of prior neck mass, you are being transferred to [facility]. Continue your home medications as directed. Continue using CPAP nightly as directed Follow the discharge instructions, medication recommendations, and follow up referrals of the physicians at [facility]. Follow up with your primary care physician within two- three days of hospital discharge. Follow up with Dr. Morris within one week of hospital discharge. Return to the nearest Emergency Department if you experience any worsening symptoms, fevers, chills, shortness of breath, chest pain, palpitations, abdominal pain, nausea, vomiting. [facility] INSTRUCTIONS Patient will continue Ampicillin 2 grams Q4H IV via PICC line. Last day of antibiotic therapy will be 07/07/2018. PICC line may be removed upon completion of antibiotic therapy. CPAP nightly for obstructive sleep apnea Maintain oxygen saturation greater than 90% Referrals: Nikki Morris MD [Staff Physician] - Disposition: TRANSFER ACUTE CARE/OTHER HOSP - Home Medications Comprehensive Discharge Medication List: Ambulatory Orders Gabapentin [Neurontin -] 400 mg PO Q8H #90 capsule MDD 3 07/01/17 Methadone [Dolophine -] 60 mg PO DAILY@0600 MDD 65mg 11/26/17 Docusate Sodium [Colace -] 100 mg PO BID #60 cap 01/06/18 Folic Acid - 1 mg PO DAILY #30 tablet 01/06/18 Pyridoxine HCl (Vitamin B6) [Vitamin B-6] 50 mg PO DAILY #30 capsule 01/06/18 Salmeterol/Fluticasone [Advair 100Mcg/50Mcg -] 1 puff IH BID #1 inhaler Thiamine HCl [B-1] 100 mg PO DAILY 30 Days #30 tablet 01/06/18 Citalopram Hydrobromide [Celexa -] 20 mg PO DAILY #30 tablet 04/21/18 Pantoprazole Sodium [Protonix -] 40 mg PO DAILY #14 tablet.ec 04/21/18 Venlafaxine HCl ER [Effexor Xr -] 37.5 mg PO DAILY #30 cap.er.24h 04/21/18 Albuterol Sulfate Inhaler - [Ventolin HFA Inhaler -] 2 inh PO Q4H PRN #1 inhaler 05/10/18 Dolutegravir Sodium [Tivicay] 50 mg PO DAILY #30 tab 05/10/18 Emtricitabine/Tenofov Alafenam [Descovy 200-25 mg Tablet (Nf)] 1 each PO DAILY # 30 tablet 05/10/18 Ampicillin - [Ampicillin 2 gm Ivpb (Pre-Docked)] 2 gm IVPB Q4H 8 Days bag 06/29 This patient is new to me today: Yes Date on this admission: 07/05/18 Emergency Visit: Yes ED Registration Date: 07/04/18 Care time: The patient presented to the Emergency Department on the above date and was hospitalized for further evaluation of their emergent condition. Critical Care patient: No - Discharge Referral Referred to [facility] No
--- NOTE | 2018-07-05 18:05 | PN ---
Teaching Attending Note Name of Resident: Alexalbert Fountain ATTENDING PHYSICIAN STATEMENT I saw and evaluated the patient. I reviewed the resident's note and discussed the case with the resident. I agree with the resident's findings and plan as documented. SUBJECTIVE: Feels okay. No complaints except of poor cleanliness and cockroaches at nursing facility. Admits to intermittent cough on swallowing and odynophagia. No fever/chills. No chest or abdominal pain. No regurgitation/ nausea/vomiting. OBJECTIVE: Afebrile/Hemodynamically Stable. Last Vital Signs Temp Pulse Resp BP Pulse Ox 98.9 F 88 20 126/69 95 07/05/18 17:19 07/05/18 17:19 07/05/18 17:19 07/05/18 17:07/05/18 14:31 HEENT - R neck mass, no sign of infection. No pharyngeal erythema/exudate Heart - S1, S2, SM Lungs - clear to auscultation. No crackles/wheeze. No stridor. Abdomen - soft, non-tender. Bowel Sounds normal. Extremities - LE edema +. No calf tenderness. RUE PICC. Neuro - AAO x 2-3. Tone/Power normal all 4 extremities. Laboratory Results - last 24 hr 07/04/18 07/04/18 07/05/18 20:01 20:01 05:00 WBC 4.6 RBC 3.20 L Hgb 11.2 Hct 32.1 L MCV 100.2 H MCH 34.9 H MCHC 34.8 RDW 12.1 Plt Count 149 MPV 9.6 Absolute Neuts (auto) 2.6 Neutrophils % 57.0 Lymphocytes % 25.3 Monocytes % 10.0 Eosinophils % 7.0 H D Basophils % 0.7 Nucleated RBC % 0 Puncture Site Left brachial ABG pH 7.29 L ABG pCO2 at Pt Temp 72.6 H* ABG pO2 at Pt Temp 86.5 ABG HCO3 33.7 H ABG O2 Sat (Measured) 94.7 ABG O2 Content 14.1 L ABG Base Excess 5.7 H Mika Test Positive O2 Delivery Device Nasal cannula Oxygen Flow Rate 4l Sodium 139 Potassium 3.5 Chloride 101 Carbon Dioxide 33 H Anion Gap 6 L BUN 5 L Creatinine 0.6 Creat Clearance w eGFR > 60 Random Glucose 97 Calcium 9.1 Phosphorus Magnesium Total Bilirubin 0.7 AST 14 L ALT 16 Alkaline Phosphatase 60 Total Protein 6.3 L Albumin 3.0 L 07/05/18 07/05/18 05:15 05:15 WBC 4.2 RBC 3.36 L Hgb 11.1 Hct 34.4 MCV 102.4 H MCH 33.0 MCHC 32.2 RDW 12.1 Plt Count 132 L MPV 9.5 Absolute Neuts (auto) Neutrophils % Lymphocytes % Monocytes % Eosinophils % Basophils % Nucleated RBC % Puncture Site ABG pH ABG pCO2 at Pt Temp ABG pO2 at Pt Temp ABG HCO3 ABG O2 Sat (Measured) ABG O2 Content ABG Base Excess Mika Test O2 Delivery Device Oxygen Flow Rate Sodium 139 Potassium 3.8 Chloride 101 Carbon Dioxide 32 Anion Gap 6 L BUN 3 L Creatinine 0.4 L Creat Clearance w eGFR > 60 Random Glucose 87 Calcium 9.0 Phosphorus 4.1 Magnesium 2.4 Total Bilirubin AST ALT Alkaline Phosphatase Total Protein Albumin Current Medications Generic Name Dose Route Start Last Admin Trade Name Freq PRN Reason Stop Dose Admin Albuterol/Ipratropium 1 amp 07/05/18 00:18 Duoneb - NEB Q4H PRN SHORTNESS OF BREATH Citalopram Hydrobromide 20 mg 07/05/18 10:00 07/05/18 11:27 Celexa - PO 20 mg DAILY MILIND Administration Docusate Sodium 100 mg 07/05/18 10:00 07/05/18 11:32 Colace - PO Not Given BID [facility] Emtricitabine/Tenofovir 1 tab 07/05/18 16:00 Truvada PO DAILY [facility] Enoxaparin Sodium 40 mg 07/05/18 10:00 07/05/18 11:28 Lovenox - SQ 40 mg DAILY MILIND Administration Fluconazole 100 mg 07/05/18 10:00 07/05/18 11:28 Diflucan - PO 100 mg DAILY MILIND Administration Folic Acid 1 mg 07/05/18 10:00 07/05/18 11:28 Folic Acid - PO 1 mg DAILY MILIND Administration Gabapentin 400 mg 07/05/18 06:00 07/05/18 14:35 Neurontin - PO 400 mg TID MILIND Administration Ampicillin Sodium 2 gm/ Sodium 100 mls @ 200 mls/hr 07/05/18 06:00 07/05/18 14:34 Chloride IVPB 200 mls/hr Q4H-IV MILIND Administration Methadone HCl 60 mg 07/05/18 06:00 07/05/18 07:12 Dolophine - PO 60 mg DAILY@0600 MILIND Administration Non-Formulary Medication 1 each 07/05/18 10:00 Emtricitabine/Tenofov Alafenam [Descovy 200-25 Mg Tablet (Nf)] PO DAILY MILIND Pantoprazole Sodium 40 mg 07/05/18 10:00 07/05/18 11:28 Protonix - PO 40 mg DAILY MILIND Administration Pyridoxine HCl 50 mg 07/05/18 10:00 07/05/18 11:29 Vitamin B6 - PO 50 mg DAILY MILIND Administration Fluticasone/Salmeterol 1 puff 07/05/18 10:00 07/05/18 11:15 Advair 100mcg/50mcg - IH 1 puff BID MILIND Administration Thiamine HCl 100 mg 07/05/18 10:00 07/05/18 11:29 Vitamin B1 - PO 100 mg DAILY MILIND Administration Venlafaxine HCl 37.5 mg 07/05/18 10:00 07/05/18 11:28 Effexor Xr - PO 37.5 mg DAILY MILIND Administration ASSESSMENT/PLAN: 63 year old female with HIV, CRF sec to COPD, prior history of endocarditis, CBP , BRIAN on CPAP at night (non-compliant), Depression, Hx of IVDU, Appendiceal Ca ( inoperable), R neck mass s/p recent inconclusive biopsy at [facility], recently hospitalized for Listeria bacteremia and discharged to SNF for 2 weeks total IV Ampicillin. She is now re-admitted on day 12 of 14 of Abx therapy from SNF, due to reported poor hygenic conditions at nursing facility. She reports intermittent odynophagia and difficulty/cough on swallowing. 1. R Neck Mass s/p recent Bx, prelim reports inconclusive (suggest not enough/ correct tissue obtained) Resulting intermittent Dysphagia and Odynophagia Mass now pressing against esophagus with MBS showing external compression causing narrowing of mid esophagus and build up of food above this area as well as silent aspiration on thin liquids during swallow reflex. Evaluated by GI on prior admission - recommended more advanced endoscopy if symptoms worsen and trial of diflucan. Had appt 06/28/[address] Leland Romeo ( ) for re-biopsy of mass but missed appt due to hospitalization. Given MBS findings above and Speech eval recommendation for patient to be kept NPO due to mass effect on esophagus, patient will require transfer back to [facility] for ENT services and advanced endoscopy services to facilitate mass biopsy /removal and GI intervention to restore patency to esophagus to facilitate nutrition. Will give trial of diflucan for possible candidiasis causing odynophagia. She is medically Stable for transfer. NPO, on gentle IV hydration. 2. Listeria Bacteremia, source unclear Ampicillin IV for total 2 weeks as per ID - currently on Day 12 of 14 Further recommendations as per ID. Repeat Blood Cx negative Afebrile, Hemodynamically Stable. 3. Chronic Hypoxic and Hypercapneic Respiratory Failure secondary to COPD/BRIAN ( poorly compliant with CPAP) Continue Home O2, Advair, Albuterol prn. pCO2 elevated on ABG - compliance with CPAP at night stressed to patient. No evidence of acute COPD exacerbation. 4. Hx of Polysubstance Abuse including Alcohol and Heroin IVDU Continue Methadone and Thiamine/Folate 5. HIV - Continue HAART 6. Depression - continue Venlafaxine and Citalopram. 7. Macrocytosis. MCV 103.2 - likely sec to history of Alcohol excess - B12/ Folate levels wnl (771/19). DVT Px - Lovenox SQ. GI Px - Protonix.
--- NOTE | 2018-07-05 18:12 | EKG ---
Test Reason : Blood Pressure : / mmHG Vent. Rate : 082 BPM Atrial Rate : 082 BPM P-R Int : 180 ms QRS Dur : 104 ms QT Int : 412 ms P-R-T Axes : 078 082 081 degrees QTc Int : 481 ms POOR DATA QUALITY, INTERPRETATION MAY BE ADVERSELY AFFECTED SINUS RHYTHM WITH PREMATURE ATRIAL COMPLEXES WITH ABERRANT CONDUCTION OTHERWISE NORMAL ECG Confirmed by MD LANA, LEIGHANN ([id number]) on 07/05/2018 6:11:53 PM Referred By: Confirmed By:LEIGHANN SCHWARTZ MD
[2018-07-05] MEDS ORDERED: DEXTROSE 5%-NORMAL SALINE 1,000 ML IV SCH (18:15)
[2018-07-05] MEDS ORDERED: ACETAMINOPHEN 1000 MG/100 ML VIAL (NON FORMULARY) IVPB PRN (18:42)
[2018-07-05] MEDS: EMTRICITABINE 200MG/TENOFOVIR 300MG PO SCH (18:46)
[2018-07-05 19:52] LABS: URINE APPEARANCE CLEAR; URINE BILIRUBIN NEGATIVE (<2.0 mg/dL); URINE COLOR LTYELLOW; URINE GLUCOSE (UA) NEGATIVE (NEGATIVE); URINE KETONE 1+ (NEGATIVE); URINE LEUK ESTERASE TRACE (NEGATIVE); URINE NITRITE NEGATIVE (NEGATIVE); URINE PROTEIN NEGATIVE (NEGATIVE); URINE UROBILINOGEN NEGATIVE mg/dL (0.2-1.0)
[2018-07-05 20:10] LABS: EPI CELLS RARE /HPF (FEW); URINE BACTERIA RARE /hpf (NONE SEEN); URINE MUCUS RARE
[2018-07-06] MEDS: AMPICILLIN - 2 GM in SODIUM CHLORIDE 100 ML IVPB SCH ×4 (02:05→15:00)
[2018-07-06] MEDS ORDERED: AMPICILLIN SODIUM 2 GM VIAL ONE ×2 (02:26→05:57)
[2018-07-06] MEDS ORDERED: GABAPENTIN 100 MG CAPSULE (FP) ONE (05:56)
[2018-07-06] MEDS: GABAPENTIN 400 MG CAPSULE (FP) PO SCH ×2 (06:06→15:00)
[2018-07-06 06:28] VITALS: TEMP 98.4
--- NOTE | 2018-07-06 08:56 | CONS ---
DATE OF CONSULTATION: DATE OF DICTATION: 07/05/2018 INFECTIOUS DISEASE CONSULTATION The patient is a 63-year-old female history of HIV positive who is evaluated for ongoing treatment of Listeria bacteremia. The patient was recently hospitalized at [facility] where she was diagnosed with Listeria bacteremia. She is presently completing a 14-day course of IV ampicillin. She was transferred to a usp facility with a PICC line to complete 14 days. However, because of unsanitary conditions at the facility, the patient elected to leave against medical advice. She has no focal complaints at this time. According to the notes she had been adherent to the ampicillin 2 g every 4 hours intravenously. She has no new complaints at this time. PAST MEDICAL HISTORY: Positive for HIV disease, COPD, recently diagnosed tracheal mass status post biopsy which has been nondiagnostic. ALLERGIES: No known allergies. MEDICATIONS: Neurontin, folic acid, Protonix, Effexor, Tivicay, Descovy. SOCIAL HISTORY: Positive tobacco and alcohol use. Former IV drug user. No known allergies. LABORATORY DATA: White count 4.2, hematocrit 37.4, platelet count 132. Creatinine 0.4. PHYSICAL EXAMINATION: General: She is awake and responsive. Vital Signs: Temperature 98.1, blood pressure 124/88, pulse 78 regular, respirations 20 per minute. Eyes: Sclerae anicteric. Heart: Sounds S1, S2. Lungs: Clear. Abdomen: Soft. No tenderness. Extremities: Positive for edema. PICC line is in place. No erythema or tenderness at the site. IMPRESSION: 1. Listeria bacteremia/sepsis on therapy. 2. Human immunodeficiency virus positive. 3. History of tracheal mass. Complete 14-day course of IV ampicillin. Continue antiretroviral therapy. Follow up of tracheal mass at [facility] post discharge. Thank you for the kind referral. VITALY STAHL M.D. [id number]
[2018-07-06] MEDS: DOCUSATE SODIUM 100 MG CAPSULE (FP) PO SCH (09:01)
[2018-07-06] MEDS: CITALOPRAM HYDROBROMIDE 20 MG TABLET (FP) PO SCH (09:01)
[2018-07-06] MEDS: FLUCONAZOLE 100 MG TABLET (UD) PO SCH (09:01)
[2018-07-06] MEDS: FOLIC ACID 1 MG TABLET (FP) PO SCH (09:02)
[2018-07-06] MEDS: VENLAFAXINE HCL 37.5 MG E.R. CAPSULE (FP) PO SCH (09:02)
[2018-07-06] MEDS: PANTOPRAZOLE 40 MG TABLET (FP) PO SCH (09:02)
[2018-07-06] MEDS: PYRIDOXINE HCL (B-6) 50 MG TABLET (FP) PO SCH (09:03)
[2018-07-06] MEDS: DOLUTEGRAVIR SODIUM 50 MG TABLET (NON-FORMULARY) PO SCH (09:03)
[2018-07-06] MEDS: THIAMINE HCL 100 MG TABLET (FP) PO SCH (09:03)
[2018-07-06] MEDS: EMTRICITABINE 200MG/TENOFOVIR 300MG PO SCH (09:03)
[2018-07-06] MEDS: ENOXAPARIN NA (PORCINE) 40 MG/0.4 ML DISP.SYRIN SQ SCH (09:11)
[2018-07-06] MEDS: FLUTICASONE/SALMETEROL 100 MCG/50 MCG DISKUS IH SCH (09:11)
[2018-07-06] MEDS ORDERED: ACETAMINOPHEN 1000 MG/100 ML VIAL (NON FORMULARY) IVPB ONE (10:32)
--- NOTE | 2018-07-06 16:42 | PN ---
Teaching Attending Note Name of Resident: Alex Fountain ATTENDING PHYSICIAN STATEMENT I saw and evaluated the patient. I reviewed the resident's note and discussed the case with the resident. I agree with the resident's findings and plan as documented. SUBJECTIVE: Complains of intermittent cough and difficulty on swallowing. No odynophagia currently. No fever/chills. No chest or abdominal pain. No regurgitation/nausea/vomiting. OBJECTIVE: Afebrile/Hemodynamically Stable. SpO2 93% on 2L Last Vital Signs Temp Pulse Resp BP Pulse Ox 98.4 F 83 19 119/78 93 L 07/06/18 06:17 07/06/18 06:17 07/06/18 06:17 07/06/18 06:17 07/06/18 08:30 HEENT - R neck mass, no sign of infection. No pharyngeal erythema/exudate Heart - S1, S2, SM Lungs - clear to auscultation. No crackles/wheeze. No stridor. Abdomen - soft, non-tender. Bowel Sounds normal. Extremities - LE edema +. No calf tenderness. RUE PICC. Neuro - AAO x 2-3. Tone/Power normal all 4 extremities. Laboratory Tests 07/04/18 07/04/18 07/05/18 20:01 20:01 05:00 WBC 4.6 RBC 3.20 L Hgb 11.2 Hct 32.1 L MCV 100.2 H MCH 34.9 H MCHC 34.8 RDW 12.1 Plt Count 149 MPV 9.6 Absolute Neuts (auto) 2.6 Neutrophils % 57.0 Lymphocytes % 25.3 Monocytes % 10.0 Eosinophils % 7.0 H D Basophils % 0.7 Nucleated RBC % 0 Puncture Site Left brachial ABG pH 7.29 L ABG pCO2 at Pt Temp 72.6 H* ABG pO2 at Pt Temp 86.5 ABG HCO3 33.7 H ABG O2 Sat (Measured) 94.7 ABG O2 Content 14.1 L ABG Base Excess 5.7 H Mika Test Positive O2 Delivery Device Nasal cannula Oxygen Flow Rate 4l Sodium 139 Potassium 3.5 Chloride 101 Carbon Dioxide 33 H Anion Gap 6 L BUN 5 L Creatinine 0.6 Creat Clearance w eGFR > 60 Random Glucose 97 Calcium 9.1 Phosphorus Magnesium Total Bilirubin 0.7 AST 14 L ALT 16 Alkaline Phosphatase 60 Total Protein 6.3 L Albumin 3.0 L Urine Color Urine Appearance Urine pH Ur Specific Jaroso Urine Protein Urine Glucose (UA) Urine Ketones Urine Blood Urine Nitrite Urine Bilirubin Urine Urobilinogen Ur Leukocyte Esterase Urine WBC (Auto) Urine RBC (Auto) Ur Epithelial Cells Urine Bacteria Urine Mucus 07/05/18 07/05/18 07/05/18 05:15 05:15 19:06 WBC 4.2 RBC 3.36 L Hgb 11.1 Hct 34.4 MCV 102.4 H MCH 33.0 MCHC 32.2 RDW 12.1 Plt Count 132 L MPV 9.5 Absolute Neuts (auto) Neutrophils % Lymphocytes % Monocytes % Eosinophils % Basophils % Nucleated RBC % Puncture Site ABG pH ABG pCO2 at Pt Temp ABG pO2 at Pt Temp ABG HCO3 ABG O2 Sat (Measured) ABG O2 Content ABG Base Excess Mika Test O2 Delivery Device Oxygen Flow Rate Sodium 139 Potassium 3.8 Chloride 101 Carbon Dioxide 32 Anion Gap 6 L BUN 3 L Creatinine 0.4 L Creat Clearance w eGFR > 60 Random Glucose 87 Calcium 9.0 Phosphorus 4.1 Magnesium 2.4 Total Bilirubin AST ALT Alkaline Phosphatase Total Protein Albumin Urine Color Ltyellow Urine Appearance Clear Urine pH 7.0 Ur Specific Jar[place] 1.015 Urine Protein Negative Urine Glucose (UA) Negative Urine Ketones 1+ H Urine Blood Negative Urine Nitrite Negative Urine Bilirubin Negative Urine Urobilinogen Negative Ur Leukocyte Esterase Trace Urine WBC (Auto) 4 Urine RBC (Auto) <1 Ur Epithelial Cells Rare Urine Bacteria Rare Urine Mucus Rare Current Medications Generic Name Dose Route Start Last Admin Trade Name Freq PRN Reason Stop Dose Admin Acetaminophen 1,000 mg 07/05/18 18:42 Ofirmev Injection - IVPB ONCE PRN PAIN LEVEL 6-10 Albuterol/Ipratropium 1 amp 07/05/18 00:18 Duoneb - NEB Q4H PRN SHORTNESS OF BREATH Citalopram Hydrobromide 20 mg 07/05/18 10:00 07/06/18 09:01 Celexa - PO Not Given DAILY MILIND Docusate Sodium 100 mg 07/05/18 10:00 07/06/18 09:01 Colace - PO Not Given BID MILIND Emtricitabine/Tenofovir 1 tab 07/05/18 18:30 07/06/18 09:03 Truvada PO Not Given DAILY MILIND Enoxaparin Sodium 40 mg 07/05/18 10:00 07/06/18 09:11 Lovenox - SQ 40 mg DAILY MILIND Administration Fluconazole 100 mg 07/05/18 10:00 07/06/18 09:01 Diflucan - PO Not Given DAILY MILIND Folic Acid 1 mg 07/05/18 10:00 07/06/18 09:02 Folic Acid - PO Not Given DAILY [facility] Gabapentin 400 mg 07/05/18 06:00 07/06/18 06:06 Neurontin - PO 400 mg TID MILIND Administration Ampicillin Sodium 2 gm/ Sodium 100 mls @ 200 mls/hr 07/05/18 06:00 07/06/18 15:00 Chloride IVPB 200 mls/hr Q4H-IV MILIND Administration Dextrose/Sodium Chloride 1,000 mls @ 100 mls/hr 07/05/18 18:15 07/05/18 18:45 D5-Ns - IV 100 mls/hr ASDIR MILIND Administration Methadone HCl 60 mg 07/05/18 06:00 07/05/18 07:12 Dolophine - PO 60 mg DAILY@0600 MILIND Administration Methadone HCl 40 mg 07/06/18 16:30 Dolophine - PO 07/06/18 16:31 ONCE ONE Pantoprazole Sodium 40 mg 07/05/18 10:00 07/06/18 09:02 Protonix - PO Not Given DAILY [facility] Pyridoxine HCl 50 mg 07/05/18 10:00 07/06/18 09:03 Vitamin B6 - PO Not Given DAILY [facility] Fluticasone/Salmeterol 1 puff 07/05/18 10:00 07/06/18 09:11 Advair 100mcg/50mcg - IH 1 puff BID [facility] Administration Thiamine HCl 100 mg 07/05/18 10:00 07/06/18 09:03 Vitamin B1 - PO Not Given DAILY [facility] Venlafaxine HCl 37.5 mg 07/05/18 10:00 07/06/18 09:02 Effexor Xr - PO Not Given DAILY [facility] ASSESSMENT/PLAN: 63 year old female with HIV, CRF sec to COPD, prior history of endocarditis, CBP , BRIAN on CPAP at night (non-compliant), Depression, Hx of IVDU, Appendiceal Ca ( inoperable), R neck mass s/p recent inconclusive biopsy at [facility], recently hospitalized for Listeria bacteremia and discharged to SNF for 2 weeks total IV Ampicillin. She is now re-admitted on day 12 of 14 of Abx therapy from SNF, due to reported poor hygenic conditions at nursing facility. She reports intermittent odynophagia and difficulty/cough on swallowing. 1. R Neck Mass s/p recent Bx at [facility], prelim reports inconclusive (suggest not enough/correct tissue obtained) Resulting intermittent Dysphagia and Odynophagia (Hx od esophageal candidiasis) Mass now pressing against esophagus with MBS showing external compression causing narrowing of mid esophagus and build up of food above this area as well as silent aspiration on thin liquids during swallow reflex. Evaluated by GI on prior admission - recommended more advanced endoscopy/ intervention if symptoms worsen along with trial of diflucan. Had appt 06/28/[address] Leland Romeo ( ) for re-biopsy of mass but missed appt due to hospitalization. Given MBS findings above and Speech eval recommendation for patient to be kept NPO due to mass effect on esophagus, patient will require transfer back to [facility] for ENT services and advanced endoscopy services to facilitate mass biopsy /removal and GI intervention to restore patency to esophagus to facilitate nutrition. Will give trial of diflucan for possible candidiasis causing odynophagia. Patient accepted back to [facility] by hospitalist team for GI and ENT re-evaluation for consideration for further investigation and intervention (Endoscopic EUS, Bx , US etc). She is medically Stable for transfer. NPO, on gentle IV hydration. 2. Listeria Bacteremia, source unclear Ampicillin IV for total 2 weeks as per ID - currently on Day 13 of 14 - last dose 07/07/18 Further recommendations as per ID. Repeat Blood Cx negative Afebrile, Hemodynamically Stable. 3. Chronic Hypoxic and Hypercapneic Respiratory Failure secondary to COPD/BRIAN ( poorly compliant with CPAP) Continue Home O2, Advair, Albuterol prn. pCO2 elevated on ABG - compliance with CPAP at night stressed to patient. No evidence of acute COPD exacerbation. 4. Hx of Polysubstance Abuse including Alcohol and Heroin IVDU Continue Methadone and Thiamine/Folate 5. HIV - Continue HAART 6. Depression - continue Venlafaxine and Citalopram. 7. Macrocytosis. MCV 103.2 - likely sec to history of Alcohol excess - B12/ Folate levels wnl (771/19). DVT Px - Lovenox SQ Medically and Hemodynamically Stable for transfer to [facility].
[2018-07-06] MEDS ORDERED: METHADONE HCL 40 MG DISPERSABLE TABLET ONE (16:47)
[2018-07-06 17:14] VITALS: BP 125/68; PULSE 73
[2018-07-06] MEDS ORDERED: METHADONE HCL 40 MG DISPERSABLE TABLET PO ONE (17:15)
== END 2018-07-06 19:05 | disposition short-term general hospital (02) | DRG 724 ==
LOC: JER 17:58 → JERBED 22:34
PROVIDERS: ADMIT Internal Medicine
DX: A32.9 Listeriosis, unspecified (principal); R22.1 Localized swelling, mass and lump, neck; J98.11 Atelectasis; Z21 Asymptomatic human immunodeficiency virus [HIV] infection status; G47.33 Obstructive sleep apnea (adult) (pediatric); F32.9 Major depressive disorder, single episode, unspecified; F10.10 Alcohol abuse, uncomplicated; D75.89 Other specified diseases of blood and blood-forming organs; K21.9 Gastro-esophageal reflux disease without esophagitis; Z86.19 Personal history of other infectious and parasitic diseases; R16.1 Splenomegaly, not elsewhere classified; R13.10 Dysphagia, unspecified; Z87.891 Personal history of nicotine dependence; B37.9 Candidiasis, unspecified; F14.20 Cocaine dependence, uncomplicated; J44.9 Chronic obstructive pulmonary disease, unspecified; F11.20 Opioid dependence, uncomplicated; R91.8 Other nonspecific abnormal finding of lung field; I27.20 Pulmonary hypertension, unspecified; K22.2 Esophageal obstruction; R78.81 Bacteremia; R09.01 Asphyxia; J96.12 Chronic respiratory failure with hypercapnia; J96.11 Chronic respiratory failure with hypoxia; C18.1 Malignant neoplasm of appendix
CPT/HCPCS: 36415; 36600; 71046-TC-FY; 71250-TC; 74230-TC-FY; 80048; 80053; 81003; 81015; 82803; 83735; 84100; 85025; 85027; 92611-GN; 93005; 93010; 99285-25; J0131

== ENCOUNTER 2018-07-23 10:00 | Emergency (ER) | payer OTHER ==
--- NOTE | 2018-07-23 10:11 | PDOC ---
History of Present Illness - General History Source: Patient Exam Limitations: No Limitations - History of Present Illness Initial Comments: 07/23/18 11:01 The patient is a 63-year-old female with past medical history significant for HIV (on HAART, didnt take the medication today), Throat mass (on treatment at [facility], radiation starting next week), COPD (on 2L O2 at home), Appendiceal CA and legionella bacteremia presents to the emergency department complaining of weakness. The patient reports shes been feeling generalized weakness secondary to not eating much for the past one month. The patient reports she was dx with Throat mass (06/14) and secondary to she is unable to tolerate solid food. The patient states the food goes midway then she vomits it back up. The patient reports an additional concern of cough with phlegm production. The patient states she was unable to sleep last night, secondary to making urine all night. Denies fever, chills, diarrhea, dysuria, hematuria. The patient states she is scheduled for radiation at [facility] starting next week. Allergies: NKDA Surgical history: Throat Biopsy Social history: Former smoker, former ETOH abuse, Former IVDU. PCP: Dr. Ram. Oncology: Follows at [facility]. <Janee Ritchie - Last Filed: 07/23/18 11:03> <Helena Samson - Last Filed: 07/23/18 13:01> - General Chief Complaint: Weakness Stated Complaint: WEAKNESS Time Seen by Provider: 07/23/18 10:11 Past History <Janee Ritchie - Last Filed: 07/23/18 11:03> - Past Medical History Anemia: Yes Asthma: Yes (chronic bronchitis) Cancer: Yes (appendiceal -unresectable) Cardiac Disorders: Yes (hx endocarditis) COPD: Yes (O2 AT HOME) DVT: No Diabetes: No HTN: Yes Liver Disease: Yes (possible cirrhosis (hx elevated ammonia)) Psychiatric Problems: Yes (depression) - Surgical History Abdominal Surgery: Yes (MULTIPLE ABORTIONS.) - Immunization History Immunization Up to Date: Yes - Suicide/Smoking/Psychosocial Hx Smoking Status: Yes Smoking History: Former smoker Years of Tobacco Use: 40 Have you smoked in the past 12 months: No Number of Cigarettes Smoked Daily: 2 If you are a former smoker, when did you quit?: 30YRS Cigars Per Day: 1 'Breaking Loose' booklet given: 05/24/13 Hx Alcohol Use: No Drug/Substance Use Hx: No Substance Use Type: Alcohol, Cocaine, Heroin Hx Substance Use Treatment: Yes ([facility]) <Helena Samson - Last Filed: 07/23/18 13:01> - Past Medical History Allergies/Adverse Reactions: Allergies Allergy/AdvReac Type Severity Reaction Status Date / Time No Known Drug Allergies Allergy Verified 07/23/18 10:14 banana AdvReac Verified 07/23/18 10:14 Home Medications: Ambulatory Orders Methadone [Dolophine -] 60 mg PO DAILY@0600 MDD 65mg 11/26/17 Docusate Sodium [Colace -] 100 mg PO BID #60 cap 01/06/18 Pyridoxine HCl (Vitamin B6) [Vitamin B-6] 50 mg PO DAILY #30 capsule 01/06/18 Salmeterol/Fluticasone [Advair 100Mcg/50Mcg -] 1 puff IH BID #1 inhaler Thiamine HCl [B-1] 100 mg PO DAILY 30 Days #30 tablet 01/06/18 Pantoprazole Sodium [Protonix -] 40 mg PO DAILY #14 tablet.ec 04/21/18 Venlafaxine HCl ER [Effexor Xr -] 37.5 mg PO DAILY #30 cap.er.24h 04/21/18 Albuterol Sulfate Inhaler - [Ventolin HFA Inhaler -] 2 inh PO Q4H PRN #1 inhaler 05/10/18 Dolutegravir Sodium [Tivicay] 50 mg PO DAILY #30 tab 05/10/18 Emtricitabine/Tenofov Alafenam [Descovy 200-25 mg Tablet (Nf)] 1 each PO DAILY # 30 tablet 05/10/18 Emtricitabine/Tenofovir [Truvada -] 1 tab PO DAILY tablet 07/05/18 Fluconazole [Diflucan -] 100 mg PO DAILY tablet 07/05/18 Ammonium Lactate Cream [Lac-Hydrin 12% *Cream*] 1 applic TP BID #1 tube Citalopram Hydrobromide [Celexa -] 20 mg PO DAILY #7 tablet 07/21/18 Folic Acid - 1 mg PO DAILY #30 tablet 07/21/18 Pregabalin [Lyrica] 0 mg PO BID 07/23/18 Review of Systems - Review of Systems Able to Perform ROS?: Yes Comments:: 07/23/18 10:43 GENERAL/CONSTITUTIONAL: No fever or chills. +weakness. HEAD, EYES, EARS, NOSE AND THROAT: +Throat mass. No change in vision. No ear pain or discharge. No sore throat. CARDIOVASCULAR: No chest pain or shortness of breath. RESPIRATORY: +cough with phlegm. No wheezing, or hemoptysis. GASTROINTESTINAL: +Unable to tolerate food. No nausea, vomiting, diarrhea or constipation. GENITOURINARY: No dysuria, frequency, or change in urination. MUSCULOSKELETAL: No joint or muscle swelling or pain. No neck or back pain. SKIN: No rash NEUROLOGIC: No headache, vertigo, loss of consciousness, or change in strength/ sensation. <Janee Ritchie - Last Filed: 07/23/18 11:03> *Physical Exam - Vital Signs Last Vital Signs Temp Pulse Resp BP Pulse Ox 98.5 F 79 18 111/55 L 93 L 07/23/18 10:11 07/23/18 10:11 07/23/18 10:11 07/23/18 10:11 07/23/18 10:11 - Physical Exam Comments: 07/23/18 10:43 GENERAL: Awake, alert, and fully oriented, in no acute distress, The patient is weak appearing. HEAD: No signs of trauma EYES: PERRLA, EOMI, sclera anicteric, conjunctiva clear ENT: +mild dryness to the tongue. Auricles normal inspection, hearing grossly normal, nares patent, oropharynx clear without exudates. NECK: Normal ROM, supple, no lymphadenopathy, JVD, or masses LUNGS: +diminished breath sounds at the base. clear to auscultation bilaterally. No wheezes, and no crackles HEART: Regular rate and rhythm, normal S1 and S2, no murmurs, rubs or gallops ABDOMEN: +soft, Minimal tenderness diffusely. No guarding, no rebound. No masses EXTREMITIES: No lower extremity edema. Normal range of motion, no edema. No clubbing or cyanosis. No cords, erythema, or tenderness NEUROLOGICAL: Cranial nerves II through XII grossly intact. Normal speech. SKIN: Warm, Dry, normal turgor, no rashes or lesions noted. <Janee Ritchie - Last Filed: 07/23/18 11:03> Moderate Sedation - Procedure Monitoring Vital Signs: Procedure Monitoring Vital Signs Temperature 98.5 F 07/23/18 10:11 Pulse Rate 79 07/23/18 10:11 Respiratory Rate 18 07/23/18 10:11 Blood Pressure 111/55 L 07/23/18 10:11 O2 Sat by Pulse Oximetry (%) 93 L 07/23/18 10:11 <Janee Ritchie - Last Filed: 07/23/18 11:03> Heart Score/ECG Review - ECG Intrepretation Comment:: 07/23/18 10:32 sinus at 69, nl axis, nl interval, no acute st/t wave findings <Helena Samson - Last Filed: 07/23/18 13:01> ED Treatment Course - LABORATORY CBC & Chemistry Diagram: 07/23/18 10:39 07/23/18 10:39 <Helena Samson - Last Filed: 07/23/18 13:01> Medical Decision Making - Medical Decision Making 07/23/18 10:23 a/p: 63yo female with hx of HIV and recently dx with esophageal mass presents for eval of generalized weakness -states not eating and drinking over last month bc of pain with swallowing and difficulty swallowing -tolerating liquids, but she states solids are not going down -concern for electrolyte abnl from decreased po intake -did not take HIV meds today -will send labs, ua, lactate, vbg -will hydrate with IVF hydraiton, banana bag for nutrition -pt states she discussed PEG tube yesterday with her docs at [facility] who are managing her mass- supposed to start chemo/rads next week -will most likely need admission 07/23/18 11:47 labs pending pt feeling sob now- wheezing on re-exam concern for copd exacerbation prior echo shows normal LVEF will give nebs 07/23/18 11:48 cxr shows cardiomegaly no failure or infiltrate 07/23/18 12:33 labs reviewed negative ua microblog sent to [facility] for admission for copd and dehydration 07/23/18 13:[address] Lares who accepts pt to service under [facility] <Helena Samson - Last Filed: 07/23/18 13:01> *DC/Admit/Observation/Transfer - Attestations Scribe Attestion: 07/23/18 10:44 Documentation prepared by Janee Ritchie, acting as director of medical education for Helena Samson DO. <Janee Ritchie - Last Filed: 07/23/18 11:03> - Discharge Dispostion Decision to Admit order: Yes - Attestations Physician Attestion: 07/23/18 12:34 I, Dr. Helena Samson DO, attest that this document has been prepared under my direction and personally reviewed by me in its entirety. I further attest, that it accurately reflects all work, treatment, procedures and medical decision -making performed by me. <Helena Samson - Last Filed: 07/23/18 13:01> Diagnosis at time of Disposition: COPD (chronic obstructive pulmonary disease), Esophageal mass, Dehydration - Discharge Dispostion Condition at time of disposition: Fair
[2018-07-23 10:15] VITALS: BMI 31.1
[2018-07-23] MEDS ORDERED: FOLIC ACID INJECTION - 1 MG, THIAMINE HCL 100 MG, MULTIVIT INJECTION ADULT 10 ML in SOD... IVPB ONE (10:22)
[2018-07-23] MEDS ORDERED: SODIUM CHLORIDE 0.9% 1000 ML INFUS.BAG IV ONE (10:22)
[2018-07-23 11:20] LABS: VENOUS PC02 56.7 mmHg (38-52); VENOUS PH 7.38 (7.32-7.42); VENOUS PO2 56.2 mmHg (28-48)
[2018-07-23 11:34] LABS: BASO % 0.3 % (0-2.0); EOS % 0.9 % (0-4.5); LYMPH % 11.8 % (8-40); MCH 35.2 pg (25.7-33.7); MCHC 34.5 g/dl (32.0-36.0); MEAN CELL VOLUME 102.3 fl (80-96); MEAN PLT VOLUME 10.6 fl (7.5-11.1); PLATELET COUNT 181 K/MM3 (134-434); RBC 3.13 M/mm3 (3.60-5.2); RDW 12.3 % (11.6-15.6); WHITE BLOOD COUNT 5.7 K/mm3 (4.0-10.0)
[2018-07-23] MEDS ORDERED: ALBUTEROL SO4 2.5/IPRATROPIUM 0.5 INH SOL 3 ML VIAL.NEB. NEB ONE ×2 (11:43→11:45)
[2018-07-23 11:55] LABS: ALBUMIN 2.9 g/dl (3.4-5.0); ALK PHOS 56 U/L (45-117); ANION GAP 4 MMOL/L (8-16); BILIRUBIN,TOTAL 1.2 mg/dL (0.2-1); BLOOD UREA NITROGEN 8 mg/dL (7-18); CALCIUM 9.3 mg/dL (8.5-10.1); CHLORIDE 101 mmol/L (98-107); CO2 33 mmol/L (21-32); CREATININE 0.5 mg/dL (0.55-1.3); GLUCOSE,RANDOM 108 mg/dL (74-106); POTASSIUM 3.9 mmol/L (3.5-5.1); SGOT/AST 12 U/L (15-37); SGPT/ALT 14 U/L (13-61); SODIUM 138 mmol/L (136-145); TOT PROT 6.7 g/dl (6.4-8.2)
[2018-07-23 12:01] LABS: MAGNESIUM 2.1 mg/dL (1.8-2.4); N-TERMINAL BNP 206.9 pg/ml (5-125)
[2018-07-23 12:26] LABS: URINE APPEARANCE TURBID; URINE BILIRUBIN NEGATIVE (<2.0 mg/dL); URINE GLUCOSE (UA) NEGATIVE (NEGATIVE); URINE KETONE NEGATIVE (NEGATIVE); URINE LEUK ESTERASE NEGATIVE (NEGATIVE); URINE NITRITE NEGATIVE (NEGATIVE); URINE PROTEIN NEGATIVE (NEGATIVE); URINE UROBILINOGEN NEGATIVE mg/dL (0.2-1.0)
[2018-07-23 12:31] LABS: URINE COLOR YELLOW
[2018-07-23 14:28] VITALS: TEMP 98.9
[2018-07-23 15:43] VITALS: BP 107/62; PULSE 81
--- NOTE | 2018-07-23 16:33 | EKG ---
Test Reason : Blood Pressure : / mmHG Vent. Rate : 069 BPM Atrial Rate : 069 BPM P-R Int : 170 ms QRS Dur : 098 ms QT Int : 416 ms P-R-T Axes : 074 076 082 degrees QTc Int : 445 ms NORMAL SINUS RHYTHM NORMAL ECG WHEN COMPARED WITH ECG OF 05-JUL-2018 01:07, ABERRANT CONDUCTION IS NO LONGER PRESENT Confirmed by Arcelia Sosa ([id number]) on 07/23/2018 4:33:25 PM Referred By: Confirmed By:Arcelia Sosa
== END 2018-07-23 15:58 | disposition short-term general hospital (02) ==
LOC: JER 10:00 → JERBED 12:47 → UNDOADMIN 12:47 → JER 15:58 → UNDODISIN 16:02
PROC: 3E0F7GC Introduction of Other Therapeutic Substance into Respiratory Tract, Via Natural or Artificial Opening (ICD-10-PCS; principal; 2018-07-23)
DX: J44.1 Chronic obstructive pulmonary disease with (acute) exacerbation (principal); E86.0 Dehydration; K22.8 Other specified diseases of esophagus; I10 Essential (primary) hypertension; B20 Human immunodeficiency virus [HIV] disease; F11.20 Opioid dependence, uncomplicated; Z86.2 Personal history of diseases of the blood and blood-forming organs and certain disorders involving the immune mechanism; Z86.79 Personal history of other diseases of the circulatory system; Z87.891 Personal history of nicotine dependence; Z85.89 Personal history of malignant neoplasm of other organs and systems; Z99.81 Dependence on supplemental oxygen; Z87.19 Personal history of other diseases of the digestive system
CPT/HCPCS: 36415; 71045-TC-FY; 80053; 81003; 82550; 82803; 83605; 83690; 83735; 83880; 84443; 84484; 85025; 85730; 87086; 93005; 93010; 99285-25; J7030

== ENCOUNTER 2018-11-04 11:25 | Inpatient (IN) | payer OTHER ==
--- NOTE | 2018-11-04 12:01 | PDOC ---
History of Present Illness - General Chief Complaint: Cold Symptoms Stated Complaint: SHORTNESS OF BREATH/COUGHING Time Seen by Provider: 11/04/18 12:01 History Source: Patient Exam Limitations: No Limitations - History of Present Illness Initial Comments: 11/04/18 12:44 63 year old female with PMH HIV on HAART, esophageal cancer (not being treated) , COPD (3L home O2), former IVDU (quit x30 years ago), former ETOH abuser, endocarditis, BRIAN, listeria bacteremia presented to ED for productive cough since last night associated with generalized weakness. Pt stated she was unable to sleep all night secondary to the coughing. Pt stated her sputum was white, denied blood. Past History - Past Medical History Allergies/Adverse Reactions: Allergies Allergy/AdvReac Type Severity Reaction Status Date / Time No Known Drug Allergies Allergy Verified 11/04/18 11:28 banana AdvReac Verified 11/04/18 11:28 Home Medications: Ambulatory Orders Methadone [Dolophine -] 90 mg PO DAILY@0600 11/26/17 Docusate Sodium [Colace -] 100 mg PO BID #60 cap 01/06/18 Pyridoxine HCl (Vitamin B6) [Vitamin B-6] 50 mg PO DAILY #30 capsule 01/06/18 Thiamine HCl [B-1] 100 mg PO DAILY 30 Days #30 tablet 01/06/18 Ammonium Lactate Cream [Lac-Hydrin 12% *Cream*] 1 applic TP BID #1 tube Folic Acid - 1 mg PO DAILY #30 tablet 07/21/18 Albuterol Sulfate Inhaler - [Ventolin HFA Inhaler -] 2 inh PO Q4H PRN #1 inhaler 10/06/18 Citalopram Hydrobromide [Celexa -] 20 mg PO DAILY #30 tablet 10/06/18 Dolutegravir Sodium [Tivicay] 50 mg PO DAILY #30 tab 10/06/18 Emtricitabine/Tenofov Alafenam [Descovy 200-25 mg Tablet (Nf)] 1 each PO DAILY # 30 tablet 10/06/18 Zolpidem Tartrate [Ambien] 5 mg PO HS #30 tablet MDD 1 10/06/18 Lidocaine 5% Patch [Lidoderm Patch -] 2 patch TP DAILY #60 patch 10/25/18 Oxycodone HCl/Acetaminophen [Percocet 10-325 mg Tablet] 1 each PO BID PRN #60 tablet MDD 2 10/25/18 Pregabalin [Lyrica -] 75 mg PO BID 10/25/18 Anemia: Yes Asthma: Yes (chronic bronchitis) Cancer: Yes (appendiceal -unresectable) Cardiac Disorders: Yes (hx endocarditis) COPD: Yes DVT: No Diabetes: No HTN: Yes Liver Disease: Yes (possible cirrhosis (hx elevated ammonia)) Psychiatric Problems: Yes Other medical history: laryngeal cancer and HIV - Surgical History Abdominal Surgery: Yes (MULTIPLE ABORTIONS.) - Immunization History Immunization Up to Date: Yes - Suicide/Smoking/Psychosocial Hx Smoking Status: Yes Smoking History: Former smoker Years of Tobacco Use: 40 Have you smoked in the past 12 months: No Number of Cigarettes Smoked Daily: 2 If you are a former smoker, when did you quit?: months ago Cigars Per Day: 1 Information on smoking cessation initiated: No 'Breaking Loose' booklet given: 05/24/13 Hx Alcohol Use: No Drug/Substance Use Hx: No Substance Use Type: Alcohol, Cocaine, Heroin Hx Substance Use Treatment: Yes ([facility]) Review of Systems - Review of Systems Comments:: 11/04/18 12:35 General: admitted to generalized weakness. denied fever, chills. HEENT: denied sore throat, rhinorrhea, ear pain. Heart: denied chest pain, palpitations, syncope, diaphoresis. Respiratory: admitted to shortness of breath, cough, sputum production. denied hemoptysis. Abdomen: denied abdominal pain, nausea, vomiting, diarrhea, constipation, blood in stool. : denied dysuria, increased urinary frequency, hematuria, urinary incontinence , flank pain. Back: denied back pain. Musculoskeletal: denied joint pain, muscle pain, joint swelling. Neurological: denied headache, dizziness, numbness, tingling, weakness. Skin: denied rash, laceration, abrasion. *Physical Exam - Vital Signs Last Vital Signs Temp Pulse Resp BP Pulse Ox 99.9 F H 88 21 H 96/67 100 11/04/18 11:29 11/04/18 11:29 11/04/18 11:29 11/04/18 11:29 11/04/18 11:29 - Physical Exam Comments: 11/04/18 12:36 Constitutional: cachectic. malnourished. HEENT: head is normocephalic, atraumatic. EOMI. PERRLA. Neck: supple. Full ROM. Heart: regular rhythm. no murmurs, rubs or gallops. Lungs: bilateral rhonchi. poor inspiratory effort. actively coughing. no crackles. Abdomen: soft, nontender. normal bowel sounds. no rebound, guarding, masses. Extremities: peripheral pulses intact. no lower extremity edema. Neurological: CN 2-12 grossly intact. moves all four extremities. Psych: awake, alert, oriented x3. follows commands. answers questions appropriately. ED Treatment Course - LABORATORY CBC & Chemistry Diagram: 11/04/18 12:23 11/04/18 12:23 Medical Decision Making - Medical Decision Making 11/04/18 12:37 63 year old female with above PMH presented to ED for productive cough and generalized weakness since last night. Initial Vital Signs Temp Pulse Resp BP Pulse Ox 99.9 F H 88 21 H 96/67 100 11/04/18 11:29 11/04/18 11:29 11/04/18 11:29 11/04/18 11:29 11/04/18 11:29 Febrile. No tachycardia. No tachypnea. Hypotensive. No hypoxia on room air. Labs ordered: CBC, CMP, troponin, VBG, lactate, UA/UC, blood cultures Imaging ordered: CXR Medications ordered: normal saline bolus 1000 cc, Vancomycin, Zosyn, Azithromycin IV EKG performed at 1246: rate 104, regular rhythm, normal axis, normal intervals, nonspecific ST changes. 11/04/18 12:47 VBG - pH 7.36, CO2 59 (at baseline). 11/04/18 13:05 CBC WBC 7.0 K/mm3 (4.0-10.0) 11/04/18 12:23 RBC 2.83 M/mm3 (3.60-5.2) L 11/04/18 12:23 Hgb 9.0 GM/dL (10.7-15.3) L 11/04/18 12:23 Hct 27.9 % (32.4-45.2) L 11/04/18 12:23 MCV 98.6 fl (80-96) H 11/04/18 12:23 MCH 31.6 pg (25.7-33.7) D 11/04/18 12:23 MCHC 32.1 g/dl (32.0-36.0) 11/04/18 12:23 RDW 14.6 % (11.6-15.6) D 11/04/18 12:23 Plt Count 218 K/MM3 (134-434) D 11/04/18 12:23 MPV 9.8 fl (7.5-11.1) 11/04/18 12:23 Absolute Neuts (auto) 6.0 K/mm3 (1.5-8.0) 11/04/18 12:23 Neutrophils % 85.6 % (42.8-82.8) H 11/04/18 12:23 Lymphocytes % 5.4 % (8-40) L D 11/04/18 12:23 Monocytes % 8.1 % (3.8-10.2) 11/04/18 12:23 Eosinophils % 0.7 % (0-4.5) 11/04/18 12:23 Basophils % 0.2 % (0-2.0) 11/04/18 12:23 Nucleated RBC % 0 % (0-0) 11/04/18 12:23 No leukocytosis. Macrocytic anemia. CMP Sodium 134 mmol/L (136-145) L 11/04/18 12:23 Potassium 3.5 mmol/L (3.5-5.1) 11/04/18 12:23 Chloride 97 mmol/L (98-107) L 11/04/18 12:23 Carbon Dioxide 31 mmol/L (21-32) 11/04/18 12:23 Anion Gap 7 MMOL/L (8-16) L 11/04/18 12:23 BUN 13 mg/dL (7-18) 11/04/18 12:23 Creatinine 0.6 mg/dL (0.55-1.3) 11/04/18 12:23 Est GFR (CKD-EPI)AfAm 111.64 11/04/18 12:23 Est GFR (CKD-EPI)NonAf 96.33 11/04/18 12:23 Random Glucose 121 mg/dL (74-106) H 11/04/18 12:23 Calcium 10.5 mg/dL (8.5-10.1) H 11/04/18 12:23 Total Bilirubin 0.4 mg/dL (0.2-1) 11/04/18 12:23 AST 15 U/L (15-37) 11/04/18 12:23 ALT 6 U/L (13-61) L 11/04/18 12:23 Alkaline Phosphatase 68 U/L (45-117) 11/04/18 12:23 Total Protein 6.9 g/dl (6.4-8.2) 11/04/18 12:23 Albumin 2.3 g/dl (3.4-5.0) L 11/04/18 12:23 Mild hyponatremia - pt is receiving IV fluids. No PETTY. No transaminitis. 11/04/18 13:45 Lactate 3 Medications ordered: normal saline bolus 1000 cc 11/04/18 14:22 CXR my read: right sided infiltrate, possibly multilobar. Pending official report. Pt to be admitted for pneumonia, sepsis, lactic acidosis. Pending admisison. 11/04/18 14:30 Pt reassessed, reported right sided back pain with coughing. Medications ordered: toradol 30 mg IV once *DC/Admit/Observation/Transfer Diagnosis at time of Disposition: Sepsis, History of HIV infection, COPD exacerbation, Pneumonia - Discharge Dispostion Condition at time of disposition: Stable Decision to Admit order: Yes - Referrals Referrals: Tabatha Jerez MD [Primary Care Provider] - - Patient Instructions - Post Discharge Activity
[2018-11-04] MEDS ORDERED: ACETAMINOPHEN 1000 MG/100 ML VIAL (NON FORMULARY) IVPB ONE (12:27)
[2018-11-04] MEDS ORDERED: SODIUM CHLORIDE 1,000 ML IV STA ×2 (12:27→13:44)
[2018-11-04] MEDS ORDERED: ALBUTEROL SO4 2.5/IPRATROPIUM 0.5 INH SOL 3 ML VIAL.NEB. NEB ONE ×2 (12:28→12:38)
[2018-11-04] MEDS ORDERED: PIPERACILLIN/TAZOB 4.5 GM 4.5 GM in DEXTROSE 5%-WATER 100 ML IVPB ONE (12:32)
[2018-11-04] MEDS ORDERED: VANCOMYCIN 1,000 MG in DEXTROSE 5%-WATER - 250 ML IVPB ONE (12:32)
[2018-11-04] MEDS ORDERED: AZITHROMYCIN IVPB 500 MG in DEXTROSE 5%-WATER - 250 ML IVPB ONE (12:32)
[2018-11-04 12:33] LABS: VENOUS PH 7.36 (7.31-7.41); VENOUS PO2 45.5 mmHg (30-40)
[2018-11-04] MEDS ORDERED: methylPREDNISolone NA SUCC 125 MG/2 ML VIAL IVPUSH ONE (12:33)
[2018-11-04 12:35] LABS: BASO % 0.2 % (0-2.0); EOS % 0.7 % (0-4.5); HEMATOCRIT 27.9 % (32.4-45.2); LYMPH % 5.4 % (8-40); MCH 31.6 pg (25.7-33.7); MCHC 32.1 g/dl (32.0-36.0); MEAN CELL VOLUME 98.6 fl (80-96); MEAN PLT VOLUME 9.8 fl (7.5-11.1); MONO % 8.1 % (3.8-10.2); NEUT % 85.6 % (42.8-82.8); PLATELET COUNT 218 K/MM3 (134-434); RBC 2.83 M/mm3 (3.60-5.2); RDW 14.6 % (11.6-15.6)
[2018-11-04] MEDS ORDERED: ACETAMINOPHEN INJECTION 100 ML IVPB ONE (12:38)
[2018-11-04 12:47] LABS: INR 1.14 (0.83-1.09); PROTHROMBIN TIME (PATIENT) 13.5 SEC (9.7-13.0)
--- NOTE | 2018-11-04 12:49 | PDOC ---
Documentation entered by Leonard Woods SCRIBE, acting as scribe for Bety Iqbal MD. Bety Iqbal MD: This documentation has been prepared by the Peggy weldon Nirvannie, SCRIBE, under my direction and personally reviewed by me in its entirety. I confirm that the documentation accurately reflects all work, treatment, procedures, and medical decision making performed by me. Attending Attestation - Resident Resident Name: Neha Whelan - ED Attending Attestation I have performed the following: I have examined & evaluated the patient, The case was reviewed & discussed with the resident, I agree w/resident's findings & plan, Exceptions are as noted - HPI HPI: 11/04/18 12:35 The patient is a 62 year old female, with a significant past medical history of IV drug use (on methadone), HIV (viral load undetectable, compliant with HAART) , neuropathy, COPD (2L of at home O2), chronic bronchitis, cirrhosis, esophageal cancer, lumbar spinal stenosis, and previous alcohol abuse, who presents to the emergency department via EMS with, 2 days of cough, chest congestion, and difficulty breathing. Patient is incontinent at baseline. Her last IV drug usage was 30 years ago. She denies any diarrhea or constipation. Allergies: Bananas. Past surgical history: Elective surgical abortions. Social history: Smoker. Former IV drug usage (on methadone). Primary Care Provider: Dr. Jerez - Physicial Exam PE: 11/04/18 12:36 GENERAL: Awake, alert, and fully oriented, cachectic. HEAD: No signs of trauma EYES: PERRLA, EOMI, sclera anicteric, conjunctiva clear ENT: Auricles normal inspection, hearing grossly normal, nares patent, oropharynx clear without exudates. Dry mucosa NECK: Normal ROM, supple, no lymphadenopathy, JVD, or masses LUNGS: Dec air entry B/L with diffuse rhonchi. Prolonged exp phase. Intermittent hacking cough with yellow sputum HEART: Regular rate and rhythm, normal S1 and S2, no murmurs, rubs or gallops ABDOMEN: Soft, nontender, normoactive bowel sounds. No guarding, no rebound. No masses EXTREMITIES: Normal range of motion, no edema. No clubbing or cyanosis. No cords, erythema, or tenderness NEUROLOGICAL: Cranial nerves II through XII grossly intact. Normal speech, normal gait SKIN: Warm, Dry, normal turgor, no rashes or lesions noted. - Medical Decision Making Pt with multiple medical comorbidities presenting with severe cough since last night. High suspicion for pneumonia, will treat right away. Nebs, steroids, abx , admit. Labs CD4 398 in Feb 2018.
[2018-11-04 12:50] LABS: ACTIVATED PTT 37.3 SECONDS (25.2-36.5)
[2018-11-04 13:03] LABS: ALBUMIN 2.3 g/dl (3.4-5.0); BILIRUBIN,TOTAL 0.4 mg/dL (0.2-1); CALCIUM 10.5 mg/dL (8.5-10.1); CREATININE 0.6 mg/dL (0.55-1.3); POTASSIUM 3.5 mmol/L (3.5-5.1); TOT PROT 6.9 g/dl (6.4-8.2)
[2018-11-04] MEDS ORDERED: VANCOMYCIN 1 GRAM (PRE-DOCKED) 1,000 MG/250 ML BAG IVPB ONE (13:11)
[2018-11-04] MEDS ORDERED: AZITHROMYCIN IVPB 500 MG/250 ML BAG IVPB ONE (13:11)
[2018-11-04] MEDS ORDERED: methylPREDNISolone NA SUCC 125 MG/2 ML VIAL ONE (13:11)
[2018-11-04] MEDS ORDERED: PIPERACILLIN/TAZOB 4.5 GM 4.5 GM/100 ML BAG IVPB ONE (13:11)
[2018-11-04] MEDS ORDERED: KETOROLAC TROMETHAMINE 30 MG/1 ML VIAL IVPUSH ONE (14:30)
[2018-11-04] MEDS ORDERED: KETOROLAC TROMETHAMINE 30 MG/1 ML VIAL ONE (14:32)
[2018-11-04 16:05] LABS: URINE APPEARANCE CLEAR; URINE BILIRUBIN NEGATIVE (NEGATIVE); URINE COLOR YELLOW; URINE GLUCOSE (UA) NEGATIVE (NEGATIVE); URINE KETONE NEGATIVE (NEGATIVE); URINE LEUK ESTERASE NEGATIVE (NEGATIVE); URINE NITRITE NEGATIVE (NEGATIVE); URINE PROTEIN NEGATIVE (NEGATIVE); URINE UROBILINOGEN 0.2 mg/dL (0.2-1.0)
--- NOTE | 2018-11-04 17:07 | HP ---
CHIEF COMPLAINT: cough and shortness of breath PCP: Dr. Jerez HISTORY OF PRESENT ILLNESS: Pt. is a 63 y.o. F w/ PMHx. of COPD(on 2L O2), BRIAN( on CPAP), HIV(on HAART), Esophageal CA(12 sessions of radiation, 2 sessions of chemo--> Ddx. 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 Pt. states she slept with the window open and under insistence from her brother(PENELOPE) who noticed the cough urged her to come in. Pt. states that her cough has only white productive sputum. Pt. endorses blood in her stool which is normal. Pt. endorses chest tightness that is reproducible on palpation. Pt. endorses polyuria, without dysuria or hematuria. Pt. endorses vomiting nce 2 days ago but denies aspirating emesis as she has a great fear of this. Pt. denies any sick contacts. Pt. denies any fever or chills at home. Pt. denies change in appetite. Pt.'s last BM was 2 days ago which was loose "watery stool." Pt. endorses non-pruritic rashes on face, head, abdomen and buttocks that started 3 months ago, was given a cream but denies any relief. Pt. 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 Family History: Great-grandmother: cancer; Father- Lung CA Allergies No Known Drug Allergies Allergy (Verified 11/04/18 11:28) banana Adverse Reaction (Verified 11/04/18 11:28) HOME MEDICATIONS: Home Medications Medication Instructions Recorded Methadone [Dolophine -] 90 mg PO DAILY@0600 11/26/17 Docusate Sodium [Colace -] 100 mg PO BID #60 cap 01/06/18 Pyridoxine HCl (Vitamin B6) 50 mg PO DAILY #30 capsule 01/06/18 [Vitamin B-6] Thiamine HCl [B-1] 100 mg PO DAILY 30 Days #30 tablet 01/06/18 Ammonium Lactate Cream [Lac-Hydrin 1 applic TP BID #1 tube 07/18/18 12% *Cream*] Folic Acid - 1 mg PO DAILY #30 tablet 07/21/18 Albuterol Sulfate Inhaler - 2 inh PO Q4H PRN #1 inhaler 10/06/18 [Ventolin HFA Inhaler -] Citalopram Hydrobromide [Celexa -] 20 mg PO DAILY #30 tablet 10/06/18 Dolutegravir Sodium [Tivicay] 50 mg PO DAILY #30 tab 10/06/18 Emtricitabine/Tenofov Alafenam 1 each PO DAILY #30 tablet 10/06/18 [Descovy 200-25 mg Tablet (Nf)] Zolpidem Tartrate [Ambien] 5 mg PO HS #30 tablet MDD 1 10/06/18 Lidocaine 5% Patch [Lidoderm Patch 2 patch TP DAILY #60 patch 10/25/18 -] Oxycodone HCl/Acetaminophen 1 each PO BID PRN #60 tablet MDD 2 10/25/18 [Percocet 10-325 mg Tablet] Pregabalin [Lyrica -] 75 mg PO BID 10/25/18 REVIEW OF SYSTEMS CONSTITUTIONAL: generalized weakness, malaise Absent: fever, chills, diaphoresis, loss of appetite, weight change HEENT: difficulty swallowing Absent: rhinorrhea, nasal congestion, throat pain, throat swelling, mouth swelling, ear pain, eye pain, visual changes CARDIOVASCULAR: chest pain Absent: syncope, palpitations, irregular heart rate, lightheadedness, peripheral edema RESPIRATORY: Absent: cough, shortness of breath, dyspnea with exertion, orthopnea, wheezing, stridor, hemoptysis GASTROINTESTINAL: melena, hematochezia Absent: abdominal pain, abdominal distension, nausea, vomiting, diarrhea, constipation GENITOURINARY: frequency, flank pain Absent: dysuria, urgency, hesitancy, hematuria, genital pain MUSCULOSKELETAL: back pain Absent: myalgia, arthralgia, joint swelling, neck pain SKIN: rash Absent: itching, pallor HEMATOLOGIC/IMMUNOLOGIC: frequent infections Absent: easy bleeding, easy bruising, lymphadenopathy, ENDOCRINE: Absent: unexplained weight gain, unexplained weight loss, heat intolerance, cold intolerance NEUROLOGIC: paresthesias Absent: headache, focal weakness, dizziness, unsteady gait, seizure, mental status changes, bladder or bowel incontinence PSYCHIATRIC: Absent: anxiety, depression, suicidal or homicidal ideation, hallucinations. PHYSICAL EXAMINATION Vital Signs - 24 hr 11/04/18 11/04/18 11/04/18 11:29 13:18 14:07 Temperature 99.9 F H 99.9 F H Pulse Rate 88 Pulse Rate [ Right Radial] Respiratory 21 H Rate Blood Pressure 96/67 Blood Pressure [Left Arm] O2 Sat by Pulse 100 98 Oximetry (%) 11/04/18 15:34 Temperature 98.2 F Pulse Rate Pulse Rate [ 108 H Right Radial] Respiratory Rate Blood Pressure Blood Pressure 93/51 L [Left Arm] O2 Sat by Pulse 98 Oximetry (%) GENERAL: Awake, alert, and fully oriented, in no acute distress. HEAD: Lesion on L. frontal head, and R. nasolabial fold EYES: Extraocular movements intact, sclera anicteric, conjunctiva clear. EARS, NOSE, THROAT: Ears normal, nares patent, oropharynx clear without exudates. Moist mucous membranes. NECK: Normal range of motion, supple LUNGS: Decreased breath sounds, No wheezes, and no crackles. No accessory muscle use. HEART: Regular rate and rhythm, normal S1 and S2 without murmur ABDOMEN: Soft, nontender, not distended, normoactive bowel sounds, no guarding, no rebound, no masses; PEG tube present. MUSCULOSKELETAL: Normal range of motion at all joints. B/L CVA tenderness. UPPER EXTREMITIES: 2+ radial pulses, warm, well-perfused. No cyanosis. No peripheral edema. LOWER EXTREMITIES: 2+ dorsal pedal pulses, warm, well-perfused. Diffuse lower extremity tenderness. No peripheral edema. Chronic skin changes- hyperpigmentation. Left buttock lesion NEUROLOGICAL: Normal speech. Gait not assessed PSYCHIATRIC: Cooperative. Good eye contact. Appropriate mood and affect. SKIN: Warm, dry, normal turgor, no rashes or lesions noted, normal capillary refill. Laboratory Results - last 24 hr 11/04/18 11/04/18 11/04/18 12:23 12:23 12:23 WBC 7.0 RBC 2.83 L Hgb 9.0 L Hct 27.9 L MCV 98.6 H MCH 31.6 D MCHC 32.1 RDW 14.6 D Plt Count 218 D MPV 9.8 Absolute Neuts (auto) 6.0 Neutrophils % 85.6 H Lymphocytes % 5.4 L D Monocytes % 8.1 Eosinophils % 0.7 Basophils % 0.2 Nucleated RBC % 0 PT with INR 13.50 H INR 1.14 H PTT (Actin FS) 37.3 H VBG pH 7.36 POC VBG pCO2 59.0 H POC VBG pO2 45.5 H VBG HCO3 32.6 H VBG O2 Sat (Ingrid) 74.6 VBG Base Excess 6.6 H Sodium Potassium Chloride Carbon Dioxide Anion Gap BUN Creatinine Est GFR (CKD-EPI)AfAm Est GFR (CKD-EPI)NonAf Random Glucose Lactic Acid Calcium Total Bilirubin AST ALT Alkaline Phosphatase Troponin I Total Protein Albumin Urine Color Urine Appearance Urine pH Ur Specific [place] Urine Protein Urine Glucose (UA) Urine Ketones Urine Blood Urine Nitrite Urine Bilirubin Urine Urobilinogen Ur Leukocyte Esterase 11/04/18 11/04/18 11/04/18 12:23 12:23 15:21 WBC RBC Hgb Hct MCV MCH MCHC RDW Plt Count MPV Absolute Neuts (auto) Neutrophils % Lymphocytes % Monocytes % Eosinophils % Basophils % Nucleated RBC % PT with INR INR PTT (Actin FS) VBG pH POC VBG pCO2 POC VBG pO2 VBG HCO3 VBG O2 Sat (Ingrid) VBG Base Excess Sodium 134 L Potassium 3.5 Chloride 97 L Carbon Dioxide 31 Anion Gap 7 L BUN 13 Creatinine 0.6 Est GFR (CKD-EPI)AfAm 111.64 Est GFR (CKD-EPI)NonAf 96.33 Random Glucose 121 H Lactic Acid 3.0 H* Calcium 10.5 H Total Bilirubin 0.4 AST 15 ALT 6 L Alkaline Phosphatase 68 Troponin I < 0.02 Total Protein 6.9 Albumin 2.3 L Urine Color Urine Appearance Urine pH Ur Specific [place] Urine Protein Urine Glucose (UA) Urine Ketones Urine Blood Urine Nitrite Urine Bilirubin Urine Urobilinogen Ur Leukocyte Esterase 11/04/18 11/04/18 15:40 15:54 WBC RBC Hgb Hct MCV MCH MCHC RDW Plt Count MPV Absolute Neuts (auto) Neutrophils % Lymphocytes % Monocytes % Eosinophils % Basophils % Nucleated RBC % PT with INR INR PTT (Actin FS) VBG pH POC VBG pCO2 POC VBG pO2 VBG HCO3 VBG O2 Sat (Ingrid) VBG Base Excess Sodium Potassium Chloride Carbon Dioxide Anion Gap BUN Creatinine Est GFR (CKD-EPI)AfAm Est GFR (CKD-EPI)NonAf Random Glucose Lactic Acid 2.5 H* Calcium Total Bilirubin AST ALT Alkaline Phosphatase Troponin I Total Protein Albumin Urine Color Yellow Urine Appearance Clear Urine pH 5.0 D Ur Specific [place] 1.027 Urine Protein Negative Urine Glucose (UA) Negative Urine Ketones Negative Urine Blood Negative Urine Nitrite Negative Urine Bilirubin Negative Urine Urobilinogen 0.2 Ur Leukocyte Esterase Negative ASSESSMENT/PLAN: Pt. is a 63 y.o. F w/ PMHx. of COPD(on 2L O2), BRIAN( on CPAP), HIV(on HAART), Esophageal CA(12 sessions of radiation, 2 sessions of chemo--> Ddx. 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 #Acute Hypoxic Respiratory Failure likely 2/2 Pneumonia Given Vanco, Zosyn and Azithro in ED Supplemental O2 to keep SpO2 above 90% CXR: R. sided congestion LA: 3.0--> 2.5 c/w Zosyn and Vanco f/u Influenza f/u CT Chest ID consultation (Dr. Morris) appreciated f/u Sputum Cx. f/u Legionella and Pneumonia Ag. 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 Neg x 2 #Rash Pt. stats she used a cream that was not effective Pt. states that this is chronic, will await ID recommendations if this is related to HIV status. Rash looks fungal in nature with defined borders, non- erythematous, non-tender and non-pruritic. Will consider Dermatology consult #HIV c/w HAART therapy last CD4: 500+ #COPD c/w Ventolin inhaler PRN #FEN c/w NS @ 75ml/hr monitor electrolytes and replete as needed NPO, tube feeds #DVT Ppx. c/w Lovenox 40mg SQ Visit type - Emergency Visit Emergency Visit: Yes ED Registration Date: 11/04/18 Care time: The patient presented to the Emergency Department on the above date and was hospitalized for further evaluation of their emergent condition. - New Patient This patient is new to me today: Yes Date on this admission: 11/04/18 - Critical Care Critical Care patient: No
[2018-11-04] MEDS ORDERED: SODIUM CHLORIDE 1,000 ML IV SCH (17:15)
--- NOTE | 2018-11-04 17:38 | PN ---
Teaching Attending Note Name of Resident: Dave Villatoro ATTENDING PHYSICIAN STATEMENT I saw and evaluated the patient. I reviewed the resident's note and discussed the case with the resident. I agree with the resident's findings and plan as documented. SUBJECTIVE:63yo F wtih PMH HIV on HARRT, esophageal cancer s/p chemo and RTx, appendicial cancer which was inoperable, dysphagia s/p PEG, COPD on 2 L NC, hx of IVDA on methadone presenting to the ER due to cough productive of white sputum x2 days. assoc with generalized body aches. Has required 3L NC during this time due to dyspnea. also noted several rashes that developed on her face and abdomen 3 months ago which have not improved with various creams. denies CP , fever, chils, night sweats, weight loss, N/V/C/D. states she is compliant with her medication. last CD4 count was around 500 does not recall if she received flu vaccine this past year OBJECTIVE: Last Vital Signs Temp Pulse Resp BP Pulse Ox 98.2 F 108 H 21 H 93/51 L 98 11/04/18 15:34 11/04/18 15:34 11/04/18 11:29 11/04/18 15:34 11/04/18 15:34 General NAD, thin appearing female, older than stated age, poor personal hygiene HEENT oral thrush CV S1 S2 RRR no murmur/rub/gallop LUngs decreased bases, no wheezing or crackles, poor inspiratory effort ABdomen soft NT/ND +PEG Extremiteis no pedal edema SKin rash #1: macular and scaly rash on the forehead along the hair line, Rash # 2 scaly erythermatous rash shiny to the R of nasal bridge, Rash #3 large erythematous lesion with irregular borders on the R side of the abdomen. ASSESSMENT AND PLAN: 63yo F wtih PMH HIV on HARRT, esophageal cancer s/p chemo and RTx, appendicial cancer which was inoperable, dysphagia s/p PEG, COPD on 2 L NC, hx of IVDA on methadone presenting to the ER due to cough productive of white sputum x2 days. and found to have acute on chronic hypoxic respiratory failure due to suspected PNA 1. Acute on chronic hypoxic respiratory failure- due to suspected PNA. requiring higher O2 requirements. get CT chest. will treat for infection. received Solumedrol in the ER, will hold further steroids. titrate down oxygen requirements as tolerated 2. Suspected PNA- received azithromycin, vanco and zosyn in the ER. will get CT chest. low suspicion for PCP. will cont vanco and zosyn for now. check sputum cx , legionella, strep. BCx (has hx of listeria bacteremia, check Flu. ID consult 3. Lactic acidosis- could be from hypoxia vs medication induced from HARRT therapy. trend 4. Macrocytic anemia- no signs of bleeding. check iron studies, vit b12, folate. trend hgb no obvious signs of bleeding. no indication for txn 5. Rash- multiple rashes noted. possible fungal infection. was treated with a cream recently, will need to verify what medication. will d/w ID if thinks this could be related to HIV vs fungal. consider dermatology consult 6. HIV on HARRT- cont therapy. last Cd4 count reported to be in 500;s 7. hx of IVDA on methadone- will need to verify dose. received from [facility] 8. esophageal cancer- f/u with oncology 9. appendicial cancer- f/u with oncology 10. dysphagia s/p PEG- cont TF 11. DVT ppx- lovenox
[2018-11-04] MEDS: ENOXAPARIN NA (PORCINE) 40 MG/0.4 ML DISP.SYRIN SQ SCH (17:50)
[2018-11-04] MEDS ORDERED: PIPERACILLIN/TAZOB 4.5 GM 4.5 GM in DEXTROSE 5%-WATER 100 ML IVPB SCH (21:00)
[2018-11-04] MEDS ORDERED: oxyCODONE HCL 5 MG TABLET PO PRN (21:29)
[2018-11-04] MEDS ORDERED: PATIENT'S OWN MEDICATION (NON-FORMULARY) (Ammonium Lactate Cream 1 APPLIC) TP SCH (22:00)
[2018-11-04] MEDS ORDERED: AMMONIUM LACTATE 12% CREAM 140 GM TUBE TP SCH (22:00)
[2018-11-04] MEDS ORDERED: ZOLPIDEM TARTRATE 5 MG TABLET PO PRN (22:00)
[2018-11-04] MEDS: AMMONIUM LACTATE 12% LOTION 225 GM BOTTLE TP SCH (22:29)
[2018-11-04] MEDS: LIDOCAINE 5% TOPICAL PATCH TP SCH (22:29)
[2018-11-04] MEDS: LIDOCAINE PATCH REMOVAL MC SCH (22:29)
[2018-11-04] MEDS: PREGABALIN 75 MG CAPSULE PO SCH (22:29)
[2018-11-04] MEDS: DOCUSATE SODIUM 100 MG CAPSULE (FP) PO SCH (22:29)
[2018-11-05] MEDS ORDERED: METHADONE HCL 5 MG TABLET PO SCH (06:00)
[2018-11-05] MEDS: ACETAMINOPHEN 325 MG TABLET (FP) PO PRN ×2 (07:00→21:24)
[2018-11-05 07:15] LABS: BASO % 0.1 % (0-2.0); EOS % 0.1 % (0-4.5); HEMATOCRIT 26.2 % (32.4-45.2); HEMOGLOBIN 8.6 GM/dL (10.7-15.3); LYMPH % 6.7 % (8-40); MCH 31.8 pg (25.7-33.7); MCHC 32.9 g/dl (32.0-36.0); MEAN CELL VOLUME 96.6 fl (80-96); MEAN PLT VOLUME 9.7 fl (7.5-11.1); NEUT % 85.1 % (42.8-82.8); PLATELET COUNT 251 K/MM3 (134-434); RBC 2.72 M/mm3 (3.60-5.2); WHITE BLOOD COUNT 7.9 K/mm3 (4.0-10.0)
[2018-11-05 07:30] LABS: ALBUMIN 2.2 g/dl (3.4-5.0); ALK PHOS 65 U/L (45-117); ANION GAP 4 MMOL/L (8-16); BILIRUBIN,TOTAL 0.4 mg/dL (0.2-1); BLOOD UREA NITROGEN 6 mg/dL (7-18); CALCIUM 9.5 mg/dL (8.5-10.1); CHLORIDE 103 mmol/L (98-107); CO2 32 mmol/L (21-32); CREATININE 0.3 mg/dL (0.55-1.3); GLUCOSE,RANDOM 85 mg/dL (74-106); MAGNESIUM 1.9 mg/dL (1.8-2.4); PHOSPHOROUS 2.6 mg/dL (2.5-4.9); SGOT/AST 11 U/L (15-37); SGPT/ALT < 6 U/L (13-61); SODIUM 138 mmol/L (136-145); TOT PROT 6.8 g/dl (6.4-8.2)
[2018-11-05] MEDS ORDERED: METHADONE HCL 10 MG TABLET PO ONE (08:01)
[2018-11-05] MEDS ORDERED: PT OWN MED DRAWER 7, Y5N ONE (09:41)
[2018-11-05] MEDS: THIAMINE HCL 100 MG TABLET (FP) PO SCH (09:47)
[2018-11-05] MEDS: PREGABALIN 75 MG CAPSULE PO SCH ×2 (09:47→21:24)
[2018-11-05] MEDS: FOLIC ACID 1 MG TABLET (FP) PO SCH (09:47)
[2018-11-05] MEDS: CITALOPRAM HYDROBROMIDE 20 MG TABLET (FP) PO SCH (09:47)
[2018-11-05] MEDS: PYRIDOXINE HCL (B-6) 50 MG TABLET (FP) PO SCH (09:47)
[2018-11-05] MEDS: ENOXAPARIN NA (PORCINE) 40 MG/0.4 ML DISP.SYRIN SQ SCH (09:47)
[2018-11-05] MEDS: DOLUTEGRAVIR SODIUM 50 MG TABLET (NON-FORMULARY) PO SCH (09:48)
[2018-11-05] MEDS: LIDOCAINE 5% TOPICAL PATCH TP SCH (09:48)
[2018-11-05] MEDS: EMTRICITABINE/TENOFOV ALAFENAM (DESCOVY) TABLET PO SCH (09:49)
[2018-11-05] MEDS: AMMONIUM LACTATE 12% LOTION 225 GM BOTTLE TP SCH (09:55)
[2018-11-05] MEDS ORDERED: PYRIDOXINE HCL 50 MG PO SCH (10:00)
--- NOTE | 2018-11-05 10:08 | PN ---
Progress Note (short form) - Note Progress Note: remains dyspnic at rest but overall improved since arrival. continues to have productive cough of white sputum. deneis Cp, fever, chills, N/V/C?D Current Medications Generic Name Dose Route Start Last Admin Trade Name Freq PRN Reason Stop Dose Admin Acetaminophen 650 mg 11/04/18 18:46 Tylenol Oral Solution - PO Q6H PRN PAIN Acetaminophen 325 mg 11/04/18 21:29 11/05/18 07:00 Tylenol - PO 325 mg Q12H PRN Administration PAIN LEVEL 7 - 10 Citalopram Hydrobromide 20 mg 11/05/18 10:00 11/05/18 09:47 Celexa - PO 20 mg DAILY [facility] Administration Docusate Sodium 100 mg 11/05/18 10:15 Colace Liquid - PEG BID [facility] Enoxaparin Sodium 40 mg 11/04/18 17:15 11/05/18 09:47 Lovenox - SQ 40 mg DAILY [facility] Administration Folic Acid 1 mg 11/05/18 10:00 11/05/18 09:47 Folic Acid - PO 1 mg DAILY [facility] Administration Piperacillin Sod/Tazobactam 100 mls @ 200 mls/hr 11/04/18 21:00 Sod 4.5 gm/ Dextrose IVPB Q6H-IV [facility] Protocol Lactic Acid 1 applic 11/04/18 22:00 11/05/18 09:55 Lac-Hydrin 12 TP 1 applic BID [facility] Administration Lidocaine 1 patch 11/04/18 21:30 11/05/18 09:48 Lidoderm Patch - TP Not Given DAILY [facility] Methadone HCl 80 mg 11/06/18 06:00 Dolophine - PO DAILY@0600 [facility] Miscellaneous 1 each 11/04/18 22:00 11/04/18 22:29 Lidoderm Patch Removal MC Not Given DAILY@2200 [facility] Pregabalin 75 mg 11/04/18 22:00 11/05/18 09:47 Lyrica - PO 75 mg BID [facility] Administration Pyridoxine HCl 50 mg 11/05/18 10:00 11/05/18 09:47 Vitamin B6 - PO 50 mg DAILY [facility] Administration Thiamine HCl 100 mg 11/05/18 10:00 11/05/18 09:47 Vitamin B1 - PO 100 mg DAILY [facility] Administration Zolpidem Tartrate 5 mg 11/04/18 22:00 11/04/18 22:29 Ambien - PO 5 mg HS PRN Administration INSOMNIA Last Vital Signs Temp Pulse Resp BP Pulse Ox 98 F 89 18 126/61 99 11/05/18 06:00 11/05/18 06:00 11/05/18 06:00 11/05/18 06:00 11/04/18 21:00 General NAD, thin appearing female, older than stated age, poor personal hygiene CV S1 S2 RRR no murmur/rub/gallop LUngs decreased bases, no wheezing or crackles, poor inspiratory effort ABdomen soft NT/ND +PEG Extremiteis no pedal edema SKin rash #1: macular and scaly rash on the forehead along the hair line, Rash # 2 scaly erythermatous rash shiny to the R of nasal bridge, Rash #3 large erythematous lesion with irregular borders on the R side of the abdomen. CBCD WBC 7.9 K/mm3 (4.0-10.0) 11/05/18 06:00 RBC 2.72 M/mm3 (3.60-5.2) L 11/05/18 06:00 Hgb 8.6 GM/dL (10.7-15.3) L 11/05/18 06:00 Hct 26.2 % (32.4-45.2) L 11/05/18 06:00 MCV 96.6 fl (80-96) H 11/05/18 06:00 MCHC 32.9 g/dl (32.0-36.0) 11/05/18 06:00 RDW 14.0 % (11.6-15.6) 11/05/18 06:00 Plt Count 251 K/MM3 (134-434) 11/05/18 06:00 MPV 9.7 fl (7.5-11.1) 11/05/18 06:00 CMP Sodium 138 mmol/L (136-145) 11/05/18 06:00 Potassium 4.0 mmol/L (3.5-5.1) 11/05/18 06:00 Chloride 103 mmol/L (98-107) 11/05/18 06:00 Carbon Dioxide 32 mmol/L (21-32) 11/05/18 06:00 Anion Gap 4 MMOL/L (8-16) L 11/05/18 06:00 BUN 6 mg/dL (7-18) L 11/05/18 06:00 Creatinine 0.3 mg/dL (0.55-1.3) L 11/05/18 06:00 Calcium 9.5 mg/dL (8.5-10.1) 11/05/18 06:00 Total Bilirubin 0.4 mg/dL (0.2-1) 11/05/18 06:00 AST 11 U/L (15-37) L 11/05/18 06:00 ALT < 6 U/L (13-61) L 11/05/18 06:00 Alkaline Phosphatase 65 U/L (45-117) 11/05/18 06:00 Total Protein 6.8 g/dl (6.4-8.2) 11/05/18 06:00 Albumin 2.2 g/dl (3.4-5.0) L 11/05/18 06:00 Microbiology 11/04/18 18:15 Legionella Antigen - Final Urine For Antigen Detection Streptococcus pneumoniae Antigen (M - Final 11/04/18 15:40 Urine Culture - Final Urine - Urine Clean Catch NO GROWTH OBTAINED ASSESSMENT AND PLAN: 63yo F wtih PMH HIV on HARRT, esophageal cancer s/p chemo and RTx, appendicial cancer which was inoperable, dysphagia s/p PEG, COPD on 2 L NC, hx of IVDA on methadone presenting to the ER due to cough productive of white sputum x2 days. and found to have acute on chronic hypoxic respiratory failure due to suspected PNA 1. Acute on chronic hypoxic respiratory failure- due to RUL PNA. saturating 99% on 3L NC. will titrate down as tolerated. 2. RUL PNA- afebrile and no leukocytosis however pt is immunocompromised. on vanco/zosyn. awaiting Sputum Cx and FLu swab to be done. ID consulted. 3. Lactic acidosis- could be from hypoxia vs medication induced from HARRT therapy. trend 4. Macrocytic anemia- slowly trending down. does not report any bleeding. iron studies pending. B12 and folate elevated. no indication for txn 5. Rash- multiple rashes noted. possible fungal infection. was treated with a cream recently, will need to verify what medication. will d/w ID if thinks this could be related to HIV vs fungal. consider dermatology consult 6. HIV on HARRT- cont therapy. last Cd4 count reported to be in 500's 7. hx of IVDA on methadone- dose verified 80mg 8. esophageal cancer- f/u with oncology 9. appendicial cancer- f/u with oncology 10. dysphagia s/p PEG- cont TF 11. DVT ppx- lovenox Visit type - Emergency Visit Emergency Visit: Yes ED Registration Date: 11/04/18 Care time: The patient presented to the Emergency Department on the above date and was hospitalized for further evaluation of their emergent condition. - New Patient This patient is new to me today: No - Critical Care Critical Care patient: No - Discharge Referral Referred to [facility] Med P.C.: No
[2018-11-05] MEDS ORDERED: PIPERACILLIN/TAZOB 4.5 GM 4.5 GM in DEXTROSE 5%-WATER 100 ML IVPB SCH (10:15)
[2018-11-05] MEDS ORDERED: DEXTROSE 5%-WATER 100 ML IVPB ONE ×3 (10:29→19:56)
[2018-11-05] MEDS ORDERED: PIPERACILLIN/TAZOBACTAM 4.5 GM VIAL IVPB ONE ×3 (10:29→19:56)
[2018-11-05] MEDS: DOCUSATE NA 100 MG/10 ML UNIT-DOSE CUPS PEG SCH ×2 (10:42→21:24)
--- NOTE | 2018-11-05 11:08 | EKG ---
Test Reason : Blood Pressure : / mmHG Vent. Rate : 104 BPM Atrial Rate : 104 BPM P-R Int : 168 ms QRS Dur : 100 ms QT Int : 366 ms P-R-T Axes : 066 057 034 degrees QTc Int : 481 ms SINUS TACHYCARDIA NONSPECIFIC T WAVE ABNORMALITY ABNORMAL ECG Confirmed by VITALY STANLEY MD ([id number]) on 11/05/2018 11:08:40 AM Referred By: Confirmed By:VITALY STANLEY MD
--- NOTE | 2018-11-05 12:09 | PN ---
Progress Note (short form) - Note Progress Note: ID consult dictated imp/reccd episode of coughing could not stop - SOB and came to ED history recently diagnosed esophageal cancer- s/p chemo and RT GT placed at [facility] during the same admission she is my patient at the [facility]- well controlled HIV, ETOH use, COPD history of appendiceal cancer (inoperable) followed for this at [facility] as well I HAVE NOT SEEN HER SINCE JUNE- she has f/u after discharge with psychiatry and pain management but has missed multiple appts with me she was getting services from [facility] but this has apparently stopped Not sure if she has followed up with anyone at [facility] after discharge is getting tube feeds- I donot know who has ordered them reports she is still taking her ART yas and nitin she apparently went to [facility] for a second opinion- she has a f/u appt currently she has no services at home no fevers suspect aspiration pneumonia- continue zosyn HIV- check CD4 continue daniel esophageal cancer appendiceal cancer chronic rash- it has worsened since I last saw her- try lotrisone cream advanced directives d/w patient she states she would wish to be DNR/DNI- still has not given up hope and wants to try all options (hence the self referral to [facility])- but does not wish to be resuscitated should her heart stop or should she stop breathing d/w hospitalist
[2018-11-05] MEDS: DOCUSATE SODIUM 100 MG CAPSULE (FP) PO SCH (12:10)
[2018-11-05] MEDS: PIPERACILLIN/TAZOB 4.5 GM 4.5 GM in DEXTROSE 5%-WATER 100 ML IVPB SCH ×3 (12:41→20:49)
--- NOTE | 2018-11-05 15:04 | CONS ---
DATE OF CONSULTATION: DATE OF DICTATION: 11/05/2018 HISTORY OF PRESENT ILLNESS: This is a 63-year-old woman who I know well from the [facility] where I have taken care of her for many, many years. She has a history of well controlled HIV. She has a history of COPD on oxygen at home 2 L, obstructive sleep apnea. 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 She recently was diagnosed this June,, with esophageal cancer and was hospitalized at [facility] where she underwent radiation and chemotherapy, NG tube placement. I have not seen her since her discharge home. She has come to the clinic and seen the psychiatrist, but she has missed multiple appointments with me. She is currently receiving G-tube feedings. I do not know who is doing her feedings as I have not been filing the prescriptions. Patient reports to me that she was told she had one year left to live. This was very upsetting to her and she wanted a second opinion. She has now switched her oncology care to [facility] [place] where she has had one initial visit and is scheduled for follow up. She said she has given them all her records from [facility]. She denies any fevers or chills. She presented with a cough and shortness of breath that started after she was at the [facility]. The cough was persistent and her brother urged her to come to the emergency room. The cough is productive of white sputum. She has no hemoptysis. She has had weight loss, which she finds very disturbing. She states she does not eat orally and just doing all her medications and feeds via G-tube. She vomited once 2 days ago. She has had no sick contacts. She has no fevers or chills. She was started on vancomycin and Zosyn in the ER, as well as Zithromax. PAST MEDICAL HISTORY: Her past medical history is notable for a history of HIV. She has been stable on Descovy and Tivicay with T cells of 398 last in February of 2018. She has a history of COPD on home oxygen, obstructive sleep apnea. She a Tr[employer] Machine at home. 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 She has a history of alcohol and cigarette use. Currently not drinking. She has a history of COPD, prior endocarditis many years ago, constipation, GERD, appendiceal cancer, hepatitis B, hepatitis C with negative TSER, alcoholic liver disease, depression. PAST SURGICAL HISTORY: Surgical history is notable for abortions and recent G-tube. She has a recent diagnosis of esophageal cancer, status post chemotherapy and radiation. HABITS: She is a former smoker. She has recently stopped drinking alcohol since her diagnosis of esophageal cancer. SOCIAL HISTORY: She lives at home with her family. She had services from [facility], including visiting nurse, which apparently have all stopped. There is no history of any recent travel. ALLERGIES: She has no known drug allergies. MEDICATIONS: Her medications at the time of admission include Descovy and Tivicay, which she says she has been taking via G-tube. She has been on tube feeds. It is unclear who is prescribing them. She is taking Ambien, thiamine, pyridoxine, Lyrica, Percocet, methadone, Lidoderm patch, Colace, Celexa, Lac-Hydrin cream and albuterol. REVIEW OF SYSTEMS: Her review of systems is notable for a rash that she had originally when I met her on her scalp. She now has a lesion on her back and under her breast. She states that she has been using a cream that was prescribed by the community health worker. Her review of systems is notable for weight loss. She has had no fevers or chills. PHYSICAL EXAMINATION: General: On physical exam, she is awake and alert. Vitals: She is afebrile. Her vital signs are notable for temperature 98.9, pulse of 89, blood pressure 107//67, respiratory rate is 18. Her T max was 99.9. HEENT: She is normocephalic. Her eyes are anicteric. She has no oral lesions. Neck: Her neck is supple. Lungs: Clear to auscultation. Heart: Regular rate and rhythm. Abdomen: Soft. G-tube site is clean. Extremities: Without edema. Skin: Skin rash is notable for these round annular lesions that are shiny. One is on her upper forehead scalp. She has them under her breast and she has about a 3 cm diameter one on her back. LABORATORY STUDIES: Her labs are notable for a white count of 7.9, hemoglobin 8.6, platelets are 251. INR is 1.1. BUN is 6 and creatinine 0.3. LFTs are normal. Albumin is 2.2. Urinalysis was negative. Influenza screen was negative. She had a CAT scan of her chest that was notable for interval development of several small patchy right upper lobe interstitial infiltrates. She has several non-calcified pulmonary nodules. Right middle lobe atelectasis unchanged from 2018. She has marked pulmonary hypertension and a hypodense structure posterior to the lower cervical trachea. In the emergency room she received vancomycin, Zosyn, Zithromax and a dose of Solu-Medrol. SUMMARY: In summary this is a 63-year-old woman with esophageal cancer and appendiceal cancer, status post recent RT and chemotherapy. I suspect she has aspiration. I would continue the Zosyn at this time. She has had well controlled HIV, but has not had recent markers. I would check a CD4 count and continue her Descovy and Tivicay, which she says she has been continuing at home. Regarding her esophageal cancer, she is seeking a second opinion at [place]. Regarding her appendiceal cancer, this has been declared in-operable at [facility] and is being followed with serial CAT scans. She has a chronic rash could be fungal, as well as psoriatic. I would treat her with Lotrisone at this time and with consideration for Dermatology evaluation. Advanced Directives were discussed with the patient. She states she had discussed this at [facility] and had filled out papers. She wishes to be DNR/DNI, but she has still not given up hope. She wants to try all her options, but does not wish to be resuscitated should her heart stop, or should she stop breathing. All of the above was discussed with the hospitalist. CLOTILDE FINLEY M.D. [id number]
[2018-11-05] MEDS: CLOTRIMAZOLE/BETAMET DIPROP 15 GM TUBE TP SCH (16:00)
[2018-11-05] MEDS: ALBUTEROL SO4 0.083% IH SOL 2.5 MG/3 ML VIAL.NEB. NEB PRN (21:25)
[2018-11-05] MEDS ORDERED: guaiFENesin 200 MG/10 ML 10 ML UNIT-DOSE CUPS PO ONE (21:58)
[2018-11-06] MEDS ORDERED: PIPERACILLIN/TAZOBACTAM 4.5 GM VIAL IVPB ONE ×4 (01:35→19:48)
[2018-11-06] MEDS ORDERED: DEXTROSE 5%-WATER 100 ML IVPB ONE ×4 (01:35→19:49)
[2018-11-06] MEDS: AMMONIUM LACTATE 12% LOTION 225 GM BOTTLE TP SCH ×3 (03:29→21:34)
[2018-11-06] MEDS: PIPERACILLIN/TAZOB 4.5 GM 4.5 GM in DEXTROSE 5%-WATER 100 ML IVPB SCH ×4 (03:29→20:52)
[2018-11-06] MEDS: CLOTRIMAZOLE/BETAMET DIPROP 15 GM TUBE TP SCH ×3 (03:29→21:34)
[2018-11-06] MEDS: LIDOCAINE PATCH REMOVAL MC SCH ×2 (03:30→22:48)
[2018-11-06] MEDS: METHADONE HCL 40 MG DISPERSABLE TABLET PO SCH ×3 (05:46→08:08)
[2018-11-06 06:36] LABS: SERUM IRON SATURATION 11 % (15-55); TOTAL IRON BINDING CAPACITY 145 ug/dL (250-450); UIBC 129 ug/dL (118-369)
[2018-11-06 07:11] LABS: BASO % 0.4 % (0-2.0); EOS % 3.9 % (0-4.5); HEMOGLOBIN 8.8 GM/dL (10.7-15.3); LYMPH % 9.1 % (8-40); MCH 31.9 pg (25.7-33.7); MCHC 32.5 g/dl (32.0-36.0); MEAN CELL VOLUME 98.1 fl (80-96); MEAN PLT VOLUME 9.4 fl (7.5-11.1); MONO % 9.2 % (3.8-10.2); NEUT % 77.4 % (42.8-82.8); PLATELET COUNT 203 K/MM3 (134-434); RBC 2.75 M/mm3 (3.60-5.2); RDW 14.2 % (11.6-15.6); WHITE BLOOD COUNT 5.4 K/mm3 (4.0-10.0)
[2018-11-06 07:41] LABS: CALCIUM 9.3 mg/dL (8.5-10.1); CREATININE 0.5 mg/dL (0.55-1.3); POTASSIUM 3.5 mmol/L (3.5-5.1)
[2018-11-06] MEDS: ALBUTEROL SO4 0.083% IH SOL 2.5 MG/3 ML VIAL.NEB. NEB PRN ×3 (08:03→20:55)
[2018-11-06] MEDS ORDERED: PT OWN MED DRAWER 7, Y5N ONE ×2 (09:11→12:24)
[2018-11-06] MEDS: LIDOCAINE 5% TOPICAL PATCH TP SCH (10:07)
[2018-11-06] MEDS: CITALOPRAM HYDROBROMIDE 20 MG TABLET (FP) PO SCH (10:08)
[2018-11-06] MEDS: THIAMINE HCL 100 MG TABLET (FP) PO SCH (10:08)
[2018-11-06] MEDS: PREGABALIN 75 MG CAPSULE PO SCH ×3 (10:08→21:34)
[2018-11-06] MEDS: FOLIC ACID 1 MG TABLET (FP) PO SCH (10:08)
[2018-11-06] MEDS: FERROUS SO4 325 MG TABLET (FP) PO SCH ×2 (10:08→11:19)
[2018-11-06] MEDS: ENOXAPARIN NA (PORCINE) 40 MG/0.4 ML DISP.SYRIN SQ SCH (10:09)
[2018-11-06] MEDS: DOCUSATE NA 100 MG/10 ML UNIT-DOSE CUPS PEG SCH ×2 (10:09→21:34)
[2018-11-06] MEDS: PYRIDOXINE HCL (B-6) 50 MG TABLET (FP) PO SCH (10:11)
[2018-11-06] MEDS: DOLUTEGRAVIR SODIUM 50 MG TABLET (NON-FORMULARY) PO SCH (10:11)
[2018-11-06] MEDS: EMTRICITABINE/TENOFOV ALAFENAM (DESCOVY) TABLET PO SCH (10:12)
--- NOTE | 2018-11-06 10:25 | PN ---
Physical Exam: SUBJECTIVE: Patient seen and examined. Pt. states that she feels drowsy but breathing is ok. Pt. states she is having diffuse back and lwer extremity pain that has been going on for a few months. Pt. endorses some dizziness and lightheadedness. OBJECTIVE: Vital Signs Period Temp Pulse Resp BP Sys/Amato Pulse Ox Last 24 Hr 98.1 F-99.1 F 92-94 18-18 92-110/53-69 99 GENERAL: Awake, alert, and fully oriented, in no acute distress. HEAD: Lesion on L. frontal head, and R. nasolabial fold EYES: Extraocular movements intact, sclera anicteric, conjunctiva clear. EARS, NOSE, THROAT: Ears normal, nares patent, oropharynx clear without exudates. Moist mucous membranes. NECK: Normal range of motion, supple LUNGS: Diffuse crackles, decreased respirations on right, faint wheezing, no accessory muscle use. On Albuterol treatment HEART: Regular rate and rhythm, normal S1 and S2 without murmur ABDOMEN: Soft, LUQ tender, not distended, normoactive bowel sounds, no guarding , no rebound, no masses; PEG tube present. MUSCULOSKELETAL: Normal range of motion at all joints. B/L CVA tenderness. LOWER EXTREMITIES: 2+ dorsal pedal pulses, warm, well-perfused. Diffuse lower extremity tenderness. No peripheral edema. Chronic skin changes- hyperpigmentation. Left buttock lesion NEUROLOGICAL: Normal speech. Gait not assessed PSYCHIATRIC: Cooperative. Good eye contact. Appropriate mood and affect. SKIN: Warm, dry Laboratory Results - last 24 hr 11/04/18 11/05/18 11/06/18 19:00 10:50 05:35 WBC 5.4 RBC 2.75 L Hgb 8.8 L Hct 27.0 L MCV 98.1 H MCH 31.9 MCHC 32.5 RDW 14.2 Plt Count 203 MPV 9.4 Absolute Neuts (auto) 4.2 Neutrophils % 77.4 Lymphocytes % 9.1 D Monocytes % 9.2 Eosinophils % 3.9 D Basophils % 0.4 D Nucleated RBC % 0 Sodium Potassium Chloride Carbon Dioxide Anion Gap BUN Creatinine Est GFR (CKD-EPI)AfAm Est GFR (CKD-EPI)NonAf Random Glucose Calcium Iron 16 L TIBC 145 L Iron Saturation 11 L Influenza A (Rapid) Negative Influenza B (Rapid) Negative 11/06/18 05:35 WBC RBC Hgb Hct MCV MCH MCHC RDW Plt Count MPV Absolute Neuts (auto) Neutrophils % Lymphocytes % Monocytes % Eosinophils % Basophils % Nucleated RBC % Sodium 138 Potassium 3.5 Chloride 99 Carbon Dioxide 35 H Anion Gap 3 L BUN 7 Creatinine 0.5 L Est GFR (CKD-EPI)AfAm 118.54 Est GFR (CKD-EPI)NonAf 102.28 Random Glucose 136 H Calcium 9.3 Iron TIBC Iron Saturation Influenza A (Rapid) Influenza B (Rapid) Active Medications Home Medications Medication Instructions Recorded Methadone [Dolophine -] 90 mg PO DAILY@0600 11/26/17 Docusate Sodium [Colace -] 100 mg PO BID #60 cap 01/06/18 Pyridoxine HCl (Vitamin B6) 50 mg PO DAILY #30 capsule 01/06/18 [Vitamin B-6] Thiamine HCl [B-1] 100 mg PO DAILY 30 Days #30 tablet 01/06/18 Ammonium Lactate Cream [Lac-Hydrin 1 applic TP BID #1 tube 07/18/18 12% *Cream*] Folic Acid - 1 mg PO DAILY #30 tablet 07/21/18 Albuterol Sulfate Inhaler - 2 inh PO Q4H PRN #1 inhaler 10/06/18 [Ventolin HFA Inhaler -] Citalopram Hydrobromide [Celexa -] 20 mg PO DAILY #30 tablet 10/06/18 Dolutegravir Sodium [Tivicay] 50 mg PO DAILY #30 tab 10/06/18 Emtricitabine/Tenofov Alafenam 1 each PO DAILY #30 tablet 10/06/18 [Descovy 200-25 mg Tablet (Nf)] Zolpidem Tartrate [Ambien] 5 mg PO HS #30 tablet MDD 1 10/06/18 Lidocaine 5% Patch [Lidoderm Patch 2 patch TP DAILY #60 patch 10/25/18 -] Oxycodone HCl/Acetaminophen 1 each PO BID PRN #60 tablet MDD 2 10/25/18 [Percocet 10-325 mg Tablet] Pregabalin [Lyrica -] 75 mg PO BID 10/25/18 Current Medications Acetaminophen (Tylenol Oral Solution -) 650 mg PO Q6H PRN PRN Reason: PAIN Acetaminophen (Tylenol -) 325 mg PO Q12H PRN PRN Reason: PAIN LEVEL 7 - 10 Last Admin: 11/05/18 21:24 Dose: 325 mg Albuterol Sulfate (Ventolin 0.083% Nebulizer Soln -) 1 amp NEB Q4H PRN PRN Reason: SHORT OF BREATH/WHEEZING Last Admin: 11/06/18 08:03 Dose: 1 amp Citalopram Hydrobromide (Celexa -) 20 mg PO DAILY [facility] Last Admin: 11/06/18 10:08 Dose: 20 mg Clotrimazole (Lotrisone Cream (Small Tube)) 1 applic TP BID [facility] Last Admin: 11/06/18 10:16 Dose: 1 applic Docusate Sodium (Colace Liquid -) 100 mg PEG BID [facility] Last Admin: 11/06/18 10:09 Dose: 100 mg Enoxaparin Sodium (Lovenox -) 40 mg SQ DAILY [facility] Last Admin: 11/06/18 10:09 Dose: 40 mg Folic Acid (Folic Acid -) 1 mg PO DAILY [facility] Last Admin: 11/06/18 10:08 Dose: 1 mg Piperacillin Sod/Tazobactam (Sod 4.5 gm/ Dextrose) 100 mls @ 200 mls/hr IVPB Q6H-IV [facility]; Protocol Last Admin: 11/06/18 08:08 Dose: 200 mls/hr Lactic Acid (Lac-Hydrin 12) 1 applic TP BID [facility] Last Admin: 11/06/18 10:16 Dose: 1 applic Lidocaine (Lidoderm Patch -) 1 patch TP DAILY [facility] Last Admin: 11/06/18 10:07 Dose: 1 patch Methadone HCl (Dolophine -) 80 mg PO DAILY@0730 [facility] Last Admin: 11/06/18 08:08 Dose: 80 mg Miscellaneous (Lidoderm Patch Removal) 1 each MC DAILY@2200 [facility] Last Admin: 11/06/18 03:30 Dose: Not Given Pregabalin (Lyrica -) 75 mg PO BID [facility] Last Admin: 11/05/18 21:24 Dose: 75 mg Pyridoxine HCl (Vitamin B6 -) 50 mg PO DAILY [facility] Last Admin: 11/06/18 10:11 Dose: 50 mg Thiamine HCl (Vitamin B1 -) 100 mg PO DAILY [facility] Last Admin: 11/06/18 10:08 Dose: 100 mg Zolpidem Tartrate (Ambien -) 5 mg PO HS PRN PRN Reason: INSOMNIA Last Admin: 11/04/18 22:29 Dose: 5 mg ASSESSMENT/PLAN: Pt. is a 63 y.o. F w/ PMHx. of COPD(on 2L O2), BRIAN( on CPAP), HIV(on HAART), Esophageal CA(12 sessions of radiation, 2 sessions of chemo--> Ddx. 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 #Acute Hypoxic Respiratory Failure likely 2/2 Pneumonitis after vomiting 2 days prior to admission given Hx. of esophageal obstruction 2/2 CA and PEG placement. Given Vanco, Zosyn and Azithro in ED Supplemental O2 to keep SpO2 above 90% CXR: RML vs. RUL congestion LA: 3.0--> 2.5 c/w Zosyn- anticipate will D/C tomorrow d/c Vanco Influenza - CT Chest- small patch RUL interstitial infiltrates, neoplasm around cervical trachea, b/l calcified pulmonary nodules, lymphadenotpathy in supraclavicular fossa ID consultation (Dr. Morris) appreciated Sputum Cx. growing few Gram - Bacilli Legionella and Pneumonia Ag. Negative BCx. Negative to date (grew Listeria in the recent past) #Macrocytic Anemia Hgb: 9.0 f/u Iron studies trend CBC normal transfusion threshold Trop. Neg x 2 Start IV Venofer #Rash Pt. stats she used a cream that was not effective Pt. states that this is chronic, will await ID recommendations if this is related to HIV status. Rash looks fungal in nature with defined borders, non- erythematous, non-tender and non-pruritic. Start clomitrazole cream #HIV c/w HAART therapy last CD4: 398+ f/u Rpt. Cell count #COPD c/w Ventolin inhaler PRN #FEN No IVF monitor electrolytes and replete as needed NPO, tube feeds #DVT Ppx. c/w Lovenox 40mg SQ Visit type - Emergency Visit Emergency Visit: Yes ED Registration Date: 11/04/18 Care time: The patient presented to the Emergency Department on the above date and was hospitalized for further evaluation of their emergent condition. - New Patient This patient is new to me today: No - Critical Care Critical Care patient: No - Discharge Referral Referred to [facility] Med P.C.: No
[2018-11-06] MEDS ORDERED: IRON SUCROSE INJECTION 100 MG in SODIUM CHLORIDE 95 ML IVPB ONE (10:55)
--- NOTE | 2018-11-06 10:57 | PN ---
Teaching Attending Note Name of Resident: Dave Villatoro ATTENDING PHYSICIAN STATEMENT I saw and evaluated the patient. I reviewed the resident's note and discussed the case with the resident. I agree with the resident's findings and plan as documented. SUBJECTIVE:somewhat overall improved but continues to have cough. denies CP, fever, chills, N/V/C/D OBJECTIVE: Last Vital Signs Temp Pulse Resp BP Pulse Ox 98.1 F 93 H 18 112/87 99 11/06/18 10:00 11/06/18 10:00 11/06/18 10:00 11/06/18 10:00 11/05/18 21:00 General NAD, older than stated age CV S1 S2 RRR no murmur/rub/gallop Lungs scatter rhonchi ASSESSMENT AND PLAN: 63yo F wtih PMH HIV on HARRT, esophageal cancer s/p chemo and RTx, appendicial cancer which was inoperable, dysphagia s/p PEG, COPD on 2 L NC, hx of IVDA on methadone presenting to the ER due to cough productive of white sputum x2 days. and found to have acute on chronic hypoxic respiratory failure due to suspected PNA 1. Acute on chronic hypoxic respiratory failure- due to RUL PNA. saturating 99% on 2L NC. at home dose of oxygen 2. RUL PNA vs pneumonitis- concern for aspiration given location. on zosyn day 3. f/u sputum cx. ID on board. 3. Lactic acidosis- could be from hypoxia vs medication induced from HARRT therapy. trend 4. Macrocytic anemia- with iron def anemia. will start iron. no indication for transfusion. Hgb stable 5. Rash- multiple rashes noted. possible fungal infection. was treated with a cream recently, will need to verify what medication. will d/w ID if thinks this could be related to HIV vs fungal. consider dermatology consult 6. HIV on HARRT- cont therapy. last Cd4 count reported to be in 500's 7. hx of IVDA on methadone- dose verified 80mg 8. esophageal cancer- f/u with oncology 9. appendicial cancer- f/u with oncology 10. dysphagia s/p PEG- cont TF 11. DVT ppx- lovenox 12. anticipate discharge in next 24H. 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 pt not agreeable to SNF placement. Goals of care discussed with patient and MOLST form filled out. DNR/DNI
[2018-11-06] MEDS: ACETAMINOPHEN 650 MG/20.3 ML ORAL SOLUTION (CUPS) PO PRN (14:09)
--- NOTE | 2018-11-06 14:28 | PN ---
Progress Note (short form) - Note Progress Note: no fever no cough complains of pain (sees pain management as outpt) Vital Signs Period Temp Pulse Resp BP Sys/Amato Pulse Ox Last 24 Hr 98.1 F-99.1 F 92-94 18-18 92-112/53-87 99 cor-rrr lungs clear abd soft, nt +gt ext no edema CBC, BMP 11/06/18 05:35 11/06/18 05:35 Microbiology 11/04/18 12:23 Blood - Peripheral Venous Blood Culture - Preliminary NO GROWTH OBTAINED AFTER 48 HOURS, INCUBATION TO CONTINUE FOR 3 DAYS. 11/04/18 12:23 Blood - Peripheral Venous Blood Culture - Preliminary NO GROWTH OBTAINED AFTER 48 HOURS, INCUBATION TO CONTINUE FOR 3 DAYS. 11/05/18 10:00 Sputum - Expectorated Gram Stain - Final 11/05/18 10:00 Sputum - Expectorated Sputum Culture - Preliminary Lactose Fermenting Neg Bacilli 11/04/18 18:15 Urine For Antigen Detection Legionella Antigen - Final 11/04/18 18:15 Urine For Antigen Detection Streptococcus pneumoniae Antigen (M - Final 11/04/18 15:40 Urine - Urine Clean Catch Urine Culture - Final NO GROWTH OBTAINED a/p suspect aspiration pneumonia- continue zosyn, f/u cultures, hopefully home on augmentin suspension via GT HIV- check CD4 continue daniel esophageal cancer appendiceal cancer chronic rash- it has worsened since I last saw her- try lotrisone cream- outpatient dermatology evaluation
[2018-11-06 20:21] VITALS: BMI 24.0
[2018-11-06] MEDS: ACETAMINOPHEN 325 MG TABLET (FP) PO PRN (23:19)
[2018-11-07] MEDS ORDERED: PIPERACILLIN/TAZOBACTAM 4.5 GM VIAL IVPB ONE ×3 (00:24→15:03)
[2018-11-07] MEDS ORDERED: DEXTROSE 5%-WATER 100 ML IVPB ONE ×3 (00:24→15:03)
[2018-11-07] MEDS: PIPERACILLIN/TAZOB 4.5 GM 4.5 GM in DEXTROSE 5%-WATER 100 ML IVPB SCH ×3 (02:38→15:36)
[2018-11-07 07:03] LABS: CALCIUM 9.1 mg/dL (8.5-10.1); CREATININE 0.3 mg/dL (0.55-1.3); MAGNESIUM 2.5 mg/dL (1.8-2.4); PHOSPHOROUS 3.4 mg/dL (2.5-4.9); POTASSIUM 3.1 mmol/L (3.5-5.1)
[2018-11-07] MEDS: METHADONE HCL 40 MG DISPERSABLE TABLET PO SCH (08:18)
[2018-11-07] MEDS ORDERED: PT OWN MED DRAWER 7, Y5N ONE (09:18)
[2018-11-07] MEDS: ACETAMINOPHEN 650 MG/20.3 ML ORAL SOLUTION (CUPS) PO PRN (09:22)
[2018-11-07] MEDS: THIAMINE HCL 100 MG TABLET (FP) PO SCH (09:50)
[2018-11-07] MEDS: FOLIC ACID 1 MG TABLET (FP) PO SCH (09:50)
[2018-11-07] MEDS: DOCUSATE NA 100 MG/10 ML UNIT-DOSE CUPS PEG SCH (09:50)
[2018-11-07] MEDS: PREGABALIN 75 MG CAPSULE PO SCH (09:50)
[2018-11-07] MEDS: PYRIDOXINE HCL (B-6) 50 MG TABLET (FP) PO SCH (09:50)
[2018-11-07] MEDS: LIDOCAINE 5% TOPICAL PATCH TP SCH (09:51)
[2018-11-07] MEDS: EMTRICITABINE/TENOFOV ALAFENAM (DESCOVY) TABLET PO SCH (09:51)
[2018-11-07] MEDS: CITALOPRAM HYDROBROMIDE 20 MG TABLET (FP) PO SCH (09:51)
[2018-11-07] MEDS: DOLUTEGRAVIR SODIUM 50 MG TABLET (NON-FORMULARY) PO SCH (09:52)
[2018-11-07] MEDS: ENOXAPARIN NA (PORCINE) 40 MG/0.4 ML DISP.SYRIN SQ SCH (10:13)
[2018-11-07] MEDS: AMMONIUM LACTATE 12% LOTION 225 GM BOTTLE TP SCH (10:13)
[2018-11-07] MEDS: CLOTRIMAZOLE/BETAMET DIPROP 15 GM TUBE TP SCH (10:14)
--- NOTE | 2018-11-07 11:31 | PN ---
Progress Note (short form) - Note Progress Note: no fever alert, intermittent cough complains of pain (sees pain management as outpt) Vital Signs Period Temp Pulse Resp BP Sys/Amato Pulse Ox Last 24 Hr 98.2 F-99.4 F 79-103 18-20 94-113/56-82 93 no thrush cor-rrr lungs decreased bs at bases abd soft,n+gt ext no edema CBC, BMP 11/06/18 05:35 11/07/18 05:55 Microbiology 11/05/18 10:00 Sputum - Expectorated Gram Stain - Final 11/05/18 10:00 Sputum - Expectorated Sputum Culture - Final Klebsiella Pneumoniae 11/04/18 12:23 Blood - Peripheral Venous Blood Culture - Preliminary NO GROWTH OBTAINED AFTER 48 HOURS, INCUBATION TO CONTINUE FOR 3 DAYS. 11/04/18 12:23 Blood - Peripheral Venous Blood Culture - Preliminary NO GROWTH OBTAINED AFTER 48 HOURS, INCUBATION TO CONTINUE FOR 3 DAYS. 11/04/18 18:15 Urine For Antigen Detection Legionella Antigen - Final 11/04/18 18:15 Urine For Antigen Detection Streptococcus pneumoniae Antigen (M - Final 11/04/18 15:40 Urine - Urine Clean Catch Urine Culture - Final NO GROWTH OBTAINED a/p suspect aspiration pneumonia- on zosyn day #3, plan augmentin suspension via GT to complete 7 days, switch when ready for discharge home HIV- CD4 pending continue daniel esophageal cancer-for f/u at [facility] [place] appendiceal cancer chronic rash- it has worsened since I last saw her- try lotrisone cream- outpatient dermatology evaluation-appears improved on lotrisone needs arrangements for assistance at home
--- NOTE | 2018-11-07 12:46 | PN ---
Teaching Attending Note Name of Resident: Dave Villatoro ATTENDING PHYSICIAN STATEMENT I saw and evaluated the patient. I reviewed the resident's note and discussed the case with the resident. I agree with the resident's findings and plan as documented. SUBJECTIVE:c/o back pain. denies Cp, SOB, fever, chills, N/V/C/D OBJECTIVE: Last Vital Signs Temp Pulse Resp BP Pulse Ox 99 F 79 20 113/82 93 L 11/07/18 09:40 11/07/18 09:40 11/07/18 09:40 11/07/18 09:40 11/06/18 21:00 General NAD, older than stated age CV S1 S2 RRR no murmur/rub/gallop Lungs scatter rhonchi back no bone point tenderness, diffuse muscular tenderness ASSESSMENT AND PLAN: 63yo F wtih PMH HIV on HARRT, esophageal cancer s/p chemo and RTx, appendicial cancer which was inoperable, dysphagia s/p PEG, COPD on 2 L NC, hx of IVDA on methadone presenting to the ER due to cough productive of white sputum x2 days. and found to have acute on chronic hypoxic respiratory failure due to suspected PNA 1. Acute on chronic hypoxic respiratory failure- due to RUL PNA. saturating 99% on 2L NC. at home dose of oxygen 2. RUL PNA vs pneumonitis- concern for aspiration given location. on zosyn day 4. will switch to augmentin to complete 7 days. Sputum Cx showing covarrubias sensitive klebsiella. ID on board. 3. back pain- does not seem to have bone involvement, no known bone mets and pain is typical pain. Istop checked and was prescrived percocet 10mg BID with 30 day supply on 10/25/18. will cont while she is here. if pain does not improve will need to consider mets with imaging. will first see if improved with medication 4. Macrocytic anemia- with iron def anemia. received venofer x1, cont on iron via peg. no indication for transfusion. Hgb stable 5. Rash- multiple rashes noted. stated to not be new. will need derm as outpatient 6. HIV on HARRT- cont therapy. last Cd4 count reported to be in 500's 7. hx of IVDA on methadone- dose verified 80mg 8. esophageal cancer- f/u with oncology 9. appendicial cancer- f/u with oncology 10. dysphagia s/p PEG- cont TF 11. DVT ppx- lovenox 12. DNR/DNI, will need VNS on discharge. possible d/c later today pending pain improvement Istop reference Reference #: [id number]
[2018-11-07] MEDS ORDERED: oxyCODONE HCL 5 MG TABLET PO ONE (13:45)
[2018-11-07 14:27] VITALS: BP 97/59; PULSE 82; TEMP 98.6
== END 2018-11-07 19:34 | disposition home or self-care (01) | DRG 133 ==
LOC: JER 11:25 → JERBED 14:04 → J5S 16:45
PROVIDERS: ADMIT Internal Medicine; ATTEND Internal Medicine
DX: J96.21 Acute and chronic respiratory failure with hypoxia (principal); J44.9 Chronic obstructive pulmonary disease, unspecified; G47.33 Obstructive sleep apnea (adult) (pediatric); E87.1 Hypo-osmolality and hyponatremia; Z21 Asymptomatic human immunodeficiency virus [HIV] infection status; C15.9 Malignant neoplasm of esophagus, unspecified; C78.5 Secondary malignant neoplasm of large intestine and rectum; E87.2 Acidosis; F11.20 Opioid dependence, uncomplicated; R13.10 Dysphagia, unspecified; J69.0 Pneumonitis due to inhalation of food and vomit; D53.9 Nutritional anemia, unspecified; R21 Rash and other nonspecific skin eruption; M54.9 Dorsalgia, unspecified; Z66 Do not resuscitate
CPT/HCPCS: 36415; 71045-TC-FY; 71250-TC; 80048; 80053; 81003; 82607; 82728; 82746; 82803; 83540; 83550; 83605; 83735; 84100; 84484; 85025; 85610; 85730; 86359; 86360; 87040; 87070; 87086; 87186; 87205; 87804; 87899; 93005; 93010; 94640; 97116-GP; 97161-GP; 99284-25; J0131; J1756; J7030

== ENCOUNTER 2018-11-14 15:57 | Emergency (ER) | payer OTHER | END 2018-11-14 23:44 | disposition home or self-care (01) | LOC: JER 15:57 ==

== ENCOUNTER 2018-11-18 02:13 | Inpatient (IN) | payer OTHER | END 2018-11-23 15:17 | disposition short-term general hospital (02) | LOC: JER 02:13 → J8W 11-21 19:35 → JERBED 04:36 → J4W 16:19 ==